=== PATIENT | female | born 1940 ===

== ENCOUNTER 2017-11-30 12:51 | Inpatient (IN) | payer MEDICARE, MEDICAID, OTHER ==
[2017-11-30 18:52] VITALS: BMI 33.9
[2017-11-30] MEDS ORDERED: Albuterol HFA 90 mcg/actuation (8 g) IH PRN ×2 (19:43→22:00)
--- NOTE | 2017-11-30 20:11 | CP.PCM.HP ---
<TrentJohnkiran - Last Filed: 11/30/17 22:22> History of Present Illness - History of Present Illness History of Present Illness: 76 y/o female with PMHx CHF, DM, arthritis, asthma, pacemaker placement (recently replaced in Dec 2014), hx SD s/p 4 stents (most recent placed at [place] in 2010), triple vessel disease, colonic polyps, depression, HTN, HLD, hypothyroidism, and s/p thoracentesis and Cardiac cath 11/2017 admitted to [facility] for rehabilitation. Patient reports double vision which started s/p cardiac cath, patient states she had a fall 2 days ago at [facility] and her lower back is hurting since. Patient currently denies any chest pain, SOB, dizziness, palpitations, abdominal pain, or urinary symptoms. 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 Patient's daughter is at bedside. HOSPITAL COURSE: Patient was admitted to [facility] for 20 days for e valuation and treatment of SOB and chest pain. While admitted to the [facility], patient was found to have a CHF exacerbation. Patient was seen by Cardiology, Pulmonary, IR, and Opthalmology. Patient was diuresed and symptoms improved. Patient was also found to have a a pleural effusion while admitted. Patient subsequently underwent a thoracentesis to remove the fluid. Patient underwent a Cardiac cath by Dr. Petersen. [facility] was deemed medically ray [facility] Cardiac Cath done at [facility] with Dr. Petersen on 11/28, S/p Code Star 11/28 after returning from procedure - Patient had Cardiac cath showed tripple vessel disease and will need CABG. Patient was transferred to [facility] for rehabilitation before CABG arrangement to [place]. PMH: CHF, DM, arthritis, asthma, pacemaker placement (recently replaced in Dec 2014), hx SD s/p 4 stents (most recent placed at [place] in 2010), triple vessel disease, colonic polyps, depression, HTN, HLD, hypothyroidism, and s/p thoracentesis and Cardiac cath 11/2017 PSH: Cardiac stents x4 (most recent in 2010), pacemaker placement (replaced in Dec 2014), cholecystectomy Allergies: NKDA Home meds: Ranexa 500 mg PO bid, Omeprazole 40 mg PO daily, Advair Diskus 250/50 1 puff IH q12h, Ventolin HFA inhaler prn, Lyrica 50 mg PO tid, Lexapro 20 mg PO daily, Lantus 60 U at bedtime FH: denies any stroke, SD or any cancers SH: Denies smoking, EtOH, or illicit drug use EMERGENCY CONTACT # Ms. 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 [facility] - CXR 11/26/17 demonstrated poor inspiration with low lung volumes, crowded bronchovascular markings and b/l atelectasis; additionally, pulmonary vasculature slightly increased, findings could represent mild chronic compensated pulmonary edema/CHF, small b/l effusions R larger than L - Chest CT angio: 11/17/17 limited study demonstrating no definitive central pulmonary emboli however note that the distal subsegmental branches of the lower lobe pulmonary arteries are poorly delineated due to moderate b/l R and slightly smaller L-sided effusions with associated atelectasis; vague ground-glass opacities throughout the upper lobes and lower lobes possible representing mild pulmonary edema, cardiomegaly. - Venous LE dopplers-negative - Echo 11/17/17 demonstrated EF 30-35%, L ventricle systolic function moderately to severely impaired, diastolic dysfunction, mild aortic regurgitation, mild mitral regurgitation, moderate tricuspid regurgitation, mod-severe pulm HTN, mild-mod pulmonic regurgitation, atypical echoes c/w trabeculae, can't r/o assoc. thrombi Present on Admission - Present on Admission Any Indicators Present on Admission: No History of DVT/PE: No Past Patient History - Tetanus Immunizations Tetanus Immunization: Up to Date - Past Medical History & Family History Past Medical History?: Yes - Past Social History Smoking Status: Never Smoked - CARDIAC Hx Hypercholesterolemia: Yes Hx Hypertension: Yes - PULMONARY Hx Asthma: Yes - NEUROLOGICAL Hx Neurological Disorder: No - HEENT Hx HEENT Problems: No - RENAL Hx Chronic Kidney Disease: No - ENDOCRINE/METABOLIC Hx Hypothyroidism: Yes - HEMATOLOGICAL/ONCOLOGICAL Hx Blood Transfusions: No - INTEGUMENTARY Hx Dermatological Problems: No - MUSCULOSKELETAL/RHEUMATOLOGICAL Hx Arthritis: Yes - GASTROINTESTINAL Hx Ulcer: Yes - GENITOURINARY/GYNECOLOGICAL Hx Genitourinary Disorders: No - PSYCHIATRIC Hx Depression: Yes Hx Substance Use: No - SURGICAL HISTORY Hx Coronary Stent: Yes (x4) Hx Tubal Ligation: Yes - ANESTHESIA Hx Anesthesia: Yes Hx Anesthesia Reactions: No Hx Malignant Hyperthermia: No Meds Allergies/Adverse Reactions: Allergies Allergy/AdvReac Type Severity Reaction Status Date / Time No Known Allergies Allergy Verified 11/30/17 18:52 Physical Exam - Constitutional Appears: No Acute Distress - Head Exam Head Exam: NORMAL INSPECTION, NORMOCEPHALIC - Eye Exam Eye Exam: EOMI, Normal appearance, PERRL Pupil Exam: NORMAL ACCOMODATION - ENT Exam ENT Exam: Mucous Membranes Moist - Neck Exam Neck exam: Positive for: Normal Inspection - Respiratory Exam Respiratory Exam: Clear to Auscultation Bilateral, NORMAL BREATHING PATTERN. absent: Accessory Muscle Use, Chest Wall Tenderness, Respiratory Distress - Cardiovascular Exam Cardiovascular Exam: REGULAR RHYTHM, +S1, +S2 - GI/Abdominal Exam GI & Abdominal Exam: Normal Bowel Sounds, Soft. absent: Tenderness - Extremities Exam Extremities exam: Positive for: normal capillary refill, normal inspection, pedal pulses present. Negative for: tenderness - Back Exam Back exam: absent: CVA tenderness (L), CVA tenderness (R) - Neurological Exam Neurological exam: Alert, CN II-XII Intact, Oriented x3 - Psychiatric Exam Psychiatric exam: Normal Affect - Skin Skin Exam: Normal Color Assessment & Plan - Assessment and Plan (Free Text) Assessment: A/P: 76 y/o female with PMHx CHF, DM, arthritis, asthma, pacemaker placement (recently replaced in Dec 2014), hx SD s/p 4 stents (most recent placed at [place] in 2010), triple vessel disease, colonic polyps, depression, HTN, HLD, hypothyroidism, and s/p thoracentesis and Cardiac cath 11/2017 admitted to [facility] for rehabilitation. Patient was d/c from [facility] after 20 days, Patient had Cardiac cath showed tripple vessel disease and will need CABG. Patient was transferred to [facility] for rehabilitation before CABG arrangement to [place]. [id number] CHF exacerbation -Cardiac Cath done at [facility] with Dr. Petersen on 11/28, S/p Code Star 11/28 after returning from procedure -Consult Cardio, Dr. PETERSEN, follow recommendations -C/w ASA 81 mg daily -C/w Lasix 40 mg IVP BID -C/w Ranexa 500 mg PO bid -Strict I/O's, monitor diuresis and clinical status -Possible CABG, will follow Dr. Petersen recommendations S/p fall (11/28) at the [facility] - Head CT: No acute changes, - Lumbar XR: No acute changes - Lidoderm Patch for back pain Swelling to the left eyelid with Double vision - Symptoms started S/p cardiac cath - Consider Optho consult Pleural Effusion - s/p thoracentesis of 400 cc, Pending pleural albumin - CXR s/p thoracentesis showed no interval change in R moderate pleural effusion and cardiomegaly - Consider Pulmonary consult Constipation - Improved - On colace 100 bid - Continue to monitor bowel function Hx HTN - BP stable, c/w metoprolol and lasix Hx DM2 - Insulin sliding scale - medium - Fingersticks achs - Lantus 60 U at bedtime - Lyrica 50 mg PO tid Hx depression - C/w lexapro daily Hx asthma - C/w Advair Diskus 250/50 q12h - Ventolin HFA prn GI ppx: Protonix daily DVT ppx: SCDs, Lovenox 30 daily (renally dosed due to Cr clearance) <Yahir Saab D - Last Filed: 12/01/17 11:18> Results - Vital Signs Recent Vital Signs: Last Vital Signs Temp 98.2 F 12/01/17 08:13 Pulse 70 12/01/17 08:38 Resp 20 12/01/17 08:13 BP 133/72 12/01/17 08:38 Pulse Ox 98 12/01/17 08:13 - Labs Result Diagrams: 12/01/17 07:00 12/01/17 07:00 Labs: Laboratory Results - last 24 hr 11/30/17 12/01/17 12/01/17 21:15 07:00 07:00 WBC 5.9 RBC 3.59 L Hgb 10.6 L Hct 30.7 L MCV 85.4 MCH 29.4 MCHC 34.4 RDW 15.2 H Plt Count 225 D MPV 8.3 Neut % (Auto) 67.2 Lymph % (Auto) 17.1 L [place] % (Auto) 8.4 Eos % (Auto) 6.2 H Baso % (Auto) 1.1 Neut # (Auto) 4.0 Lymph # (Auto) 1.0 [place] # (Auto) 0.5 Eos # (Auto) 0.4 Baso # (Auto) 0.1 Sodium 133 Potassium 4.1 Chloride 95 L Carbon Dioxide 32 H Anion Gap 10 BUN 12 Creatinine 1.1 Est GFR ( Amer) 58 Est GFR (Non-Af Amer) 48 POC Glucose (mg/dL) 284 H Random Glucose 194 H Calcium 9.3 Total Bilirubin 0.4 AST 23 ALT 29 Alkaline Phosphatase 36 L D Total Protein 6.4 Albumin 3.6 Globulin 2.8 Albumin/Globulin Ratio 1.3 12/01/17 10:49 WBC RBC Hgb Hct MCV MCH MCHC RDW Plt Count MPV Neut % (Auto) Lymph % (Auto) [place] % (Auto) Eos % (Auto) Baso % (Auto) Neut # (Auto) Lymph # (Auto) [place] # (Auto) Eos # (Auto) Baso # (Auto) Sodium Potassium Chloride Carbon Dioxide Anion Gap BUN Creatinine Est GFR ( Amer) Est GFR (Non-Af Amer) POC Glucose (mg/dL) 324 H Random Glucose Calcium Total Bilirubin AST ALT Alkaline Phosphatase Total Protein Albumin Globulin Albumin/Globulin Ratio Attending/Attestation - Attestation I have personally seen and examined this patient.: Yes I have fully participated in the care of the patient.: Yes I have reviewed all pertinent clinical information: Yes Notes (Text): 12/01/17 11:18 Patient was seen and examined with resident. Case discussed and agreed with assessment and plan of management.
[2017-11-30] MEDS ORDERED: Dextrose 50% SYRINGE Inj (50 ml) IV PRN (20:15)
[2017-11-30] MEDS ORDERED: Glucagon Recombinant 1 mg Inj IM PRN (20:15)
[2017-11-30] MEDS ORDERED: Insulin Detemir 100 Units/ml Inj SC SCH ×2 (22:00)
[2017-11-30] MEDS: Lidocaine 5% Patch TD SCH (22:38)
[2017-12-01] MEDS: Levothyroxine 125 MCG TAB PO SCH (06:17)
[2017-12-01 08:04] LABS: BASO # 0.1 K/uL (0.0-0.2); BASO % 1.1 % (0.0-2.0); EOS # 0.4 K/uL (0.0-0.7); EOS % 6.2 % (0.0-4.0); HEMOGLOBIN 10.6 g/dL (12.0-16.0); LYMPH % 17.1 % (20.0-40.0); MEAN CELL VOLUME 85.4 fl (81.0-99.0); MEAN CORPUSCULAR HEMOGLOBIN 29.4 pg (27.0-31.0); MEAN CORPUSCULAR HGB CONC 34.4 g/dL (33.0-37.0); MEAN PLATELET VOLUME 8.3 fl (7.2-11.7); MONO # 0.5 K/uL (0.0-0.8); MONO % 8.4 % (0.0-10.0); NEUT % 67.2 % (50.0-75.0); RBC 3.59 Mil/uL (3.80-5.20); RED CELL DISTRIBUTION WIDTH 15.2 % (11.5-14.5); WHITE BLOOD COUNT 5.9 K/uL (4.8-10.8)
[2017-12-01 08:17] LABS: ALB/GLOB RATIO 1.3 (1.0-2.1); ALBUMIN 3.6 g/dL (3.5-5.0); CALCIUM 9.3 mg/dL (8.4-10.2)
[2017-12-01] MEDS: Fluticasone-Salmeterol 100-50mcg Diskus INH SCH ×2 (08:35→21:07)
[2017-12-01] MEDS: Lidocaine 5% Patch TD SCH (08:37)
[2017-12-01] MEDS: Enoxaparin 30 mg Syringe SC SCH (08:37)
[2017-12-01] MEDS: Pantoprazole 40 mg EC Tab PO SCH (08:37)
[2017-12-01] MEDS: Ranolazine 500 mg Extended Release Tablets PO SCH ×2 (08:38→17:38)
[2017-12-01] MEDS: Metoprolol Succinate 25 mg XL Tab PO SCH (08:38)
[2017-12-01] MEDS ORDERED: Dextrose 50% SYRINGE Inj (50 ml) IV PRN (12:18)
[2017-12-01] MEDS ORDERED: Dextrose 50% SYRINGE Inj (50 ml) IVP PRN (12:18)
[2017-12-01] MEDS ORDERED: Glucagon Recombinant 1 mg Inj IM PRN (12:18)
[2017-12-01] MEDS: Insulin Regular 100 units/ml SC SCH ×3 (13:04→21:56)
[2017-12-01] MEDS ORDERED: Lubricant Eye Drops UD OS PRN (17:14)
[2017-12-02] MEDS: Levothyroxine 125 MCG TAB PO SCH (06:12)
[2017-12-02] MEDS: Insulin Regular 100 units/ml SC SCH ×4 (06:53→22:13)
[2017-12-02] MEDS: Fluticasone-Salmeterol 100-50mcg Diskus INH SCH ×2 (07:59→21:30)
[2017-12-02] MEDS: Lidocaine 5% Patch TD SCH (08:01)
[2017-12-02] MEDS: Enoxaparin 30 mg Syringe SC SCH (08:01)
[2017-12-02] MEDS: Metoprolol Succinate 25 mg XL Tab PO SCH (08:02)
[2017-12-02] MEDS: Ranolazine 500 mg Extended Release Tablets PO SCH ×2 (08:02→17:04)
[2017-12-02] MEDS: Pantoprazole 40 mg EC Tab PO SCH (08:02)
[2017-12-02 09:30] LABS: BASO # 0.1 K/uL (0.0-0.2); BASO % 1.4 % (0.0-2.0); EOS # 0.3 K/uL (0.0-0.7); EOS % 4.4 % (0.0-4.0); HEMOGLOBIN 11.4 g/dL (12.0-16.0); LYMPH # 0.9 K/uL (1.0-4.3); LYMPH % 13.8 % (20.0-40.0); MEAN CELL VOLUME 85.7 fl (81.0-99.0); MEAN CORPUSCULAR HEMOGLOBIN 29.9 pg (27.0-31.0); MEAN CORPUSCULAR HGB CONC 34.8 g/dL (33.0-37.0); MEAN PLATELET VOLUME 8.3 fl (7.2-11.7); MONO # 0.5 K/uL (0.0-0.8); MONO % 7.4 % (0.0-10.0); NEUT # 4.5 K/uL (1.8-7.0); NRBC % 0.1 % (0.0-0.0); RBC 3.82 Mil/uL (3.80-5.20); RED CELL DISTRIBUTION WIDTH 15.4 % (11.5-14.5); WHITE BLOOD COUNT 6.2 K/uL (4.8-10.8)
[2017-12-02 09:51] LABS: ALB/GLOB RATIO 1.3 (1.0-2.1); CALCIUM 9.3 mg/dL (8.4-10.2)
--- NOTE | 2017-12-02 09:53 | CP.PCM.PN ---
Addendum entered and electronically signed by Minoo Marley MD 12/02/17 18:07: Patient was seen and examined bedside . Chart reviewed . Case discussed with resident.Agree with assessment and plan 76 y/o female with PMH HTN , DM , Depression was admitted to [facility] with chest nelson and recent fall .She was diagnosed with triple vessel disease and CABG was recommended . As per her bone drier operator Dr. Petersen transfer to [facility] for CABG is being arranged . She is transferred currently to TCU for light physical therapy for ADL-s At present stable, with some reproducible left sided chest pain Complains of double vision bilaterally since after cardiac cath Continue Current management Plan to D/c to [place] for CABG Original Note: Subjective - Date & Time of Evaluation Date of Evaluation: 12/02/17 Time of Evaluation: 09:01 - Subjective Subjective: Interpretation services-[id number] Patient was seen and examined this AM sitting upright in chair. Patient complained of chest pain, and left hip pain, which she stated was unchanged from previous pain experienced while at [facility]. She denied any fever, chills, or difficulty breathing. Objective - Vital Signs/Intake and Output Vital Signs (last 24 hours): Temp Pulse Resp BP Pulse Ox 98.1 F 70 20 121/80 100 12/02/17 07:52 12/02/17 08:02 12/02/17 07:52 12/02/17 08:02 12/02/17 07:52 - Medications Medications: Current Medications Albuterol (Ventolin Hfa 90 Mcg/Actuation (8 G)) 1 puff IH Q6 PRN PRN Reason: Shortness of Breath Artificial Tears (Refresh Opth Soln) 0.3 ml OS PRN PRN PRN Reason: Dry eyes Aspirin (Aspirin Chewable) 81 mg PO DAILY [facility] Last Admin: 12/02/17 08:02 Dose: 81 mg Atorvastatin Calcium (Lipitor) 20 mg PO HS [facility] Last Admin: 12/01/17 21:06 Dose: 20 mg Clopidogrel Bisulfate (Plavix) 75 mg PO DAILY [facility] Dextrose (Dextrose 50% Inj) 0 ml IV STAT PRN; Protocol PRN Reason: Hypoglycemia Protocol Dextrose (Glutose 15) 0 gm PO ONCE PRN; Protocol PRN Reason: Hypoglycemia Protocol Dextrose (Dextrose 50% Inj) 0 ml IV STAT PRN; Protocol PRN Reason: Hypoglycemia Protocol Dextrose (Dextrose 50% Inj) 50 ml IVP ONCE PRN PRN Reason: Hypoglycemia Dextrose (Glutose 15) 0 gm PO ONCE PRN; Protocol PRN Reason: Hypoglycemia Protocol Docusate Sodium (Colace) 100 mg PO TID [facility] Last Admin: 12/02/17 08:01 Dose: 100 mg Enoxaparin Sodium (Lovenox) 30 mg SC DAILY [facility]; Protocol Last Admin: 12/02/17 08:01 Dose: 30 mg Escitalopram Oxalate (Lexapro) 20 mg PO DAILY [facility] Last Admin: 12/02/17 08:03 Dose: 20 mg Furosemide (Lasix) 40 mg IV BID [facility] Last Admin: 12/02/17 08:00 Dose: 40 mg Glucagon (Glucagen Diagnostic Kit) 0 mg IM STAT PRN; Protocol PRN Reason: Hypoglycemia Protocol Glucagon (Glucagen Diagnostic Kit) 0 mg IM STAT PRN; Protocol PRN Reason: Hypoglycemia Protocol Insulin Human Regular (Humulin R) 0 units SC ACHS [facility]; Protocol Last Admin: 12/02/17 06:53 Dose: 3 units Levothyroxine Sodium (Synthroid) 125 mcg PO DAILY@0630 [facility] Last Admin: 12/02/17 06:12 Dose: 125 mcg Lidocaine (Lidoderm) 1 ea TD DAILY [facility] Last Admin: 12/02/17 08:01 Dose: 1 ea Metoprolol Succinate (Toprol Xl) 25 mg PO DAILY [facility] Last Admin: 12/02/17 08:02 Dose: 25 mg Pantoprazole Sodium (Protonix Ec Tab) 40 mg PO DAILY [facility] Last Admin: 12/02/17 08:02 Dose: 40 mg Pregabalin (Lyrica) 50 mg PO TID [facility] Last Admin: 12/02/17 08:06 Dose: 50 mg Ranolazine (Ranexa) 500 mg PO BID [facility] Last Admin: 12/02/17 08:02 Dose: 500 mg Fluticasone/Salmeterol (Advair Diskus 100/50) 1 puff INH Q12 [facility] Last Admin: 12/02/17 07:59 Dose: 1 puff - Labs Labs: 12/02/17 09:00 12/02/17 09:00 - Head Exam Head Exam: ATRAUMATIC - Neck Exam Neck Exam: Full ROM - Respiratory Exam Respiratory Exam: Clear to Ausculation Bilateral - Cardiovascular Exam Cardiovascular Exam: REGULAR RHYTHM, +S1, +S2 - GI/Abdominal Exam GI & Abdominal Exam: Soft, Normal Bowel Sounds. absent: Guarding, Rigid, Tenderness - Extremities Exam Extremities Exam: absent: Calf Tenderness - Neurological Exam Neurological Exam: Alert, Awake, Oriented x3 - Psychiatric Exam Psychiatric exam: Normal Mood - Skin Skin Exam: Dry, Intact Assessment and Plan - Assessment and Plan (Free Text) Assessment: 76 y/o female with PMHx CHF, DM, arthritis, asthma, pacemaker placement (recent ly replaced in Dec 2014), hx NV s/p 4 stents (most recent placed at [place] in 2010), triple vessel disease, colonic polyps, depression, HTN, HLD, hypothyroidism, and s/p thoracentesis and Cardiac cath 11/2017 admitted to [facility]TCU for rehabilitation. Patient was discharged from [facility] & transferred to [facility] TCU after cardiac cath showed triple vessel disease. Patient was transferred to this facility for rehabilitation before CABG, which will be done at [place]. 1. [id number] CHF exacerbation -Dr. Petersen recommendations appreciated. Patient will be transferred to [place] for CABG as soon as bed is available. -Cardiac Cath done at [facility] with Dr. Petersen on 11/28 -Continue ASA 81 mg daily -Continue Lasix 40 mg IVP BID -Continue Ranexa 500 mg PO bid -Continue to monitor I/O's. 2. S/p fall (11/28) at the [facility] (Acute) -In TCU for rehabilitation. Continue functional exercise, which include ADL, transfer & hygiene. -Patient s/p Code Star at [facility] 11/28 after returning from procedure -Head CT: No acute changes -Lumbar XR: No acute changes -Continue Lidoderm Patch for back pain. -Tylenol added PRN for pain. 3. Swelling to the left eyelid with Double vision (Acute) - Symptoms started S/p cardiac cath - Consider Optho consult. 3. Pleural Effusion - s/p thoracentesis of 400 cc, Pending pleural albumin - CXR s/p thoracentesis showed no interval change in R moderate pleural effusion and cardiomegaly - Consider Pulmonary consult. 4. Constipation - Improved - Continue colace 100 bid - Continue to monitor bowel function 5. Hx HTN - BP stable - Continue metoprolol and lasix. 6. Hx DM2 - Insulin sliding scale - medium - Fingersticks achs - Continue Lantus 60 U at bedtime - Continue Lyrica 50 mg PO tid 7. Hx depression - Continue lexapro daily 8. Hx asthma - Continue Advair Diskus 250/50 q12h - Continue Ventolin HFA prn 9. GI ppx: -Continue protonix daily 10. DVT ppx: -Continue SCDs, Lovenox 30 daily (renally dosed due to Cr clearance)
--- NOTE | 2017-12-02 15:16 | CARD ---
APPROVED REPORT Date of service: 12/02/2017 EKG Measurement Heart [id number] <Conclusion> Atrial-sensed ventricular-paced rhythm Abnormal ECG
[2017-12-03] MEDS: Levothyroxine 125 MCG TAB PO SCH (06:08)
[2017-12-03] MEDS: Insulin Regular 100 units/ml SC SCH ×4 (07:02→22:02)
[2017-12-03] MEDS: Fluticasone-Salmeterol 100-50mcg Diskus INH SCH ×2 (08:30→22:00)
[2017-12-03] MEDS: Lidocaine 5% Patch TD SCH (08:32)
[2017-12-03] MEDS: Enoxaparin 30 mg Syringe SC SCH (08:32)
[2017-12-03] MEDS: Ranolazine 500 mg Extended Release Tablets PO SCH ×2 (08:33→16:35)
[2017-12-03] MEDS: Metoprolol Succinate 25 mg XL Tab PO SCH (08:33)
[2017-12-03] MEDS: Pantoprazole 40 mg EC Tab PO SCH (08:37)
--- NOTE | 2017-12-03 10:10 | CP.PCM.PN ---
Addendum entered and electronically signed by Donell Cornejo MD 12/05/17 01:00: Patient seen and examined with residents case discussed awaiting transfer for CABG left eye improving see plan discussed and documented below Original Note: Subjective - Date & Time of Evaluation Date of Evaluation: 12/03/17 Time of Evaluation: 10:10 - Subjective Subjective: Pt is a 76 y/o female with PMHx CHF, DM, arthritis, asthma, pacemaker placement (01/02), hx [place] s/p 4 stents ([place] in 2010), colonic polyps, depression, HTN, HLD, hypothyroidism, and s/p thoracentesis and Cardiac cath showing triple vessel disease on 11/2017 admitted to [facility]/TCU for rehabilitation prior to CABG at [place]. Patient reports B/L double vision and L eye lid ptosis which started s/p cardiac cath, patient states she had a fall 2 days ago at [place] and her lower back is hurting since. Today patient reports mild SOB on 2L O2 NC, currently denies any chest pain, dizziness, nausea, vomiting, diarrhea, palpitations, abdominal pain, swelling, or urinary symptoms. Plan for CABG at [place]. Objective - Vital Signs/Intake and Output Vital Signs (last 24 hours): Temp Pulse Resp BP Pulse Ox 98.8 F 75 20 147/79 96 12/03/17 09:42 12/03/17 09:42 12/03/17 09:42 12/03/17 09:42 12/03/17 09:42 - Medications Medications: Current Medications Acetaminophen (Tylenol 325mg Tab) 650 mg PO Q6 PRN PRN Reason: Pain, Mild (1-3) Last Admin: 12/02/17 21:34 Dose: 650 mg Albuterol (Ventolin Hfa 90 Mcg/Actuation (8 G)) 1 puff IH Q6 PRN PRN Reason: Shortness of Breath Artificial Tears (Refresh Opth Soln) 0.3 ml OS PRN PRN PRN Reason: Dry eyes Aspirin (Aspirin Chewable) 81 mg PO DAILY [facility] Last Admin: 12/03/17 08:31 Dose: 81 mg Atorvastatin Calcium (Lipitor) 20 mg PO HS [facility] Last Admin: 12/02/17 21:30 Dose: 20 mg Clopidogrel Bisulfate (Plavix) 75 mg PO DAILY [facility] Last Admin: 12/03/17 08:33 Dose: 75 mg Dextrose (Dextrose 50% Inj) 0 ml IV STAT PRN; Protocol PRN Reason: Hypoglycemia Protocol Dextrose (Glutose 15) 0 gm PO ONCE PRN; Protocol PRN Reason: Hypoglycemia Protocol Dextrose (Dextrose 50% Inj) 0 ml IV STAT PRN; Protocol PRN Reason: Hypoglycemia Protocol Dextrose (Dextrose 50% Inj) 50 ml IVP ONCE PRN PRN Reason: Hypoglycemia Dextrose (Glutose 15) 0 gm PO ONCE PRN; Protocol PRN Reason: Hypoglycemia Protocol Docusate Sodium (Colace) 100 mg PO TID [facility] Last Admin: 12/03/17 08:31 Dose: 100 mg Enoxaparin Sodium (Lovenox) 30 mg SC DAILY [facility]; Protocol Last Admin: 12/03/17 08:32 Dose: 30 mg Escitalopram Oxalate (Lexapro) 20 mg PO DAILY [facility] Last Admin: 12/03/17 08:32 Dose: 20 mg Furosemide (Lasix) 40 mg IV BID [facility] Last Admin: 12/03/17 08:31 Dose: 40 mg Glucagon (Glucagen Diagnostic Kit) 0 mg IM STAT PRN; Protocol PRN Reason: Hypoglycemia Protocol Glucagon (Glucagen Diagnostic Kit) 0 mg IM STAT PRN; Protocol PRN Reason: Hypoglycemia Protocol Insulin Human Regular (Humulin R) 0 units SC ACHS [facility]; Protocol Last Admin: 12/03/17 07:02 Dose: 4 units Levothyroxine Sodium (Synthroid) 125 mcg PO DAILY@0630 [facility] Last Admin: 12/03/17 06:08 Dose: 125 mcg Lidocaine (Lidoderm) 1 ea TD DAILY [facility] Last Admin: 12/03/17 08:32 Dose: 1 ea Metoprolol Succinate (Toprol Xl) 25 mg PO DAILY [facility] Last Admin: 12/03/17 08:33 Dose: 25 mg Pantoprazole Sodium (Protonix Ec Tab) 40 mg PO DAILY [facility] Last Admin: 12/03/17 08:37 Dose: 40 mg Pregabalin (Lyrica) 50 mg PO TID [facility] Last Admin: 12/03/17 08:37 Dose: 50 mg Ranolazine (Ranexa) 500 mg PO BID [facility] Last Admin: 12/03/17 08:33 Dose: 500 mg Fluticasone/Salmeterol (Advair Diskus 100/50) 1 puff INH Q12 [facility] Last Admin: 12/03/17 08:30 Dose: 1 puff - Labs Labs: 12/02/17 09:00 12/02/17 09:00 - Constitutional Appears: Well, Non-toxic, No Acute Distress - Head Exam Head Exam: ATRAUMATIC, NORMAL INSPECTION, NORMOCEPHALIC - Eye Exam Eye Exam: EOMI, Periorbital swelling Additional comments: Left eyelid ptosis - ENT Exam ENT Exam: Mucous Membranes Moist - Respiratory Exam Respiratory Exam: Clear to Ausculation Bilateral, NORMAL BREATHING PATTERN - Cardiovascular Exam Cardiovascular Exam: RRR, +S1, +S2 - GI/Abdominal Exam GI & Abdominal Exam: Soft, Normal Bowel Sounds - Extremities Exam Extremities Exam: Normal Inspection - Neurological Exam Neurological Exam: Alert, Awake, Oriented x3 Assessment and Plan - Assessment and Plan (Free Text) Plan: Pt is a 76 y/o female with PMHx CHF, DM, arthritis, asthma, pacemaker placement (01/02), hx [place] s/p 4 stents ([facility] in 2010), colonic polyps, depression, HTN, HLD, hypothyroidism, and s/p thoracentesis and patient was transferred to [facility] TCU after cardiac cath showed triple vessel disease here for rehabilitation before CABG at [facility]. 1. Wbdbr-is-Hnujeai CHF exacerbation -Dr Petersen on consult-possible transfer today to [facility] for CABG -Cardiac Cath done at [facility] with Dr. Petersen on 11/28- showed triple vessel dz -Continue ASA 81 mg daily -Continue Lasix 40 mg IVP BID -Continue Ranexa 500 mg PO bid -Continue to monitor I/O's, Wt [id number] 2. S/p fall (11/28) at the [facility] (Acute) -In TCU for rehabilitation. Continue limited rehabilitation due to pt weakness -Head CT: No acute changes -Lumbar XR: No acute changes -Continue Lidoderm Patch for back pain. -Tylenol added PRN for pain. 3. Acute B/L Double Vision, L eye lid ptosis s/p cardiac cath - Symptoms started S/p cardiac cath -Pt reports she saw optho @ [facility], unsure of outcome due to language barrier 3. Pleural Effusion - s/p thoracentesis of 400 cc, Pending pleural albumin - CXR s/p thoracentesis showed no interval change in R moderate pleural effusion and cardiomegaly - Consider Pulmonary consult. 4. Constipation - Improved had a bowel movement overnight - Continue colace 100 bid - Continue to monitor bowel function 5. Hx HTN - BP stable 147/79 - Continue metoprolol and lasix. 6. Hx DM2 - Insulin sliding scale - medium - Fingersticks achs - Continue Lantus 60 U at bedtime - Continue Lyrica 50 mg PO tid 7. Hx depression - Continue lexapro daily 8. Hx asthma - Continue Advair Diskus 250/50 q12h - Continue Ventolin HFA prn 9. GI ppx: -Continue protonix daily 10. DVT ppx: -Continue SCDs, Lovenox 30 daily (renally dosed due to Cr clearance)
[2017-12-04] MEDS: Levothyroxine 125 MCG TAB PO SCH (06:09)
[2017-12-04] MEDS: Insulin Regular 100 units/ml SC SCH ×4 (06:36→22:05)
[2017-12-04] MEDS: Pantoprazole 40 mg EC Tab PO SCH (09:50)
[2017-12-04] MEDS: Fluticasone-Salmeterol 100-50mcg Diskus INH SCH ×2 (09:51→22:04)
[2017-12-04] MEDS: Ranolazine 500 mg Extended Release Tablets PO SCH ×2 (09:53→17:33)
[2017-12-04] MEDS: Lidocaine 5% Patch TD SCH (09:53)
[2017-12-04] MEDS: Enoxaparin 30 mg Syringe SC SCH (09:54)
[2017-12-04] MEDS: Metoprolol Succinate 25 mg XL Tab PO SCH (09:55)
--- NOTE | 2017-12-04 10:16 | CP.PCM.PN ---
Addendum entered and electronically signed by Donell Cornejo MD 12/05/17 01:04: Patient seen and examined with residents case and plan discussed and documented in resident note Original Note: Subjective - Date & Time of Evaluation Date of Evaluation: 12/04/17 Time of Evaluation: 11:16 - Subjective Subjective: Pt is a 76 y/o F with PMHx CHF, DM, arthritis, asthma, pacemaker placement (01/02), hx [place] s/p 4 stents ([facility] in 2010), colonic polyps, depression, HTN, HLD, hypothyroidism, and s/p thoracentesis and Cardiac cath showing triple vessel disease on 11/2017 admitted to [facility]/TCU for rehabilitation prior to CABG at [facility]. Patient reports B/L double vision and L eye lid ptosis which started s/p cardiac cath, patient states she had a fall 2 days ago at [place] and her lower back is hurting since. Today patient denies any chest pain, SOB, dizziness, nausea, vomiting, diarrhea, palpitations, abdominal pain, swelling, or urinary symptoms. Plan for CABG at [facility]. Objective - Vital Signs/Intake and Output Vital Signs (last 24 hours): Temp Pulse Resp BP Pulse Ox 98.2 F 70 20 135/62 97 12/04/17 08:14 12/04/17 09:55 12/04/17 08:14 12/04/17 09:56 12/04/17 08:14 - Medications Medications: Current Medications Acetaminophen (Tylenol 325mg Tab) 650 mg PO Q6 PRN PRN Reason: Pain, Mild (1-3) Last Admin: 12/03/17 22:04 Dose: 650 mg Albuterol (Ventolin Hfa 90 Mcg/Actuation (8 G)) 1 puff IH Q6 PRN PRN Reason: Shortness of Breath Artificial Tears (Refresh Opth Soln) 0.3 ml OS PRN PRN PRN Reason: Dry eyes Aspirin (Aspirin Chewable) 81 mg PO DAILY [facility] Last Admin: 12/04/17 09:56 Dose: 81 mg Atorvastatin Calcium (Lipitor) 20 mg PO HS [facility] Last Admin: 12/03/17 22:01 Dose: 20 mg Clopidogrel Bisulfate (Plavix) 75 mg PO DAILY [facility] Last Admin: 12/04/17 09:51 Dose: 75 mg Dextrose (Dextrose 50% Inj) 0 ml IV STAT PRN; Protocol PRN Reason: Hypoglycemia Protocol Dextrose (Glutose 15) 0 gm PO ONCE PRN; Protocol PRN Reason: Hypoglycemia Protocol Dextrose (Dextrose 50% Inj) 0 ml IV STAT PRN; Protocol PRN Reason: Hypoglycemia Protocol Dextrose (Dextrose 50% Inj) 50 ml IVP ONCE PRN PRN Reason: Hypoglycemia Dextrose (Glutose 15) 0 gm PO ONCE PRN; Protocol PRN Reason: Hypoglycemia Protocol Docusate Sodium (Colace) 100 mg PO TID [facility] Last Admin: 12/04/17 09:51 Dose: 100 mg Enoxaparin Sodium (Lovenox) 30 mg SC DAILY [facility]; Protocol Last Admin: 12/04/17 09:54 Dose: 30 mg Escitalopram Oxalate (Lexapro) 20 mg PO DAILY [facility] Last Admin: 12/04/17 09:56 Dose: 20 mg Furosemide (Lasix) 40 mg IV BID [facility] Last Admin: 12/04/17 09:56 Dose: 40 mg Glucagon (Glucagen Diagnostic Kit) 0 mg IM STAT PRN; Protocol PRN Reason: Hypoglycemia Protocol Glucagon (Glucagen Diagnostic Kit) 0 mg IM STAT PRN; Protocol PRN Reason: Hypoglycemia Protocol Insulin Human Regular (Humulin R) 0 units SC [facility]; Protocol Last Admin: 12/04/17 06:36 Dose: 4 units Levothyroxine Sodium (Synthroid) 125 mcg PO DAILY@0630 [facility] Last Admin: 12/04/17 06:09 Dose: 125 mcg Lidocaine (Lidoderm) 1 ea TD DAILY [facility] Last Admin: 12/04/17 09:53 Dose: 1 ea Metoprolol Succinate (Toprol Xl) 25 mg PO DAILY [facility] Last Admin: 12/04/17 09:55 Dose: 25 mg Pantoprazole Sodium (Protonix Ec Tab) 40 mg PO DAILY [facility] Last Admin: 12/04/17 09:50 Dose: 40 mg Pregabalin (Lyrica) 50 mg PO TID [facility] Last Admin: 12/04/17 09:59 Dose: 50 mg Ranolazine (Ranexa) 500 mg PO BID [facility] Last Admin: 12/04/17 09:53 Dose: 500 mg Fluticasone/Salmeterol (Advair Diskus 100/50) 1 puff INH Q12 [facility] Last Admin: 12/04/17 09:51 Dose: 1 puff - Labs Labs: 12/02/17 09:00 12/02/17 09:00 - Constitutional Appears: Well, Non-toxic, No Acute Distress - Head Exam Head Exam: ATRAUMATIC, NORMAL INSPECTION, NORMOCEPHALIC - Eye Exam Eye Exam: EOMI, PERRL Additional comments: L eyelid ptosis, peripheral vision intact - ENT Exam ENT Exam: Mucous Membranes Moist - Respiratory Exam Respiratory Exam: Clear to Ausculation Bilateral, NORMAL BREATHING PATTERN - Cardiovascular Exam Cardiovascular Exam: RRR, +S1, +S2 - GI/Abdominal Exam GI & Abdominal Exam: Soft, Normal Bowel Sounds - Extremities Exam Extremities Exam: Normal Inspection - Neurological Exam Neurological Exam: Alert, Awake, Oriented x3 Assessment and Plan - Assessment and Plan (Free Text) Assessment: Pt is a 76 y/o female with PMHx CHF, DM, arthritis, asthma, pacemaker placement (01/02), hx [place] s/p 4 stents ([facility] in 2010), colonic polyps, depression, HTN, HLD, hypothyroidism, and s/p thoracentesis and patient was transferred to [facility] TCU after cardiac cath showed triple vessel disease here for rehabilitation before CABG at [facility]. 1. [id number] CHF exacerbation -Dr Petersen on consult-possible transfer today to [facility] for CABG-waiting for bed -Cardiac Cath done at [facility] with Dr. Petersen on 11/28- showed triple vessel dz -Continue ASA 81 mg daily -Continue Lasix 40 mg IVP BID -Continue Ranexa 500 mg PO bid -Continue to monitor I/O's, Wt 196lbs 2. S/p fall (11/28) at the [facility] (Acute) -Ordered L hip Xray 4 view for constant hip pain F/u in AM -Tramadol 25mg PO Q6 PRN and Tylenol for pain -In TCU for rehabilitation. Continue limited rehabilitation due to pt weakness -Head CT: No acute changes -Lumbar XR: No acute changes -Continue Lidoderm Patch for back pain. 3. Acute B/L Double Vision, L eye lid ptosis s/p cardiac cath - Symptoms started S/p cardiac cath -Pt reports she saw [facility]tho @ [email or web address]], unsure of outcome due to language barrier 3. Pleural Effusion - s/p thoracentesis of 400 cc, Pending pleural albumin - CXR s/p thoracentesis showed no interval change in R moderate pleural effusion and cardiomegaly - Consider Pulmonary consult. 4. Constipation - Improved had a bowel movement overnight - Continue colace 100 bid - Continue to monitor bowel function 5. Hx HTN - BP stable 135/62 - Continue metoprolol and lasix. 6. Hx DM2 - Insulin sliding scale - medium - Fingersticks achs - Continue Humulin - Continue Lyrica 50 mg PO tid 7. Hx depression - Continue lexapro daily 8. Hx asthma - Continue Advair Diskus 250/50 q12h - Continue Ventolin HFA prn 9. GI ppx: -Continue protonix daily 10. DVT ppx: -Continue SCDs, Lovenox 30 daily (renally dosed due to Cr clearance)
--- NOTE | 2017-12-04 16:46 | RAD ---
Date of service: 12/04/2017 PROCEDURE: HISTORY: L hip pain s/p fall COMPARISON: 12/31/2014 TECHNIQUE: AP pelvis and frog's leg view. FINDINGS: No fracture dislocation appreciated. Limited evaluation of the sacrum-osteopenia and overlying bowel gas here. Bilateral hip arthrosis-progressive since prior exam. Atherosclerotic vascular calcifications present-each groin. IMPRESSION: No fracture or dislocation is suggested. Bilateral osteoarthrosis each hip. Atherosclerotic vascular disease.
--- NOTE | 2017-12-04 17:05 | CP.PCM.CON ---
History of Present Illness - History of Present Illness History of Present Illness: Consultation for evaluation of CHF / CAD and plan for CABG HPI: Daysi is a pleasant 76-year-old female who has been followed by me over the course of last 7 months with history of hypertension diabetes mellitus dyslipidemia CAD status post stenting done about 5 years ago who was recently admitted to [facility] for complains of acute decompensated heart failure he underwent a cardiac catheterization with FFR evaluation which showed significant left main and LAD disease and severe RCA stenosis. She is being planned for a minimally invasive CHAUDHARY to LAD at [facility] he will be seeing Dr. Carey is in the hospital tomorrow and will be admitted for possible revascularization this week. Clinically she was having intermittent bouts of chest pain is maintained on dual antiplatelet therapy along with beta-blockers. Blood pressure somewhat in the normotensive range. Mild lower extremity edema and mild basal crackles. Review of Systems - Review of Systems Systems not reviewed;Unavailable: Acuity of Condition - Constitutional Constitutional: As Per HPI - EENT Eyes: As Per HPI Ears: As Per HPI Nose/Mouth/Throat: As Per HPI - Breasts Breasts: As Per HPI - Cardiovascular Cardiovascular: As Per HPI - Respiratory Respiratory: As Per HPI - Gastrointestinal Gastrointestinal: As Per HPI - Genitourinary Genitourinary: As Per HPI - Reproductive: Female Reproductive:Female: As Per HPI - Menstruation Menstruation: As Per HPI - Musculoskeletal Musculoskeletal: As Per HPI - Integumentary Integumentary: As Per HPI - Neurological Neurological: As Per HPI - Psychiatric Psychiatric: As Per HPI - Endocrine Endocrine: As Per HPI - Hematologic/Lymphatic Hematologic: As Per HPI Past Patient History - Tetanus Immunizations Tetanus Immunization: Up to Date - Past Medical History & Family History Past Medical History?: Yes - Past Social History Smoking Status: Never Smoked - CARDIAC Hx Cardiac Disorders: Yes (triple vessel dz, cardiomegaly, PPM, PR w/ PTCA (2010),) Hx Hypercholesterolemia: Yes Hx Hypertension: Yes - PULMONARY Hx Asthma: Yes - NEUROLOGICAL Hx Neurological Disorder: No - HEENT Hx HEENT Problems: No - RENAL Hx Chronic Kidney Disease: No - ENDOCRINE/METABOLIC Hx Diabetes Mellitus Type 2: Yes Hx Hypothyroidism: Yes - HEMATOLOGICAL/ONCOLOGICAL Hx Blood Transfusions: No - INTEGUMENTARY Hx Dermatological Problems: No - MUSCULOSKELETAL/RHEUMATOLOGICAL Hx Arthritis: Yes - GASTROINTESTINAL Hx Ulcer: Yes - GENITOURINARY/GYNECOLOGICAL Hx Genitourinary Disorders: No - PSYCHIATRIC Hx Depression: Yes Hx Substance Use: No - SURGICAL HISTORY Hx Coronary Stent: Yes (x4) Hx Tubal Ligation: Yes - ANESTHESIA Hx Anesthesia: Yes Hx Anesthesia Reactions: No Hx Malignant Hyperthermia: No Meds Allergies/Adverse Reactions: Allergies Allergy/AdvReac Type Severity Reaction Status Date / Time No Known Allergies Allergy Verified 11/30/17 18:52 - Medications Medications: Current Medications Acetaminophen (Tylenol 325mg Tab) 650 mg PO Q6 PRN PRN Reason: Pain, Mild (1-3) Last Admin: 12/03/17 22:04 Dose: 650 mg Albuterol (Ventolin Hfa 90 Mcg/Actuation (8 G)) 1 puff IH Q6 PRN PRN Reason: Shortness of Breath Artificial Tears (Refresh Opth Soln) 0.3 ml OS PRN PRN PRN Reason: Dry eyes Aspirin (Aspirin Chewable) 81 mg PO DAILY [facility] Last Admin: 12/04/17 09:56 Dose: 81 mg Atorvastatin Calcium (Lipitor) 20 mg PO HS [facility] Last Admin: 12/03/17 22:01 Dose: 20 mg Clopidogrel Bisulfate (Plavix) 75 mg PO DAILY [facility] Last Admin: 12/04/17 09:51 Dose: 75 mg Dextrose (Dextrose 50% Inj) 0 ml IV STAT PRN; Protocol PRN Reason: Hypoglycemia Protocol Dextrose (Glutose 15) 0 gm PO ONCE PRN; Protocol PRN Reason: Hypoglycemia Protocol Dextrose (Dextrose 50% Inj) 0 ml IV STAT PRN; Protocol PRN Reason: Hypoglycemia Protocol Dextrose (Dextrose 50% Inj) 50 ml IVP ONCE PRN PRN Reason: Hypoglycemia Dextrose (Glutose 15) 0 gm PO ONCE PRN; Protocol PRN Reason: Hypoglycemia Protocol Docusate Sodium (Colace) 100 mg PO TID [facility] Last Admin: 12/04/17 13:15 Dose: 100 mg Enoxaparin Sodium (Lovenox) 30 mg SC DAILY [facility]; Protocol Last Admin: 12/04/17 09:54 Dose: 30 mg Escitalopram Oxalate (Lexapro) 20 mg PO DAILY [facility] Last Admin: 12/04/17 09:56 Dose: 20 mg Furosemide (Lasix) 40 mg IV DAILY [facility] Glucagon (Glucagen Diagnostic Kit) 0 mg IM STAT PRN; Protocol PRN Reason: Hypoglycemia Protocol Glucagon (Glucagen Diagnostic Kit) 0 mg IM STAT PRN; Protocol PRN Reason: Hypoglycemia Protocol Insulin Human Regular (Humulin R) 0 units SC ACHS [facility]; Protocol Last Admin: 12/04/17 16:36 Dose: 10 units Levothyroxine Sodium (Synthroid) 125 mcg PO DAILY@0630 [facility] Last Admin: 12/04/17 06:09 Dose: 125 mcg Lidocaine (Lidoderm) 1 ea TD DAILY [facility] Last Admin: 12/04/17 09:53 Dose: 1 ea Metoprolol Succinate (Toprol Xl) 25 mg PO DAILY [facility] Last Admin: 12/04/17 09:55 Dose: 25 mg Pantoprazole Sodium (Protonix Ec Tab) 40 mg PO DAILY [facility] Last Admin: 12/04/17 09:50 Dose: 40 mg Pregabalin (Lyrica) 50 mg PO TID [facility] Last Admin: 12/04/17 13:15 Dose: 50 mg Ranolazine (Ranexa) 500 mg PO BID [facility] Last Admin: 12/04/17 09:53 Dose: 500 mg Fluticasone/Salmeterol (Advair Diskus 100/50) 1 puff INH Q12 [facility] Last Admin: 12/04/17 09:51 Dose: 1 puff Tramadol HCl (Ultram) 25 mg PO Q6 PRN PRN Reason: Pain, severe (8-10) Physical Exam - Constitutional Appears: Well - Head Exam Head Exam: ATRAUMATIC, NORMAL INSPECTION, NORMOCEPHALIC - Eye Exam Eye Exam: EOMI, Normal appearance, PERRL Pupil Exam: NORMAL ACCOMODATION, PERRL - ENT Exam ENT Exam: Mucous Membranes Moist, Normal Exam - Neck Exam Neck exam: Positive for: Normal Inspection - Respiratory Exam Respiratory Exam: Clear to Auscultation Bilateral, NORMAL BREATHING PATTERN - Cardiovascular Exam Cardiovascular Exam: REGULAR RHYTHM, RRR, +S1, +S2, Systolic Murmur - GI/Abdominal Exam GI & Abdominal Exam: Normal Bowel Sounds, Soft. absent: Tenderness - Extremities Exam Extremities exam: Positive for: normal inspection - Back Exam Back exam: NORMAL INSPECTION - Neurological Exam Neurological exam: Alert, CN II-XII Intact, Oriented x3, Reflexes Normal - Psychiatric Exam Psychiatric exam: Normal Affect, Normal Mood - Skin Skin Exam: Dry, Intact, Normal Color, Warm Results - Vital Signs Recent Vital Signs: Last Vital Signs Temp 97.7 F 12/04/17 17:01 Pulse 78 12/04/17 17:01 Resp 20 12/04/17 17:01 BP 137/71 12/04/17 17:01 Pulse Ox 96 12/04/17 17:01 - Labs Result Diagrams: 12/02/17 09:00 12/02/17 09:00 Labs: Laboratory Results - last 24 hr 12/03/17 12/04/17 12/04/17 21:11 05:35 10:38 POC Glucose (mg/dL) 248 H 297 H 394 H 12/04/17 16:18 POC Glucose (mg/dL) 431 H* Assessment & Plan (1) CAD (coronary artery disease) Assessment and Plan: plan for CABG by ( pt reluctant for sternotomy and prefers MiDCAB ) cont DAPT BB statins Status: Chronic (2) CHF (congestive heart failure) Assessment and Plan: Ischemic CMP GDMT for CHF add acei Status: Acute (3) Pleural effusion Status: Acute (4) Diabetes Status: Chronic (5) Hypertension Status: Chronic
--- NOTE | 2017-12-04 17:14 | CP.PCM.PN ---
Subjective - Date & Time of Evaluation Date of Evaluation: 12/04/17 Time of Evaluation: 17:10 - Subjective Subjective: feeling fine c/o back pain Objective - Vital Signs/Intake and Output Vital Signs (last 24 hours): Temp Pulse Resp BP Pulse Ox 97.7 F 78 20 137/71 96 12/04/17 17:01 12/04/17 17:01 12/04/17 17:01 12/04/17 17:01 12/04/17 17:01 - Medications Medications: Current Medications Acetaminophen (Tylenol 325mg Tab) 650 mg PO Q6 PRN PRN Reason: Pain, Mild (1-3) Last Admin: 12/03/17 22:04 Dose: 650 mg Albuterol (Ventolin Hfa 90 Mcg/Actuation (8 G)) 1 puff IH Q6 PRN PRN Reason: Shortness of Breath Artificial Tears (Refresh Opth Soln) 0.3 ml OS PRN PRN PRN Reason: Dry eyes Aspirin (Aspirin Chewable) 81 mg PO DAILY [facility] Last Admin: 12/04/17 09:56 Dose: 81 mg Atorvastatin Calcium (Lipitor) 20 mg PO HS [facility] Last Admin: 12/03/17 22:01 Dose: 20 mg Clopidogrel Bisulfate (Plavix) 75 mg PO DAILY [facility] Last Admin: 12/04/17 09:51 Dose: 75 mg Dextrose (Dextrose 50% Inj) 0 ml IV STAT PRN; Protocol PRN Reason: Hypoglycemia Protocol Dextrose (Glutose 15) 0 gm PO ONCE PRN; Protocol PRN Reason: Hypoglycemia Protocol Dextrose (Dextrose 50% Inj) 0 ml IV STAT PRN; Protocol PRN Reason: Hypoglycemia Protocol Dextrose (Dextrose 50% Inj) 50 ml IVP ONCE PRN PRN Reason: Hypoglycemia Dextrose (Glutose 15) 0 gm PO ONCE PRN; Protocol PRN Reason: Hypoglycemia Protocol Docusate Sodium (Colace) 100 mg PO TID [facility] Last Admin: 12/04/17 13:15 Dose: 100 mg Enoxaparin Sodium (Lovenox) 30 mg SC DAILY [facility]; Protocol Last Admin: 12/04/17 09:54 Dose: 30 mg Escitalopram Oxalate (Lexapro) 20 mg PO DAILY [facility] Last Admin: 12/04/17 09:56 Dose: 20 mg Furosemide (Lasix) 40 mg IV DAILY [facility] Glucagon (Glucagen Diagnostic Kit) 0 mg IM STAT PRN; Protocol PRN Reason: Hypoglycemia Protocol Glucagon (Glucagen Diagnostic Kit) 0 mg IM STAT PRN; Protocol PRN Reason: Hypoglycemia Protocol Insulin Human Regular (Humulin R) 0 units SC ACHS [facility]; Protocol Last Admin: 12/04/17 16:36 Dose: 10 units Levothyroxine Sodium (Synthroid) 125 mcg PO DAILY@0630 [facility] Last Admin: 12/04/17 06:09 Dose: 125 mcg Lidocaine (Lidoderm) 1 ea TD DAILY [facility] Last Admin: 12/04/17 09:53 Dose: 1 ea Metoprolol Succinate (Toprol Xl) 25 mg PO DAILY [facility] Last Admin: 12/04/17 09:55 Dose: 25 mg Pantoprazole Sodium (Protonix Ec Tab) 40 mg PO DAILY [facility] Last Admin: 12/04/17 09:50 Dose: 40 mg Pregabalin (Lyrica) 50 mg PO TID [facility] Last Admin: 12/04/17 13:15 Dose: 50 mg Ranolazine (Ranexa) 500 mg PO BID [facility] Last Admin: 12/04/17 09:53 Dose: 500 mg Fluticasone/Salmeterol (Advair Diskus 100/50) 1 puff INH Q12 [facility] Last Admin: 12/04/17 09:51 Dose: 1 puff Tramadol HCl (Ultram) 25 mg PO Q6 PRN PRN Reason: Pain, severe (8-10) - Labs Labs: 12/02/17 09:00 12/02/17 09:00 - Constitutional Appears: Well - Head Exam Head Exam: ATRAUMATIC, NORMAL INSPECTION, NORMOCEPHALIC - Eye Exam Eye Exam: EOMI, Normal appearance, PERRL Pupil Exam: NORMAL ACCOMODATION, PERRL - ENT Exam ENT Exam: Mucous Membranes Moist, Normal Exam - Neck Exam Neck Exam: Full ROM, Normal Inspection. absent: Lymphadenopathy - Respiratory Exam Respiratory Exam: Clear to Ausculation Bilateral, NORMAL BREATHING PATTERN - Cardiovascular Exam Cardiovascular Exam: REGULAR RHYTHM, +S1, +S2. absent: Murmur - GI/Abdominal Exam GI & Abdominal Exam: Soft, Normal Bowel Sounds. absent: Tenderness - Extremities Exam Extremities Exam: Full ROM, Normal Capillary Refill, Normal Inspection. absent: Joint Swelling, Pedal Edema - Back Exam Back Exam: NORMAL INSPECTION - Neurological Exam Neurological Exam: Alert, Awake, CN II-XII Intact, Oriented x3 - Psychiatric Exam Psychiatric exam: Normal Affect, Normal Mood - Skin Skin Exam: Dry, Intact, Normal Color, Warm Assessment and Plan (1) CAD (coronary artery disease) Assessment & Plan: plan for CABG evaluation to be seen by arranging for appt tomorrow cont dapt cont bb , statins Status: Chronic (2) CHF (congestive heart failure) Assessment & Plan: add acei Status: Acute (3) Pleural effusion Status: Acute (4) Diabetes Status: Chronic (5) Hypertension Status: Chronic
[2017-12-05] MEDS: Levothyroxine 125 MCG TAB PO SCH (06:38)
[2017-12-05] MEDS: Insulin Regular 100 units/ml SC SCH ×4 (06:56→22:32)
[2017-12-05 07:13] LABS: BASO # 0.1 K/uL (0.0-0.2); BASO % 0.9 % (0.0-2.0); EOS # 0.3 K/uL (0.0-0.7); EOS % 5.9 % (0.0-4.0); HEMOGLOBIN 10.1 g/dL (12.0-16.0); LYMPH % 17.6 % (20.0-40.0); MEAN CELL VOLUME 85.8 fl (81.0-99.0); MEAN CORPUSCULAR HEMOGLOBIN 29.4 pg (27.0-31.0); MEAN CORPUSCULAR HGB CONC 34.2 g/dL (33.0-37.0); MEAN PLATELET VOLUME 8.2 fl (7.2-11.7); MONO # 0.7 K/uL (0.0-0.8); MONO % 12.4 % (0.0-10.0); NEUT # 3.6 K/uL (1.8-7.0); NEUT % 63.2 % (50.0-75.0); RBC 3.43 Mil/uL (3.80-5.20); WHITE BLOOD COUNT 5.7 K/uL (4.8-10.8)
[2017-12-05 07:18] LABS: CALCIUM 9.2 mg/dL (8.4-10.2)
[2017-12-05] MEDS: Lidocaine 5% Patch TD SCH (09:21)
[2017-12-05] MEDS: Fluticasone-Salmeterol 100-50mcg Diskus INH SCH ×2 (09:21→22:31)
[2017-12-05] MEDS: Enoxaparin 30 mg Syringe SC SCH (09:22)
[2017-12-05] MEDS: Ranolazine 500 mg Extended Release Tablets PO SCH ×2 (09:23→17:14)
[2017-12-05] MEDS: Pantoprazole 40 mg EC Tab PO SCH (09:25)
[2017-12-05] MEDS: Metoprolol Succinate 25 mg XL Tab PO SCH (09:31)
--- NOTE | 2017-12-05 09:56 | CP.PCM.PN ---
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 Patient still reports B/L double vision and L eye lid ptosis which started s/p cardiac cath today her vision has improved slightly, patient's left sided LBP has improved as well after the tramadol. Patient feels better than yesterday has some mild constipation, was able to complete PT, denies any chest pain, SOB, dizziness, nausea, vomiting, diarrhea, palpitations, abdominal pain, swelling, or urinary symptoms. Plan for CABG at [place] trying for appt today or tomorrow. Objective - Vital Signs/Intake and Output Vital Signs (last 24 hours): Temp Pulse Resp BP Pulse Ox 98.1 F 69 20 137/64 99 12/05/17 08:06 12/05/17 09:31 12/05/17 08:06 12/05/17 09:31 12/05/17 08:06 - Medications Medications: Current Medications Acetaminophen (Tylenol 325mg Tab) 650 mg PO Q6 PRN PRN Reason: Pain, Mild (1-3) Last Admin: 12/03/17 22:04 Dose: 650 mg Albuterol (Ventolin Hfa 90 Mcg/Actuation (8 G)) 1 puff IH Q6 PRN PRN Reason: Shortness of Breath Artificial Tears (Refresh Opth Soln) 0.3 ml OS PRN PRN PRN Reason: Dry eyes Aspirin (Aspirin Chewable) 81 mg PO DAILY [facility] Last Admin: 12/05/17 09:28 Dose: 81 mg Atorvastatin Calcium (Lipitor) 20 mg PO HS [facility] Last Admin: 12/04/17 21:59 Dose: 20 mg Clopidogrel Bisulfate (Plavix) 75 mg PO DAILY [facility] Last Admin: 12/05/17 09:24 Dose: 75 mg Dextrose (Dextrose 50% Inj) 0 ml IV STAT PRN; Protocol PRN Reason: Hypoglycemia Protocol Dextrose (Glutose 15) 0 gm PO ONCE PRN; Protocol PRN Reason: Hypoglycemia Protocol Dextrose (Dextrose 50% Inj) 0 ml IV STAT PRN; Protocol PRN Reason: Hypoglycemia Protocol Dextrose (Dextrose 50% Inj) 50 ml IVP ONCE PRN PRN Reason: Hypoglycemia Dextrose (Glutose 15) 0 gm PO ONCE PRN; Protocol PRN Reason: Hypoglycemia Protocol Docusate Sodium (Colace) 100 mg PO TID [facility] Last Admin: 12/05/17 09:24 Dose: 100 mg Enoxaparin Sodium (Lovenox) 30 mg SC DAILY [facility]; Protocol Last Admin: 12/05/17 09:22 Dose: 30 mg Escitalopram Oxalate (Lexapro) 20 mg PO DAILY [facility] Last Admin: 12/05/17 09:24 Dose: 20 mg Furosemide (Lasix) 40 mg IV DAILY [facility] Last Admin: 12/05/17 09:25 Dose: 40 mg Glucagon (Glucagen Diagnostic Kit) 0 mg IM STAT PRN; Protocol PRN Reason: Hypoglycemia Protocol Glucagon (Glucagen Diagnostic Kit) 0 mg IM STAT PRN; Protocol PRN Reason: Hypoglycemia Protocol Insulin Human Regular (Humulin R) 0 units SC ACHS [facility]; Protocol Last Admin: 12/05/17 06:56 Dose: 6 units Levothyroxine Sodium (Synthroid) 125 mcg PO DAILY@0630 [facility] Last Admin: 12/05/17 06:38 Dose: 125 mcg Lidocaine (Lidoderm) 1 ea TD DAILY [facility] Last Admin: 12/05/17 09:21 Dose: 1 ea Metoprolol Succinate (Toprol Xl) 25 mg PO DAILY [facility] Last Admin: 12/05/17 09:31 Dose: 25 mg Pantoprazole Sodium (Protonix Ec Tab) 40 mg PO DAILY [facility] Last Admin: 12/05/17 09:25 Dose: 40 mg Pregabalin (Lyrica) 50 mg PO TID [facility] Last Admin: 12/05/17 09:24 Dose: 50 mg Ramipril (Altace) 2.5 mg PO DAILY [facility] Last Admin: 12/05/17 09:23 Dose: 2.5 mg Ranolazine (Ranexa) 500 mg PO BID [facility] Last Admin: 12/05/17 09:23 Dose: 500 mg Fluticasone/Salmeterol (Advair Diskus 100/50) 1 puff INH Q12 [facility] Last Admin: 12/05/17 09:21 Dose: 1 puff Tramadol HCl (Ultram) 25 mg PO Q6 PRN PRN Reason: Pain, severe (8-10) - Labs Labs: 12/05/17 07:01 12/05/17 07:01 - Constitutional Appears: Well, Non-toxic, No Acute Distress - Head Exam Head Exam: ATRAUMATIC, NORMAL INSPECTION, NORMOCEPHALIC - Eye Exam Eye Exam: EOMI, Normal appearance Additional comments: L eyelid ptosis, peripheral vision intact - ENT Exam ENT Exam: Mucous Membranes Moist - Respiratory Exam Respiratory Exam: Rales, NORMAL BREATHING PATTERN Additional comments: B/L rales appreciated in Lower lobe - Cardiovascular Exam Cardiovascular Exam: RRR, +S1, +S2 - GI/Abdominal Exam GI & Abdominal Exam: Soft, Normal Bowel Sounds - Extremities Exam Extremities Exam: Normal Inspection - Neurological Exam Neurological Exam: Alert, Awake, Oriented x3 Assessment and Plan - Assessment and Plan (Free Text) Assessment: Pt is a 76 y/o female with PMHx CHF, DM, arthritis, asthma, pacemaker placement (01/02), hx DC s/p 4 stents ([place] in 2010), colonic polyps, depression, HTN, HLD, hypothyroidism, and s/p thoracentesis and patient was transferred to [facility] TCU after cardiac cath showed triple vessel disease here for rehabilitation before CABG at [place]. 1. [id number] CHF exacerbation -Dr Petersen on consult-possible transfer today or tomorrow to [place] for CABG [place] [facility] [place]- showed triple vessel dz -Started on Ramipril 2.5mg PO daily -Continue ASA 81 mg daily -Lasix discontinued -Continue Ranexa 500 mg PO bid -Continue to monitor I/O's 2. S/p fall (11/28) at the [facility] (Acute) -L hip Xray- no fracture or dislocation, hip pain improved -Tramadol 25mg PO Q6 PRN and Tylenol for pain -In TCU for rehabilitation, completed PT today -Head CT: No acute changes -Lumbar XR: No acute changes -Continue Lidoderm Patch for back pain. 3. Acute B/L Double Vision, L eye lid ptosis s/p cardiac cath - Symptoms started S/p cardiac cath -Pt reports mild improvement in vision today 3. Pleural Effusion - s/p thoracentesis of 400 cc, Pending pleural albumin - CXR s/p thoracentesis showed no interval change in R moderate pleural effusion and cardiomegaly -No SOB 4. Constipation - Improved had a bowel movement overnight - Continue colace 100 bid - Continue to monitor bowel function 5. Hx HTN -BP stable 137/64 -Continue metoprolol -Started Ramipril 2.5mg PO daily -Lasix has been discontinued -Continue to monitor electrolytes (Na 129, CL 88) 6. Hx DM2 -Insulin sliding scale - Fingersticks achs -Last POC 344 -Levemir 30units SC HS, 10units SC QD -Continue Humulin R ACHS -Continue Lyrica 50 mg PO tid 7. Hx depression - Continue lexapro daily 8. Hx asthma - Continue Advair Diskus 250/50 q12h - Continue Ventolin HFA prn 9. GI ppx: -Continue protonix daily 10. DVT ppx: -Continue SCDs, Lovenox 30 daily (renally dosed due to Cr clearance)
[2017-12-05] MEDS ORDERED: Insulin Detemir 100 Units/ml Inj SC SCH ×2 (11:00→22:00)
[2017-12-05] MEDS: Insulin Detemir 100 Units/ml Inj SC SCH (22:35)
[2017-12-06] MEDS: Levothyroxine 125 MCG TAB PO SCH (06:13)
[2017-12-06 06:26] LABS: CALCIUM 9.2 mg/dL (8.4-10.2)
[2017-12-06] MEDS: Insulin Regular 100 units/ml SC SCH ×4 (07:40→22:00)
[2017-12-06] MEDS: Fluticasone-Salmeterol 100-50mcg Diskus INH SCH ×2 (08:35→21:13)
[2017-12-06] MEDS: Lidocaine 5% Patch TD SCH (08:37)
[2017-12-06] MEDS: Ranolazine 500 mg Extended Release Tablets PO SCH ×2 (08:37→17:01)
[2017-12-06] MEDS: Enoxaparin 30 mg Syringe SC SCH (08:37)
[2017-12-06] MEDS: Pantoprazole 40 mg EC Tab PO SCH (08:39)
[2017-12-06] MEDS: Insulin Detemir 100 Units/ml Inj SC SCH ×2 (08:40→22:00)
--- NOTE | 2017-12-06 09:09 | CP.PCM.PN ---
Subjective - Date & Time of Evaluation Date of Evaluation: 12/06/17 Time of Evaluation: 09:00 - Subjective Subjective: Pt is a 76 y/o F with PMHx CHF, DM, arthritis, asthma, pacemaker placement (01/02), hx [place] s/p 4 stents ([place] in 2010), colonic polyps, depression, HTN, HLD, hypothyroidism, and s/p thoracentesis and Cardiac cath showing triple vessel disease on 11/2017 admitted to [facility]/TCU for rehabilitation prior to CABG at [place]. Patient still reports B/L double vision and L eye lid ptosis which started s/p cardiac cath today her vision has improved slightly, patient's still has left sided LBP. Patient feels well still some mild constipation, denies any chest pain, SOB, dizziness, nausea, vomiting, diarrhea, palpitations, abdominal pain, swelling, or urinary symptoms. Plan for CABG at [place]-still pending appt. Objective - Vital Signs/Intake and Output Vital Signs (last 24 hours): Temp Pulse Resp BP Pulse Ox 98.2 F 68 18 126/62 100 12/06/17 08:32 12/06/17 08:32 12/06/17 08:32 12/06/17 08:36 12/06/17 08:32 - Medications Medications: Current Medications Acetaminophen (Tylenol 325mg Tab) 650 mg PO Q6 PRN PRN Reason: Pain, Mild (1-3) Last Admin: 12/03/17 22:04 Dose: 650 mg Albuterol (Ventolin Hfa 90 Mcg/Actuation (8 G)) 1 puff IH Q6 PRN PRN Reason: Shortness of Breath Artificial Tears (Refresh Opth Soln) 0.3 ml OS PRN PRN PRN Reason: Dry eyes Aspirin (Aspirin Chewable) 81 mg PO DAILY [facility] Last Admin: 12/06/17 08:36 Dose: 81 mg Atorvastatin Calcium (Lipitor) 20 mg PO HS [facility] Last Admin: 12/05/17 22:37 Dose: 20 mg Clopidogrel Bisulfate (Plavix) 75 mg PO DAILY [facility] Last Admin: 12/06/17 08:37 Dose: 75 mg Dextrose (Dextrose 50% Inj) 0 ml IV STAT PRN; Protocol PRN Reason: Hypoglycemia Protocol Dextrose (Glutose 15) 0 gm PO ONCE PRN; Protocol PRN Reason: Hypoglycemia Protocol Dextrose (Dextrose 50% Inj) 0 ml IV STAT PRN; Protocol PRN Reason: Hypoglycemia Protocol Dextrose (Dextrose 50% Inj) 50 ml IVP ONCE PRN PRN Reason: Hypoglycemia Dextrose (Glutose 15) 0 gm PO ONCE PRN; Protocol PRN Reason: Hypoglycemia Protocol Docusate Sodium (Colace) 100 mg PO TID [facility] Last Admin: 12/06/17 08:36 Dose: 100 mg Enoxaparin Sodium (Lovenox) 30 mg SC DAILY [facility]; Protocol Last Admin: 12/06/17 08:37 Dose: 30 mg Escitalopram Oxalate (Lexapro) 20 mg PO DAILY [facility] Last Admin: 12/06/17 08:37 Dose: 20 mg Furosemide (Lasix) 40 mg IV DAILY [facility] Last Admin: 12/06/17 08:36 Dose: 40 mg Glucagon (Glucagen Diagnostic Kit) 0 mg IM STAT PRN; Protocol PRN Reason: Hypoglycemia Protocol Glucagon (Glucagen Diagnostic Kit) 0 mg IM STAT PRN; Protocol PRN Reason: Hypoglycemia Protocol Insulin Detemir (Levemir) 30 units SC [facility] Last Admin: 12/05/17 22:35 Dose: 30 units Insulin Detemir (Levemir) 10 units SC DAILY [facility] Last Admin: 12/06/17 08:40 Dose: 10 unit Insulin Human Regular (Humulin R) 0 units SC [facility]; Protocol Last Admin: 12/06/17 07:40 Dose: 3 units Levothyroxine Sodium (Synthroid) 125 mcg PO DAILY@0630 [facility] Last Admin: 12/06/17 06:13 Dose: 125 mcg Lidocaine (Lidoderm) 1 ea TD DAILY [facility] Last Admin: 12/06/17 08:37 Dose: 1 ea Metoprolol Succinate (Toprol Xl) 25 mg PO DAILY [facility] Last Admin: 12/05/17 09:31 Dose: 25 mg Pantoprazole Sodium (Protonix Ec Tab) 40 mg PO DAILY [facility] Last Admin: 12/06/17 08:39 Dose: 40 mg Pregabalin (Lyrica) 50 mg PO TID [facility] Last Admin: 12/06/17 08:39 Dose: 50 mg Ramipril (Altace) 2.5 mg PO DAILY [facility] Last Admin: 12/06/17 08:36 Dose: 2.5 mg Ranolazine (Ranexa) 500 mg PO BID [facility] Last Admin: 12/06/17 08:37 Dose: 500 mg Fluticasone/Salmeterol (Advair Diskus 100/50) 1 puff INH Q12 [facility] Last Admin: 12/06/17 08:35 Dose: 1 puff Tramadol HCl (Ultram) 25 mg PO Q6 PRN PRN Reason: Pain, severe (8-10) Last Admin: 12/05/17 22:50 Dose: 25 mg - Labs Labs: 12/05/17 07:01 12/06/17 05:45 - Constitutional Appears: Non-toxic, No Acute Distress - Head Exam Head Exam: ATRAUMATIC, NORMAL INSPECTION, NORMOCEPHALIC - Eye Exam Eye Exam: EOMI, Normal appearance, PERRL - ENT Exam ENT Exam: Mucous Membranes Moist - Respiratory Exam Respiratory Exam: NORMAL BREATHING PATTERN Additional comments: mild B/L rales, improved since yesterday - Cardiovascular Exam Cardiovascular Exam: RRR, +S1, +S2 - GI/Abdominal Exam GI & Abdominal Exam: Soft, Normal Bowel Sounds - Extremities Exam Extremities Exam: Normal Inspection - Neurological Exam Neurological Exam: Alert, Awake, Oriented x3 Assessment and Plan - Assessment and Plan (Free Text) Assessment: Pt is a 76 y/o female with PMHx CHF, DM, arthritis, asthma, pacemaker placement (01/02), hx [place] s/p 4 stents ([place] in 2010), colonic polyps, depression, HTN, HLD, hypothyroidism, and s/p thoracentesis and patient was transferred to [facility] TCU after cardiac cath showed triple vessel disease here for rehabilitation before CABG at [place]. 1. [id number] CHF exacerbation -Dr Petersen on consult-possible transfer today to [place] for CABG -Cardiac Cath done at [facility] [place] with Dr. Petersen on 11/28- showed triple vessel dz -Started on Ramipril 2.5mg PO daily -Continue ASA 81 mg daily -Lasix 40mg IV QD -Continue Ranexa 500 mg PO bid -Continue to monitor I/O's, Wt 86kg 2. S/p fall (11/28) at the [facility] (Acute) -L hip Xray- no fracture or dislocation, hip pain improved -Tramadol 25mg PO Q6 and Tylenol for pain -In TCU for rehabilitation, PT -Head CT: No acute changes -Lumbar XR: No acute changes -Continue Lidoderm Patch for back pain. 3. Acute B/L Double Vision, L eye lid ptosis s/p cardiac cath -Symptoms started S/p cardiac cath -Pt reports mild improvement in vision 3. Pleural Effusion -s/p thoracentesis of 400 cc, Pending pleural albumin -CXR s/p thoracentesis showed no interval change in R moderate pleural effusion and cardiomegaly 4. Constipation -Continue colace 100mg TID -Continue to monitor bowel function 5. Hx HTN -BP stable 120/60 -Metoprolol 25mg QD -Ramipril 2.5mg PO daily -Lasix 40mg IV QD -Continue to monitor electrolytes (Na 129, CL 90) 6. Hx DM2 -Insulin sliding scale - Fingersticks achs -Last POC 291 -Levemir 30units SC HS, 10units SC QD -Continue Humulin R ACHS -Continue Lyrica 50 mg PO tid 7. Hx depression - Continue lexapro daily 8. Hx asthma - Continue Advair Diskus 250/50 q12h - Continue Ventolin HFA prn 9. GI ppx: -Continue protonix 40mg daily 10. DVT ppx: -Continue SCDs, Lovenox 30 daily (renally dosed due to Cr clearance)
[2017-12-06] MEDS: Metoprolol Succinate 25 mg XL Tab PO SCH (10:03)
[2017-12-06 16:43] VITALS: RESP 20
--- NOTE | 2017-12-06 17:33 | CP.PCM.PN ---
Subjective - Date & Time of Evaluation Date of Evaluation: 12/06/17 Time of Evaluation: 17:32 - Subjective Subjective: awaiting CABG Objective - Vital Signs/Intake and Output Vital Signs (last 24 hours): Temp Pulse Resp BP Pulse Ox 98.1 F 66 20 116/60 97 12/06/17 16:42 12/06/17 17:04 12/06/17 16:42 12/06/17 16:42 12/06/17 17:04 - Medications Medications: Current Medications Acetaminophen (Tylenol 325mg Tab) 650 mg PO Q6 PRN PRN Reason: Pain, Mild (1-3) Last Admin: 12/03/17 22:04 Dose: 650 mg Albuterol (Ventolin Hfa 90 Mcg/Actuation (8 G)) 1 puff IH Q6 PRN PRN Reason: Shortness of Breath Artificial Tears (Refresh Opth Soln) 0.3 ml OS PRN PRN PRN Reason: Dry eyes Aspirin (Aspirin Chewable) 81 mg PO DAILY [facility] Last Admin: 12/06/17 08:36 Dose: 81 mg Atorvastatin Calcium (Lipitor) 20 mg PO HS [facility] Last Admin: 12/05/17 22:37 Dose: 20 mg Clopidogrel Bisulfate (Plavix) 75 mg PO DAILY [facility] Last Admin: 12/06/17 08:37 Dose: 75 mg Dextrose (Dextrose 50% Inj) 0 ml IV STAT PRN; Protocol PRN Reason: Hypoglycemia Protocol Dextrose (Glutose 15) 0 gm PO ONCE PRN; Protocol PRN Reason: Hypoglycemia Protocol Dextrose (Dextrose 50% Inj) 0 ml IV STAT PRN; Protocol PRN Reason: Hypoglycemia Protocol Dextrose (Dextrose 50% Inj) 50 ml IVP ONCE PRN PRN Reason: Hypoglycemia Dextrose (Glutose 15) 0 gm PO ONCE PRN; Protocol PRN Reason: Hypoglycemia Protocol Docusate Sodium (Colace) 100 mg PO TID [facility] Last Admin: 12/06/17 17:01 Dose: 100 mg Enoxaparin Sodium (Lovenox) 30 mg SC DAILY [facility]; Protocol Last Admin: 12/06/17 08:37 Dose: 30 mg Escitalopram Oxalate (Lexapro) 20 mg PO DAILY [facility] Last Admin: 12/06/17 08:37 Dose: 20 mg Furosemide (Lasix) 40 mg IV DAILY [facility] Last Admin: 12/06/17 08:36 Dose: 40 mg Glucagon (Glucagen Diagnostic Kit) 0 mg IM STAT PRN; Protocol PRN Reason: Hypoglycemia Protocol Glucagon (Glucagen Diagnostic Kit) 0 mg IM STAT PRN; Protocol PRN Reason: Hypoglycemia Protocol Insulin Detemir (Levemir) 30 units SC HS [facility] Last Admin: 12/05/17 22:35 Dose: 30 units Insulin Detemir (Levemir) 10 units SC DAILY [facility] Last Admin: 12/06/17 08:40 Dose: 10 unit Insulin Human Regular (Humulin R) 0 units SC ACHS [facility]; Protocol Last Admin: 12/06/17 16:59 Dose: 3 units Levothyroxine Sodium (Synthroid) 125 mcg PO DAILY@0630 [facility] Last Admin: 12/06/17 06:13 Dose: 125 mcg Lidocaine (Lidoderm) 1 ea TD DAILY [facility] Last Admin: 12/06/17 08:37 Dose: 1 ea Metoprolol Succinate (Toprol Xl) 25 mg PO DAILY [facility] Last Admin: 12/06/17 10:03 Dose: 25 mg Pantoprazole Sodium (Protonix Ec Tab) 40 mg PO DAILY [facility] Last Admin: 12/06/17 08:39 Dose: 40 mg Pregabalin (Lyrica) 50 mg PO TID [facility] Last Admin: 12/06/17 17:02 Dose: 50 mg Ramipril (Altace) 2.5 mg PO DAILY [facility] Last Admin: 12/06/17 08:36 Dose: 2.5 mg Ranolazine (Ranexa) 500 mg PO BID [facility] Last Admin: 12/06/17 17:01 Dose: 500 mg Fluticasone/Salmeterol (Advair Diskus 100/50) 1 puff INH Q12 [facility] Last Admin: 12/06/17 08:35 Dose: 1 puff Tramadol HCl (Ultram) 25 mg PO Q6 [facility] Last Admin: 12/06/17 13:50 Dose: Not Given - Labs Labs: 12/05/17 07:01 12/06/17 05:45 - Constitutional Appears: Well - Head Exam Head Exam: ATRAUMATIC, NORMAL INSPECTION, NORMOCEPHALIC - Eye Exam Eye Exam: EOMI, Normal appearance, PERRL Pupil Exam: NORMAL ACCOMODATION, PERRL - ENT Exam ENT Exam: Mucous Membranes Moist, Normal Exam - Neck Exam Neck Exam: Full ROM, Normal Inspection. absent: Lymphadenopathy - Respiratory Exam Respiratory Exam: Clear to Ausculation Bilateral, NORMAL BREATHING PATTERN - Cardiovascular Exam Cardiovascular Exam: REGULAR RHYTHM, +S1, +S2. absent: Murmur - GI/Abdominal Exam GI & Abdominal Exam: Soft, Normal Bowel Sounds. absent: Tenderness - Rectal Exam Rectal Exam: NORMAL INSPECTION - Exam Exam: Circumcision, NORMAL INSPECTION External exam: NORMAL EXTERNAL EXAM Speculum exam: NORMAL SPECULUM EXAM Bimanual exam: NORMAL BIMANUAL EXAM - Extremities Exam Extremities Exam: Full ROM, Normal Capillary Refill, Normal Inspection. absent: Joint Swelling, Pedal Edema - Back Exam Back Exam: NORMAL INSPECTION - Neurological Exam Neurological Exam: Alert, Awake, CN II-XII Intact, Normal Gait, Oriented x3 - Psychiatric Exam Psychiatric exam: Normal Affect, Normal Mood - Skin Skin Exam: Dry, Intact, Normal Color, Warm Assessment and Plan (1) CAD (coronary artery disease) Status: Chronic (2) CHF (congestive heart failure) Status: Acute (3) Pleural effusion Status: Acute (4) Diabetes Status: Chronic (5) Hypertension Status: Chronic
[2017-12-06] MEDS: POLYETHYLENE GLYCOL 3350 17 GM/Dose PACKET PO SCH ×2 (21:14→23:33)
[2017-12-07] MEDS: Levothyroxine 125 MCG TAB PO SCH (06:14)
[2017-12-07] MEDS: Insulin Regular 100 units/ml SC SCH ×4 (06:46→21:41)
[2017-12-07 07:20] LABS: CALCIUM 9.3 mg/dL (8.4-10.2)
[2017-12-07] MEDS: Enoxaparin 30 mg Syringe SC SCH (09:09)
[2017-12-07] MEDS: Fluticasone-Salmeterol 100-50mcg Diskus INH SCH ×2 (09:10→21:34)
[2017-12-07] MEDS: Ranolazine 500 mg Extended Release Tablets PO SCH ×2 (09:10→16:16)
[2017-12-07] MEDS: Metoprolol Succinate 25 mg XL Tab PO SCH (09:11)
[2017-12-07] MEDS: Lidocaine 5% Patch TD SCH (09:11)
[2017-12-07] MEDS: Insulin Detemir 100 Units/ml Inj SC SCH ×2 (09:14→21:40)
[2017-12-07] MEDS: Pantoprazole 40 mg EC Tab PO SCH (09:16)
[2017-12-07] MEDS: POLYETHYLENE GLYCOL 3350 17 GM/Dose PACKET PO SCH (21:34)
[2017-12-08] MEDS: Insulin Regular 100 units/ml SC SCH ×4 (02:20→17:02)
[2017-12-08] MEDS: Levothyroxine 125 MCG TAB PO SCH (05:37)
[2017-12-08 07:46] LABS: CALCIUM 9.2 mg/dL (8.4-10.2)
[2017-12-08 08:02] VITALS: PULSE 69
[2017-12-08] MEDS: Fluticasone-Salmeterol 100-50mcg Diskus INH SCH (08:13)
[2017-12-08] MEDS: Insulin Detemir 100 Units/ml Inj SC SCH (08:14)
[2017-12-08] MEDS: Silver Sulfadiazine 1% Cream (20 gm) TOP SCH ×2 (08:16→17:04)
[2017-12-08] MEDS: Enoxaparin 30 mg Syringe SC SCH (08:16)
[2017-12-08] MEDS: Metoprolol Succinate 25 mg XL Tab PO SCH (08:17)
[2017-12-08] MEDS: Pantoprazole 40 mg EC Tab PO SCH (08:20)
[2017-12-08] MEDS: Ranolazine 500 mg Extended Release Tablets PO SCH ×2 (08:20→17:04)
[2017-12-08] MEDS: Lidocaine 5% Patch TD SCH (08:20)
[2017-12-08 14:12] LABS: OSMOLALITY,URINE 195 mosm/kg (300-1000)
[2017-12-08 15:31] VITALS: BP 119/64; TEMP 97.5; O2SAT 99
--- NOTE | 2017-12-08 16:14 | CP.PCM.DIS ---
Provider - Provider Date of Admission: 11/30/17 19:22 Attending physician: Donell Cornejo MD Time Spent in preparation of Discharge (in minutes): 30 Diagnosis - Discharge Diagnosis (1) CHF (congestive heart failure) Status: Chronic (2) CAD (coronary artery disease) Status: Chronic (3) Diabetes Status: Chronic Comment: uncontrolled (4) Hypertension Status: Chronic (5) Pleural effusion Status: Resolved Hospital Course - Lab Results Lab Results: Most Recent Lab Values WBC 5.7 K/uL (4.8-10.8) 12/05/17 07:01 RBC 3.43 Mil/uL (3.80-5.20) L 12/05/17 07:01 Hgb 10.1 g/dL (12.0-16.0) L 12/05/17 07:01 Hct 29.4 % (34.0-47.0) L 12/05/17 07:01 MCV 85.8 fl (81.0-99.0) 12/05/17 07:01 MCH 29.4 pg (27.0-31.0) 12/05/17 07:01 MCHC 34.2 g/dL (33.0-37.0) 12/05/17 07:01 RDW 15.0 % (11.5-14.5) H 12/05/17 07:01 Plt Count 225 K/uL (130-400) 12/05/17 07:01 MPV 8.2 fl (7.2-11.7) 12/05/17 07:01 Neut % (Auto) 63.2 % (50.0-75.0) 12/05/17 07:01 Lymph % (Auto) 17.6 % (20.0-40.0) L 12/05/17 07:01 [place] % (Auto) 12.4 % (0.0-10.0) H 12/05/17 07:01 Eos % (Auto) 5.9 % (0.0-4.0) H 12/05/17 07:01 Baso % (Auto) 0.9 % (0.0-2.0) 12/05/17 07:01 Neut # (Auto) 3.6 K/uL (1.8-7.0) 12/05/17 07:01 Lymph # (Auto) 1.0 K/uL (1.0-4.3) 12/05/17 07:01 [place] # (Auto) 0.7 K/uL (0.0-0.8) 12/05/17 07:01 Eos # (Auto) 0.3 K/uL (0.0-0.7) 12/05/17 07:01 Baso # (Auto) 0.1 K/uL (0.0-0.2) 12/05/17 07:01 Sodium 126 mmol/l (132-148) L 12/08/17 05:25 Potassium 4.5 MMOL/L (3.6-5.0) 12/08/17 05:25 Chloride 87 mmol/L (98-107) L 12/08/17 05:25 Carbon Dioxide 28 mmol/L (22-30) 12/08/17 05:25 Anion Gap 16 (10-20) 12/08/17 05:25 BUN 27 mg/dl (7-17) H 12/08/17 05:25 Creatinine 1.3 mg/dl (0.7-1.2) H 12/08/17 05:25 Est GFR ( Amer) 48 12/08/17 05:25 Est GFR (Non-Af Amer) 40 12/08/17 05:25 POC Glucose (mg/dL) 299 mg/dL (65-110) H 12/07/17 16:11 Random Glucose 114 mg/dL (65-105) H 12/08/17 05:25 Serum Osmolality 269 mosm/kg (272-300) L 12/08/17 11:00 Calcium 9.2 mg/dL (8.4-10.2) 12/08/17 05:25 Total Bilirubin 0.5 mg/dl (0.2-1.3) 12/02/17 09:00 AST 27 U/L (14-36) 12/02/17 09:00 ALT 21 U/L (9-52) 12/02/17 09:00 Alkaline Phosphatase 41 U/L (38-126) 12/02/17 09:00 Total Protein 6.9 G/DL (6.3-8.2) 12/02/17 09:00 Albumin 4.0 g/dL (3.5-5.0) 12/02/17 09:00 Globulin 3.0 gm/dL (2.2-3.9) 12/02/17 09:00 Albumin/Globulin Ratio 1.3 (1.0-2.1) 12/02/17 09:00 Urine Osmolality 195 mosm/kg (300-1000) L 12/08/17 13:50 Ur Random Sodium < 5 meq/L 12/08/17 13:50 Ur Random Potassium 28.3 mmol/L 12/08/17 13:50 Urine Chloride 15 mmol/L (32-290) L 12/06/17 21:50 - Hospital Course Hospital Course: 76 y/o female with PMHx CHF, DM, arthritis, asthma, pacemaker placement (recently replaced in Dec 2014), hx CO s/p 4 stents (most recent placed at [place] in 2010), triple vessel disease, colonic polyps, depression, HTN, HLD, hypothyroidism, and s/p thoracentesis and Cardiac cath 11/2017 admitted to [facility]/TCU for rehabilitation. Patient reports double vision which started s/p cardiac cath, patient states she had a fall at [facility] and her lower back is hurting since. XR lumbar spine and left hip no fracture. While admitted to the [place], patient was found to have a CHF exacerbation. Patient was seen by Cardiology, Pulmonary, IR, and Opthalmology. Patient was diuresed and symptoms improved. Patient was also found to have a a pleural effusion while admitted. Patient subsequently underwent a thoracentesis to remove the fluid. Patient underwent a Cardiac cath by Dr. Petersen. Patient was deemed medically ray and [facility]. Cardiac Cath done at [facility] [place] with Dr. Petersen on 11/28, S/p [place] 11/28 after returning from procedure - Patient had Cardiac cath showed tripple vessel disease and will need CABG. Patient was transferred to [facility]/TCU for rehabilitation before CABG arrangement to [place]. During TCU in [facility] patient has remained stable, c/o left lower back pain, partially alleviated with Tramadol, DM uncontrolled with Sliding ins scale, and levemir 35 units HS, 13 units morning. HYponatremia noticed for the last 3 days that may be related with SIADH. Fluids restriction and monitoring of BMP daily. Pt reported today a skin burn over lower back pain after applying heating pad. Silvadene used. Patient has had f/u with Dr Petersen and is cleared to be discharge to [facility] for CABG Discharge Exam - Head Exam Head Exam: ATRAUMATIC, NORMAL INSPECTION, NORMOCEPHALIC - Respiratory Exam Respiratory Exam: Rales (scattered rales left lung base) - Cardiovascular Exam Cardiovascular Exam: REGULAR RHYTHM, +S1, +S2 - GI/Abdominal Exam GI & Abdominal Exam: Normal Bowel Sounds, Soft. absent: Guarding, Rebound - Extremities Exam Extremities exam: normal inspection - Back Exam Additional comments: lower back region : over skin there is an area of erythema aprox 5 x 5 cm with intact blister 2/2 burn for heating pad. - Skin Skin Exam: Erythema (over skin there is an area of erythema aprox 5 x 5 cm with intact blister 2/2 burn for heating pad. ) Discharge Plan - Follow Up Plan Condition: GOOD Disposition: Trans to Other Acute Care Hosp Additional Instructions: -Tansferred patient to [place] [facility] for scheduled CABG
[2017-12-08] MEDS ORDERED: Insulin Detemir 100 Units/ml Inj SC SCH (22:00)
[2017-12-09] MEDS ORDERED: Insulin Detemir 100 Units/ml Inj SC SCH (09:00)
== END 2017-12-08 18:15 | disposition short-term general hospital (02) | DRG 949 ==
LOC: H.TCU 19:22
PROVIDERS: ADMIT Family Medicine; ATTEND Family Medicine
PROC: F07M6FZ Therapeutic Exercise Treatment of Musculoskeletal System - Whole Body using Assistive, Adaptive, Supportive or Protective Equipment (ICD-10-PCS; principal; 2017-11-30)
DX: Z48.812 Encounter for surgical aftercare following surgery on the circulatory system (principal); E87.1 Hypo-osmolality and hyponatremia; E22.2 Syndrome of inappropriate secretion of antidiuretic hormone; J91.8 Pleural effusion in other conditions classified elsewhere; I50.9 Heart failure, unspecified; Z95.5 Presence of coronary angioplasty implant and graft; F32.9 Major depressive disorder, single episode, unspecified; M19.90 Unspecified osteoarthritis, unspecified site; H02.846 Edema of left eye, unspecified eyelid; M25.552 Pain in left hip; M54.5 Low back pain; E03.9 Hypothyroidism, unspecified; E11.65 Type 2 diabetes mellitus with hyperglycemia; E78.00 Pure hypercholesterolemia, unspecified; E78.5 Hyperlipidemia, unspecified; G89.29 Other chronic pain; H53.2 Diplopia; I11.0 Hypertensive heart disease with heart failure; I25.10 Atherosclerotic heart disease of native coronary artery without angina pectoris; I25.2 Old myocardial infarction; I25.5 Ischemic cardiomyopathy; J45.909 Unspecified asthma, uncomplicated; K59.00 Constipation, unspecified; T21.04XA Burn of unspecified degree of lower back, initial encounter; W19.XXXD Unspecified fall, subsequent encounter; Z79.4 Long term (current) use of insulin; Z79.51 Long term (current) use of inhaled steroids; Z79.899 Other long term (current) drug therapy; Z79.82 Long term (current) use of aspirin; Z86.010 Personal history of colon polyps; Z95.0 Presence of cardiac pacemaker; Y93.9 Activity, unspecified; Y92.239 Unspecified place in hospital as the place of occurrence of the external cause; X30.XXXA Exposure to excessive natural heat, initial encounter

== ENCOUNTER 2018-01-16 14:26 | Inpatient (IN) | payer MEDICARE, MEDICAID ==
[2018-01-16 14:27] VITALS: BMI 33.9
--- NOTE | 2018-01-16 15:34 | ED PDOC ---
HPI: General Adult Time Seen by Provider: 01/16/18 15:18 Chief Complaint (Nursing): Abdominal Pain Chief Complaint (Provider): diarrhea and abnormal labs History Per: Patient History/Exam Limitations: no limitations Onset/Duration Of Symptoms: Days (x3 weeks) Current Symptoms Are (Timing): Still Present Additional Complaint(s): Daysi Walden is a 77 year old female, with a past medical history of HTN, hypercholesterolemia and CAD, who was referred to the emergency department by Dr. Petersen for abnormal labs. Patient had blood drawn on 01/14/18 and was found to have Creatinine: 2.2, Bicarb: 10 and Anion gap: 28. Patient is s/p CABG on 12/19/17 and daughter reports patient has been having diarrhea for the past x3 weeks after surgery associated with decreased PO intake. She was on antibiotics during the surgery, last dose was x3 weeks ago. Patient denies any fever, chills, nausea, vomit, hematochezia, chest pain or shortness of breath. No further medical complaints. PMD: Donell Cornejo Past Medical History Reviewed: Historical Data, Nursing Documentation, Vital Signs Vital Signs: Last Vital Signs Temp 97.8 F 01/16/18 14:47 Pulse 86 01/16/18 14:47 Resp 16 01/16/18 14:47 BP 146/74 01/16/18 14:47 Pulse Ox 99 01/16/18 14:47 - Medical History PMH: Arthritis, Asthma, CAD, Cardia Arrhythmia, CHF, Colonic Polyps, Depression, HTN, Hypercholesterolemia, Hypothyroidism Denies: Chronic Kidney Disease - Surgical History Surgical History: Coronary Stent (x4), Endoscopy, Pacemaker - Family History Family History: States: Unknown Family Hx - Home Medications Home Medications: Ambulatory Orders Medication Instructions Recorded Albuterol Sulfate [Ventolin Hfa] 2 puff IH Q6 PRN 01/16/18 Aspirin [Ecotrin] 81 mg PO DAILY 01/16/18 Atorvastatin [Lipitor] 40 mg PO HS 01/16/18 Clopidogrel [Plavix] 75 mg PO DAILY 01/16/18 Fluticasone/Salmeterol 250/50 1 puff IH Q12 01/16/18 [Advair Diskus 250/50] Furosemide [Lasix] 40 mg PO DAILY 01/16/18 Insulin Aspart, Recombinant 12 - 15 unit SC ACTID 01/16/18 [Novolog] Insulin Glargine,Hum.rec.anlog 60 unit SC HS 01/16/18 [Basaglar Mathieuikpen U-100] Levothyroxine [Synthroid] 125 mcg PO DAILY 01/16/18 Lidocaine 5% [Lidoderm] 1 patch TD DAILY PRN 01/16/18 Metoprolol Tartrate [Lopressor] 25 mg PO DAILY 01/16/18 Omeprazole 40 mg PO DAILY 01/16/18 Sitagliptin Phos/Metformin HCl 1 tab PO BID 01/16/18 [Janumet 50-1,000 mg Tablet] - Allergies Allergies/Adverse Reactions: Allergies Allergy/AdvReac Type Severity Reaction Status Date / Time No Known Allergies Allergy Verified 11/30/17 18:52 Review of Systems ROS Statement: Except As Marked, All Systems Reviewed And Found Negative Constitutional: Negative for: Fever, Chills Cardiovascular: Negative for: Chest Pain Respiratory: Negative for: Shortness of Breath Gastrointestinal: Positive for: Diarrhea, Other (decreased appetite). Negative for: Nausea, Vomiting, Hematochezia Physical Exam - Reviewed Nursing Documentation Reviewed: Yes Vital Signs Reviewed: Yes - Physical Exam Appears: Positive for: No Acute Distress Head Exam: Positive for: ATRAUMATIC, NORMAL INSPECTION, NORMOCEPHALIC Skin: Positive for: Normal Color, Warm, Dry Eye Exam: Positive for: Normal appearance, EOMI, PERRL ENT: Positive for: Normal ENT Inspection Neck: Positive for: Normal, Painless ROM Cardiovascular/Chest: Positive for: Regular Rate, Rhythm. Negative for: Murmur Respiratory: Positive for: Normal Breath Sounds. Negative for: Respiratory Distress Gastrointestinal/Abdominal: Positive for: Normal Exam, Soft. Negative for: Tenderness, Distended, Guarding, Rebound Back: Positive for: Normal Inspection. Negative for: L CVA Tenderness, R CVA Tenderness, Vertebral Tenderness Extremity: Positive for: Normal ROM (upper and lower extremities). Negative for: Deformity, Swelling Neurologic/Psych: Positive for: Alert, Oriented - Laboratory Results Result Diagrams: 01/16/18 16:45 01/16/18 16:45 - ECG Interpretation Of ECG: Paced @ 85. O2 Sat by Pulse Oximetry: 99 (RA) Pulse Ox Interpretation: Normal Medical Decision Making Medical Decision Making: Time: 15:18 Initial Impression: diarrhea and abnormal labs Initial Plan: --ABG --EKG --CMP --Magnesium --Phosphorus --Urine dipstick --CBC w/ differential --PTT --PT --Blood culture --C Diff Toxin A B --Urinalysis --Reevaluation Accession No. : [id number] Patient Name / ID : ROSCOE DELUCA / [id number] Exam Date : 01/16/2018 18:22:24 ( Approved ) Study Comment : Sex / Age : F / 77Y Creator : Lillian Garza MD Dictator : Lillian Garza MD Asbestos Removal Worker : Financial Compliance Examiner : Lillian Garza MD Approver2 : Report Date : 01/16/2018 18:48:57 My Comment : Date of service: 01/16/2018 PROCEDURE: CT Abdomen and Pelvis without intravenous contrast HISTORY: Diarrhea X 3 weeks COMPARISON: Comparison is made with 07/13/2009 TECHNIQUE: Axial and reformatted coronal and sagittal CT images of the abdomen and pelvis were obtained without IV contrast administration.. Contrast dose: 0 IV contrast Radiation dose: Total exam DLP = 716.67 mGy-cm. This CT exam was performed using one or more of the following dose reduction techniques: Automated exposure control, adjustment of the mA and/or kV according to patient size, and/or use of iterative reconstruction technique. FINDINGS: LOWER THORAX: No evidence of pleural effusion. The heart is enlarged. LIVER: Heterogeneous mildly enlarged liver. GALLBLADDER AND BILE DUCTS: Status post cholecystectomy. PANCREAS: Unremarkable. No gross lesion or ductal dilatation. SPLEEN: Unremarkable. ADRENALS: Unremarkable. No mass. KIDNEYS AND URETERS: Unremarkable. No hydronephrosis. No solid mass. VASCULATURE: Unremarkable. No aortic aneurysm. Mild aortic atherosclerotic calcification present. BOWEL: Gastric wall thickening is noted. There is suspicious for large bowel wall thickening. Colonic diverticulosis are noted without evidence of diverticulitis. APPENDIX: No evidence of acute appendicitis. PERITONEUM: Unremarkable. No free fluid. No free air. LYMPH NODES: Unremarkable. No enlarged lymph nodes. BLADDER: Unremarkable. REPRODUCTIVE: Unremarkable. BONES: No acute fracture. OTHER FINDINGS: None. IMPRESSION: Suspicious for large bowel wall thickening. Please correlate clinically for colitis. Colonic diverticulosis without evidence of diverticulitis. Gastric wall thickening may represent gastritis. No CT evidence of pancreatitis or appendicitis. ----- Scribe Attestation: Documented by Nic Waters, acting as a scribe for Arianna Lindquist MD. Provider Scribe Attestation: All medical record entries made by the Scribe were at my direction and personally dictated by me. I have reviewed the chart and agree that the record accurately reflects my personal performance of the history, physical exam, medical decision making, and the department course for this patient. I have also personally directed, reviewed, and agree with the discharge instructions and disposition. Disposition - Disposition Forms: [employer] (Georgian)
[2018-01-16 16:12] LABS: ABG ALLEN TEST YES; ARTERIAL BLOOD GAS HCO3 22.6 mmol/L (21-28); ARTERIAL BLOOD GAS HEMOGLOBIN 11.5 g/dL (11.7-17.4); ARTERIAL BLOOD GAS O2 CAPACITY 15.7 mL/dL (16-24); ARTERIAL BLOOD GAS O2 CONTENT 15.6 ML/dL (15-23); ARTERIAL BLOOD GAS O2 SAT 99.5 % (95-98); ARTERIAL BLOOD GAS PCO2 32 mm/Hg (35-45); ARTERIAL BLOOD GAS PH 7.42 (7.35-7.45); ARTERIAL BLOOD GAS PO2 87 mm/Hg (80-100); ARTERIAL BLOOD GAS TCO2 21.8 mmol/L (22-28)
[2018-01-16 17:02] LABS: BASO # 0.1 K/uL (0.0-0.2); BASO % 1.5 % (0.0-2.0); EOS # 0.4 K/uL (0.0-0.7); EOS % 6.2 % (0.0-4.0); HEMOGLOBIN 11.5 g/dL (12.0-16.0); LYMPH # 1.4 K/uL (1.0-4.3); LYMPH % 19.6 % (20.0-40.0); MEAN CELL VOLUME 87.3 fl (81.0-99.0); MEAN CORPUSCULAR HEMOGLOBIN 28.7 pg (27.0-31.0); MEAN CORPUSCULAR HGB CONC 32.9 g/dL (33.0-37.0); MEAN PLATELET VOLUME 7.4 fl (7.2-11.7); MONO # 0.6 K/uL (0.0-0.8); MONO % 8.7 % (0.0-10.0); NEUT # 4.6 K/uL (1.8-7.0); NRBC % 0.1 % (0.0-0.0); RBC 4.02 Mil/uL (3.80-5.20); RED CELL DISTRIBUTION WIDTH 15.3 % (11.5-14.5); WHITE BLOOD COUNT 7.3 K/uL (4.8-10.8)
[2018-01-16 17:11] LABS: ALB/GLOB RATIO 1.3 (1.0-2.1); ALBUMIN 4.3 g/dL (3.5-5.0); CALCIUM 9.6 mg/dL (8.4-10.2)
[2018-01-16] MEDS ORDERED: SODIUM POLYSTYRENE SULFONATE 15 GM POWDER PO STA (17:18)
[2018-01-16 17:23] LABS: INR 1.1
[2018-01-16 17:26] LABS: SQUAMOUS EPITHIAL 3 /hpf (0-5); URINE BILIRUBIN NEGATIVE (NEGATIVE); URINE BLOOD NEGATIVE (NEGATIVE); URINE CLARITY SLIGHTY-CLOUDY (Clear); URINE COLOR YELLOW (YELLOW); URINE GLUCOSE (UA) NEG (Normal); URINE HYALINE CAST 0-2 /hpf (0-2); URINE LEUKOCYTE ESTERASE NEG Leu/uL (Negative); URINE PROTEIN 30 mg/dL (NEGATIVE); URINE UROBILINOGEN 0.2-1.0 mg/dL (0.2-1.0)
[2018-01-16 17:26] LABS: PARTIAL THROMBOPLASTIN TIME 25.3 Seconds (25.6-37.1)
[2018-01-16] MEDS ORDERED: SODIUM POLYSTYRENE SULFONATE 15 GM POWDER PO ONE (17:35)
--- NOTE | 2018-01-16 18:52 | CT ---
Date of service: 01/16/2018 PROCEDURE: CT Abdomen and Pelvis without intravenous contrast HISTORY: Diarrhea X 3 weeks COMPARISON: Comparison is made with 07/13/2009 TECHNIQUE: Axial and reformatted coronal and sagittal CT images of the abdomen and pelvis were obtained without IV contrast administration.. Contrast dose: 0 IV contrast Radiation dose: Total exam DLP = 716.67 mGy-cm. This CT exam was performed using one or more of the following dose reduction techniques: Automated exposure control, adjustment of the mA and/or kV according to patient size, and/or use of iterative reconstruction technique. FINDINGS: LOWER THORAX: No evidence of pleural effusion. The heart is enlarged. LIVER: Heterogeneous mildly enlarged liver. GALLBLADDER AND BILE DUCTS: Status post cholecystectomy. PANCREAS: Unremarkable. No gross lesion or ductal dilatation. SPLEEN: Unremarkable. ADRENALS: Unremarkable. No mass. KIDNEYS AND URETERS: Unremarkable. No hydronephrosis. No solid mass. VASCULATURE: Unremarkable. No aortic aneurysm. Mild aortic atherosclerotic calcification present. BOWEL: Gastric wall thickening is noted. There is suspicious for large bowel wall thickening. Colonic diverticulosis are noted without evidence of diverticulitis. APPENDIX: No evidence of acute appendicitis. PERITONEUM: Unremarkable. No free fluid. No free air. LYMPH NODES: Unremarkable. No enlarged lymph nodes. BLADDER: Unremarkable. REPRODUCTIVE: Unremarkable. BONES: No acute fracture. OTHER FINDINGS: None. IMPRESSION: Suspicious for large bowel wall thickening. Please correlate clinically for colitis. Colonic diverticulosis without evidence of diverticulitis. Gastric wall thickening may represent gastritis. No CT evidence of pancreatitis or appendicitis.
[2018-01-16] MEDS ORDERED: metroNIDAZOLE 500mg/100ml NS 100 ML IV STA (19:56)
[2018-01-16] MEDS ORDERED: Ciprofloxacin 400mg/200ml D5W 400 MG/200 ML BAG IV STA (19:56)
--- NOTE | 2018-01-16 20:09 | CP.PCM.HP ---
History of Present Illness - History of Present Illness History of Present Illness: CC: sent by , diarrhea HPI: 77 YO Female with PMHx of HTN, HLD, hypothyroidism, IA, CABG (11/2017), CHF s/p pacemaker presents to [facility] ED for abnormal labs and diarrhea. Pt was called by and told to come in to the ER due to abrnomal labs. Additionally, pt states that she had had diarrhea since she had the CABG for the past 3 weeks. Painless BMs, 3-4 daily, NB, no abdominal pain, or foul smell, gas/n/v. BMs are watery per pt and daughter and at time associated with fecal incontinence. Pt has been in the shelter since her surgery and has had decrease PO intake per daughter and has been confused at times. PMD: Dr. Cornejo PMH: CHF, DM, arthritis, asthma, pacemaker placement (recently replaced in Dec 2014), hx IA s/p 4 stents (most recent placed at [facility] in 2010), triple vessel disease, colonic polyps, depression, HTN, HLD, hypothyroidism, and s/p thoracentesis and Cardiac cath 11/2017, asthma/COPD PSH: Cardiac stents x4 (most recent in 2010), pacemaker placement (replaced in Dec 2014), cholecystectomy, s/p CABG (11/2017) Allergies: NKDA FH: denies any stroke, IA or any cancers SH: Denies smoking, EtOH, or illicit drug use EMERGENCY CONTACT # Ms. Jessica Chen # [phone] Present on Admission - Present on Admission Any Indicators Present on Admission: No Review of Systems - Constitutional Constitutional: absent: Chills, Fever - Cardiovascular Cardiovascular: absent: Chest Pain, Dyspnea, Palpitations - Respiratory Respiratory: absent: Cough, Dyspnea, Chest Congestion - Gastrointestinal Gastrointestinal: Diarrhea. absent: Abdominal Pain, Nausea, Vomiting - Genitourinary Genitourinary: absent: Change in Urinary Stream, Urinary Frequency - Neurological Neurological: absent: Dizziness, Headaches Past Patient History - Tetanus Immunizations Tetanus Immunization: Up to Date - Past Medical History & Family History Past Medical History?: Yes - Past Social History Smoking Status: Never Smoked Alcohol: None Drugs: Denies Home Situation {Lives}: [facility] - CARDIAC Hx Cardia Arrhythmia: Yes Hx Congestive Heart Failure: Yes Hx Hypercholesterolemia: Yes Hx Hypertension: Yes Hx Pacemaker: Yes - PULMONARY Hx Asthma: Yes - NEUROLOGICAL Hx Neurological Disorder: No - HEENT Hx HEENT Problems: No - RENAL Hx Chronic Kidney Disease: No - ENDOCRINE/METABOLIC Hx Hypothyroidism: Yes - HEMATOLOGICAL/ONCOLOGICAL Hx Blood Transfusions: No - INTEGUMENTARY Hx Dermatological Problems: No - MUSCULOSKELETAL/RHEUMATOLOGICAL Hx Arthritis: Yes - GASTROINTESTINAL Hx Ulcer: Yes - GENITOURINARY/GYNECOLOGICAL Hx Genitourinary Disorders: No - PSYCHIATRIC Hx Depression: Yes - SURGICAL HISTORY Hx Coronary Stent: Yes (x4) - ANESTHESIA Hx Anesthesia: Yes Hx Anesthesia Reactions: No Hx Malignant Hyperthermia: No Meds Allergies/Adverse Reactions: Allergies Allergy/AdvReac Type Severity Reaction Status Date / Time No Known Allergies Allergy Verified 11/30/17 18:52 Physical Exam - Constitutional Appears: No Acute Distress - Head Exam Head Exam: ATRAUMATIC, NORMOCEPHALIC - Eye Exam Eye Exam: EOMI, Normal appearance - ENT Exam ENT Exam: Mucous Membranes Moist - Respiratory Exam Respiratory Exam: Clear to Auscultation Bilateral, NORMAL BREATHING PATTERN. absent: Wheezes - Cardiovascular Exam Cardiovascular Exam: REGULAR RHYTHM, +S1, +S2 Additional comments: Pacemaker appreciated - GI/Abdominal Exam GI & Abdominal Exam: Normal Bowel Sounds, Soft. absent: Guarding, Rebound, T enderness - Extremities Exam Extremities exam: Positive for: normal inspection. Negative for: calf tenderness, pedal edema - Back Exam Back exam: NORMAL INSPECTION. absent: CVA tenderness (L), CVA tenderness (R) - Neurological Exam Neurological exam: Alert Additional comments: Oriented to name and location date December 1998 - Psychiatric Exam Psychiatric exam: Normal Mood - Skin Skin Exam: Normal Color Results - Vital Signs Recent Vital Signs: Last Vital Signs Temp 97.5 F L 01/16/18 19:00 Pulse 95 H 01/16/18 19:00 Resp 18 01/16/18 19:00 BP 145/77 01/16/18 19:00 Pulse Ox 99 01/16/18 20:00 - Labs Result Diagrams: 01/16/18 16:45 01/16/18 16:45 Labs: Laboratory Results - last 24 hr 01/16/18 01/16/18 01/16/18 15:55 16:07 16:45 WBC RBC Hgb Hct MCV MCH MCHC RDW Plt Count MPV Neut % (Auto) Lymph % (Auto) [place] % (Auto) Eos % (Auto) Baso % (Auto) Neut # (Auto) Lymph # (Auto) [place] # (Auto) Eos # (Auto) Baso # (Auto) PT INR APTT pCO2 32 L pO2 87 HCO3 22.6 ABG pH 7.42 ABG Total CO2 21.8 L ABG O2 Saturation 99.5 H ABG O2 Content 15.6 ABG Base Excess -3.0 L ABG Hemoglobin 11.5 L ABG Carboxyhemoglobin 1.8 H POC ABG HHb (Measured) 0.5 ABG Methemoglobin 2.1 ABG O2 Capacity 15.7 L Adam Test Yes A-a O2 Difference 23.0 Hgb O2 Saturation 95.6 FiO2 21.0 Sodium Potassium Chloride Carbon Dioxide Anion Gap BUN Creatinine Est GFR ( Amer) Est GFR (Non-Af Amer) POC Glucose (mg/dL) 108 Random Glucose Calcium Phosphorus 3.6 Magnesium 1.3 L Total Bilirubin AST ALT Alkaline Phosphatase Total Protein Albumin Globulin Albumin/Globulin Ratio Urine Color Urine Clarity Urine pH Ur Specific [place] Urine Protein Urine Glucose (UA) Urine Ketones Urine Blood Urine Nitrate Urine Bilirubin Urine Urobilinogen Ur Leukocyte Esterase Urine RBC (Auto) Urine Microscopic WBC Ur Squamous Epith Cells Hyaline Casts 01/16/18 01/16/18 01/16/18 16:45 16:45 16:45 WBC 7.3 RBC 4.02 Hgb 11.5 L Hct 35.1 MCV 87.3 MCH 28.7 MCHC 32.9 L RDW 15.3 H Plt Count 344 D MPV 7.4 Neut % (Auto) 64.0 Lymph % (Auto) 19.6 L [place] % (Auto) 8.7 Eos % (Auto) 6.2 H Baso % (Auto) 1.5 Neut # (Auto) 4.6 Lymph # (Auto) 1.4 [place] # (Auto) 0.6 Eos # (Auto) 0.4 Baso # (Auto) 0.1 PT 13.0 INR 1.1 APTT 25.3 L pCO2 pO2 HCO3 ABG pH ABG Total CO2 ABG O2 Saturation ABG O2 Content ABG Base Excess ABG Hemoglobin ABG Carboxyhemoglobin POC ABG HHb (Measured) ABG Methemoglobin ABG O2 Capacity Adam Test A-a O2 Difference Hgb O2 Saturation FiO2 Sodium 138 Potassium 5.3 H Chloride 105 Carbon Dioxide 20 L Anion Gap 18 BUN 34 H Creatinine 2.7 H Est GFR ( Amer) 21 Est GFR (Non-Af Amer) 17 POC Glucose (mg/dL) Random Glucose 116 H Calcium 9.6 Phosphorus Magnesium Total Bilirubin 0.5 AST 21 ALT 21 Alkaline Phosphatase 72 Total Protein 7.5 Albumin 4.3 Globulin 3.2 Albumin/Globulin Ratio 1.3 Urine Color Urine Clarity Urine pH Ur Specific [place] Urine Protein Urine Glucose (UA) Urine Ketones Urine Blood Urine Nitrate Urine Bilirubin Urine Urobilinogen Ur Leukocyte Esterase Urine RBC (Auto) Urine Microscopic WBC Ur Squamous Epith Cells Hyaline Casts 01/16/18 17:00 WBC RBC Hgb Hct MCV MCH MCHC RDW Plt Count MPV Neut % (Auto) Lymph % (Auto) [place] % (Auto) Eos % (Auto) Baso % (Auto) Neut # (Auto) Lymph # (Auto) [place] # (Auto) Eos # (Auto) Baso # (Auto) PT INR APTT pCO2 pO2 HCO3 ABG pH ABG Total CO2 ABG O2 Saturation ABG O2 Content ABG Base Excess ABG Hemoglobin ABG Carboxyhemoglobin POC ABG HHb (Measured) ABG Methemoglobin ABG O2 Capacity Adam Test A-a O2 Difference Hgb O2 Saturation FiO2 Sodium Potassium Chloride Carbon Dioxide Anion Gap BUN Creatinine Est GFR ( Amer) Est GFR (Non-Af Amer) POC Glucose (mg/dL) Random Glucose Calcium Phosphorus Magnesium Total Bilirubin AST ALT Alkaline Phosphatase Total Protein Albumin Globulin Albumin/Globulin Ratio Urine Color Yellow Urine Clarity Slighty-cloudy Urine pH 6.0 Ur Specific [place] 1.008 Urine Protein 30 Urine Glucose (UA) Neg Urine Ketones Negative Urine Blood Negative Urine Nitrate Negative Urine Bilirubin Negative Urine Urobilinogen 0.2-1.0 Ur Leukocyte Esterase Neg Urine RBC (Auto) 1 Urine Microscopic WBC 2 Ur Squamous Epith Cells 3 Hyaline Casts 0-2 Assessment & Plan - Assessment and Plan (Free Text) Assessment: Assessment/Plan: 77 YO Female with PMHx of HTN, HLD, hypothyroidism, IA, CABG (11/2017), CHF s/p pacemaker is admitted for Colitis and Renal insufficiency. Colitis, Diarrhea -acute -unknown etiology, less likely infectious given blood work and vitals -likely 2/2 to diabetic diarrhea -CT abd and pelvis: Suspicious for large bowel wall thickening. Please correlate clinically for colitis. -S/p cipro and Metro in ED -c/w Cipro PO and Metro (10mg/kg daily) IV -Diabetic control -c/w IVFs -stool culture and c diff pending -follow up AM blood work Renal Insufficiency/POLLY -acute on chronic -likely 2/2 to dehydration and poor PO intake -orthostats pending -crclearance 21 -Start IV fluids -follow up AM labs Mental status changes -acute -age related vs medication induced vs uncontrolled chronic conditions -follow up TSH, folate, B12, HbA1c in AM IDDM -chronic and uncontrolled -HbA1c 9.8 (07/05) -c/w HS insulin, hold TID dose for now given poor PO intake -medium sliding scale -hypoglycemia protocol prn -hold metformin for now given contrast used for CT scan Hypothyrodism -chronic -c/w with home meds -follow up TSH in AM HTN/HLD/CAD -chronic, controlled -c/w home meds -s/p CABG 11/2017 -cardiology consulted -follow up recs CHFrEF -chronic, systolic CHF -Echo 10/2017: systolic dysfunction EF 30-35% -c/w home meds -s/p pacemaker Asthma/COPD -controlled -c/w home meds Dvt prolax -Heparin 5000 SC
[2018-01-16] MEDS ORDERED: Sodium Chloride 0.9% 1,000 ML IV SCH ×2 (20:15)
[2018-01-16] MEDS ORDERED: Albuterol HFA 90 mcg/actuation (8 g) IH PRN (20:37)
[2018-01-16] MEDS ORDERED: Dextrose 50% SYRINGE Inj (50 ml) IV PRN (20:47)
[2018-01-16] MEDS ORDERED: Glucagon Recombinant 1 mg Inj IM PRN (20:47)
[2018-01-16] MEDS ORDERED: Magnesium Sulfate 2 gm/50 ml 2 GM/50 ML BAG IVPB ONE (21:04)
[2018-01-16] MEDS ORDERED: metroNIDAZOLE 500mg/100ml NS 100 ML IVPB ONE (21:36)
[2018-01-16] MEDS ORDERED: Magnesium Sulfate 2 gm/50 ml 2 GM/50 ML BAG ONE (21:36)
[2018-01-16] MEDS ORDERED: Insulin Detemir 100 Units/ml Inj SC SCH (22:00)
[2018-01-16] MEDS: metroNIDAZOLE 500mg/100ml NS 100 ML IVPB SCH (22:08)
[2018-01-16] MEDS ORDERED: Ciprofloxacin 400mg/200ml D5W 400 MG/200 ML BAG IVPB ONE (22:30)
[2018-01-16] MEDS: Insulin Regular 100 units/ml SC SCH (23:20)
[2018-01-17] MEDS: Fluticasone-Salmeterol 250-50mcg Diskus IH SCH ×3 (02:11→22:57)
[2018-01-17 05:31] LABS: BASO # 0.1 K/uL (0.0-0.2); BASO % 1.2 % (0.0-2.0); EOS # 0.4 K/uL (0.0-0.7); HEMOGLOBIN 10.4 g/dL (12.0-16.0); LYMPH # 0.7 K/uL (1.0-4.3); MEAN CELL VOLUME 85.6 fl (81.0-99.0); MEAN CORPUSCULAR HEMOGLOBIN 29.4 pg (27.0-31.0); MEAN CORPUSCULAR HGB CONC 34.4 g/dL (33.0-37.0); MEAN PLATELET VOLUME 7.5 fl (7.2-11.7); MONO # 0.4 K/uL (0.0-0.8); MONO % 8.7 % (0.0-10.0); NEUT # 3.4 K/uL (1.8-7.0); NEUT % 68.1 % (50.0-75.0); RBC 3.53 Mil/uL (3.80-5.20); RED CELL DISTRIBUTION WIDTH 15.6 % (11.5-14.5)
[2018-01-17 05:54] LABS: CALCIUM 8.7 mg/dL (8.4-10.2)
[2018-01-17] MEDS ORDERED: Sodium Chloride 0.9% 1,000 ML IV SCH (06:00)
[2018-01-17] MEDS: Levothyroxine 125 MCG TAB PO SCH (06:40)
[2018-01-17] MEDS ORDERED: Magnesium Sulfate 1 gm in D5W 1 GM/100 ML BAG IVPB ONE (07:30)
[2018-01-17] MEDS: Pantoprazole 40 mg EC Tab PO SCH (09:02)
--- NOTE | 2018-01-17 09:03 | RAD ---
Date of service: 01/16/2018 HISTORY: Renal insufficiency COMPARISON: Portable chest 12/31/2014. FINDINGS: Interval bipolar permanent pacemaker with generator the left pectoralis region and 2 leads identified extending into the left subclavian region and into the right heart. Post CABG changes also evident including median sternotomy. LUNGS: No active pulmonary disease. PLEURA: No significant pleural effusion identified, no pneumothorax apparent. CARDIOVASCULAR: No aortic atherosclerotic calcification present. Prominent cardiac silhouette appreciated. No pulmonary vascular congestion. OSSEOUS STRUCTURES: No significant abnormalities. VISUALIZED UPPER ABDOMEN: Normal. OTHER FINDINGS: None. IMPRESSION: No acute pulmonary disease appreciated bilaterally. No pulmonary vascular congestion. Prominent cardiac silhouette appreciated interval bipolar permanent cardiac pacemaker noted as discussed above as well as post CABG changes.
[2018-01-17] MEDS: Insulin Regular 100 units/ml SC SCH ×4 (09:15→22:57)
--- NOTE | 2018-01-17 09:39 | CP.PCM.PN ---
Subjective - Date & Time of Evaluation Date of Evaluation: 01/17/18 Time of Evaluation: 08:00 - Subjective Subjective: Pt was seen and examined this morning. Denies pain or discomfort. States she has no appetite to eat. Has not had any BM since admission. Reports having loose stools at home. Discussed with family at bedside with Dr. Cornejo. Daughter stat es mother has been more withdrawn, forgetful, and confused since [facility] ([facility]). Also state she has had multiple falls at the [facility] and has been complaining of ankle pain. Objective - Vital Signs/Intake and Output Vital Signs (last 24 hours): Temp Pulse Resp BP Pulse Ox 98.4 F 84 20 137/72 97 01/17/18 07:40 01/17/18 09:01 01/17/18 07:40 01/17/18 09:01 01/17/18 07:40 - Medications Medications: Current Medications Albuterol (Ventolin Hfa 90 Mcg/Actuation (8 G)) 2 puff IH Q6 PRN PRN Reason: Shortness of Breath Aspirin (Ecotrin) 81 mg PO DAILY [facility] Last Admin: 01/17/18 09:10 Dose: 81 mg Atorvastatin Calcium (Lipitor) 40 mg PO HS [facility] Last Admin: 01/17/18 02:08 Dose: 40 mg Ciprofloxacin (Cipro) 500 mg PO Q12 [facility]; Protocol Last Admin: 01/17/18 08:57 Dose: 500 mg Clopidogrel Bisulfate (Plavix) 75 mg PO DAILY [facility] Last Admin: 01/17/18 09:01 Dose: 75 mg Dextrose (Dextrose 50% Inj) 0 ml IV STAT PRN; Protocol PRN Reason: Hypoglycemia Protocol Dextrose (Glutose 15) 0 gm PO ONCE PRN; Protocol PRN Reason: Hypoglycemia Protocol Furosemide (Lasix) 40 mg PO DAILY [facility] Last Admin: 01/17/18 09:00 Dose: 40 mg Glucagon (Glucagen Diagnostic Kit) 0 mg IM STAT PRN; Protocol PRN Reason: Hypoglycemia Protocol Heparin Sodium (Porcine) (Heparin) 5,000 units SC Q8 [facility]; Protocol Last Admin: 01/17/18 09:10 Dose: 5,000 units Metronidazole (Flagyl 500mg/100ml Ns) 100 mls @ 100 mls/hr IVPB Q12 [facility]; Protocol Last Admin: 01/16/18 22:08 Dose: Not Given Sodium Chloride (Sodium Chloride 0.9%) 1,000 mls @ 60 mls/hr IV .[id number] [facility] Stop: 01/17/18 22:39 Insulin Detemir (Levemir) 60 units SC HS [facility] Last Admin: 01/16/18 23:27 Dose: Not Given Insulin Human Regular (Humulin R) 0 units SC ACHS [facility]; Protocol Last Admin: 01/17/18 09:15 Dose: 2 units Levothyroxine Sodium (Synthroid) 125 mcg PO DAILY@0630 [facility] Last Admin: 01/17/18 06:40 Dose: 125 mcg Metoprolol Tartrate (Lopressor) 25 mg PO DAILY [facility] Last Admin: 01/17/18 09:01 Dose: 25 mg Pantoprazole Sodium (Protonix Ec Tab) 40 mg PO DAILY [facility] Last Admin: 01/17/18 09:02 Dose: 40 mg Fluticasone/Salmeterol (Advair Diskus 250/50) 1 puff IH Q12 [facility] Last Admin: 01/17/18 08:56 Dose: 1 puff Sitagliptin Phosphate (Januvia) 50 mg PO Q12 [facility] Last Admin: 01/17/18 09:00 Dose: 50 mg - Labs Labs: 01/17/18 04:30 01/17/18 04:30 PT 13.0 Seconds (9.8-13.1) 01/16/18 16:45 INR 1.1 01/16/18 16:45 APTT 25.3 Seconds (25.6-37.1) L 01/16/18 16:45 - Constitutional Appears: No Acute Distress - Head Exam Head Exam: NORMAL INSPECTION - Eye Exam Eye Exam: Normal appearance - ENT Exam ENT Exam: Mucous Membranes Moist - Respiratory Exam Respiratory Exam: Clear to Ausculation Bilateral. absent: Rales, Wheezes - Cardiovascular Exam Cardiovascular Exam: REGULAR RHYTHM, +S1, +S2. absent: Murmur Additional comments: well healed surgical midline sternotomy scar - GI/Abdominal Exam GI & Abdominal Exam: Soft, Normal Bowel Sounds. absent: Distended, Tenderness, Organomegaly - Extremities Exam Extremities Exam: Normal Capillary Refill, Normal Inspection. absent: Pedal Edema Additional comments: R. Ankle swelling and ecchymosis noted over lateral ankle, tender to palpation, good distal pulse, full ROM - Neurological Exam Neurological Exam: Alert, Oriented x3 - Psychiatric Exam Psychiatric exam: Flat Affect - Skin Skin Exam: Normal Color Assessment and Plan - Assessment and Plan (Free Text) Assessment: 77 YO Female with PMHx of HTN, HLD, hypothyroidism, ME, CABG (11/2017), CHF s/p pacemaker is admitted for Colitis and Renal insufficiency. Additionally noted to have new onset cognitive deficits, memory lapses, confusion, and depressive symptoms. Diarrhea -Subacute x 3 weeks, no new episodes since admission -Etiology unknown, maybe be infectious colitis -Abdomen/Pelvis CT:Large bowel thickening suspicious for colitis -S/p Ciprofloxacin and Metronidazole -Cdiff negative x1 -stool culture pending Acute on Chronic Kidney Injury -Crea 2.7 on admission w/ GFR 17 (prior admission, Crea 1 w/ GFR 40+ -Bicarb 20L, likely metabolic acidosis in setting of POLLY -likely pre-renal 2/2 to dehydration and poor PO intake -C/W IV fluids -follow up AM labs and urine lytes Electrolyte disturbances -Hyperkalemia resolved after repletion, 5.3 to 4.0. -Magnesium 1.3. Repleted, now 1.5. 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 Associated with poor appetite. -Maybe 2/2 to pseudodementia vs age related dementia -TSH normal, B12 normal, Folate normal -Head CT w/o contrast, pt had fall a [facility] weeks ago at [facility], need to rule out subdural hematoma -Psych consulted Poor po intake -May be component of underlying psychiatric d/o (depression/dementia) -Will f/u recommendations from psych (Darshan Hernandez); will consider adding appetite stimulating medication such as Remeron -Vitamin B12 daily -Supplementation with Ensure Ankle Pain -Pt fell last [facility] in [facility], swelling noted -Ankle Xray, f/u report -Wound care nurse for crusted lesion over ankle IDDM -chronic and uncontrolled -HbA1c 9.8 (07/05), HbA1C now 6.3 on 01/17 -Home Insulin regimen held as patient has significantly poor po intake -medium sliding scale -hypoglycemia protocol prn -hold metformin for now given contrast used for CT scan as well GFR <30 Hypothyrodism -chronic -c/w Levothyroxine 125mcg -TSH 0.84 HTN/HLD/CAD -chronic, controlled -c/w home meds -s/p CABG 11/2017 -cardiology consulted -follow up recs CHFrEF -chronic, systolic CHF -Echo 10/2017: systolic dysfunction EF 30-35% -Hold Lasix given POLLY; monitor fluid status strictly -C/w with dual antiplatelet therapy -Cardiology consulted, Dr. Petersen -s/p pacemaker Asthma/COPD -controlled -c/w home meds Mobility, ADL's -PT/OT ordered Dvt ppx -Heparin 5000 SC Diet -Diabetic and Heart Healthy Dispo planning -Daughter states she would like [facility] to come [facility] instead of [facility] -Needs RX for Home services Full Code Discussed Case with Dr. Cornejo
[2018-01-17] MEDS: metroNIDAZOLE 500mg/100ml NS 100 ML IVPB SCH ×2 (12:02→22:57)
[2018-01-17 14:15] LABS: FOLATE 4.8 ng/mL
--- NOTE | 2018-01-17 16:15 | CT ---
Date of service: 01/17/2018 PROCEDURE: CT HEAD WITHOUT CONTRAST. HISTORY: [place], hx of fall 1 week ago. R/o bleed COMPARISON: 12/31/2014. TECHNIQUE: Axial computed tomography images were obtained through the head/brain without intravenous contrast. Supplemental Coronal and Sagittal projections created and reviewed. Radiation dose: Total exam DLP = 829.49 mGy-cm. This CT exam was performed using one or more of the following dose reduction techniques: Automated exposure control, adjustment of the mA and/or kV according to patient size, and/or use of iterative reconstruction technique. FINDINGS: HEMORRHAGE: No intracranial hemorrhage. BRAIN: No mass effect or edema. Cortical atrophy and chronic microvascular ischemic change. VENTRICLES: Unremarkable. No hydrocephalus. CALVARIUM: Unremarkable. 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 No acute findings. MASTOID AIR CELLS: Unremarkable as visualized. No inflammatory changes. OTHER FINDINGS: None. IMPRESSION: No acute intracranial abnormalities. No significant findings to account for the clinical presentation. No significant interval change compared to the prior examination(s).
[2018-01-17] MEDS: Dextrose 5%/0.45% NS 1,000 ML IV SCH (17:22)
--- NOTE | 2018-01-17 20:03 | CARD ---
APPROVED REPORT Date of service: 01/16/2018 EKG Measurement Heart [id number] <Conclusion> Atrial-sensed ventricular-paced rhythm Abnormal ECG
[2018-01-18] MEDS: Levothyroxine 125 MCG TAB PO SCH (07:09)
[2018-01-18] MEDS: Insulin Regular 100 units/ml SC SCH ×4 (07:10→21:43)
[2018-01-18 07:45] LABS: ALB/GLOB RATIO 1.2 (1.0-2.1); ALBUMIN 3.4 g/dL (3.5-5.0); CALCIUM 8.4 mg/dL (8.4-10.2)
[2018-01-18 08:13] LABS: BASO # 0.1 K/uL (0.0-0.2); BASO % 0.9 % (0.0-2.0); EOS # 0.2 K/uL (0.0-0.7); EOS % 4.3 % (0.0-4.0); LYMPH # 0.7 K/uL (1.0-4.3); LYMPH % 12.1 % (20.0-40.0); MEAN CELL VOLUME 85.5 fl (81.0-99.0); MEAN CORPUSCULAR HEMOGLOBIN 29.5 pg (27.0-31.0); MEAN CORPUSCULAR HGB CONC 34.5 g/dL (33.0-37.0); MEAN PLATELET VOLUME 7.7 fl (7.2-11.7); MONO # 0.6 K/uL (0.0-0.8); MONO % 9.7 % (0.0-10.0); NEUT # 4.2 K/uL (1.8-7.0); NRBC % 0.1 % (0.0-0.0); RBC 3.38 Mil/uL (3.80-5.20); RED CELL DISTRIBUTION WIDTH 15.5 % (11.5-14.5); WHITE BLOOD COUNT 5.7 K/uL (4.8-10.8)
--- NOTE | 2018-01-18 08:15 | RAD ---
Date of service: 01/17/2018 PROCEDURE: Right ankle radiographs. HISTORY: s/p fall. Rule out Fracture COMPARISON: None. FINDINGS: BONES: Normal. No fracture. JOINTS: Normal. No dislocation. SOFT TISSUES: Normal. OTHER FINDINGS: Heel spur. Vascular calcification. IMPRESSION: Heel spur. Vascular calcification.
[2018-01-18] MEDS: Fluticasone-Salmeterol 250-50mcg Diskus IH SCH ×2 (09:54→21:42)
[2018-01-18] MEDS: Pantoprazole 40 mg EC Tab PO SCH (09:55)
[2018-01-18] MEDS: metroNIDAZOLE 500mg/100ml NS 100 ML IVPB SCH ×3 (09:57→22:35)
--- NOTE | 2018-01-18 09:58 | CP.PCM.DIS ---
Provider - Provider Date of Admission: 01/16/18 19:59 Attending physician: Donell Cornejo MD Consults: 01/16/18 20:08 Cardiology Consult Stat Comment: Consulting Provider: Leland Petersen Consulting Physician: Leland Petersen Reason for Consult: s/p CABG 01/17/18 12:54 Wound Care [Nursing Referral for Wound Care] Routine Comment: Physician Instructions: Reason For Exam: r. ankle wound, medial thigh wounds 01/17/18 15:42 Psychiatry Consult Routine Comment: Consulting Provider: Darshan Hernandez Consulting Physician: Darshan Hernandez Reason for Consult: pt with new onset dementia/depression Hospital Course - Lab Results Lab Results: Micro Results 01/16/18 17:00 Blood-Venous Blood Culture - Preliminary NO GROWTH AFTER 24 HOURS 01/16/18 16:45 Blood-Venous Blood Culture - Preliminary NO GROWTH AFTER 24 HOURS Most Recent Lab Values WBC 5.7 K/uL (4.8-10.8) 01/18/18 06:00 RBC 3.38 Mil/uL (3.80-5.20) L 01/18/18 06:00 Hgb 10.0 g/dL (12.0-16.0) L 01/18/18 06:00 Hct 28.9 % (34.0-47.0) L 01/18/18 06:00 MCV 85.5 fl (81.0-99.0) 01/18/18 06:00 MCH 29.5 pg (27.0-31.0) 01/18/18 06:00 MCHC 34.5 g/dL (33.0-37.0) 01/18/18 06:00 RDW 15.5 % (11.5-14.5) H 01/18/18 06:00 Plt Count 278 K/uL (130-400) 01/18/18 06:00 MPV 7.7 fl (7.2-11.7) 01/18/18 06:00 Neut % (Auto) 73.0 % (50.0-75.0) 01/18/18 06:00 Lymph % (Auto) 12.1 % (20.0-40.0) L 01/18/18 06:00 [place] % (Auto) 9.7 % (0.0-10.0) 01/18/18 06:00 Eos % (Auto) 4.3 % (0.0-4.0) H 01/18/18 06:00 Baso % (Auto) 0.9 % (0.0-2.0) 01/18/18 06:00 Neut # (Auto) 4.2 K/uL (1.8-7.0) 01/18/18 06:00 Lymph # (Auto) 0.7 K/uL (1.0-4.3) L 01/18/18 06:00 [place] # (Auto) 0.6 K/uL (0.0-0.8) 01/18/18 06:00 Eos # (Auto) 0.2 K/uL (0.0-0.7) 01/18/18 06:00 Baso # (Auto) 0.1 K/uL (0.0-0.2) 01/18/18 06:00 PT 13.0 Seconds (9.8-13.1) 01/16/18 16:45 INR 1.1 01/16/18 16:45 APTT 25.3 Seconds (25.6-37.1) L 01/16/18 16:45 pCO2 32 mm/Hg (35-45) L 01/16/18 16:07 pO2 87 mm/Hg (80-100) 01/16/18 16:07 HCO3 22.6 mmol/L (21-28) 01/16/18 16:07 ABG pH 7.42 (7.35-7.45) 01/16/18 16:07 ABG Total CO2 21.8 mmol/L (22-28) L 01/16/18 16:07 ABG O2 Saturation 99.5 % (95-98) H 01/16/18 16:07 ABG O2 Content 15.6 ML/dL (15-23) 01/16/18 16:07 ABG Base Excess -3.0 mmol/L (-2.0-3.0) L 01/16/18 16:07 ABG Hemoglobin 11.5 g/dL (11.7-17.4) L 01/16/18 16:07 ABG Carboxyhemoglobin 1.8 % (0.5-1.5) H 01/16/18 16:07 POC ABG HHb (Measured) 0.5 % (0.0-5.0) 01/16/18 16:07 ABG Methemoglobin 2.1 % (0.0-3.0) 01/16/18 16:07 ABG O2 Capacity 15.7 mL/dL (16-24) L 01/16/18 16:07 Adam Test Yes 01/16/18 16:07 A-a O2 Difference 23.0 mm/Hg 01/16/18 16:07 Hgb O2 Saturation 95.6 % (95.0-98.0) 01/16/18 16:07 FiO2 21.0 % 01/16/18 16:07 Sodium 138 mmol/l (132-148) 01/18/18 06:00 Potassium 3.5 MMOL/L (3.6-5.0) L 01/18/18 06:00 Chloride 104 mmol/L (98-107) 01/18/18 06:00 Carbon Dioxide 21 mmol/L (22-30) L 01/18/18 06:00 Anion Gap 17 (10-20) 01/18/18 06:00 BUN 17 mg/dl (7-17) 01/18/18 06:00 Creatinine 1.8 mg/dl (0.7-1.2) H 01/18/18 06:00 Est GFR ( Amer) 33 01/18/18 06:00 Est GFR (Non-Af Amer) 27 01/18/18 06:00 POC Glucose (mg/dL) 219 mg/dL (65-110) H 01/18/18 05:37 Random Glucose 247 mg/dL (65-105) H 01/18/18 06:00 Hemoglobin A1c 6.3 % (4.2-6.5) 01/17/18 04:30 Calcium 8.4 mg/dL (8.4-10.2) 01/18/18 06:00 Phosphorus 4.0 mg/dl (2.5-4.5) 01/18/18 06:00 Magnesium 1.2 MG/DL (1.6-2.3) L 01/18/18 06:00 Total Bilirubin 0.4 mg/dl (0.2-1.3) 01/18/18 06:00 AST 15 U/L (14-36) 01/18/18 06:00 ALT 19 U/L (9-52) 01/18/18 06:00 Alkaline Phosphatase 56 U/L (38-126) 01/18/18 06:00 Total Protein 6.2 G/DL (6.3-8.2) L 01/18/18 06:00 Albumin 3.4 g/dL (3.5-5.0) L D 01/18/18 06:00 Globulin 2.8 gm/dL (2.2-3.9) 01/18/18 06:00 Albumin/Globulin Ratio 1.2 (1.0-2.1) 01/18/18 06:00 Vitamin B12 471 pg/mL (239-931) 01/17/18 04:30 Folate 4.8 ng/mL 01/17/18 04:30 TSH 3rd Generation 0.84 mIU/ML (0.46-4.68) 01/17/18 04:30 Urine Color Yellow (YELLOW) 01/16/18 17:00 Urine Clarity Slighty-cloudy (Clear) 01/16/18 17:00 Urine pH 6.0 (5.0-8.0) 01/16/18 17:00 Ur Specific [place] 1.008 (1.003-1.030) 01/16/18 17:00 Urine Protein 30 mg/dL (NEGATIVE) 01/16/18 17:00 Urine Glucose (UA) Neg mg/dL (Normal) 01/16/18 17:00 Urine Ketones Negative mg/dL (NEGATIVE) 01/16/18 17:00 Urine Blood Negative (NEGATIVE) 01/16/18 17:00 Urine Nitrate Negative (NEGATIVE) 01/16/18 17:00 Urine Bilirubin Negative (NEGATIVE) 01/16/18 17:00 Urine Urobilinogen 0.2-1.0 mg/dL (0.2-1.0) 01/16/18 17:00 Ur Leukocyte Esterase Neg Deep/uL (Negative) 01/16/18 17:00 Urine RBC (Auto) 1 /hpf (0-3) 01/16/18 17:00 Urine Microscopic WBC 2 /hpf (0-5) 01/16/18 17:00 Ur Squamous Epith Cells 3 /hpf (0-5) 01/16/18 17:00 Hyaline Casts 0-2 /hpf (0-2) 01/16/18 17:00 Ur Random Sodium 96 meq/L 01/17/18 12:00 Ur Random Potassium 17.1 mmol/L 01/17/18 12:00 C. difficile Ag & Toxin Negative (NEGATIVE) 01/17/18 12:00 Discharge Exam - Head Exam Head Exam: NORMAL INSPECTION Discharge Plan - Discharge Medications Prescriptions: Ciprofloxacin [Cipro] 500 mg PO Q12 9 Days #18 tab Metronidazole [Flagyl] 500 mg PO Q8 #27 tablet - Follow Up Plan Condition: FAIR Disposition: HOME/ ROUTINE Instructions: Acute Abdomen (Belly Pain), Adult (DC) Referrals: Donell Cornejo MD [Family Provider] -
[2018-01-18] MEDS: Dextrose 5%/0.45% NS 1,000 ML IV SCH (09:59)
--- NOTE | 2018-01-18 11:48 | CP.PCM.PN ---
<Terrie Jenkinshortencia Donahue - Last Filed: 01/18/18 11:58> Subjective - Date & Time of Evaluation Date of Evaluation: 01/18/18 Time of Evaluation: 08:00 - Subjective Subjective: Patient was seen and examined at bedside this morning with attending, Dr. Workman. Pt denies abdominal pain, and diarrheas. Still with very poor oral intake. Reports she feels depressed, but denies suicidal/homicidal ideation. No events overnight. Has been afebrile. Denies chest pain, SOB, chills, cough. Objective - Vital Signs/Intake and Output Vital Signs (last 24 hours): Temp Pulse Resp BP Pulse Ox 97.6 F 88 18 124/71 97 01/18/18 08:02 01/18/18 09:56 01/18/18 08:02 01/18/18 09:56 01/18/18 08:02 - Medications Medications: Current Medications Albuterol (Ventolin Hfa 90 Mcg/Actuation (8 G)) 2 puff IH Q6 PRN PRN Reason: Shortness of Breath Aspirin (Ecotrin) 81 mg PO DAILY [facility] Last Admin: 01/18/18 09:55 Dose: 81 mg Atorvastatin Calcium (Lipitor) 40 mg PO HS [facility] Last Admin: 01/17/18 22:57 Dose: 40 mg Ciprofloxacin (Cipro) 500 mg PO Q12 [facility]; Protocol Last Admin: 01/18/18 09:54 Dose: 500 mg Clopidogrel Bisulfate (Plavix) 75 mg PO DAILY [facility] Last Admin: 01/18/18 09:55 Dose: 75 mg Cyanocobalamin (Vitamin B12 1000 Mcg Tab) 1,000 mcg PO DAILY [facility] Last Admin: 01/18/18 09:55 Dose: 1,000 mcg Dextrose (Dextrose 50% Inj) 0 ml IV STAT PRN; Protocol PRN Reason: Hypoglycemia Protocol Dextrose (Glutose 15) 0 gm PO ONCE PRN; Protocol PRN Reason: Hypoglycemia Protocol Furosemide (Lasix) 40 mg PO DAILY [facility] Last Admin: 01/17/18 09:00 Dose: 40 mg Glucagon (Glucagen Diagnostic Kit) 0 mg IM STAT PRN; Protocol PRN Reason: Hypoglycemia Protocol Heparin Sodium (Porcine) (Heparin) 5,000 units SC Q8 [facility]; Protocol Last Admin: 01/18/18 01:59 Dose: Not Given Dextrose/Sodium Chloride (Dextrose 5%/0.45% Ns 1000 Ml) 1,000 mls @ 60 mls/hr IV .[id number] [facility] Stop: 01/18/18 15:03 Last Admin: 01/18/18 09:59 Dose: 60 mls/hr Metronidazole (Flagyl 500mg/100ml Ns) 100 mls @ 100 mls/hr IVPB Q8H [facility]; Protocol Last Admin: 01/18/18 09:57 Dose: 100 mls/hr Insulin Detemir (Levemir) 60 units SC [facility] Last Admin: 01/16/18 23:27 Dose: Not Given Insulin Human Regular (Humulin R) 0 units SC ACHS [facility]; Protocol Last Admin: 01/18/18 07:10 Dose: 3 units Lactic Acid (Lac-Hydrin 12% Lotion (225 G)) 1 applic TOP TID [facility] Last Admin: 01/18/18 09:56 Dose: 1 applic Levothyroxine Sodium (Synthroid) 125 mcg PO DAILY@0630 [facility] Last Admin: 01/18/18 07:09 Dose: 125 mcg Metoprolol Tartrate (Lopressor) 25 mg PO DAILY [facility] Last Admin: 01/18/18 09:56 Dose: 25 mg Pantoprazole Sodium (Protonix Ec Tab) 40 mg PO DAILY [facility] Last Admin: 01/18/18 09:55 Dose: 40 mg Fluticasone/Salmeterol (Advair Diskus 250/50) 1 puff IH Q12 [facility] Last Admin: 01/18/18 09:54 Dose: 1 puff Sitagliptin Phosphate (Januvia) 25 mg PO DAILY [facility] Thiamine HCl (Vitamin B1 Tab) 50 mg PO DAILY [facility] Last Admin: 01/18/18 09:55 Dose: 50 mg - Labs Labs: 01/18/18 06:00 01/18/18 06:00 PT 13.0 Seconds (9.8-13.1) 01/16/18 16:45 INR 1.1 01/16/18 16:45 APTT 25.3 Seconds (25.6-37.1) L 01/16/18 16:45 - Skin Additional comments: Constitutional Appears: No Acute Distress - Head Exam Head Exam: NORMAL INSPECTION - Eye Exam Eye Exam: Normal appearance - ENT Exam ENT Exam: Mucous Membranes Moist - Respiratory Exam Respiratory Exam: Clear to Ausculation Bilateral. absent: Rales, Wheezes - Cardiovascular Exam Cardiovascular Exam: REGULAR RHYTHM, +S1, +S2. absent: Murmur Additional comments: well healed surgical midline sternotomy scar - GI/Abdominal Exam GI & Abdominal Exam: Soft, Normal Bowel Sounds. absent: Distended, Tenderness, Organomegaly - Extremities Exam Extremities Exam: Normal Capillary Refill, Normal Inspection. absent: Pedal Edema Additional comments: R. mild ankle swelling lateral ankle, tender to palpation, good distal pulse, full ROM - Neurological Exam Neurological Exam: Alert, Oriented x3 - Psychiatric Exam Psychiatric exam: Flat Affect - Skin Skin Exam: Normal Color Assessment and Plan - Assessment and Plan (Free Text) Assessment: 77 YO Female with PMHx of HTN, HLD, hypothyroidism, PA, CABG (11/2017), CHF s/p pacemaker is admitted for Colitis and Renal insufficiency. Additionally noted to have new onset cognitive deficits, memory lapses, confusion, and depressive symptoms. Patient is on Cipro, and Flagyl for colitis. Has been afebrile. However has very poor oral intake including fluids, and solids. Renal function slowly improving. Psych was consulted, pending evaluation. Cardiology consulted, Dr. Petersen. Pt stable from Cardiology stand point. Plan: Acute on Chronic Kidney Injury -very poor PO intake -slow improvement -Creat 1.8 (from 2.2), GFR 27 -on admission Crea 2.7 on admission w/ GFR 17 (prior admission, Crea 1 w/ GFR 40+) -C/W gentle IV fluids -follow up AM labs and urine lytes Colitis -improving, likely infectious colitis -diarrheas resolved, afebrile -CBC: no leukocytosis -c/w Ciprofloxacin 500 mg - c/w Metronidazole -Abdomen/Pelvis CT:Large bowel thickening suspicious for colitis. 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 Associated with poor appetite. -TSH normal, B12 normal, Folate normal -Head CT w/o contrast done on admission reported as unremarkable. Pt had fall a few weeks ago at longterm. -Psych consulted for evaluation of depression vs dementia. Pending eval. Recs appreciated Poor po intake -May be component of underlying psychiatric d/o (depression/dementia) -Will f/u recommendations from psych, will consider adding appetite stimulating medication such as Remeron -Vitamin B12 daily -Supplementation with Ensure Ankle Pain -Pt fell last week in longterm, swelling noted -Ankle Xray reported as no evidence of Fracture, heel spur, vascular calcification -Wound care nurse for crusted lesion over ankle IDDM -chronic and uncontrolled -HbA1c 9.8 (07/05), HbA1C now 6.3 on 01/17 -Home Insulin regimen held as patient has significantly poor po intake -medium sliding scale -hypoglycemia protocol prn -Was in home januvia 50 mg BID. Pharmacy was called, and Januvia was adjusted based in current renal function to 25 mg PO daily. -hold metformin GFR <30, will consider DC if not improvement in renal function Hypothyrodism -chronic -c/w Levothyroxine 125mcg -TSH 0.84 HTN/HLD/CAD -chronic, controlled -c/w home meds -s/p CABG 11/2017 -cardiology consulted -follow up recs CHFrEF -chronic, systolic CHF -Echo 10/2017: systolic dysfunction EF 30-35% -Hold Lasix given POLLY; monitor fluid status strictly -C/w with dual antiplatelet therapy -Cardiology consulted, Dr. Petersen -s/p pacemaker Asthma/COPD -controlled -c/w home meds Mobility, ADL's -PT/OT ordered Dvt ppx -Heparin 5000 SC Diet -Diabetic and Heart Healthy Dispo planning -Daughter states she would like mother to come home instead of longterm -Needs RX for Home services Full Code <Daina Workman - Last Filed: 01/19/18 09:29> Objective - Vital Signs/Intake and Output Vital Signs (last 24 hours): Temp Pulse Resp BP Pulse Ox 99 F 85 18 108/64 98 01/19/18 08:14 01/19/18 09:09 01/19/18 08:14 01/19/18 09:09 01/19/18 08:14 - Medications Medications: Current Medications Albuterol (Ventolin Hfa 90 Mcg/Actuation (8 G)) 2 puff IH Q6 PRN PRN Reason: Shortness of Breath Aspirin (Ecotrin) 81 mg PO DAILY [facility] Last Admin: 01/19/18 09:08 Dose: 81 mg Atorvastatin Calcium (Lipitor) 40 mg PO HS [facility] Last Admin: 01/18/18 21:44 Dose: 40 mg Ciprofloxacin (Cipro) 500 mg PO Q12 [facility]; Protocol Last Admin: 01/19/18 09:08 Dose: 500 mg Clopidogrel Bisulfate (Plavix) 75 mg PO DAILY [facility] Last Admin: 01/19/18 09:08 Dose: 75 mg Cyanocobalamin (Vitamin B12 1000 Mcg Tab) 1,000 mcg PO DAILY [facility] Last Admin: 01/19/18 09:08 Dose: 1,000 mcg Dextrose (Dextrose 50% Inj) 0 ml IV STAT PRN; Protocol PRN Reason: Hypoglycemia Protocol Dextrose (Glutose 15) 0 gm PO ONCE PRN; Protocol PRN Reason: Hypoglycemia Protocol Furosemide (Lasix) 40 mg PO DAILY [facility] Last Admin: 01/17/18 09:00 Dose: 40 mg Glucagon (Glucagen Diagnostic Kit) 0 mg IM STAT PRN; Protocol PRN Reason: Hypoglycemia Protocol Heparin Sodium (Porcine) (Heparin) 5,000 units SC Q8 [facility]; Protocol Last Admin: 01/19/18 09:09 Dose: 5,000 units Metronidazole (Flagyl 500mg/100ml Ns) 100 mls @ 100 mls/hr IVPB Q8H [facility]; Protocol Last Admin: 01/19/18 09:09 Dose: 100 mls/hr Insulin Detemir (Levemir) 20 units SC HS [facility] Last Admin: 01/18/18 21:43 Dose: 20 units Insulin Human Regular (Humulin R) 0 units SC ACHS [facility]; Protocol Last Admin: 01/19/18 06:37 Dose: 1 u Lactic Acid (Lac-Hydrin 12% Lotion (225 G)) 1 applic TOP TID [facility] Last Admin: 01/19/18 09:12 Dose: 1 applic Levothyroxine Sodium (Synthroid) 125 mcg PO DAILY@0630 [facility] Last Admin: 01/19/18 06:32 Dose: 125 mcg Metoprolol Tartrate (Lopressor) 25 mg PO DAILY [facility] Last Admin: 01/19/18 09:09 Dose: 25 mg Pantoprazole Sodium (Protonix Ec Tab) 40 mg PO DAILY [facility] Last Admin: 01/19/18 09:08 Dose: 40 mg Potassium Chloride (K-Dur 20 Meq Er Tab) 40 meq PO ONCE ONE Stop: 01/19/18 09:27 Fluticasone/Salmeterol (Advair Diskus 250/50) 1 puff IH Q12 [facility] Last Admin: 01/19/18 09:07 Dose: 1 puff Sitagliptin Phosphate (Januvia) 25 mg PO DAILY [facility] Last Admin: 01/19/18 09:08 Dose: 25 mg Thiamine HCl (Vitamin B1 Tab) 50 mg PO DAILY [facility] Last Admin: 01/19/18 09:08 Dose: 50 mg - Labs Labs: 01/19/18 06:00 01/19/18 06:00 PT 13.0 Seconds (9.8-13.1) 01/16/18 16:45 INR 1.1 01/16/18 16:45 APTT 25.3 Seconds (25.6-37.1) L 01/16/18 16:45 Attending/Attestation - Attestation I have personally seen and examined this patient.: Yes I have fully participated in the care of the patient.: Yes I have reviewed all pertinent clinical information, including history, physical exam and plan: Yes Notes (Text): 01/19/18 09:29 Seen examined and discussed with resident. Agree with findings and plan as above.
[2018-01-18] MEDS: Insulin Detemir 100 Units/ml Inj SC SCH (21:43)
[2018-01-18] MEDS ORDERED: Insulin Detemir 100 Units/ml Inj SC SCH (22:00)
--- NOTE | 2018-01-19 02:40 | PCM.RRT ---
I.Reason for BIOSOLIDS MANAGEMENT TECHNICIAN - A) Acute Change in Patient: Subjective: BIOSOLIDS MANAGEMENT TECHNICIAN Call Time: 01:51 BIOSOLIDS MANAGEMENT TECHNICIAN Arrival Time: 01:51 BIOSOLIDS MANAGEMENT TECHNICIAN Location: Telemetry 413-1 >S: BIOSOLIDS MANAGEMENT TECHNICIAN was called by RN on a 77 y/o F due to chest pain and diaphoresis. Pt reports she had an episode of chest pain a few minutes ago that already resolved. Pt described pain as pressure-like, moderate in intensity, associated with SOB and lasted for 10-20 minutes. Pt denies fever, dizziness, abdominal pain, recent diarrhea or rash. Upon reviewing chart, pt had a CABG 1 month ago. >O: VITAL SIGNS: BP 111/49, HR 92, RR 20, Temp 98.9F, Sat 98% with oxygen by NC at 2L/min PHYSICAL EXAM: --GEN: Pt awake and alert, NAD, resting on bed. --HEENT: Normocephalic, attraumtic, EOMI, PERRL. --NECK: normal ROM. --CV: Regular rate and rhythm, S1 and S2 present, no murmur appreciated. --LUNGS: Clear to auscultation. --ABdomen: Soft, non-tender, non-distended, BS present and normoactive. No guarding or rebound tenderness. >BIOSOLIDS MANAGEMENT TECHNICIAN Interventions: --Pt was examined by bedside. --EKG was ordered. --school bus monitor reviewed, NO remarkable changes. --EKG was reviewed and compared to a previous EKG on 01/16. NO acute changes noticed. --Pt re-evaluated and examined, no complaints at this moment. REPEATED VITAL SIGNS: BP 106/48, HR 94, RR 18, Sat O2 99% on NC. >A/P: 77 y/o F with a PMHx of HTN, HLD, hypothyroidism, [place], S/P CABG 1 month ago admitted for renal insufficiency and colitis, developed a transient episode chest pain which resolved spontaneously. --Afebrile, hemodynamically stable. No EKG changes. --Transient episode, acute KS unlikely; however, will f/u symptoms. --No further testing as suspicion for critical pathology is low. BIOSOLIDS MANAGEMENT TECHNICIAN End Time: 01:57 BIOSOLIDS MANAGEMENT TECHNICIAN Leader: Dr Onofre Bales BIOSOLIDS MANAGEMENT TECHNICIAN Residents: Dr Madison PGY-2, Dr Huitron PGY-2
[2018-01-19] MEDS: Levothyroxine 125 MCG TAB PO SCH (06:32)
[2018-01-19] MEDS: Insulin Regular 100 units/ml SC SCH ×4 (06:37→21:53)
[2018-01-19 06:43] LABS: BASO # 0.1 K/uL (0.0-0.2); BASO % 1.1 % (0.0-2.0); EOS # 0.2 K/uL (0.0-0.7); EOS % 4.2 % (0.0-4.0); HEMOGLOBIN 9.3 g/dL (12.0-16.0); LYMPH # 0.7 K/uL (1.0-4.3); LYMPH % 13.2 % (20.0-40.0); MEAN CELL VOLUME 84.7 fl (81.0-99.0); MEAN CORPUSCULAR HEMOGLOBIN 28.7 pg (27.0-31.0); MEAN CORPUSCULAR HGB CONC 33.8 g/dL (33.0-37.0); MEAN PLATELET VOLUME 7.3 fl (7.2-11.7); MONO # 0.7 K/uL (0.0-0.8); MONO % 12.2 % (0.0-10.0); NEUT # 3.7 K/uL (1.8-7.0); NEUT % 69.3 % (50.0-75.0); RBC 3.23 Mil/uL (3.80-5.20); RED CELL DISTRIBUTION WIDTH 15.6 % (11.5-14.5); WHITE BLOOD COUNT 5.4 K/uL (4.8-10.8)
[2018-01-19 07:14] LABS: CALCIUM 8.4 mg/dL (8.4-10.2)
[2018-01-19] MEDS: Fluticasone-Salmeterol 250-50mcg Diskus IH SCH ×2 (09:07→21:44)
[2018-01-19] MEDS: Pantoprazole 40 mg EC Tab PO SCH (09:08)
[2018-01-19] MEDS: metroNIDAZOLE 500mg/100ml NS 100 ML IVPB SCH ×3 (09:09→23:59)
[2018-01-19] MEDS ORDERED: Potassium Chloride 20 mEq ER Tab PO ONE (09:26)
--- NOTE | 2018-01-19 09:27 | CP.PCM.PN ---
<Sowmya Jenkins Rowan - Last Filed: 01/19/18 13:28> Subjective - Date & Time of Evaluation Date of Evaluation: 01/19/18 Time of Evaluation: 08:45 - Subjective Subjective: Patient seen and examined at bedside this morning. Today early in the morning DESTINATION COORDINATOR was called due to chest pain, middle chest, pressure-like, which resolved prior to DESTINATION COORDINATOR responder arrival. As per reimbursement liaison provider, EKG done at bedside was unchanged from prior test. Pt denies chest pain at this time. Still with poor appetite. Reporting mild transient difficulty breathing this morning. Objective - Vital Signs/Intake and Output Vital Signs (last 24 hours): Temp Pulse Resp BP Pulse Ox 99 F 85 18 108/64 98 01/19/18 08:14 01/19/18 09:09 01/19/18 08:14 01/19/18 09:09 01/19/18 08:14 - Medications Medications: Current Medications Albuterol (Ventolin Hfa 90 Mcg/Actuation (8 G)) 2 puff IH Q6 PRN PRN Reason: Shortness of Breath Aspirin (Ecotrin) 81 mg PO DAILY [facility] Last Admin: 01/19/18 09:08 Dose: 81 mg Atorvastatin Calcium (Lipitor) 40 mg PO HS [facility] Last Admin: 01/18/18 21:44 Dose: 40 mg Ciprofloxacin (Cipro) 500 mg PO Q12 [facility]; Protocol Last Admin: 01/19/18 09:08 Dose: 500 mg Clopidogrel Bisulfate (Plavix) 75 mg PO DAILY [facility] Last Admin: 01/19/18 09:08 Dose: 75 mg Cyanocobalamin (Vitamin B12 1000 Mcg Tab) 1,000 mcg PO DAILY [facility] Last Admin: 01/19/18 09:08 Dose: 1,000 mcg Dextrose (Dextrose 50% Inj) 0 ml IV STAT PRN; Protocol PRN Reason: Hypoglycemia Protocol Dextrose (Glutose 15) 0 gm PO ONCE PRN; Protocol PRN Reason: Hypoglycemia Protocol Furosemide (Lasix) 40 mg PO DAILY [facility] Last Admin: 01/17/18 09:00 Dose: 40 mg Glucagon (Glucagen Diagnostic Kit) 0 mg IM STAT PRN; Protocol PRN Reason: Hypoglycemia Protocol Heparin Sodium (Porcine) (Heparin) 5,000 units SC Q8 [facility]; Protocol Last Admin: 01/19/18 09:09 Dose: 5,000 units Metronidazole (Flagyl 500mg/100ml Ns) 100 mls @ 100 mls/hr IVPB Q8H [facility]; Protocol Last Admin: 01/19/18 09:09 Dose: 100 mls/hr Insulin Detemir (Levemir) 20 units SC HS [facility] Last Admin: 01/18/18 21:43 Dose: 20 units Insulin Human Regular (Humulin R) 0 units SC ACHS [facility]; Protocol Last Admin: 01/19/18 06:37 Dose: 1 u Lactic Acid (Lac-Hydrin 12% Lotion (225 G)) 1 applic TOP TID [facility] Last Admin: 01/19/18 09:12 Dose: 1 applic Levothyroxine Sodium (Synthroid) 125 mcg PO DAILY@0630 [facility] Last Admin: 01/19/18 06:32 Dose: 125 mcg Metoprolol Tartrate (Lopressor) 25 mg PO DAILY [facility] Last Admin: 01/19/18 09:09 Dose: 25 mg Pantoprazole Sodium (Protonix Ec Tab) 40 mg PO DAILY [facility] Last Admin: 01/19/18 09:08 Dose: 40 mg Potassium Chloride (K-Dur 20 Meq Er Tab) 40 meq PO ONCE ONE Stop: 01/19/18 09:27 Fluticasone/Salmeterol (Advair Diskus 250/50) 1 puff IH Q12 [facility] Last Admin: 01/19/18 09:07 Dose: 1 puff Sitagliptin Phosphate (Januvia) 25 mg PO DAILY [facility] Last Admin: 01/19/18 09:08 Dose: 25 mg Thiamine HCl (Vitamin B1 Tab) 50 mg PO DAILY [facility] Last Admin: 01/19/18 09:08 Dose: 50 mg - Labs Labs: 01/19/18 06:00 01/19/18 06:00 PT 13.0 Seconds (9.8-13.1) 01/16/18 16:45 INR 1.1 01/16/18 16:45 APTT 25.3 Seconds (25.6-37.1) L 01/16/18 16:45 - Neurological Exam Neurological Exam: Alert, Awake Additional comments: Oriented in person and place - Skin Additional comments: Skin Additional comments: Constitutional Appears: No Acute Distress - Head Exam Head Exam: NORMAL INSPECTION - Eye Exam Eye Exam: Normal appearance - ENT Exam ENT Exam: Mucous Membranes Moist - Respiratory Exam Respiratory Exam: Clear to Ausculation Bilateral. absent: Rales, Wheezes - Cardiovascular Exam Cardiovascular Exam: REGULAR RHYTHM, +S1, +S2. absent: Murmur Additional comments: well healed surgical midline sternotomy scar - GI/Abdominal Exam GI & Abdominal Exam: Soft, Normal Bowel Sounds. absent: Distended, Tenderness, Organomegaly - Extremities Exam Extremities Exam: Normal Capillary Refill, Normal Inspection. pitting 1+ edema in [place], R>L Additional comments: R. mild ankle swelling lateral ankle, good distal pulse, full ROM - Neurological Exam Neurological Exam: Alert, Oriented x3 - Psychiatric Exam Psychiatric exam: Flat Affect - Skin Skin Exam: Normal Color Assessment and Plan - Assessment and Plan (Free Text) Assessment: 77 YO Female with PMHx of HTN, HLD, hypothyroidism, [place], CABG (11/2017), CHF s/p pacemaker is admitted for Colitis and Renal insufficiency. Additionally noted to have new onset cognitive deficits, memory lapses, confusion, and depressive symptoms. Patient is on Cipro, and Flagyl for colitis. Has been afebrile. However has very poor oral intake including fluids, and solids. Renal function slowly improving. Psych was consulted, pending evaluation. Cardiology consulted, Dr. Petersen. Pt stable from Cardiology stand point. DESTINATION COORDINATOR was called due to chest pain, middle chest, pressure-like, which resolved prior to DESTINATION COORDINATOR responder arrival. As per reimbursement liaison provider, EKG done at bedside was unchanged from prior test. DESTINATION COORDINATOR was called on 01/19/18 AM due to chest pain, middle chest, pressure- like, which resolved prior to DESTINATION COORDINATOR responder arrival. As per reimbursement liaison provider, EKG done at bedside was unchanged from prior test. Renal function slowly improving. Plan: Acute on Chronic Kidney Injury -very poor PO intake -slow improvement -Creat 1.5 (from 1.8 on 01/18/18), GFR 33 -on admission Crea 2.7 on admission w/ GFR 17 (prior admission, Crea 1 w/ GFR 40+) -C/W gentle IV fluids -follow up AM labs and urine lytes Colitis -improving, likely infectious colitis -diarrheas resolved, afebrile -CBC: no leukocytosis -c/w Ciprofloxacin 500 mg - c/w Metronidazole -Abdomen/Pelvis CT:Large bowel thickening suspicious for colitis. Diverticulosis w/o diverticulitis -Cdiff negative x 1 -stool culture pending Mood disorder associated with progressive decline in cognitive function -New onset 3 weeks ago since moving to [facility]. Associated with poor appetite. -TSH normal, B12 normal, Folate normal -Head CT w/o contrast done on admission reported as unremarkable. Pt had fall a few weeks ago at [facility]. -Psych consulted for evaluation of depression vs dementia. Pending eval. Recs appreciated Poor po intake -May be component of underlying psychiatric d/o (depression/dementia) -Will f/u recommendations from psych, will consider adding appetite stimulating medication such as Remeron -Vitamin B12 daily -Supplementation with Ensure Ankle Pain -Pt fell last week in [facility], swelling noted -Ankle Xray reported as no evidence of Fracture, heel spur, vascular calcification -Wound care nurse for crusted lesion over ankle IDDM -chronic and uncontrolled -HbA1c 9.8 (07/05), HbA1C now 6.3 on 01/17 -start Home basal Insulin at a lower dose -low sliding scale -hypoglycemia protocol prn -Was in home januvia 50 mg BID. Pharmacy was called, and Januvia was adjusted based in current renal function to 25 mg PO daily. -hold metformin GFR <30, will consider DC if not improvement in renal function Hypothyrodism -chronic -c/w Levothyroxine 125mcg -TSH 0.84 HTN/HLD/CAD -chronic, controlled -c/w home meds -s/p CABG 11/2017 -cardiology consulted -follow up recs CHFrEF -chronic, systolic CHF -Echo 10/2017: systolic dysfunction EF 30-35% -resume Lasix -monitor fluid status strictly -C/w with dual antiplatelet therapy -Cardiology consulted, Dr. Petersen -s/p pacemaker Asthma/COPD -controlled -c/w home meds Mobility, ADL's -PT/OT ordered Dvt ppx -Heparin 5000 SC Diet -Diabetic and Heart Healthy Dispo planning -Daughter states she would like mother to come home instead of [facility] -Needs RX for Home services <Daina Workman - Last Filed: 01/19/18 15:27> Objective - Vital Signs/Intake and Output Vital Signs (last 24 hours): Temp Pulse Resp BP Pulse Ox 97.6 F 80 20 135/79 98 01/19/18 12:25 01/19/18 12:25 01/19/18 12:25 01/19/18 13:08 12/02/18 12:25 - Medications Medications: Current Medications Albuterol (Ventolin Hfa 90 Mcg/Actuation (8 G)) 2 puff IH Q6 PRN PRN Reason: Shortness of Breath Aspirin (Ecotrin) 81 mg PO DAILY [facility] Last Admin: 01/19/18 09:08 Dose: 81 mg Atorvastatin Calcium (Lipitor) 40 mg PO HS [facility] Last Admin: 01/18/18 21:44 Dose: 40 mg Ciprofloxacin (Cipro) 500 mg PO Q12 [facility]; Protocol Last Admin: 01/19/18 09:08 Dose: 500 mg Clopidogrel Bisulfate (Plavix) 75 mg PO DAILY [facility] Last Admin: 01/19/18 09:08 Dose: 75 mg Cyanocobalamin (Vitamin B12 1000 Mcg Tab) 1,000 mcg PO DAILY [facility] Last Admin: 01/19/18 09:08 Dose: 1,000 mcg Dextrose (Dextrose 50% Inj) 0 ml IV STAT PRN; Protocol PRN Reason: Hypoglycemia Protocol Dextrose (Glutose 15) 0 gm PO ONCE PRN; Protocol PRN Reason: Hypoglycemia Protocol Furosemide (Lasix) 40 mg PO DAILY [facility] Last Admin: 01/19/18 13:08 Dose: 40 mg Glucagon (Glucagen Diagnostic Kit) 0 mg IM STAT PRN; Protocol PRN Reason: Hypoglycemia Protocol Heparin Sodium (Porcine) (Heparin) 5,000 units SC Q8 [facility]; Protocol Last Admin: 01/19/18 09:09 Dose: 5,000 units Metronidazole (Flagyl 500mg/100ml Ns) 100 mls @ 100 mls/hr IVPB Q8H [facility]; Protocol Last Admin: 01/19/18 09:09 Dose: 100 mls/hr Insulin Detemir (Levemir) 20 units SC [facility] Last Admin: 01/18/18 21:43 Dose: 20 units Insulin Human Regular (Humulin R) 0 units SC ACHS [facility]; Protocol Last Admin: 01/19/18 13:06 Dose: 4 u Lactic Acid (Lac-Hydrin 12% Lotion (225 G)) 1 applic TOP TID [facility] Last Admin: 01/19/18 13:06 Dose: 1 applic Levothyroxine Sodium (Synthroid) 125 mcg PO DAILY@0630 [facility] Last Admin: 01/19/18 06:32 Dose: 125 mcg Metoprolol Tartrate (Lopressor) 25 mg PO DAILY [facility] Last Admin: 01/19/18 09:09 Dose: 25 mg Pantoprazole Sodium (Protonix Ec Tab) 40 mg PO DAILY [facility] Last Admin: 01/19/18 09:08 Dose: 40 mg Fluticasone/Salmeterol (Advair Diskus 250/50) 1 puff IH Q12 [facility] Last Admin: 01/19/18 09:07 Dose: 1 puff Sitagliptin Phosphate (Januvia) 25 mg PO DAILY [facility] Last Admin: 01/19/18 09:08 Dose: 25 mg Thiamine HCl (Vitamin B1 Tab) 50 mg PO DAILY [facility] Last Admin: 01/19/18 09:08 Dose: 50 mg - Labs Labs: 01/19/18 06:00 01/19/18 06:00 PT 13.0 Seconds (9.8-13.1) 01/16/18 16:45 INR 1.1 01/16/18 16:45 APTT 25.3 Seconds (25.6-37.1) L 01/16/18 16:45 Attending/Attestation - Attestation I have personally seen and examined this patient.: Yes I have fully participated in the care of the patient.: Yes I have reviewed all pertinent clinical information, including history, physical exam and plan: Yes Notes (Text): 01/19/18 15:27 Seen examined and discussed with resident. Agree with findings and plan as above.
[2018-01-19] MEDS: Insulin Detemir 100 Units/ml Inj SC SCH (21:53)
[2018-01-20 05:41] LABS: BASO % 0.9 % (0.0-2.0); EOS # 0.4 K/uL (0.0-0.7); EOS % 6.3 % (0.0-4.0); HEMOGLOBIN 9.8 g/dL (12.0-16.0); LYMPH # 0.9 K/uL (1.0-4.3); LYMPH % 15.4 % (20.0-40.0); MEAN CELL VOLUME 84.4 fl (81.0-99.0); MEAN CORPUSCULAR HEMOGLOBIN 29.4 pg (27.0-31.0); MEAN CORPUSCULAR HGB CONC 34.9 g/dL (33.0-37.0); MEAN PLATELET VOLUME 7.7 fl (7.2-11.7); MONO # 0.6 K/uL (0.0-0.8); NEUT # 3.8 K/uL (1.8-7.0); NEUT % 66.4 % (50.0-75.0); RBC 3.35 Mil/uL (3.80-5.20); RED CELL DISTRIBUTION WIDTH 15.4 % (11.5-14.5); WHITE BLOOD COUNT 5.7 K/uL (4.8-10.8)
[2018-01-20 06:03] LABS: CALCIUM 8.5 mg/dL (8.4-10.2)
[2018-01-20] MEDS: Levothyroxine 125 MCG TAB PO SCH (06:32)
[2018-01-20] MEDS: Insulin Regular 100 units/ml SC SCH ×2 (06:47→13:15)
[2018-01-20 08:33] VITALS: RESP 20
[2018-01-20] MEDS ORDERED: Magnesium Sulfate 1 gm in D5W 1 GM/100 ML BAG IVPB ONE (09:03)
[2018-01-20] MEDS: Fluticasone-Salmeterol 250-50mcg Diskus IH SCH (09:13)
[2018-01-20] MEDS: Pantoprazole 40 mg EC Tab PO SCH (09:14)
[2018-01-20] MEDS: metroNIDAZOLE 500mg/100ml NS 100 ML IVPB SCH (09:15)
--- NOTE | 2018-01-20 10:38 | CP.PCM.CON ---
History of Present Illness - History of Present Illness History of Present Illness: Consultation for hx of CAD s/p recent CABG at [facility] HPI: Daysi is a pleasant 77 year old female with PMH of AR, CAD (s/p stents x 4 and CABG Nov 2017), CHF (s/p pacemaker) HTN, HLD, and hypothyroidism sent to ED from my office for Cr of 2.2, Bicarb of 10, and Anion gap of 28. She also admitted to worsening loose stools since her surgery 3 weeks ago with associated fecal incontinence. She is currently admitted for evaluation and treatment of colitis, POLLY per primary team. EKG on admission c/w paced rhythm and without concerning changes. CTAP on admission showed changes c/w colitis. Currently Daysi reports she is feeling fine and denies fever/chills, CP, SOB, cough, dyspnea on exertion, nausea/vomiting, RO, blurred vision, or peripheral numbness/tingling. Review of Systems - Review of Systems Systems not reviewed;Unavailable: Acuity of Condition - Constitutional Constitutional: As Per HPI - EENT Eyes: As Per HPI Ears: As Per HPI Nose/Mouth/Throat: As Per HPI - Breasts Breasts: As Per HPI - Cardiovascular Cardiovascular: As Per HPI - Respiratory Respiratory: As Per HPI - Gastrointestinal Gastrointestinal: As Per HPI - Genitourinary Genitourinary: As Per HPI - Reproductive: Female Reproductive:Female: As Per HPI - Menstruation Menstruation: As Per HPI - Musculoskeletal Musculoskeletal: As Per HPI - Integumentary Integumentary: As Per HPI - Neurological Neurological: As Per HPI - Psychiatric Psychiatric: As Per HPI - Endocrine Endocrine: As Per HPI - Hematologic/Lymphatic Hematologic: As Per HPI Past Patient History - Tetanus Immunizations Tetanus Immunization: Up to Date - Past Medical History & Family History Past Medical History?: Yes - Past Social History Smoking Status: Never Smoked - CARDIAC Hx Cardia Arrhythmia: Yes Hx Congestive Heart Failure: Yes Hx Hypercholesterolemia: Yes Hx Hypertension: Yes Hx Pacemaker: Yes - PULMONARY Hx Asthma: Yes - NEUROLOGICAL Hx Neurological Disorder: No - HEENT Hx HEENT Problems: No - RENAL Hx Chronic Kidney Disease: No - ENDOCRINE/METABOLIC Hx Hypothyroidism: Yes - HEMATOLOGICAL/ONCOLOGICAL Hx Blood Transfusions: No - INTEGUMENTARY Hx Dermatological Problems: No - MUSCULOSKELETAL/RHEUMATOLOGICAL Hx Arthritis: Yes Hx Falls: No - GASTROINTESTINAL Hx Ulcer: Yes - GENITOURINARY/GYNECOLOGICAL Hx Genitourinary Disorders: No - PSYCHIATRIC Hx Depression: Yes Hx Substance Use: No - SURGICAL HISTORY Hx Coronary Artery Bypass Graft: Yes (11/2017) Hx Coronary Stent: Yes (x4) Other/Comment: pace maker 12/2014 - ANESTHESIA Hx Anesthesia: Yes Hx Anesthesia Reactions: No Hx Malignant Hyperthermia: No Meds Home Medications: Home Medication List Medication Instructions Recorded Confirmed Type Ciprofloxacin [Cipro] 500 mg PO Q12 9 Days #18 tab 01/18/18 Rx Metronidazole [Flagyl] 500 mg PO Q8 #27 tablet 01/18/18 Rx Allergies/Adverse Reactions: Allergies Allergy/AdvReac Type Severity Reaction Status Date / Time No Known Allergies Allergy Verified 11/30/17 18:52 - Medications Medications: Current Medications Albuterol (Ventolin Hfa 90 Mcg/Actuation (8 G)) 2 puff IH Q6 PRN PRN Reason: Shortness of Breath Aspirin (Ecotrin) 81 mg PO DAILY [facility] Last Admin: 01/20/18 09:14 Dose: 81 mg Atorvastatin Calcium (Lipitor) 40 mg PO HS [facility] Last Admin: 01/19/18 21:44 Dose: 40 mg Ciprofloxacin (Cipro) 500 mg PO Q12 [facility]; Protocol Last Admin: 01/20/18 09:14 Dose: 500 mg Clopidogrel Bisulfate (Plavix) 75 mg PO DAILY [facility] Last Admin: 01/20/18 09:14 Dose: 75 mg Cyanocobalamin (Vitamin B12 1000 Mcg Tab) 1,000 mcg PO DAILY [facility] Last Admin: 01/20/18 09:14 Dose: 1,000 mcg Dextrose (Dextrose 50% Inj) 0 ml IV STAT PRN; Protocol PRN Reason: Hypoglycemia Protocol Dextrose (Glutose 15) 0 gm PO ONCE PRN; Protocol PRN Reason: Hypoglycemia Protocol Furosemide (Lasix) 40 mg PO DAILY [facility] Last Admin: 01/20/18 09:15 Dose: 40 mg Glucagon (Glucagen Diagnostic Kit) 0 mg IM STAT PRN; Protocol PRN Reason: Hypoglycemia Protocol Heparin Sodium (Porcine) (Heparin) 5,000 units SC Q8 [facility]; Protocol Last Admin: 01/20/18 09:15 Dose: 5,000 units Metronidazole (Flagyl 500mg/100ml Ns) 100 mls @ 100 mls/hr IVPB Q8H [facility]; Protocol Last Admin: 01/20/18 09:15 Dose: 100 mls/hr Insulin Detemir (Levemir) 20 units SC [facility] Last Admin: 01/19/18 21:53 Dose: 20 units Insulin Human Regular (Humulin R) 0 units SC [facility]; Protocol Last Admin: 01/20/18 06:47 Dose: 1 u Lactic Acid (Lac-Hydrin 12% Lotion (225 G)) 1 applic TOP TID [facility] Last Admin: 01/20/18 09:16 Dose: 1 applic Levothyroxine Sodium (Synthroid) 125 mcg PO DAILY@0630 [facility] Last Admin: 01/20/18 06:32 Dose: 125 mcg Metoprolol Tartrate (Lopressor) 25 mg PO DAILY [facility] Last Admin: 01/20/18 09:16 Dose: 25 mg Pantoprazole Sodium (Protonix Ec Tab) 40 mg PO DAILY [facility] Last Admin: 01/20/18 09:14 Dose: 40 mg Fluticasone/Salmeterol (Advair Diskus 250/50) 1 puff IH Q12 [facility] Last Admin: 01/20/18 09:13 Dose: 1 puff Sitagliptin Phosphate (Januvia) 25 mg PO DAILY [facility] Last Admin: 01/20/18 09:14 Dose: 25 mg Thiamine HCl (Vitamin B1 Tab) 50 mg PO DAILY [facility] Last Admin: 01/20/18 09:13 Dose: 50 mg Physical Exam - Constitutional Appears: Well - Head Exam Head Exam: ATRAUMATIC, NORMAL INSPECTION, NORMOCEPHALIC - Eye Exam Eye Exam: EOMI, Normal appearance, PERRL Pupil Exam: NORMAL ACCOMODATION, PERRL - ENT Exam ENT Exam: Mucous Membranes Moist, Normal Exam - Neck Exam Neck exam: Positive for: Normal Inspection - Respiratory Exam Respiratory Exam: Clear to Auscultation Bilateral, NORMAL BREATHING PATTERN - Cardiovascular Exam Cardiovascular Exam: REGULAR RHYTHM, Systolic Murmur - GI/Abdominal Exam GI & Abdominal Exam: Normal Bowel Sounds, Soft. absent: Tenderness - Extremities Exam Extremities exam: Positive for: normal inspection - Back Exam Back exam: NORMAL INSPECTION - Neurological Exam Neurological exam: Alert, CN II-XII Intact, Normal Gait, Oriented x3, Reflexes Normal - Psychiatric Exam Psychiatric exam: Normal Affect, Normal Mood - Skin Skin Exam: Dry, Intact, Normal Color, Warm Results - Vital Signs Recent Vital Signs: Last Vital Signs Temp 98.4 F 01/20/18 08:32 Pulse 96 H 01/20/18 09:16 Resp 20 01/20/18 08:32 BP 126/78 01/20/18 09:16 Pulse Ox 96 01/20/18 08:32 - Labs Result Diagrams: 01/20/18 05:05 01/20/18 05:05 Labs: Laboratory Results - last 24 hr 01/19/18 01/19/18 01/19/18 11:37 16:02 21:52 WBC RBC Hgb Hct MCV MCH MCHC RDW Plt Count MPV Neut % (Auto) Lymph % (Auto) [place] % (Auto) Eos % (Auto) Baso % (Auto) Neut # (Auto) Lymph # (Auto) [place] # (Auto) Eos # (Auto) Baso # (Auto) Sodium Potassium Chloride Carbon Dioxide Anion Gap BUN Creatinine Est GFR ( Amer) Est GFR (Non-Af Amer) POC Glucose (mg/dL) 315 H 250 H 202 H Random Glucose Calcium Magnesium 01/20/18 01/20/18 01/20/18 05:05 05:05 06:06 WBC 5.7 RBC 3.35 L Hgb 9.8 L Hct 28.2 L MCV 84.4 MCH 29.4 MCHC 34.9 RDW 15.4 H Plt Count 267 MPV 7.7 Neut % (Auto) 66.4 Lymph % (Auto) 15.4 L Mellette % (Auto) 11.0 H Eos % (Auto) 6.3 H Baso % (Auto) 0.9 Neut # (Auto) 3.8 Lymph # (Auto) 0.9 L [place] # (Auto) 0.6 Eos # (Auto) 0.4 Baso # (Auto) 0.0 Sodium 137 Potassium 3.7 Chloride 104 Carbon Dioxide 22 Anion Gap 15 BUN 9 Creatinine 1.4 H Est GFR ( Amer) 44 Est GFR (Non-Af Amer) 36 POC Glucose (mg/dL) 186 H Random Glucose 209 H Calcium 8.5 Magnesium 1.1 L Assessment & Plan (1) CHF (congestive heart failure) Assessment and Plan: cont bb arb on hold 2' to polly bnp Status: Chronic (2) CAD (coronary artery disease) Assessment and Plan: cont asa, plavix cont statins cont bb Status: Chronic (3) Acute kidney failure Assessment and Plan: Cr 2.2 IVF hydration Status: Acute (4) Metabolic acidosis Assessment and Plan: 2' to POLLY Status: Acute (5) Asthma Status: Chronic (6) Diabetes Status: Chronic (7) Hypertension Status: Chronic (8) Pleural effusion Status: Resolved
--- NOTE | 2018-01-20 10:46 | CP.PCM.PN ---
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 for episode of chest pain cr improving Objective - Vital Signs/Intake and Output Vital Signs (last 24 hours): Temp Pulse Resp BP Pulse Ox 98.4 F 96 H 20 126/78 96 01/20/18 08:32 01/20/18 09:16 01/20/18 08:32 01/20/18 09:16 01/20/18 08:32 - Medications Medications: Current Medications Albuterol (Ventolin Hfa 90 Mcg/Actuation (8 G)) 2 puff IH Q6 PRN PRN Reason: Shortness of Breath Aspirin (Ecotrin) 81 mg PO DAILY [facility] Last Admin: 01/20/18 09:14 Dose: 81 mg Atorvastatin Calcium (Lipitor) 40 mg PO HS [facility] Last Admin: 01/19/18 21:44 Dose: 40 mg Ciprofloxacin (Cipro) 500 mg PO Q12 [facility]; Protocol Last Admin: 01/20/18 09:14 Dose: 500 mg Clopidogrel Bisulfate (Plavix) 75 mg PO DAILY [facility] Last Admin: 01/20/18 09:14 Dose: 75 mg Cyanocobalamin (Vitamin B12 1000 Mcg Tab) 1,000 mcg PO DAILY [facility] Last Admin: 01/20/18 09:14 Dose: 1,000 mcg Dextrose (Dextrose 50% Inj) 0 ml IV STAT PRN; Protocol PRN Reason: Hypoglycemia Protocol Dextrose (Glutose 15) 0 gm PO ONCE PRN; Protocol PRN Reason: Hypoglycemia Protocol Furosemide (Lasix) 40 mg PO DAILY [facility] Last Admin: 01/20/18 09:15 Dose: 40 mg Glucagon (Glucagen Diagnostic Kit) 0 mg IM STAT PRN; Protocol PRN Reason: Hypoglycemia Protocol Heparin Sodium (Porcine) (Heparin) 5,000 units SC Q8 [facility]; Protocol Last Admin: 01/20/18 09:15 Dose: 5,000 units Metronidazole (Flagyl 500mg/100ml Ns) 100 mls @ 100 mls/hr IVPB Q8H [facility]; Protocol Last Admin: 01/20/18 09:15 Dose: 100 mls/hr Insulin Detemir (Levemir) 20 units SC HS [facility] Last Admin: 01/19/18 21:53 Dose: 20 units Insulin Human Regular (Humulin R) 0 units SC ACHS [facility]; Protocol Last Admin: 01/20/18 06:47 Dose: 1 u Lactic Acid (Lac-Hydrin 12% Lotion (225 G)) 1 applic TOP TID [facility] Last Admin: 01/20/18 09:16 Dose: 1 applic Levothyroxine Sodium (Synthroid) 125 mcg PO DAILY@0630 [facility] Last Admin: 01/20/18 06:32 Dose: 125 mcg Metoprolol Tartrate (Lopressor) 25 mg PO DAILY [facility] Last Admin: 01/20/18 09:16 Dose: 25 mg Pantoprazole Sodium (Protonix Ec Tab) 40 mg PO DAILY [facility] Last Admin: 01/20/18 09:14 Dose: 40 mg Fluticasone/Salmeterol (Advair Diskus 250/50) 1 puff IH Q12 [facility] Last Admin: 01/20/18 09:13 Dose: 1 puff Sitagliptin Phosphate (Januvia) 25 mg PO DAILY [facility] Last Admin: 01/20/18 09:14 Dose: 25 mg Thiamine HCl (Vitamin B1 Tab) 50 mg PO DAILY [facility] Last Admin: 01/20/18 09:13 Dose: 50 mg - Labs Labs: 01/20/18 05:05 01/20/18 05:05 PT 13.0 Seconds (9.8-13.1) 01/16/18 16:45 INR 1.1 01/16/18 16:45 APTT 25.3 Seconds (25.6-37.1) L 01/16/18 16:45 - Constitutional Appears: Well - Head Exam Head Exam: ATRAUMATIC, NORMAL INSPECTION, NORMOCEPHALIC - Eye Exam Eye Exam: EOMI, Normal appearance, PERRL Pupil Exam: NORMAL ACCOMODATION, PERRL - ENT Exam ENT Exam: Mucous Membranes Moist, Normal Exam - Neck Exam Neck Exam: Full ROM, Normal Inspection. absent: Lymphadenopathy - Respiratory Exam Respiratory Exam: Clear to Ausculation Bilateral, NORMAL BREATHING PATTERN - Cardiovascular Exam Cardiovascular Exam: REGULAR RHYTHM, +S1, +S2. absent: Murmur - GI/Abdominal Exam GI & Abdominal Exam: Soft, Normal Bowel Sounds. absent: Tenderness - Extremities Exam Extremities Exam: Full ROM, Normal Capillary Refill, Normal Inspection. 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
--- NOTE | 2018-01-20 11:51 | CP.PCM.CON ---
History of Present Illness - History of Present Illness History of Present Illness: consult requested for evaluation for depression and dementia pt is a 77 ys old female, no current formal psychiatric treatment , with PMHx of HTN, HLD, hypothyroidism, SC, CABG (11/2017), CHF s/p pacemaker presents to [facility] for abnormal labs and diarrhea. pt has been noted by staff and family to be depressed and forgetful, on eval uation pt is calm cooperative smiling good eye contact, reported mood fine, appropriate affect, just tired of being in hospital, spends her time at home taking care of her grandchildren, lives with the daughter, thought form coherent ,speech soft, no reported changes in sleep or appetite denied perceptual disturbances, alert awake , oriented to person, partially to place stated she is in the hospital, not oriented to time , reported some episodes of forgetfullness but able to attend to her ADL'S by self Past Patient History - Tetanus Immunizations Tetanus Immunization: Up to Date - Past Medical History & Family History Past Medical History?: Yes - Past Social History Smoking Status: Never Smoked - CARDIAC Hx Cardia Arrhythmia: Yes Hx Congestive Heart Failure: Yes Hx Hypercholesterolemia: Yes Hx Hypertension: Yes Hx Pacemaker: Yes - PULMONARY Hx Asthma: Yes - NEUROLOGICAL Hx Neurological Disorder: No - HEENT Hx HEENT Problems: No - RENAL Hx Chronic Kidney Disease: No - ENDOCRINE/METABOLIC Hx Hypothyroidism: Yes - HEMATOLOGICAL/ONCOLOGICAL Hx Blood Transfusions: No - INTEGUMENTARY Hx Dermatological Problems: No - MUSCULOSKELETAL/RHEUMATOLOGICAL Hx Arthritis: Yes Hx Falls: No - GASTROINTESTINAL Hx Ulcer: Yes - GENITOURINARY/GYNECOLOGICAL Hx Genitourinary Disorders: No - PSYCHIATRIC Hx Depression: Yes Hx Substance Use: No - SURGICAL HISTORY Hx Coronary Artery Bypass Graft: Yes (11/2017) Hx Coronary Stent: Yes (x4) Other/Comment: pace maker 12/2014 - ANESTHESIA Hx Anesthesia: Yes Hx Anesthesia Reactions: No Hx Malignant Hyperthermia: No Meds Home Medications: Home Medication List Medication Instructions Recorded Confirmed Type Ciprofloxacin [Cipro] 500 mg PO Q12 9 Days #18 tab 01/18/18 Rx Metronidazole [Flagyl] 500 mg PO Q8 #27 tablet 01/18/18 Rx Allergies/Adverse Reactions: Allergies Allergy/AdvReac Type Severity Reaction Status Date / Time No Known Allergies Allergy Verified 11/30/17 18:52 - Medications Medications: Current Medications Albuterol (Ventolin Hfa 90 Mcg/Actuation (8 G)) 2 puff IH Q6 PRN PRN Reason: Shortness of Breath Aspirin (Ecotrin) 81 mg PO DAILY [facility] Last Admin: 01/20/18 09:14 Dose: 81 mg Atorvastatin Calcium (Lipitor) 40 mg PO HS [facility] Last Admin: 01/19/18 21:44 Dose: 40 mg Ciprofloxacin (Cipro) 500 mg PO Q12 [facility]; Protocol Last Admin: 01/20/18 09:14 Dose: 500 mg Clopidogrel Bisulfate (Plavix) 75 mg PO DAILY [facility] Last Admin: 01/20/18 09:14 Dose: 75 mg Cyanocobalamin (Vitamin B12 1000 Mcg Tab) 1,000 mcg PO DAILY [facility] Last Admin: 01/20/18 09:14 Dose: 1,000 mcg Dextrose (Dextrose 50% Inj) 0 ml IV STAT PRN; Protocol PRN Reason: Hypoglycemia Protocol Dextrose (Glutose 15) 0 gm PO ONCE PRN; Protocol PRN Reason: Hypoglycemia Protocol Furosemide (Lasix) 40 mg PO DAILY [facility] Last Admin: 01/20/18 09:15 Dose: 40 mg Glucagon (Glucagen Diagnostic Kit) 0 mg IM STAT PRN; Protocol PRN Reason: Hypoglycemia Protocol Heparin Sodium (Porcine) (Heparin) 5,000 units SC Q8 [facility]; Protocol Last Admin: 01/20/18 09:15 Dose: 5,000 units Metronidazole (Flagyl 500mg/100ml Ns) 100 mls @ 100 mls/hr IVPB Q8H [facility]; Protocol Last Admin: 01/20/18 09:15 Dose: 100 mls/hr Insulin Detemir (Levemir) 20 units SC [facility] Last Admin: 01/19/18 21:53 Dose: 20 units Insulin Human Regular (Humulin R) 0 units SC ACHS [facility]; Protocol Last Admin: 01/20/18 06:47 Dose: 1 u Lactic Acid (Lac-Hydrin 12% Lotion (225 G)) 1 applic TOP TID [facility] Last Admin: 01/20/18 09:16 Dose: 1 applic Levothyroxine Sodium (Synthroid) 125 mcg PO DAILY@0630 [facility] Last Admin: 01/20/18 06:32 Dose: 125 mcg Metoprolol Tartrate (Lopressor) 25 mg PO DAILY [facility] Last Admin: 01/20/18 09:16 Dose: 25 mg Pantoprazole Sodium (Protonix Ec Tab) 40 mg PO DAILY [facility] Last Admin: 01/20/18 09:14 Dose: 40 mg Fluticasone/Salmeterol (Advair Diskus 250/50) 1 puff IH Q12 [facility] Last Admin: 01/20/18 09:13 Dose: 1 puff Sitagliptin Phosphate (Januvia) 25 mg PO DAILY [facility] Last Admin: 01/20/18 09:14 Dose: 25 mg Thiamine HCl (Vitamin B1 Tab) 50 mg PO DAILY [facility] Last Admin: 01/20/18 09:13 Dose: 50 mg Results - Vital Signs Recent Vital Signs: Last Vital Signs Temp 98.4 F 01/20/18 08:32 Pulse 96 H 01/20/18 09:16 Resp 20 01/20/18 08:32 BP 126/78 01/20/18 09:16 Pulse Ox 96 01/20/18 08:32 - Labs Result Diagrams: 01/20/18 05:05 01/20/18 05:05 Labs: Laboratory Results - last 24 hr 01/19/18 01/19/18 01/19/18 11:37 16:02 21:52 WBC RBC Hgb Hct MCV MCH MCHC RDW Plt Count MPV Neut % (Auto) Lymph % (Auto) [place] % (Auto) Eos % (Auto) Baso % (Auto) Neut # (Auto) Lymph # (Auto) [place] # (Auto) Eos # (Auto) Baso # (Auto) Sodium Potassium Chloride Carbon Dioxide Anion Gap BUN Creatinine Est GFR ( Amer) Est GFR (Non-Af Amer) POC Glucose (mg/dL) 315 H 250 H 202 H Random Glucose Calcium Magnesium 01/20/18 01/20/18 01/20/18 05:05 05:05 06:06 WBC 5.7 RBC 3.35 L Hgb 9.8 L Hct 28.2 L MCV 84.4 MCH 29.4 MCHC 34.9 RDW 15.4 H Plt Count 267 MPV 7.7 Neut % (Auto) 66.4 Lymph % (Auto) 15.4 L [place] % (Auto) 11.0 H Eos % (Auto) 6.3 H Baso % (Auto) 0.9 Neut # (Auto) 3.8 Lymph # (Auto) 0.9 L [place] # (Auto) 0.6 Eos # (Auto) 0.4 Baso # (Auto) 0.0 Sodium 137 Potassium 3.7 Chloride 104 Carbon Dioxide 22 Anion Gap 15 BUN 9 Creatinine 1.4 H Est GFR ( Amer) 44 Est GFR (Non-Af Amer) 36 POC Glucose (mg/dL) 186 H Random Glucose 209 H Calcium 8.5 Magnesium 1.1 L 01/20/18 11:10 WBC RBC Hgb Hct MCV MCH MCHC RDW Plt Count MPV Neut % (Auto) Lymph % (Auto) [place] % (Auto) Eos % (Auto) Baso % (Auto) Neut # (Auto) Lymph # (Auto) [place] # (Auto) Eos # (Auto) Baso # (Auto) Sodium Potassium Chloride Carbon Dioxide Anion Gap BUN Creatinine Est GFR ( Amer) Est GFR (Non-Af Amer) POC Glucose (mg/dL) 220 H Random Glucose Calcium Magnesium Assessment & Plan - Assessment and Plan (Free Text) Assessment: mild neurocognitive disorder Plan: pt would benefit from starting namenda 5mg qhs , to be increased to 10mg qhs in a week no current symptoms of depression, pt psychiatrically cleared for discharge upon medical clearance
--- NOTE | 2018-01-20 12:48 | CP.PCM.DIS ---
Provider - Provider Date of Admission: 01/16/18 19:59 Attending physician: Donell Cornejo MD Consults: 01/16/18 20:08 Cardiology Consult Stat Comment: Consulting Provider: Leland Petersen Consulting Physician: Leland Petersen Reason for Consult: s/p CABG 01/17/18 12:54 Wound Care [Nursing Referral for Wound Care] Routine Comment: Physician Instructions: Reason For Exam: r. ankle wound, medial thigh wounds 01/17/18 15:42 Psychiatry Consult Routine Comment: Consulting Provider: Dwayne Sheets Consulting Physician: Dwayne Sheets Reason for Consult: pt with new onset dementia/depression 01/20/18 10:53 Case Management Referral Routine Comment: Physician Instructions: Reason For Exam: Home services Reason for Referral: [employer] [facility] Course - Lab Results Lab Results: Micro Results 01/16/18 17:00 Blood-Venous Blood Culture - Preliminary NO GROWTH AFTER 3 DAYS 01/16/18 16:45 Blood-Venous Blood Culture - Preliminary NO GROWTH AFTER 3 DAYS 01/17/18 12:00 Stool Stool Culture - Final NO SALMONELLA, SHIGELLA OR CAMPYLOBACTER ISOLATED. Most Recent Lab Values WBC 5.7 K/uL (4.8-10.8) 01/20/18 05:05 RBC 3.35 Mil/uL (3.80-5.20) L 01/20/18 05:05 Hgb 9.8 g/dL (12.0-16.0) L 01/20/18 05:05 Hct 28.2 % (34.0-47.0) L 01/20/18 05:05 MCV 84.4 fl (81.0-99.0) 01/20/18 05:05 MCH 29.4 pg (27.0-31.0) 01/20/18 05:05 MCHC 34.9 g/dL (33.0-37.0) 01/20/18 05:05 RDW 15.4 % (11.5-14.5) H 01/20/18 05:05 Plt Count 267 K/uL (130-400) 01/20/18 05:05 MPV 7.7 fl (7.2-11.7) 01/20/18 05:05 Neut % (Auto) 66.4 % (50.0-75.0) 01/20/18 05:05 Lymph % (Auto) 15.4 % (20.0-40.0) L 01/20/18 05:05 [place] % (Auto) 11.0 % (0.0-10.0) H 01/20/18 05:05 Eos % (Auto) 6.3 % (0.0-4.0) H 01/20/18 05:05 Baso % (Auto) 0.9 % (0.0-2.0) 01/20/18 05:05 Neut # (Auto) 3.8 K/uL (1.8-7.0) 01/20/18 05:05 Lymph # (Auto) 0.9 K/uL (1.0-4.3) L 01/20/18 05:05 [place] # (Auto) 0.6 K/uL (0.0-0.8) 01/20/18 05:05 Eos # (Auto) 0.4 K/uL (0.0-0.7) 01/20/18 05:05 Baso # (Auto) 0.0 K/uL (0.0-0.2) 01/20/18 05:05 PT 13.0 Seconds (9.8-13.1) 01/16/18 16:45 INR 1.1 01/16/18 16:45 APTT 25.3 Seconds (25.6-37.1) L 01/16/18 16:45 pCO2 32 mm/Hg (35-45) L 01/16/18 16:07 pO2 87 mm/Hg (80-100) 01/16/18 16:07 HCO3 22.6 mmol/L (21-28) 01/16/18 16:07 ABG pH 7.42 (7.35-7.45) 01/16/18 16:07 ABG Total CO2 21.8 mmol/L (22-28) L 01/16/18 16:07 ABG O2 Saturation 99.5 % (95-98) H 01/16/18 16:07 ABG O2 Content 15.6 ML/dL (15-23) 01/16/18 16:07 ABG Base Excess -3.0 mmol/L (-2.0-3.0) L 01/16/18 16:07 ABG Hemoglobin 11.5 g/dL (11.7-17.4) L 01/16/18 16:07 ABG Carboxyhemoglobin 1.8 % (0.5-1.5) H 01/16/18 16:07 POC ABG HHb (Measured) 0.5 % (0.0-5.0) 01/16/18 16:07 ABG Methemoglobin 2.1 % (0.0-3.0) 01/16/18 16:07 ABG O2 Capacity 15.7 mL/dL (16-24) L 01/16/18 16:07 Adam Test Yes 01/16/18 16:07 A-a O2 Difference 23.0 mm/Hg 01/16/18 16:07 Hgb O2 Saturation 95.6 % (95.0-98.0) 01/16/18 16:07 FiO2 21.0 % 01/16/18 16:07 Sodium 137 mmol/l (132-148) 01/20/18 05:05 Potassium 3.7 MMOL/L (3.6-5.0) 01/20/18 05:05 Chloride 104 mmol/L (98-107) 01/20/18 05:05 Carbon Dioxide 22 mmol/L (22-30) 01/20/18 05:05 Anion Gap 15 (10-20) 01/20/18 05:05 BUN 9 mg/dl (7-17) 01/20/18 05:05 Creatinine 1.4 mg/dl (0.7-1.2) H 01/20/18 05:05 Est GFR ( Amer) 44 01/20/18 05:05 Est GFR (Non-Af Amer) 36 01/20/18 05:05 POC Glucose (mg/dL) 220 mg/dL (65-110) H 01/20/18 11:10 Random Glucose 209 mg/dL (65-105) H 01/20/18 05:05 Hemoglobin A1c 6.3 % (4.2-6.5) 01/17/18 04:30 Calcium 8.5 mg/dL (8.4-10.2) 01/20/18 05:05 Phosphorus 4.0 mg/dl (2.5-4.5) 01/18/18 06:00 Magnesium 1.1 MG/DL (1.6-2.3) L 01/20/18 05:05 Total Bilirubin 0.4 mg/dl (0.2-1.3) 01/18/18 06:00 AST 15 U/L (14-36) 01/18/18 06:00 ALT 19 U/L (9-52) 01/18/18 06:00 Alkaline Phosphatase 56 U/L (38-126) 01/18/18 06:00 Total Protein 6.2 G/DL (6.3-8.2) L 01/18/18 06:00 Albumin 3.4 g/dL (3.5-5.0) L D 01/18/18 06:00 Globulin 2.8 gm/dL (2.2-3.9) 01/18/18 06:00 Albumin/Globulin Ratio 1.2 (1.0-2.1) 01/18/18 06:00 Vitamin B12 471 pg/mL (239-931) 01/17/18 04:30 Folate 4.8 ng/mL 01/17/18 04:30 TSH 3rd Generation 0.84 mIU/ML (0.46-4.68) 01/17/18 04:30 Urine Color Yellow (YELLOW) 01/16/18 17:00 Urine Clarity Slighty-cloudy (Clear) 01/16/18 17:00 Urine pH 6.0 (5.0-8.0) 01/16/18 17:00 Ur Specific [place] 1.008 (1.003-1.030) 01/16/18 17:00 Urine Protein 30 mg/dL (NEGATIVE) 01/16/18 17:00 Urine Glucose (UA) Neg mg/dL (Normal) 01/16/18 17:00 Urine Ketones Negative mg/dL (NEGATIVE) 01/16/18 17:00 Urine Blood Negative (NEGATIVE) 01/16/18 17:00 Urine Nitrate Negative (NEGATIVE) 01/16/18 17:00 Urine Bilirubin Negative (NEGATIVE) 01/16/18 17:00 Urine Urobilinogen 0.2-1.0 mg/dL (0.2-1.0) 01/16/18 17:00 Ur Leukocyte Esterase Neg Deep/uL (Negative) 01/16/18 17:00 Urine RBC (Auto) 1 /hpf (0-3) 01/16/18 17:00 Urine Microscopic WBC 2 /hpf (0-5) 01/16/18 17:00 Ur Squamous Epith Cells 3 /hpf (0-5) 01/16/18 17:00 Hyaline Casts 0-2 /hpf (0-2) 01/16/18 17:00 Ur Random Sodium 96 meq/L 01/17/18 12:00 Ur Random Potassium 17.1 mmol/L 01/17/18 12:00 C. difficile Ag & Toxin Negative (NEGATIVE) 01/17/18 12:00 Discharge Exam - Head Exam Head Exam: ATRAUMATIC, NORMAL INSPECTION, NORMOCEPHALIC Discharge Plan - Discharge Medications Prescriptions: Ciprofloxacin [Cipro] 500 mg PO DAILY #6 tab Memantine [Namenda] 5 mg PO HS #30 tab metroNIDAZOLE [Flagyl] 500 mg PO Q8 #21 tab Mirtazapine [Remeron] 15 mg PO HS #30 tab SITagliptin [Januvia] 25 mg PO DAILY #30 tab - Follow Up Plan Condition: FAIR Disposition: HOME/ ROUTINE Instructions: Acute Abdomen (Belly Pain), Adult (DC) Referrals: Donell Cornejo MD [Family Provider] -
[2018-01-20 13:01] VITALS: BP 118/54; PULSE 62; TEMP 97.6; O2SAT 98
== END 2018-01-20 16:05 | disposition home or self-care (01) | DRG 683 ==
LOC: H.ER 14:26 → H.ERHOLD 19:59 → H.TEL 23:17
PROVIDERS: ADMIT Family Medicine; ATTEND Family Medicine
DX: N17.9 Acute kidney failure, unspecified (principal); I13.0 Hypertensive heart and chronic kidney disease with heart failure and stage 1 through stage 4 chronic kidney disease, or unspecified chronic kidney disease; I50.22 Chronic systolic (congestive) heart failure; E87.2 Acidosis; A09 Infectious gastroenteritis and colitis, unspecified; E03.9 Hypothyroidism, unspecified; E78.5 Hyperlipidemia, unspecified; Z79.02 Long term (current) use of antithrombotics/antiplatelets; Z79.82 Long term (current) use of aspirin; Z79.4 Long term (current) use of insulin; Z95.1 Presence of aortocoronary bypass graft; Z95.0 Presence of cardiac pacemaker; Z95.5 Presence of coronary angioplasty implant and graft; R15.9 Full incontinence of feces; I25.10 Atherosclerotic heart disease of native coronary artery without angina pectoris; E11.22 Type 2 diabetes mellitus with diabetic chronic kidney disease; F32.9 Major depressive disorder, single episode, unspecified; E78.00 Pure hypercholesterolemia, unspecified; E87.5 Hyperkalemia; E83.42 Hypomagnesemia; E11.65 Type 2 diabetes mellitus with hyperglycemia; J44.9 Chronic obstructive pulmonary disease, unspecified; N18.9 Chronic kidney disease, unspecified; E86.0 Dehydration; G31.84 Mild cognitive impairment of uncertain or unknown etiology; F39 Unspecified mood [affective] disorder; E87.6 Hypokalemia; M25.571 Pain in right ankle and joints of right foot; R29.6 Repeated falls; I25.2 Old myocardial infarction

== ENCOUNTER 2018-02-20 16:33 | Emergency (ER) | payer MEDICARE, MEDICAID ==
[2018-02-20 16:34] VITALS: BMI 33.9
[2018-02-20] MEDS ORDERED: Sodium Chloride 0.9% 1,000 ML IV STA ×2 (17:07)
[2018-02-20 18:03] LABS: BASO # 0.1 K/uL (0.0-0.2); BASO % 1.2 % (0.0-2.0); EOS # 0.1 K/uL (0.0-0.7); EOS % 1.8 % (0.0-4.0); LYMPH # 0.9 K/uL (1.0-4.3); MEAN CORPUSCULAR HEMOGLOBIN 29.4 pg (27.0-31.0); MEAN CORPUSCULAR HGB CONC 34.2 g/dL (33.0-37.0); MEAN PLATELET VOLUME 8.5 fl (7.2-11.7); MONO # 0.4 K/uL (0.0-0.8); MONO % 6.6 % (0.0-10.0); NEUT # 4.1 K/uL (1.8-7.0); NEUT % 74.4 % (50.0-75.0); RBC 4.08 Mil/uL (3.80-5.20); RED CELL DISTRIBUTION WIDTH 16.9 % (11.5-14.5); WHITE BLOOD COUNT 5.5 K/uL (4.8-10.8)
[2018-02-20 18:08] LABS: BLOOD UREA NITROGEN 17 mg/dl (7-17); CALCIUM 9.5 mg/dL (8.4-10.2); GFR NON-AFRICAN AMERICAN 53
--- NOTE | 2018-02-20 18:10 | RAD ---
Date of service: 02/20/2018 HISTORY: possible admission COMPARISON: 01/16/2018 FINDINGS: LUNGS: No active pulmonary disease. PLEURA: No significant pleural effusion identified, no pneumothorax apparent. CARDIOVASCULAR: No atherosclerotic calcification present No radiographic findings to suggest acute or significant cardiovascular disease. Incidental Finding(s): Postoperative changes related to sternotomy. Position/ configuration of pacemaker device: Satisfactory. OSSEOUS STRUCTURES: No significant abnormalities. VISUALIZED UPPER ABDOMEN: Normal. OTHER FINDINGS: None. IMPRESSION: No active disease. No significant interval change compared to the prior examination(s).
[2018-02-20 18:43] LABS: SQUAMOUS EPITHIAL < 1 /hpf (0-5); URINE BILIRUBIN NEGATIVE (NEGATIVE); URINE BLOOD NEGATIVE (NEGATIVE); URINE CLARITY CLEAR (Clear); URINE COLOR YELLOW (YELLOW); URINE GLUCOSE (UA) >=500 mg/dL (NEGATIVE); URINE LEUKOCYTE ESTERASE NEG Leu/uL (Negative); URINE PROTEIN 30 mg/dL (NEGATIVE); URINE UROBILINOGEN 0.2-1.0 mg/dL (0.2-1.0)
[2018-02-20] MEDS ORDERED: Insulin Regular 100 units/ml SC STA ×2 (19:28→21:05)
[2018-02-20] MEDS ORDERED: Insulin Regular 100 units/ml ONE ×2 (19:39→21:28)
--- NOTE | 2018-02-20 19:53 | ED PDOC ---
Hyperglycemia/Hypoglycemia Time Seen by Provider: 02/20/18 16:57 Chief Complaint (Nursing): High Blood Sugar Chief Complaint (Provider): Psychiatric Evaluation History Per: Patient History/Exam Limitations: no limitations Current Symptoms Are (Timing): Still Present Severity: Moderate : The patient does not have any of the infectious symptoms listed except for those marked. Additional Complaint(s): 77 year old female with a past medical history of diabetes presents to the ED for a psychiatric evaluation. Patient reports that she was seen earlier today at the clinic by and was sent here for a crisis evaluation. Patient also reports that she ran out of her medications and had recently switched to injections from pills (to insulin from metformin). Patient also states that due to feeling chronically tired, isolated from her community, and lack of family and friends she no longer wants to live. Patient denies having a cough, attempting suicide, having previous attempts of suicide, and a history of psychiatric problems. PMD: Donell Cornejo MD. Past Medical History Reviewed: Historical Data, Nursing Documentation, Vital Signs Vital Signs: Last Vital Signs Temp 97.7 F 02/20/18 19:17 Pulse 98 H 02/20/18 19:17 Resp 16 02/20/18 16:39 BP 131/66 02/20/18 19:17 Pulse Ox 2 L 02/20/18 19:17 SHE Report Viewed: Yes - Medical History PMH: Arthritis, Asthma, CAD, Cardia Arrhythmia, CHF, Colonic Polyps, Depression, HTN, Hypercholesterolemia, Hypothyroidism Denies: Chronic Kidney Disease - Surgical History Surgical History: CABG (11/2017), Coronary Stent (x4), Endoscopy, Pacemaker - Family History Family History: States: No Known Family Hx - Social History Current smoker - smoking cessation education provided: No Alcohol: None Drugs: Denies - Home Medications Home Medications: Ambulatory Orders Medication Instructions Recorded RX: Albuterol Sulfate [Ventolin 2 puff IH Q6 PRN 01/16/18 Hfa] RX: Aspirin [Ecotrin] 81 mg PO DAILY 01/16/18 RX: Atorvastatin [Lipitor] 40 mg PO HS 01/16/18 RX: Clopidogrel [Plavix] 75 mg PO DAILY 01/16/18 RX: Fluticasone/Salmeterol 250/50 1 puff IH Q12 01/16/18 [Advair Diskus 250/50] RX: Furosemide [Lasix] 40 mg PO DAILY 01/16/18 RX: Insulin Aspart, Recombinant 5 unit SC ACTID 01/16/18 [Novolog] RX: Insulin Glargine,Hum.rec.anlog 40 unit SC HS 01/16/18 [Basaglar Kwikpen U-100] RX: Levothyroxine [Synthroid] 125 mcg PO DAILY 01/16/18 RX: Lidocaine 5% [Lidoderm] 1 patch TD DAILY PRN 01/16/18 RX: Metoprolol Tartrate [Lopressor] 25 mg PO DAILY 01/16/18 RX: Omeprazole 40 mg PO DAILY 01/16/18 Memantine [Namenda] 5 mg PO HS #30 tab 01/20/18 RX: SITagliptin [Januvia] 25 mg PO DAILY #30 tab 01/20/18 Multivitamin [Multi-Vitamin Daily] 1 tab PO DAILY 02/20/18 RX: Ciprofloxacin [Cipro] 500 mg PO DAILY 02/20/18 Ranolazine [Ranexa] 500 mg PO Q12 02/20/18 metroNIDAZOLE [Flagyl] 500 mg PO Q8 02/20/18 - Allergies Allergies/Adverse Reactions: Allergies Allergy/AdvReac Type Severity Reaction Status Date / Time No Known Allergies Allergy Verified 02/20/18 16:39 Review of Systems ROS Statement: Except As Marked, All Systems Reviewed And Found Negative Respiratory: Negative for: Cough Psych: Positive for: Suicidal ideation Physical Exam - Reviewed Nursing Documentation Reviewed: Yes Vital Signs Reviewed: Yes - Physical Exam Appears: Positive for: Non-toxic, No Acute Distress. Negative for: Well (patient is tearful during exam. otherwise calm and cooperative. ) Head Exam: Positive for: ATRAUMATIC, NORMOCEPHALIC Skin: Positive for: Normal Color, Warm, Dry Cardiovascular/Chest: Positive for: Regular Rate, Rhythm Respiratory: Positive for: Normal Breath Sounds Gastrointestinal/Abdominal: Positive for: Normal Exam, Soft. Negative for: Tenderness Extremity: Positive for: Normal ROM. Negative for: Tenderness, Swelling Neurologic/Psych: Positive for: Alert, Oriented (3x) - Laboratory Results Result Diagrams: 02/20/18 17:50 02/20/18 17:50 - ECG O2 Sat by Pulse Oximetry: 2 - Radiology X-Ray: Viewed By Me, Read By Radiologist (see MDM note) Medical Decision Making Medical Decision Makin:57 Initial impression: 77 year old female presents to the ED for a psychiatric evaluation due to depression and lack of will to live maybe contributing to med ication non-compliance. Patient has hyperglycemia: glucose >500. Workup for hyperglycemia. * Initial IV fluids * labs * crisis evaluation * reevaluation 18:06 XRay chest read and reviewed by radiologist FINDINGS: LUNGS: No active pulmonary disease. PLEURA: No significant pleural effusion identified, no pneumothorax apparent. CARDIOVASCULAR: No atherosclerotic calcification present No radiographic findings to suggest acute or significant cardiovascular disease. Incidental Finding(s): Postoperative changes related to sternotomy. Position/ configuration of pacemaker\AICD device: Satisfactory. OSSEOUS STRUCTURES: No significant abnormalities. VISUALIZED UPPER ABDOMEN: Normal. OTHER FINDINGS: None. IMPRESSION: No active disease. No significant interval change compared to the prior examina tion(s). 2300 Pt with improved blood sugar after IV fluids and Inslulin. Pt pending crisis evaluation. Pt remains comfortable and stable. 00:00 --Labs reviewed: improvement in glucose. Upon re-evaluation, patient reports improvement in symptoms of feeling tired and weak. Patient to be endorsed to Dr. Marquez, pending crisis evaluation. Confirmed that nutrition worker has visited patient. Awaiting decision from psychiatrist. Scribe Attestation: Documented bySowmya Lucas and Alysa Hopson, acting as scribes for Sowmya Costa MD. Provider Scribe Attestation: All medical record entries made by the Scribe were at my direction and personally dictated by me. I have reviewed the chart and agree that the record accurately reflects my personal performance of the history, physical exam, medical decision making, and the department course for this patient. I have also personally directed, reviewed, and agree with the discharge instructions and disposition. Disposition - Clinical Impression Clinical Impression: Hyperglycemia, Adjustment disorder with depressed mood - Disposition Disposition: Transfer of Care Disposition Time: 19:00 Condition: IMPROVED Additional Instructions: Take home medications as prescribed by primary medical doctor. Check blood sugar at home and follow up with primary doctor if blood sugar is elevated. Seek help through a psychiatrics for feelings of depression. Return to the emergency department if you are feeling sick, weak, chest pain, thoughts of harming yourself, or other symptoms. Instructions: Hyperglycemia, Adult (DC), Tips for How to Help Your Mood Forms: [facility] (Mauritian) Print Language: LITHUANIAN
--- NOTE | 2018-02-20 22:10 | CARD ---
APPROVED REPORT Date of service: 02/20/2018 EKG Measurement Heart [id number] <Conclusion> Atrial-sensed ventricular-paced rhythm Abnormal ECG
--- NOTE | 2018-02-21 00:24 | ED PDOC ---
- Laboratory Results Result Diagrams: 02/20/18 17:50 02/20/18 17:50 - ECG O2 Sat by Pulse Oximetry: 2 Medical Decision Making Medical Decision Making: Time: 00:00 --Patient endorsed to provider by Dr. Costa, pending final disposition from crisis evaluation. Time: 00:56 --Upon crisis evaluation, patient is medically stable to be discharged home, as per Dr. Islas. Counseling was provided and all questions were answered regarding diagnosis. There is agreement to discharge plan. Return if symptoms persist or worsen. Clinical Impression: Adjustment disorder with depressed mood; Hyperglycemia ---- Scribe Attestation: Documented by Alysa Hopson, acting as a scribe for Radhames Marquez MD. Provider Scribe Attestation: All medical record entries made by the Scribe were at my direction and personally dictated by me. I have reviewed the chart and agree that the record accurately reflects my personal performance of the history, physical exam, medical decision making, and the department course for this patient. I have also personally directed, reviewed, and agree with the discharge instructions and dis position. Disposition - Clinical Impression Clinical Impression: Hyperglycemia, Adjustment disorder with depressed mood - POA Present On Arrival: None - Disposition Disposition: Routine/Home Disposition Time: 00:56 Condition: IMPROVED Additional Instructions: Take home medications as prescribed by primary medical doctor. Check blood sugar at home and follow up with primary doctor if blood sugar is elevated. Seek help through a psychiatrics for feelings of depression. Return to the emergency department if you are feeling sick, weak, chest pain, thoughts of harming yourself, or other symptoms. Instructions: Hyperglycemia, Adult (DC), Tips for How to Help Your Mood Forms: [employer] [facility] (Palestinian) Print Language: SAMI
[2018-02-21 01:29] VITALS: BP 133/69; PULSE 78; RESP 20; TEMP 97.5
[2018-02-23 16:53] VITALS: O2SAT 2
== END 2018-02-21 02:20 | disposition home or self-care (01) ==
LOC: H.ER 16:33
DX: E11.65 Type 2 diabetes mellitus with hyperglycemia (principal); F43.21 Adjustment disorder with depressed mood; E03.9 Hypothyroidism, unspecified; E78.00 Pure hypercholesterolemia, unspecified; I11.0 Hypertensive heart disease with heart failure; I25.10 Atherosclerotic heart disease of native coronary artery without angina pectoris; Z79.4 Long term (current) use of insulin; Z95.0 Presence of cardiac pacemaker; Z95.1 Presence of aortocoronary bypass graft; Z95.5 Presence of coronary angioplasty implant and graft
CPT/HCPCS: 71045; 80048; 81003; 82948; 85025; 93005; 96372; 99283; J7030

== ENCOUNTER 2018-02-25 10:11 | Inpatient (IN) | payer MEDICARE, MEDICAID ==
[2018-02-25 10:11] VITALS: BMI 33.9
[2018-02-25] MEDS ORDERED: Sodium Chloride 0.9% 1,000 ML IV STA (10:35)
--- NOTE | 2018-02-25 10:39 | ED PDOC ---
HPI: General Adult Time Seen by Provider: 02/25/18 10:16 Chief Complaint (Nursing): Trauma Chief Complaint (Provider): head injury History Per: Patient, Family History/Exam Limitations: no limitations Onset/Duration Of Symptoms: Days (today) Additional Complaint(s): Pt. was dizzy, like light-headed and fell in the bathroom. Hit the back of her head. Also with pain to the R shoulder. No numbness, tingles. Has weakness all over. No chest pain, dyspnea. Has sugar at home of 600. No vision changes. No leg pain. No dysuria. No abd pain, back pain. Seen recently for high blood sugar and dc from the ER. Past Medical History Reviewed: Nursing Documentation, Vital Signs Vital Signs: Last Vital Signs Temp 97.4 F L 02/25/18 10:13 Pulse 93 H 02/25/18 10:13 Resp 18 02/25/18 10:13 BP 158/80 H 02/25/18 10:13 Pulse Ox 100 02/25/18 10:13 - Medical History PMH: Arthritis, Asthma, CAD, Cardia Arrhythmia, CHF, Colonic Polyps, Depression, Diabetes, HTN, Hypercholesterolemia, Hypothyroidism Denies: Hepatitis, HIV, Chronic Kidney Disease, Seizures, Sexually Transmitted Disease - Surgical History Surgical History: CABG (11/2017), Coronary Stent (x4), Endoscopy, Pacemaker - Family History Family History: States: Unknown Family Hx - Living Arrangements Living Arrangements: With Family - Home Medications Home Medications: Ambulatory Orders Medication Instructions Recorded Albuterol Sulfate [Ventolin Hfa] 2 puff IH Q6 PRN 01/16/18 Aspirin [Ecotrin] 81 mg PO DAILY 01/16/18 Atorvastatin [Lipitor] 40 mg PO HS 01/16/18 Clopidogrel [Plavix] 75 mg PO DAILY 01/16/18 Fluticasone/Salmeterol 250/50 1 puff IH Q12 01/16/18 [Advair Diskus 250/50] Furosemide [Lasix] 40 mg PO DAILY 01/16/18 Insulin Aspart, Recombinant 5 unit SC ACTID 01/16/18 [Novolog] Insulin Glargine,Hum.rec.anlog 40 unit SC HS 01/16/18 [Basaglar Kwikpen U-100] Levothyroxine [Synthroid] 125 mcg PO DAILY 01/16/18 Lidocaine 5% [Lidoderm] 1 patch TD DAILY PRN 01/16/18 Metoprolol Tartrate [Lopressor] 25 mg PO DAILY 01/16/18 Omeprazole 40 mg PO DAILY 01/16/18 Memantine [Namenda] 5 mg PO HS #30 tab 01/20/18 SITagliptin [Januvia] 25 mg PO DAILY #30 tab 01/20/18 Multivitamin [Multi-Vitamin Daily] 1 tab PO DAILY 02/20/18 Ranolazine [Ranexa] 500 mg PO Q12 02/20/18 - Allergies Allergies/Adverse Reactions: Allergies Allergy/AdvReac Type Severity Reaction Status Date / Time No Known Allergies Allergy Verified 02/20/18 16:39 Review of Systems ROS Statement: Except As Marked, All Systems Reviewed And Found Negative Constitutional: Positive for: Weakness Cardiovascular: Positive for: Light Headedness Musculoskeletal: Positive for: Shoulder Pain Neurological: Positive for: Weakness, Headache, Dizziness Physical Exam - Reviewed Nursing Documentation Reviewed: Yes Vital Signs Reviewed: Yes - Physical Exam Appears: Positive for: Uncomfortable Head Exam: Negative for: ATRAUMATIC (R posterior head with hematoma small and tender) Skin: Positive for: Normal Color, Warm, DRY Eye Exam: Positive for: EOMI, Normal appearance, PERRL ENT: Positive for: Normal ENT Inspection Neck: Positive for: Normal, Painless ROM, Supple Cardiovascular/Chest: Positive for: Regular Rate, Rhythm Respiratory: Positive for: CNT, Normal Breath Sounds Gastrointestinal/Abdominal: Positive for: Normal Exam, Soft. Negative for: Tenderness Back: Positive for: Normal Inspection. Negative for: L CVA Tenderness, R CVA Tenderness Extremity: Positive for: Normal ROM, Tenderness (R shoulder mild; R forearm with echymosis, likely from previous IV (nontender area). ). Negative for: Calf Tenderness Neurologic/Psych: Positive for: Alert, it project manager II-XII, Oriented. Negative for: Motor/Sensory Deficits (4/5 STRENGTH B/L ALL EXTREMITIES), Aphasia, Facial Droop - Laboratory Results Result Diagrams: 02/25/18 11:10 02/25/18 11:10 Lab Results: 743 sugar; 27/1.3 - ECG ECG: Positive for: Interpreted By Me, Viewed By Me Interpretation Of Abn EKG: paced O2 Sat by Pulse Oximetry: 100 Pulse Ox Interpretation: Normal - Progress ED Course And Treament: 1044: Pt. on ASA and plavix. Will continue obs and eval. IMPRESSION: There is a relatively large right-sided acute subdural hematoma located within the interhemispheric fissure, the bulk of which is located along the anterior 1/2 of the interhemispheric fissure. This large collection is associated with mass-effect results in compression of the medial aspect of the frontal lobe as well as inferior compression/displacement of the frontal horns right greater than left. There is also small amount of subdural hemorrhage seen layering along the roof of the left and possibly to a lesser degree roof of the right tentorial leaves. Small right frontal subdural hematoma. Small elliptical shaped clot also noted within the left lateral fissure. Small mid and bilateral occipito parietal scalp contusion. Mild chronic white matter ischemic changes. Moderate volume loss. These findings discussed with Dr. Vizcaino at 12:08 p.m. with written down and read back verification. 1213: Stable. AAOx3. Moving all extremities and communicating with no issues. Follows commands. Spoke with Dr. Marrero. Will take to ICU. Pending call back from and neurosurgery. 1220: Spoke with Dr. Monet. He reviewed images and made aware of presentation and findings. States no intervention at this time. Repeat CT in the morning. 1225: Spoke with Dr. Brand. Will admit ICU. Pt. is private of Dr. Cornejo. - Critical Care Total Time (In Min): 30 Documented Critical Care: Time excludes all time spent performint seperately mitra lable procedures Disposition - Clinical Impression Clinical Impression: Subdural hematoma, Hyperglycemia - Patient ED Disposition Is Patient to be Admitted: Yes Counseled Patient/Family Regarding: Studies Performed, Diagnosis - Disposition Disposition Time: 12:31 Condition: FAIR - Pt Status Changed To: Hospital Disposition Of: Inpatient - Admit Certification Admit to Inpatient:: After my assessment, the patient will require hospitalization for at least two midnights. This is because of the severity of symptoms shown, intensity of services needed, and/or the medical risk in this patient being treated as an outpatient. - POA Present On Arrival: Falls Or Trauma, Poor Glycemic Control
[2018-02-25 11:16] LABS: BASO # 0.1 K/uL (0.0-0.2); BASO % 0.6 % (0.0-2.0); EOS % 0.2 % (0.0-4.0); HEMOGLOBIN 12.7 g/dL (12.0-16.0); LYMPH # 0.5 K/uL (1.0-4.3); LYMPH % 3.8 % (20.0-40.0); MEAN CELL VOLUME 88.4 fl (81.0-99.0); MEAN CORPUSCULAR HEMOGLOBIN 28.9 pg (27.0-31.0); MEAN CORPUSCULAR HGB CONC 32.7 g/dL (33.0-37.0); MEAN PLATELET VOLUME 8.8 fl (7.2-11.7); MONO # 0.4 K/uL (0.0-0.8); MONO % 3.2 % (0.0-10.0); NEUT # 11.8 K/uL (1.8-7.0); NEUT % 92.2 % (50.0-75.0); PLATELET COUNT 275 K/uL (130-400); RED CELL DISTRIBUTION WIDTH 16.9 % (11.5-14.5); WHITE BLOOD COUNT 12.8 K/uL (4.8-10.8)
[2018-02-25 11:25] LABS: ALB/GLOB RATIO 1.6 (1.0-2.1); CALCIUM 10.3 mg/dL (8.4-10.2)
[2018-02-25 11:34] LABS: TROPONIN I 0.034 ng/mL (0.00-0.120)
[2018-02-25 11:43] LABS: INR 1.1; PROTHROMBIN TIME 12.1 Seconds (9.8-13.1)
[2018-02-25 11:46] LABS: PARTIAL THROMBOPLASTIN TIME 21.6 Seconds (25.6-37.1)
--- NOTE | 2018-02-25 12:14 | CT ---
Date of service: 02/25/2018 PROCEDURE: CT HEAD WITHOUT CONTRAST. HISTORY: headache COMPARISON: Comparison made with prior CT scan 01/17/2018 TECHNIQUE: Axial computed tomography images were obtained through the head/brain without intravenous contrast. Radiation dose: Total exam DLP = 1379.91 mGy-cm. This CT exam was performed using one or more of the following dose reduction techniques: Automated exposure control, adjustment of the mA and/or kV according to patient size, and/or use of iterative reconstruction technique. FINDINGS: HEMORRHAGE: There is a moderate-sized right-sided acute interhemispheric fissure subdural hematoma, the bulk of which is located along the anterior 1/2 of the interhemispheric fissure.. There is also hemorrhage seen layering along the roof of the left tentorial leaf with questionable small amount of subdural hemorrhage along the roof right tentorial leaf. Small amount of subdural hemorrhage seen along the right inferior frontal lobe. The small amount of hemorrhage is also present within the left lateral fissure.. The hematoma exerts mild mild bladder it mass effect on the medial aspect of the frontal lobe associated with inferior compression of the frontal horns right greater than left. BRAIN: Mild chronic periventricular white matter ischemic changes. Moderate generalized volume loss. VENTRICLES: No obstructive hydrocephalus. CALVARIUM: There are no acute calvarial fractures. Mild mid and bilateral occipito parietal scalp contusional changes extending to the vertex. PARANASAL SINUSES: Redemonstrated is mild mucosal thickening right maxillary antrum. MASTOID AIR CELLS: Unremarkable as visualized. No inflammatory changes. OTHER FINDINGS: Changes of bilateral cataract surgery again seen. IMPRESSION: There is a relatively large right-sided acute subdural hematoma located within the interhemispheric fissure, the bulk of which is located along the anterior 1/2 of the interhemispheric fissure. This large collection is associated with mass-effect results in compression of the medial aspect of the frontal lobe as well as inferior compression/displacement of the frontal horns right greater than left. There is also small amount of subdural hemorrhage seen layering along the roof of the left and possibly to a lesser degree roof of the right tentorial leaves. Small right frontal subdural hematoma. Small elliptical shaped clot also noted within the left lateral fissure. Small mid and bilateral occipito parietal scalp contusion. Mild chronic white matter ischemic changes. Moderate volume loss. These findings discussed with Dr. Vizcaino at 12:08 p.m. with written down and read back verification
[2018-02-25] MEDS ORDERED: Insulin Regular 100 units/ml IV STA (12:19)
--- NOTE | 2018-02-25 12:31 | CT ---
Date of service: 02/25/2018 PROCEDURE: CT Cervical Spine without contrast HISTORY: Neck pain COMPARISON: No prior. TECHNIQUE: Axial computed tomography images were obtained of the cervical spine without the use of intravenous contrast. Coronal and sagittal reformatted images were created and reviewed. Radiation dose: Total exam DLP = 382.22 mGy-cm. This CT exam was performed using one or more of the following dose reduction techniques: Automated exposure control, adjustment of the mA and/or kV according to patient size, and/or use of iterative reconstruction technique. FINDINGS: Note that the study is slightly limited due to crossing streak and beam hardening artifact arising from dense clavicles and shoulder girdles resulting in diminution of fine detail in the mid to lower cervical and upper thoracic region. VERTEBRAE: No acute compression fractures no retropulsed fragments. Vertebral bodies exhibit normal stature. There is mild reversal of the normal cervical lordosis possibly due to patient positioning gantry however muscle spasm may contribute.. There also very slight posterior subluxation C4 over C5 exacerbated in appearance by an small osteophyte arising from the posterior inferior corner of the C4 segment. DISCS/SPINAL CANAL/NEURAL FORAMINA: Multilevel degenerative spondylosis. C2-C3 level: Minor anterior disc space narrowing. Small broad-based disc ridge complex contiguous with slightly overgrown uncovertebral joints. Facets are hypertrophic left greater than right. Exit foramina adequate. C3-C4 level: Anterior disc space narrowing with endplate eburnation. Small central and bilateral disc bulge asymmetrically larger on the left than right contiguous with hypertrophic uncovertebral joints. Facets also mildly hypertrophic right greater than left. Disc results in mild compressive effects on the ventral surface of the thecal sac and with suspected minor compression of the spinal cord. The right exit foramen is marginal to mildly narrowed. Left exit foramen adequate. C4-C5: Marked disc space narrowing. Small osteophytic ridge disc complex contiguous with [id number] hypertrophic uncovertebral joints. Facets are hypertrophic left greater than right. Changes result in mild canal narrowing. Exit foramina are marginal to slightly narrowed right greater than left. C5-C6: There is disc space narrowing with small asymmetric disc herniation ridge complex larger on the left than right. The uncovertebral and facets are hypertrophic. Changes result in moderate canal narrowing and cord compression. Exit foramina stenotic bilaterally C6-C7: Disc space narrowing with small to medium-sized central and bilateral disc ridge complex which results in mild compression of the ventral surface of the thecal sac and presumed mild cord compression. Central canal appears narrowed with presumed mild compression of the ventral surface of the spinal cord. Exit foramina are also narrowed bilaterally.. PARASPINAL SOFT TISSUES: Unremarkable. OTHER FINDINGS: Note made of calcification within the left lobe thyroid gland for which follow-up thyroid ultrasound recommended IMPRESSION: Slightly limited study as described. No acute fractures. There is mild reversal of the normal cervical lordosis. Multilevel degenerative spondylosis with varying degrees of the mild canal narrowing and cord compression. Variable bilateral foraminal stenotic changes Calcification left lobe thyroid gland for which thyroid ultrasound follow-up recommended
[2018-02-25 12:35] LABS: ANISOCYTOSIS SLIGHT; BANDS 4 % (0-2); LYMPHOCYTE 5 % (20-50); MONOCYTE 3 % (0-10); NEUTROPHIL 88 % (42-75); PLATELET CLUMPS PRESENT; PLATELET ESTIMATE NORMAL (NORMAL); TOTAL CELLS COUNTED 100
--- NOTE | 2018-02-25 13:23 | CP.PCM.HP ---
History of Present Illness - History of Present Illness History of Present Illness: CC: "fell in the bathroom" HPI: 77 y/o female patient with PMHx of HTN, HLD, hypothyroidism, [place], CABG (11/2017), systolic CHF s/p pacemaker was seen and evaluated in the ED due to a fall at home this morning. Patient reported dizziness at time of fall to the ED physician, however, denies any symptoms of dizziness to me at this time Patient states she fell, hit the back of her head and was found on the floor by her daughter Patient's daughter and son-in-law brought the patient to the ED. Patient also reports right shoulder pain. Patient denies any complaints of fever, nausea, vomiting, shortness of breath, abdominal pain, vision changes, dyruria, or back pain. Patient states she has been compliant with her night time insulin. Patient was last seen in the ED on 02/20/18 ago for elevated blood sugar levels and crisis eval, and was discharged home. Vitals: Temp 97.4 F, P 93, BP 158/80, RR 18, O2 100% PMD: Dr. Cornejo, last [facility] visit on 02/20/18 PMH: CHF, DM, arthritis, asthma, pacemaker placement (recently replaced in Dec 2014), hx [place] s/p 4 stents (most recent placed at [facility] in 2010), triple vessel disease, colonic polyps, depression, HTN, HLD, hypothyroidism, and s/p thoracentesis and Cardiac cath 11/2017, asthma/COPD PSH: Cardiac stents x4 (most recent in 2010), pacemaker placement (replaced in Dec 2014), cholecystectomy, s/p CABG (11/2017) Allergies: NKDA FH: denies any stroke, UT or any cancers SH: Denies smoking, EtOH, or illicit drug use EMERGENCY CONTACT # April, Ms. Lopez # [phone] ED Course: CBC/BMP CXR/EKG Head CT Troponins Urinalysis Cerivcal Spine CT R Shoulder X-ray Tylenol 650 mg shoulder pain NSS Insulin 10 units Present on Admission - Present on Admission Any Indicators Present on Admission: Yes History of DVT/PE: No History of Uncontrolled Diabetes: Yes Decubitus Ulcer Present: No History Surgical Site Infection Following: None Review of Systems - Constitutional Constitutional: absent: Chills, Fever - EENT Eyes: absent: Blurred Vision, Change in Vision Nose/Mouth/Throat: absent: Nasal Discharge - Cardiovascular Cardiovascular: absent: Chest Pain with Activity, Dyspnea on Exertion, Palpitations - Respiratory Respiratory: absent: Dyspnea on Exertion - Gastrointestinal Gastrointestinal: absent: Diarrhea, Nausea, Vomiting - Neurological Neurological: absent: Numbness, Tingling Past Patient History - Tetanus Immunizations Tetanus Immunization: Up to Date - Past Medical History & Family History Past Medical History?: Yes - Past Social History Smoking Status: Never Smoked - CARDIAC Hx Cardia Arrhythmia: Yes Hx Congestive Heart Failure: Yes Hx Hypercholesterolemia: Yes Hx Hypertension: Yes Hx Pacemaker: Yes - PULMONARY Hx Asthma: Yes - NEUROLOGICAL Hx Seizures: No - HEENT Hx HEENT Problems: No - RENAL Hx Chronic Kidney Disease: No - ENDOCRINE/METABOLIC Hx Hypothyroidism: Yes - HEMATOLOGICAL/ONCOLOGICAL Hx Human Immunodeficiency Virus (HIV): No - INTEGUMENTARY Hx Dermatological Problems: No - MUSCULOSKELETAL/RHEUMATOLOGICAL Hx Arthritis: Yes - GASTROINTESTINAL Hx Ulcer: Yes - GENITOURINARY/GYNECOLOGICAL Hx Sexually Transmitted Disorders: No - PSYCHIATRIC Hx Depression: Yes - SURGICAL HISTORY Hx Coronary Artery Bypass Graft: Yes (11/2017) Hx Coronary Stent: Yes (x4) - ANESTHESIA Hx Anesthesia: Yes Hx Anesthesia Reactions: No Hx Malignant Hyperthermia: No Meds Allergies/Adverse Reactions: Allergies Allergy/AdvReac Type Severity Reaction Status Date / Time No Known Allergies Allergy Verified 02/20/18 16:39 Physical Exam - Constitutional Appears: Well, Non-toxic, No Acute Distress - Head Exam Head Exam: NORMAL INSPECTION - Eye Exam Eye Exam: Normal appearance, PERRL - ENT Exam ENT Exam: Mucous Membranes Moist, Normal Exam - Neck Exam Neck exam: Positive for: Full Rom - Respiratory Exam Respiratory Exam: Clear to Auscultation Bilateral, NORMAL BREATHING PATTERN. absent: Rales, Rhonchi, Wheezes - Cardiovascular Exam Cardiovascular Exam: REGULAR RHYTHM, +S1, +S2 - GI/Abdominal Exam GI & Abdominal Exam: Normal Bowel Sounds, Soft. absent: Distended, Guarding - Rectal Exam Rectal Exam: Deferred - Extremities Exam Extremities exam: Positive for: full ROM Additional comments: pain to the right shoulder, MSK 5/5 - Neurological Exam Neurological exam: Alert, Oriented x3 - Psychiatric Exam Psychiatric exam: Normal Mood - Skin Skin Exam: Normal Color Results - Vital Signs Recent Vital Signs: Last Vital Signs Temp 97.4 F L 02/25/18 10:13 Pulse 93 H 02/25/18 10:13 Resp 18 02/25/18 10:13 BP 158/80 H 02/25/18 10:13 Pulse Ox 100 02/25/18 12:32 - Labs Result Diagrams: 02/25/18 11:10 02/25/18 11:10 Labs: Laboratory Results - last 24 hr 02/25/18 02/25/18 02/25/18 10:19 11:10 11:10 WBC 12.8 H D RBC 4.40 Hgb 12.7 Hct 38.9 MCV 88.4 D MCH 28.9 MCHC 32.7 L RDW 16.9 H Plt Count 275 MPV 8.8 Neut % (Auto) 92.2 H Lymph % (Auto) 3.8 L [place] % (Auto) 3.2 Eos % (Auto) 0.2 Baso % (Auto) 0.6 Neut # (Auto) 11.8 H Lymph # (Auto) 0.5 L [place] # (Auto) 0.4 Eos # (Auto) 0.0 Baso # (Auto) 0.1 Neutrophils % (Manual) 88 H Band Neutrophils % 4 H Lymphocytes % (Manual) 5 L Monocytes % (Manual) 3 Platelet Estimate Normal Plt Clumps, EDTA Present Anisocytosis (manual) Slight PT INR APTT Sodium 130 L Potassium 5.2 H Chloride 87 L Carbon Dioxide 15 L Anion Gap 33 H BUN 27 H Creatinine 1.3 H Est GFR ( Amer) 48 Est GFR (Non-Af Amer) 40 POC Glucose (mg/dL) > 500 H* Random Glucose 743 H* D Calcium 10.3 H Total Bilirubin 1.1 AST 22 ALT 22 Alkaline Phosphatase 99 Troponin I 0.0340 Total Protein 8.1 Albumin 5.0 D Globulin 3.1 Albumin/Globulin Ratio 1.6 02/25/18 11:10 WBC RBC Hgb Hct MCV MCH MCHC RDW Plt Count MPV Neut % (Auto) Lymph % (Auto) [place] % (Auto) Eos % (Auto) Baso % (Auto) Neut # (Auto) Lymph # (Auto) [place] # (Auto) Eos # (Auto) Baso # (Auto) Neutrophils % (Manual) Band Neutrophils % Lymphocytes % (Manual) Monocytes % (Manual) Platelet Estimate Plt Clumps, EDTA Anisocytosis (manual) PT 12.1 INR 1.1 APTT 21.6 L Sodium Potassium Chloride Carbon Dioxide Anion Gap BUN Creatinine Est GFR ( Amer) Est GFR (Non-Af Amer) POC Glucose (mg/dL) Random Glucose Calcium Total Bilirubin AST ALT Alkaline Phosphatase Troponin I Total Protein Albumin Globulin Albumin/Globulin Ratio Assessment & Plan - Assessment and Plan (Free Text) Assessment: 77 y/o female patient with PMHx of CAD (with pacemaker), Hypertension, Type II DM, Hyperlipidemia, and Asthma was seen and evaluated in the ED due to a fall at home this morning. Patient head CT showed large right-sided acute subdural hematoma, and patient also presenting with elevated blood sugar levels Plan: Subdural Hematoma -acute, symptomatic -Head CT: large right-sided acute subdural hematoma located within the interhemispherix fissure, the bulk of which is located along the anterior 1/2 of the fissure, inferior compression/displacement of the frontal horns right greater than left, small mid and bilateral occipito parietal scalp contusion -Cervical CT: no acute fractures -Right Shoulder X-ray: Pending -F/U CXR/EKG -CBC: WBC 12. 6 -Troponins negative -UA negative -NSS -Pain management -hold ASA and plavix at this pending repeat Head CT and neuro evaluation -Neurology Surgery Consult- Dr. Monet- recommendations appreciated- follow up repeat Head CT without contrast in the AM -Neuro Checks Q2 IDDM -chronic and uncontrolled -HbA1c 6.3 (01/17/18) -Insulin Regular- medium coverage scale SC ACHS -Hypoglycemia protocol in place -POC glucose ACHS -moderate cardohydrate diet/heart healthy diet Depression -chronic, controlled -Remeron 15 mg and Lexapro 10 mg HS-restarted on 02/20/17 after ED visit, cleared by Zane Hypothyrodism -chronic, controlled -TSH 0.84 on 01/17/18 -c/w with home meds HTN/HLD/CAD -chronic, controlled -c/w home meds -s/p CABG 11/2017 -troponin negative x 1 -no change in EKG from previous Systolic CHF -chronic, controlled -Echo 10/2017: systolic dysfunction EF 30-35% -c/w home meds -s/p pacemaker Asthma/COPD -controlled -c/w home meds DVTprolax - SCDs for now - hold ASA and plavix at this pending repeat Head CT and neuro evaluation - Date & Time Date: 02/25/18 Time: 14:29
[2018-02-25] MEDS ORDERED: Albuterol HFA 90 mcg/actuation (8 g) IH PRN (14:09)
[2018-02-25] MEDS ORDERED: Glucagon Recombinant 1 mg Inj IM PRN (14:24)
[2018-02-25] MEDS ORDERED: Dextrose 50% SYRINGE Inj (50 ml) IV PRN (14:24)
--- NOTE | 2018-02-25 15:06 | RAD ---
Date of service: 02/25/2018 PROCEDURE: Radiographs of the Right Shoulder HISTORY: shoulder pain COMPARISON: No prior. FINDINGS: BONES: Norm no evidence of acute displaced fracture nor dislocation. The osseous structures appear intact.. JOINTS: Degenerative osteoarthritis right acromioclavicular and glenohumeral joints. SOFT TISSUES: Small calcifications seen in the soft tissues adjacent to the greater tuberosity consistent with calcified tendinitis. OTHER FINDINGS: None. IMPRESSION: No evidence of acute displaced fracture nor dislocation. Degenerative osteoarthritis as described. Findings also consistent with calcified tendinitis
--- NOTE | 2018-02-25 15:08 | RAD ---
Date of service: 02/25/2018 HISTORY: dyspnea COMPARISON: Comparison chest dated 02/20/2018 FINDINGS: LUNGS: Central pulmonary vasculature is slightly increased when compared with the prior study likely representing underlying mild chronic compensated pulmonary edema/CHF.. PLEURA: No significant pleural effusion identified, no pneumothorax apparent. CARDIOVASCULAR: No discernible aortic atherosclerotic calcification present. Sternotomy wires and CABG clips again noted. No change bipolar pacemaker/defibrillator heart appears enlarged.. No pulmonary vascular congestion. OSSEOUS STRUCTURES: No significant abnormalities. VISUALIZED UPPER ABDOMEN: Normal. OTHER FINDINGS: None. IMPRESSION: Findings suggest underlying mild chronic compensated pulmonary edema/CHF..
[2018-02-25] MEDS: Sodium Chloride 0.9% 1,000 ML IV SCH (15:30)
--- NOTE | 2018-02-25 15:33 | CP.PCM.CON ---
History of Present Illness - History of Present Illness History of Present Illness: 77 y/o female patient with PMHx of HTN, HLD, hypothyroidism, [place], CABG (11/2017), systolic CHF s/p pacemaker was seen and evaluated in the ED due to a fall at home this morning. Patient reported dizziness at time of fall to the ED physi prakash, however, denies any symptoms of dizziness to me at this time Patient states she fell, hit the back of her head and was found on the floor by her daughter Patient's daughter and son-in-law brought the patient to the ED. Patient also reports right shoulder pain. Patient denies any complaints of fever, nausea, vomiting, shortness of breath, abdominal pain, vision changes, dyruria, or back pain. Patient states she has been compliant with her night time insulin. Patient was last seen in the ED on 02/20/18 ago for elevated blood sugar levels and crisis eval, and was discharged home. Vitals: Temp 97.4 F, P 93, BP 158/80, RR 18, O2 100% PMD: Dr. Cornejo, last [facility] visit on 02/20/18 PMH: CHF, DM, arthritis, asthma, pacemaker placement (recently replaced in Dec 2014), hx [place] s/p 4 stents (most recent placed at [facility] in 2010), triple vessel disease, colonic polyps, depression, HTN, HLD, hypothyroidism, and s/p thoracentesis and Cardiac cath 11/2017, asthma/COPD PSH: Cardiac stents x4 (most recent in 2010), pacemaker placement (replaced in Dec 2014), cholecystectomy, s/p CABG (11/2017) Allergies: NKDA FH: denies any stroke, [place] or any cancers SH: Denies smoking, EtOH, or illicit drug use [place]: fully awake alert conversant in bel[place] follows commands redily no drift st 5/ dtr 1/ no sensory deficit CT R interhespheric SDH with local mass effect This is a relatively benign place for SDH, it is margianl whetherit needs to be evacuated, but pt is on plavix and has significant medical history would like to try to avoid surgery if possible Unless there is a change in neuro status or significant increase in SDH size would treat conservatively Past Patient History - Tetanus Immunizations Tetanus Immunization: Up to Date - Past Medical History & Family History Past Medical History?: Yes - Past Social History Smoking Status: Never Smoked - CARDIAC Hx Cardia Arrhythmia: Yes Hx Congestive Heart Failure: Yes Hx Hypercholesterolemia: Yes Hx Hypertension: Yes Hx Pacemaker: Yes - PULMONARY Hx Asthma: Yes - NEUROLOGICAL Hx Seizures: No - HEENT Hx HEENT Problems: No - RENAL Hx Chronic Kidney Disease: No - ENDOCRINE/METABOLIC Hx Hypothyroidism: Yes - HEMATOLOGICAL/ONCOLOGICAL Hx Human Immunodeficiency Virus (HIV): No - INTEGUMENTARY Hx Dermatological Problems: No - MUSCULOSKELETAL/RHEUMATOLOGICAL Hx Arthritis: Yes - GASTROINTESTINAL Hx Ulcer: Yes - GENITOURINARY/GYNECOLOGICAL Hx Sexually Transmitted Disorders: No - PSYCHIATRIC Hx Depression: Yes - SURGICAL HISTORY Hx Coronary Artery Bypass Graft: Yes (11/2017) Hx Coronary Stent: Yes (x4) - ANESTHESIA Hx Anesthesia: Yes Hx Anesthesia Reactions: No Hx Malignant Hyperthermia: No Meds Allergies/Adverse Reactions: Allergies Allergy/AdvReac Type Severity Reaction Status Date / Time No Known Allergies Allergy Verified 02/20/18 16:39 - Medications Medications: Current Medications Acetaminophen (Tylenol 325mg Tab) 650 mg PO Q6H PRN PRN Reason: Pain, moderate (4-7) Albuterol (Ventolin Hfa 90 Mcg/Actuation (8 G)) 2 puff IH Q6 PRN PRN Reason: Shortness of Breath Atorvastatin Calcium (Lipitor) 40 mg PO HS JEFFERSON Dextrose (Dextrose 50% Inj) 0 ml IV STAT PRN; Protocol PRN Reason: Hypoglycemia Protocol Dextrose (Glutose 15) 0 gm PO ONCE PRN; Protocol PRN Reason: Hypoglycemia Protocol Famotidine (Pepcid) 20 mg PO DAILY JEFFERSON Furosemide (Lasix) 40 mg PO DAILY [facility]FFERSON Glucagon (Glucagen Diagnostic Kit) 0 mg IM STAT PRN; Protocol PRN Reason: Hypoglycemia Protocol Sodium Chloride (Sodium Chloride 0.9%) 1,000 mls @ 100 mls/hr IV .Q10H [facility]FFERSON Stop: 02/26/18 09:59 Insulin Human Regular (Humulin R) 0 units SC ACHS JEFFERSON; Protocol Levothyroxine Sodium (Synthroid) 125 mcg PO DAILY@0630 [facility]FFERSON Lidocaine (Lidoderm) 1 ea TD DAILY PRN PRN Reason: Pain, moderate (4-7) Memantine (Namenda) 5 mg PO HS JEFFERSON Metoprolol Tartrate (Lopressor) 25 mg PO DAILY JEFFERSON Ranolazine (Ranexa) 500 mg PO Q12 JEFFERSON Fluticasone/Salmeterol (Advair Diskus 250/50) 1 puff IH Q12 JEFFERSON Sitagliptin Phosphate (Januvia) 25 mg PO DAILY JEFFERSON Results - Vital Signs Recent Vital Signs: Last Vital Signs Temp 97.5 F L 02/25/18 15:07 Pulse 99 H 02/25/18 15:07 Resp 18 02/25/18 15:07 BP 133/70 02/25/18 15:07 Pulse Ox 100 02/25/18 15:07 - Labs Result Diagrams: 02/25/18 11:10 02/25/18 11:10 Labs: Laboratory Results - last 24 hr 02/25/18 02/25/18 02/25/18 10:19 11:10 11:10 WBC 12.8 H D RBC 4.40 Hgb 12.7 Hct 38.9 MCV 88.4 D MCH 28.9 MCHC 32.7 L RDW 16.9 H Plt Count 275 MPV 8.8 Neut % (Auto) 92.2 H Lymph % (Auto) 3.8 L [place] % (Auto) 3.2 Eos % (Auto) 0.2 Baso % (Auto) 0.6 Neut # (Auto) 11.8 H Lymph # (Auto) 0.5 L [place] # (Auto) 0.4 Eos # (Auto) 0.0 Baso # (Auto) 0.1 Neutrophils % (Manual) 88 H Band Neutrophils % 4 H Lymphocytes % (Manual) 5 L Monocytes % (Manual) 3 Platelet Estimate Normal Plt Clumps, EDTA Present Anisocytosis (manual) Slight PT INR APTT Sodium 130 L Potassium 5.2 H Chloride 87 L Carbon Dioxide 15 L Anion Gap 33 H BUN 27 H Creatinine 1.3 H Est GFR ( Amer) 48 Est GFR (Non-Af Amer) 40 POC Glucose (mg/dL) > 500 H* Random Glucose 743 H* D Calcium 10.3 H Total Bilirubin 1.1 AST 22 ALT 22 Alkaline Phosphatase 99 Troponin I 0.0340 Total Protein 8.1 Albumin 5.0 D Globulin 3.1 Albumin/Globulin Ratio 1.6 02/25/18 02/25/18 11:10 13:01 WBC RBC Hgb Hct MCV MCH MCHC RDW Plt Count MPV Neut % (Auto) Lymph % (Auto) [place] % (Auto) Eos % (Auto) Baso % (Auto) Neut # (Auto) Lymph # (Auto) [place] # (Auto) Eos # (Auto) Baso # (Auto) Neutrophils % (Manual) Band Neutrophils % Lymphocytes % (Manual) Monocytes % (Manual) Platelet Estimate Plt Clumps, EDTA Anisocytosis (manual) PT 12.1 INR 1.1 APTT 21.6 L Sodium Potassium Chloride Carbon Dioxide Anion Gap BUN Creatinine Est GFR ( Amer) Est GFR (Non-Af Amer) POC Glucose (mg/dL) > 500 H* Random Glucose Calcium Total Bilirubin AST ALT Alkaline Phosphatase Troponin I Total Protein Albumin Globulin Albumin/Globulin Ratio
[2018-02-25] MEDS ORDERED: Insulin Regular 100 units/ml SC SCH (16:30)
[2018-02-25] MEDS: Lidocaine 5% Patch TD PRN (17:29)
--- NOTE | 2018-02-25 18:20 | CP.CCUPN ---
CCU Subjective - Physician Review Subjective (Free Text): 02/25/18 18:41 The patient was Seen/interviewed and examined by me at the bedside during ICU round, Medical records reviewed and Management issues were discussed and formulated with the house staff. Events reviewed Mrs Walden is a 77 Years old Female with PMHx of HTN, HLD, hypothyroidism, CAD S/P [place], CABG x4 in 11/2017, systolic CHF, colonic polyps, depression and Cardia Arrhythmia S/P pacemaker Who was brought to the Emergency department by Patient's daughter and son-in-law for evaluation of feeling dizzy and light-headed Pt also states she fell in the bathroom and hit the back of her head at home this morning. Patient also reports right shoulder pain, XR showed no fractures Head CT scan revealed R interhespheric SDH with local mass effect. Evaluated by neurosurgery She was also found to hyperglycemia, received Insulin 10 units and IV fluids No headaches, vision changes, vertigo, double vision, dysphagia or trouble with word finding. Critical Care Time Spent (in minutes): 45 CCU Objective - Vital Signs / Intake & Output Vital Signs (Last 4 hours): Vital Signs Temp Pulse Resp BP Pulse Ox 02/25/18 17:56 104 H 26 H 151/81 H 100 02/25/18 17:00 97.3 F L 100 H 24 148/56 L 100 02/25/18 16:25 99 H 18 143/77 02/25/18 16:20 99 H 18 143/77 99 02/25/18 15:07 97.5 F L 99 H 18 133/70 100 Intake and Output (Last 8hrs): Intake & Output 02/25/18 02/25/18 02/25/18 06:59 14:59 22:59 Weight 170 lb - Physical Exam Head: Positive for: Atraumatic, Normocephalic. Negative for: Tenderness Pupils: Positive for: PERRL Extroacular Muscles: Positive for: EOMI Conjunctiva: Positive for: Normal. Negative for: Injected, Icteric Ears: Positive for: Normal Mouth: Positive for: Moist Mucous Membranes Pharnyx: Positive for: Normal. Negative for: ERYTHEMA Nose (Internal): Positive for: Normal Inspection Neck: Positive for: Normal Range of Motion, Trachea Midline. Negative for: Meningeal Signs, MIDLINE TENDERNESS, Paraspinal Tenderness, JVD, Lymphadenopathy, Bruit, Other Respiratory/Chest: Positive for: Clear to Auscultation, Good Air Exchange. Negative for: Respiratory Distress, Accessory Muscle Use Cardiovascular: Positive for: Regular Rate and Rhythm, Normal S1, S2, Peripheal Pulses Present. Negative for: Murmurs, Tachycardic, Bradycardic Abdomen: Positive for: Normal Bowel Sounds. Negative for: Tenderness, Distentio n Back: Positive for: Normal Inspection. Negative for: CVA Tenderness Upper Extremity: Positive for: Normal Inspection. Negative for: Cyanosis, Edema Lower Extremity: Positive for: Normal Inspection. Negative for: Edema, CALF TENDERNESS Neurological: Positive for: GCS=15, CN II-XII Intact, Speech Normal, Motor Func Grossly Intact, Normal Sensory Function Psychiatric: Positive for: Alert, Oriented x 3 - Medications Active Medications: Active Medications Generic Name Dose Route Start Last Admin Trade Name Freq PRN Reason Stop Dose Admin Acetaminophen 650 mg 02/25/18 13:54 02/25/18 17:25 Tylenol 325mg Tab PO 650 mg Q6H PRN Administration Pain, moderate (4-7) Albuterol 2 puff 02/25/18 14:09 Ventolin Hfa 90 Mcg/Actuation (8 G) IH Q6 PRN Shortness of Breath Atorvastatin Calcium 40 mg 02/25/18 22:00 Lipitor PO HS [facility] Dextrose 0 ml 02/25/18 14:24 Dextrose 50% Inj IV STAT PRN Hypoglycemia Protocol Protocol Dextrose 0 gm 02/25/18 14:24 Glutose 15 PO ONCE PRN Hypoglycemia Protocol Protocol Famotidine 20 mg 02/26/18 09:00 Pepcid PO DAILY [facility] Furosemide 40 mg 02/26/18 09:00 Lasix PO DAILY [facility] Glucagon 0 mg 02/25/18 14:24 Glucagen Diagnostic Kit IM STAT PRN Hypoglycemia Protocol Protocol Sodium Chloride 1,000 mls @ 100 mls/hr 02/25/18 14:00 02/25/18 15:30 Sodium Chloride 0.9% IV 02/26/18 09:59 100 mls/hr .Q10H [facility] Administration Insulin Human Regular 0 units 02/25/18 16:30 02/25/18 17:28 Humulin R SC 10 units ACHS [facility] Administration Protocol Levothyroxine Sodium 125 mcg 02/26/18 06:30 Synthroid PO DAILY@0630 [facility] Lidocaine 1 ea 02/25/18 14:09 02/25/18 17:29 Lidoderm TD 1 ea DAILY PRN Administration Pain, moderate (4-7) Memantine 5 mg 02/25/18 22:00 Namenda PO HS [facility] Metoprolol Tartrate 25 mg 02/26/18 09:00 Lopressor PO DAILY [facility] Ranolazine 500 mg 02/25/18 21:00 Ranexa PO Q12 [facility] Fluticasone/Salmeterol 1 puff 02/25/18 21:00 Advair Diskus 250/50 IH Q12 [facility] Sitagliptin Phosphate 25 mg 02/26/18 09:00 Januvia PO DAILY [facility] - Patient Studies Lab Studies: Lab Studies 02/25/18 02/25/18 02/25/18 Range/Units 17:00 13:01 11:10 WBC (4.8-10.8) K/uL RBC (3.80-5.20) Mil/uL Hgb (12.0-16.0) g/dL Hct (34.0-47.0) % MCV (81.0-99.0) fl MCH (27.0-31.0) pg MCHC (33.0-37.0) g/dL RDW (11.5-14.5) % Plt Count (130-400) K/uL MPV (7.2-11.7) fl Neut % (Auto) (50.0-75.0) % Lymph % (Auto) (20.0-40.0) % [place] % (Auto) (0.0-10.0) % Eos % (Auto) (0.0-4.0) % Baso % (Auto) (0.0-2.0) % Neut # (Auto) (1.8-7.0) K/uL Lymph # (Auto) (1.0-4.3) K/uL [place] # (Auto) (0.0-0.8) K/uL Eos # (Auto) (0.0-0.7) K/uL Baso # (Auto) (0.0-0.2) K/uL Neutrophils % (Manual) (42-75) % Band Neutrophils % (0-2) % Lymphocytes % (Manual) (20-50) % Monocytes % (Manual) (0-10) % Platelet Estimate (NORMAL) Plt Clumps, EDTA Anisocytosis (manual) PT 12.1 (9.8-13.1) Seconds INR 1.1 APTT 21.6 L (25.6-37.1) Seconds Sodium (132-148) mmol/l Potassium (3.6-5.0) MMOL/L Chloride (98-107) mmol/L Carbon Dioxide (22-30) mmol/L Anion Gap (10-20) BUN (7-17) mg/dl Creatinine (0.7-1.2) mg/dl Est GFR ( Amer) Est GFR (Non-Af Amer) POC Glucose (mg/dL) > 500 H* > 500 H* (65-110) mg/dL Random Glucose (65-105) mg/dL Calcium (8.4-10.2) mg/dL Total Bilirubin (0.2-1.3) mg/dl AST (14-36) U/L ALT (9-52) U/L Alkaline Phosphatase (38-126) U/L Troponin I (0.00-0.120) ng/mL Total Protein (6.3-8.2) G/DL Albumin (3.5-5.0) g/dL Globulin (2.2-3.9) gm/dL Albumin/Globulin Ratio (1.0-2.1) 02/25/18 02/25/18 02/25/18 Range/Units 11:10 11:10 10:19 WBC 12.8 H D (4.8-10.8) K/uL RBC 4.40 (3.80-5.20) Mil/uL Hgb 12.7 (12.0-16.0) g/dL Hct 38.9 (34.0-47.0) % MCV 88.4 D (81.0-99.0) fl MCH 28.9 (27.0-31.0) pg MCHC 32.7 L (33.0-37.0) g/dL RDW 16.9 H (11.5-14.5) % Plt Count 275 (130-400) K/uL MPV 8.8 (7.2-11.7) fl Neut % (Auto) 92.2 H (50.0-75.0) % Lymph % (Auto) 3.8 L (20.0-40.0) % [place] % (Auto) 3.2 (0.0-10.0) % Eos % (Auto) 0.2 (0.0-4.0) % Baso % (Auto) 0.6 (0.0-2.0) % Neut # (Auto) 11.8 H (1.8-7.0) K/uL Lymph # (Auto) 0.5 L (1.0-4.3) K/uL [place] # (Auto) 0.4 (0.0-0.8) K/uL Eos # (Auto) 0.0 (0.0-0.7) K/uL Baso # (Auto) 0.1 (0.0-0.2) K/uL Neutrophils % (Manual) 88 H (42-75) % Band Neutrophils % 4 H (0-2) % Lymphocytes % (Manual) 5 L (20-50) % Monocytes % (Manual) 3 (0-10) % Platelet Estimate Normal (NORMAL) Plt Clumps, EDTA Present Anisocytosis (manual) Slight PT (9.8-13.1) Seconds INR APTT (25.6-37.1) Seconds Sodium 130 L (132-148) mmol/l Potassium 5.2 H (3.6-5.0) MMOL/L Chloride 87 L (98-107) mmol/L Carbon Dioxide 15 L (22-30) mmol/L Anion Gap 33 H (10-20) BUN 27 H (7-17) mg/dl Creatinine 1.3 H (0.7-1.2) mg/dl Est GFR ( Amer) 48 Est GFR (Non-Af Amer) 40 POC Glucose (mg/dL) > 500 H* (65-110) mg/dL Random Glucose 743 H* D (65-105) mg/dL Calcium 10.3 H (8.4-10.2) mg/dL Total Bilirubin 1.1 (0.2-1.3) mg/dl AST 22 (14-36) U/L ALT 22 (9-52) U/L Alkaline Phosphatase 99 (38-126) U/L Troponin I 0.0340 (0.00-0.120) ng/mL Total Protein 8.1 (6.3-8.2) G/DL Albumin 5.0 D (3.5-5.0) g/dL Globulin 3.1 (2.2-3.9) gm/dL Albumin/Globulin Ratio 1.6 (1.0-2.1) Laboratory Results - last 24 hr 02/25/18 02/25/18 02/25/18 10:19 11:10 11:10 WBC 12.8 H D RBC 4.40 Hgb 12.7 Hct 38.9 MCV 88.4 D MCH 28.9 MCHC 32.7 L RDW 16.9 H Plt Count 275 MPV 8.8 Neut % (Auto) 92.2 H Lymph % (Auto) 3.[address] % (Auto) 3.2 Eos % (Auto) 0.2 Baso % (Auto) 0.6 Neut # (Auto) 11.8 H Lymph # (Auto) 0.[address] # (Auto) 0.4 Eos # (Auto) 0.0 Baso # (Auto) 0.1 Neutrophils % (Manual) 88 H Band Neutrophils % 4 H Lymphocytes % (Manual) 5 L Monocytes % (Manual) 3 Platelet Estimate Normal Plt Clumps, EDTA Present Anisocytosis (manual) Slight PT INR APTT Sodium 130 L Potassium 5.2 H Chloride 87 L Carbon Dioxide 15 L Anion Gap 33 H BUN 27 H Creatinine 1.3 H Est GFR ( Amer) 48 Est GFR (Non-Af Amer) 40 POC Glucose (mg/dL) > 500 H* Random Glucose 743 H* D Calcium 10.3 H Total Bilirubin 1.1 AST 22 ALT 22 Alkaline Phosphatase 99 Troponin I 0.0340 Total Protein 8.1 Albumin 5.0 D Globulin 3.1 Albumin/Globulin Ratio 1.6 02/25/18 02/25/18 02/25/18 11:10 13:01 17:00 WBC RBC Hgb Hct MCV MCH MCHC RDW Plt Count MPV Neut % (Auto) Lymph % (Auto) [place] % (Auto) Eos % (Auto) Baso % (Auto) Neut # (Auto) Lymph # (Auto) [place] # (Auto) Eos # (Auto) Baso # (Auto) Neutrophils % (Manual) Band Neutrophils % Lymphocytes % (Manual) Monocytes % (Manual) Platelet Estimate Plt Clumps, EDTA Anisocytosis (manual) PT 12.1 INR 1.1 APTT 21.6 L Sodium Potassium Chloride Carbon Dioxide Anion Gap BUN Creatinine Est GFR ( Amer) Est GFR (Non-Af Amer) POC Glucose (mg/dL) > 500 H* > 500 H* Random Glucose Calcium Total Bilirubin AST ALT Alkaline Phosphatase Troponin I Total Protein Albumin Globulin Albumin/Globulin Ratio Radiology Impressions: Radiology Impressions Cervical Spine CT 02/25/18 10:33 IMPRESSION: Slightly limited study as described. No acute fractures. There is mild reversal of the normal cervical lordosis. Multilevel degenerative spondylosis with varying degrees of the mild canal narrowing and cord compression. Variable bilateral foraminal stenotic changes Calcification left lobe thyroid gland for which thyroid ultrasound follow-up recommended Head CT 02/25/18 10:33 IMPRESSION: There is a relatively large right-sided acute subdural hematoma located within the interhemispheric fissure, the bulk of which is located along the anterior 1/2 of the interhemispheric fissure. This large collection is associated with mass-effect results in compression of the medial aspect of the frontal lobe as well as inferior compression/displacement of the frontal horns right greater than left. There is also small amount of subdural hemorrhage seen layering along the roof of the left and possibly to a lesser degree roof of the right tentorial leaves. Small right frontal subdural hematoma. Small elliptical shaped clot also noted within the left lateral fissure. Small mid and bilateral occipito parietal scalp contusion. Mild chronic white matter ischemic changes. Moderate volume loss. These findings discussed with Dr. Vizcaino at 12:08 p.m. with written down and read back verification Chest X-Ray 02/25/18 10:35 IMPRESSION: Findings suggest underlying mild chronic compensated pulmonary edema/CHF.. Shoulder X-Ray 02/25/18 10:35 IMPRESSION: No evidence of acute displaced fracture nor dislocation. Degenerative osteoarthritis as described. Findings also consistent with calcified tendinitis EKG/Cardiology Studies: Cardiology / EKG Studies 02/25/18 10:33 ELECTROCARDIOGRAM Stat Comment: Mode Of Transportation: Reason For Exam: needed Fingerstick Blood Sugar Results: 500 Review of Systems - Constitutional Constitutional: absent: Fever, Chills, Sweats, Weakness, Malaise - Cardiovascular Cardiovascular: absent: Chest Pain, Chest Pain at Rest, Chest Pain with Activity, Claudication, Diaphoresis - Respiratory Respiratory: absent: Cough, Dyspnea, Hemoptysis, Dyspnea on Exertion, Wheezing, Snoring, Stridor - Musculoskeletal Musculoskeletal: Arthralgias, Back Pain Critical Care Progress Note - Extremities/Vascular Does the Patient have a Central Venous Catheter?: No Does the Patient need a Central Venous Catheter?: No Does the Patient have a Antunez Catheter?: No Does the Patient need a Antunez Catheter?: No - Nutrition Nutrition: Nutrition Category Date Time Status Heart Healthy Diet [DIET] Diets 02/25/18 Dinner Active Assessment/Plan (1) Subdural hematoma Current Visit: Yes Status: Acute Priority: High (2) Diabetes mellitus, insulin dependent (IDDM), uncontrolled Current Visit: Yes Status: Acute Priority: High (3) Metabolic acidosis Current Visit: Yes Status: Acute Priority: High (4) Renal insufficiency Current Visit: Yes Status: Acute Priority: High (5) CAD (coronary artery disease) Current Visit: No Status: Chronic Priority: Medium (6) CHF (congestive heart failure) Current Visit: No Status: Chronic Priority: Medium - Assessment and Plan (Free Text) Assessment: Admit to ICU, Frequent Neuro check Repeat Head CT scan at 10PM NPO Speech and swallow evaluation All anticoagulation and antiplatelets on hold Neurology and neurosurgery evaluation Aspiraion and Seizure precautions HOB elevation 30 degrees Restart outpatient meds, BD nebs q 6h prn Tight glycemic control, RISS with Coverage
[2018-02-25] MEDS ORDERED: Albumin Human 25% (12.5 gm/50 ml) IV SCH (19:00)
--- NOTE | 2018-02-25 20:39 | CARD ---
APPROVED REPORT Date of service: 02/25/2018 EKG Measurement Heart [id number] <Conclusion> Atrial-sensed ventricular-paced rhythm Abnormal ECG
[2018-02-25] MEDS: Fluticasone-Salmeterol 250-50mcg Diskus IH SCH (21:07)
[2018-02-25] MEDS: Ranolazine 500 mg Extended Release Tablets PO SCH (21:07)
[2018-02-25] MEDS: Insulin Regular 100 units/ml SC SCH (22:10)
[2018-02-26] MEDS: Sodium Chloride 0.9% 1,000 ML IV SCH
--- NOTE | 2018-02-26 01:24 | CT ---
Date of service: 02/25/2018 PROCEDURE: CT HEAD WITHOUT CONTRAST. HISTORY: R interhemispheric SDH COMPARISON: 02/25/2018 at 11:37 a.m. TECHNIQUE: Axial computed tomography images were obtained through the head/brain without intravenous contrast. Radiation dose: Total exam DLP = 827.34 mGy-cm. This CT exam was performed using one or more of the following dose reduction techniques: Automated exposure control, adjustment of the mA and/or kV according to patient size, and/or use of iterative reconstruction technique. FINDINGS: HEMORRHAGE: There is redemonstration of an acute subdural hematoma along the interhemispheric fissure on the right, measuring 1.7 cm in maximum width. There is mild mass effect on the right paramedian frontal lobe without vasogenic edema. There is also subdural hemorrhage along the left tentorial leaf and in the left sylvian fissure without significant interval change. There is redemonstration of small amount of left paramedian frontal subdural hemorrhage and right anterior frontal subdural hemorrhage. BRAIN: There are mild chronic microangiopathic changes. There is no midline shift or herniation. There are coarse atherosclerotic calcifications in the cavernous carotid arteries. VENTRICLES: There is mild age-related global parenchymal volume loss and proportionate enlargement of the ventricles and cortical sulci. CALVARIUM: There is no calvarial fracture. There is moderate posterior parietal scalp hematoma. PARANASAL SINUSES: There is severe polypoid mucosal thickening in the right frontal sinus. The remaining included paranasal sinuses are clear.. MASTOID AIR CELLS: Predominantly clear. OTHER FINDINGS: None. IMPRESSION: 1. Little interval change in large acute subdural hematoma along the interhemispheric fissure on the right measuring 1.7 cm in maximum width with mild mass effect on the right paramedian frontal lobe. 2. Redemonstration of acute subdural hemorrhage along the left tentorial leaf and left sylvian fissure. 3. Redemonstration of small right anterior subdural hemorrhage and small left paramedian subdural hemorrhage.
[2018-02-26 05:18] LABS: BASO % 0.5 % (0.0-2.0); EOS # 0.2 K/uL (0.0-0.7); EOS % 2.5 % (0.0-4.0); HEMOGLOBIN 10.9 g/dL (12.0-16.0); LYMPH # 0.9 K/uL (1.0-4.3); LYMPH % 11.7 % (20.0-40.0); MEAN CELL VOLUME 84.7 fl (81.0-99.0); MEAN CORPUSCULAR HEMOGLOBIN 29.7 pg (27.0-31.0); MEAN CORPUSCULAR HGB CONC 35.1 g/dL (33.0-37.0); MEAN PLATELET VOLUME 8.2 fl (7.2-11.7); MONO # 0.7 K/uL (0.0-0.8); MONO % 9.1 % (0.0-10.0); NEUT # 5.6 K/uL (1.8-7.0); NEUT % 76.2 % (50.0-75.0); NRBC % 0.1 % (0.0-0.0); RBC 3.68 Mil/uL (3.80-5.20); RED CELL DISTRIBUTION WIDTH 17.4 % (11.5-14.5); WHITE BLOOD COUNT 7.4 K/uL (4.8-10.8)
[2018-02-26 05:46] LABS: ALB/GLOB RATIO 1.4 (1.0-2.1); ALBUMIN 3.7 g/dL (3.5-5.0); ALT/SGPT 23 U/L (9-52); AST/SGOT 140 U/L (14-36); BLOOD UREA NITROGEN 23 mg/dl (7-17); CALCIUM 9.2 mg/dL (8.4-10.2); GFR NON-AFRICAN AMERICAN 53
[2018-02-26] MEDS: Fluticasone-Salmeterol 250-50mcg Diskus IH SCH ×2 (08:25→20:26)
[2018-02-26] MEDS: Insulin Regular 100 units/ml SC SCH ×3 (08:26→16:44)
[2018-02-26] MEDS: Levothyroxine 125 MCG TAB PO SCH (08:28)
[2018-02-26] MEDS: Ranolazine 500 mg Extended Release Tablets PO SCH ×2 (08:28→21:32)
[2018-02-26] MEDS: Dextrose 5%/0.9% NS 1,000 ML IV SCH ×3 (08:49→23:59)
--- NOTE | 2018-02-26 09:22 | CP.PCM.PN ---
Subjective - Date & Time of Evaluation Date of Evaluation: 02/26/18 Time of Evaluation: 09:18 - Subjective Subjective: 77 y/o female patient with PMHx of HTN, HLD, hypothyroidism, [place], CABG (11/2017), systolic CHF s/p pacemaker was seen and evaluated at bedside in ICU due to a fall, head CT showing subdural hematoma and hyperglycemia. Right Shoulder X-rays was negative for fracture Objective - Vital Signs/Intake and Output Vital Signs (last 24 hours): Temp Pulse Resp BP Pulse Ox 98.0 F 82 18 118/64 97 02/26/18 08:00 02/26/18 08:27 02/26/18 08:00 02/26/18 08:30 02/26/18 08:00 - Medications Medications: Current Medications Acetaminophen (Tylenol 325mg Tab) 650 mg PO Q4H PRN PRN Reason: Pain, moderate (4-7) Albuterol (Ventolin Hfa 90 Mcg/Actuation (8 G)) 2 puff IH Q6 PRN PRN Reason: Shortness of Breath Atorvastatin Calcium (Lipitor) 40 mg PO HS [facility] Last Admin: 02/25/18 21:06 Dose: 40 mg Dextrose (Dextrose 50% Inj) 0 ml IV STAT PRN; Protocol PRN Reason: Hypoglycemia Protocol Dextrose (Glutose 15) 0 gm PO ONCE PRN; Protocol PRN Reason: Hypoglycemia Protocol Famotidine (Pepcid) 20 mg PO DAILY [facility] Last Admin: 02/26/18 08:30 Dose: 20 mg Furosemide (Lasix) 40 mg PO DAILY [facility] Last Admin: 02/26/18 08:30 Dose: 40 mg Glucagon (Glucagen Diagnostic Kit) 0 mg IM STAT PRN; Protocol PRN Reason: Hypoglycemia Protocol Dextrose/Sodium Chloride (Dextrose 5%/0.9% Ns 1000 Ml) 1,000 mls @ 125 mls/hr I V .Q8H [facility] Stop: 02/27/18 08:38 Last Admin: 02/26/18 08:49 Dose: 125 mls/hr Insulin Human Regular (Humulin R) 0 units SC ACCU-CHECK [facility]; Protocol Levothyroxine Sodium (Synthroid) 125 mcg PO DAILY@0630 [facility] Last Admin: 02/26/18 08:28 Dose: 125 mcg Lidocaine (Lidoderm) 1 ea TD DAILY PRN PRN Reason: Pain, moderate (4-7) Last Admin: 02/25/18 17:29 Dose: 1 ea Memantine (Namenda) 5 mg PO HS [facility] Last Admin: 02/25/18 21:06 Dose: 5 mg Metoprolol Tartrate (Lopressor) 12.5 mg PO Q12 [facility] Last Admin: 02/26/18 08:27 Dose: 12.5 mg Ranolazine (Ranexa) 500 mg PO Q12 [facility] Last Admin: 02/26/18 08:28 Dose: 500 mg Fluticasone/Salmeterol (Advair Diskus 250/50) 1 puff IH Q12 [facility] Last Admin: 02/26/18 08:25 Dose: 1 puff Sitagliptin Phosphate (Januvia) 25 mg PO DAILY [facility] Last Admin: 02/26/18 08:26 Dose: 25 mg Tramadol HCl (Ultram) 50 mg PO Q4 PRN PRN Reason: Pain, severe (8-10) Last Admin: 02/26/18 08:30 Dose: 50 mg - Labs Labs: 02/26/18 05:05 02/26/18 05:05 PT 12.1 Seconds (9.8-13.1) 02/25/18 11:10 INR 1.1 02/25/18 11:10 APTT 21.6 Seconds (25.6-37.1) L 02/25/18 11:10 - Constitutional Appears: Well, Non-toxic, No Acute Distress - Head Exam Head Exam: ATRAUMATIC, NORMOCEPHALIC - Eye Exam Eye Exam: Normal appearance, PERRL - ENT Exam ENT Exam: Mucous Membranes Moist, Normal Exam - Neck Exam Neck Exam: Full ROM. absent: Lymphadenopathy - Respiratory Exam Respiratory Exam: Clear to Ausculation Bilateral, NORMAL BREATHING PATTERN. absent: Rales, Rhonchi, Wheezes - Cardiovascular Exam Cardiovascular Exam: REGULAR RHYTHM, +S1, +S2 - GI/Abdominal Exam GI & Abdominal Exam: Soft, Normal Bowel Sounds. absent: Firm, Guarding, Rigid - Extremities Exam Extremities Exam: Full ROM, Normal Inspection, Tenderness. absent: Pedal Edema Additional comments: tenderness to RUE, worsened with range of motion - Neurological Exam Neurological Exam: Alert, Awake, Oriented x3 - Psychiatric Exam Psychiatric exam: Normal Affect, Normal Mood - Skin Skin Exam: Normal Color Assessment and Plan - Assessment and Plan (Free Text) Assessment: 77 y/o female patient with PMHx of CAD (with pacemaker), Hypertension, Type II DM, Hyperlipidemia, and Asthma was seen and evaluated this morning. Patient head CT showed large right-sided acute subdural hematoma, and patient also presenting with elevated blood sugar levels Plan: Subdural Hematoma -acute, symptomatic -Head CT #1: large right-sided acute subdural hematoma located within the interhemispherix fissure, the bulk of which is located along the anterior 1/2 of the fissure, inferior compression/displacement of the frontal horns right greater than left, small mid and bilateral occipito parietal scalp contusion - Repeat Head CT #2: literal interval change in large acute subdural hematoma along the interhemispheric fissure on the right measuring 1.7 cm in maximum width - Repeat Head CT #3: Pending -Cervical CT: no acute fractures -Right Shoulder X-ray: no acute fractures -CXR/EKG: mild chronic compensated pulmonary edema/CHF; pacemaker noted -CBC: WBC 7.4 (trending down from 12.8) -Troponins negative -NSS -Pain management -hold ASA and plavix at this pending repeat Head CT and neuro evaluation -Neurology Surgery Consult- Dr. Monet/Dr. Maldonado- recommendations apprec iated- follow up repeat Head CT without contrast in the AM, Unless there is a change in neuro status or significant increase in SDH size would treat conservatively -Neuro Checks Q2 IDDM -chronic and uncontrolled -HbA1c 6.3 (01/17/18) -Insulin Regular- medium coverage scale SC ACHS -Hypoglycemia protocol in place -POC glucose ACHS -moderate cardohydrate diet/heart healthy diet Depression -chronic, controlled -Remeron 15 mg and Lexapro 10 mg HS-restarted on 02/20/17 after ED visit, cleared by GerLeonid Hypothyrodism -chronic, controlled -TSH 0.84 on 01/17/18 -c/w with home meds HTN/HLD/CAD -chronic, controlled -c/w home meds -s/p CABG 11/2017 -troponin negative x 1 -no change in EKG from previous Systolic CHF -chronic, controlled -ECHO 10/2017: systolic dysfunction EF 30-35% -c/w home meds -s/p pacemaker Asthma/COPD -controlled -c/w home meds DVT prophylaxis - SCDs for now - hold ASA and plavix at this pending repeat Head CT and neuro evaluation
[2018-02-26 10:46] LABS: BLOOD UREA NITROGEN 23 mg/dl (7-17); CALCIUM 8.5 mg/dL (8.4-10.2); GFR NON-AFRICAN AMERICAN 53
[2018-02-26] MEDS ORDERED: Insulin Detemir 100 Units/ml Inj SC ONE (11:35)
--- NOTE | 2018-02-26 12:18 | CP.PCM.PN ---
Subjective - Date & Time of Evaluation Date of Evaluation: 02/26/18 Time of Evaluation: 12:15 - Subjective Subjective: CT unchanged Pt unchanged cont medical mgmt Objective - Vital Signs/Intake and Output Vital Signs (last 24 hours): Temp Pulse Resp BP Pulse Ox 98.0 F 75 19 120/59 L 99 02/26/18 08:00 02/26/18 10:00 02/26/18 10:00 02/26/18 10:00 02/26/18 10:00 - Medications Medications: Current Medications Acetaminophen (Tylenol 325mg Tab) 650 mg PO Q4H PRN PRN Reason: Pain, moderate (4-7) Albuterol (Ventolin Hfa 90 Mcg/Actuation (8 G)) 2 puff IH Q6 PRN PRN Reason: Shortness of Breath Atorvastatin Calcium (Lipitor) 40 mg PO HS [facility] Last Admin: 02/25/18 21:06 Dose: 40 mg Dextrose (Dextrose 50% Inj) 0 ml IV STAT PRN; Protocol PRN Reason: Hypoglycemia Protocol Dextrose (Glutose 15) 0 gm PO ONCE PRN; Protocol PRN Reason: Hypoglycemia Protocol Famotidine (Pepcid) 20 mg PO DAILY [facility] Last Admin: 02/26/18 08:30 Dose: 20 mg Furosemide (Lasix) 40 mg PO DAILY [facility] Last Admin: 02/26/18 08:30 Dose: 40 mg Glucagon (Glucagen Diagnostic Kit) 0 mg IM STAT PRN; Protocol PRN Reason: Hypoglycemia Protocol Dextrose/Sodium Chloride (Dextrose 5%/0.9% Ns 1000 Ml) 1,000 mls @ 125 mls/hr IV .Q8H [facility] Stop: 02/27/18 08:38 Last Admin: 02/26/18 08:49 Dose: 125 mls/hr Insulin Human Regular (Humulin R) 0 units SC ACCU-CHECK [facility]; Protocol Last Admin: 02/26/18 11:43 Dose: 10 units Levothyroxine Sodium (Synthroid) 125 mcg PO DAILY@0630 [facility] Last Admin: 02/26/18 08:28 Dose: 125 mcg Lidocaine (Lidoderm) 1 ea TD DAILY PRN PRN Reason: Pain, moderate (4-7) Last Admin: 02/25/18 17:29 Dose: 1 ea Memantine (Namenda) 5 mg PO [facility] Last Admin: 02/25/18 21:06 Dose: 5 mg Metoprolol Tartrate (Lopressor) 12.5 mg PO Q12 [facility] Last Admin: 02/26/18 08:27 Dose: 12.5 mg Ranolazine (Ranexa) 500 mg PO Q12 [facility] Last Admin: 02/26/18 08:28 Dose: 500 mg Fluticasone/Salmeterol (Advair Diskus 250/50) 1 puff IH Q12 [facility] Last Admin: 02/26/18 08:25 Dose: 1 puff Sitagliptin Phosphate (Januvia) 25 mg PO DAILY [facility] Last Admin: 02/26/18 08:26 Dose: 25 mg Tramadol HCl (Ultram) 50 mg PO Q4 PRN PRN Reason: Pain, severe (8-10) Last Admin: 02/26/18 08:30 Dose: 50 mg - Labs Labs: 02/26/18 05:05 02/26/18 10:07 PT 12.1 Seconds (9.8-13.1) 02/25/18 11:10 INR 1.1 02/25/18 11:10 APTT 21.6 Seconds (25.6-37.1) L 02/25/18 11:10
--- NOTE | 2018-02-26 12:21 | CP.CCUPN ---
CCU Subjective - Physician Review Subjective (Free Text): Awake and alert, tolerated physical therapy today AM, denies any nausea, dizziness, visual changes nor any new focal weakness. + intermittent headache and R shoulder pain. Denies any CP or SOB at bed rest. Other vitals and I/O's reviewed. No fever spikes, SBP 110- 120s, HR 70s, RR 14, 98% SPO2 on RA ROS: No other pertinent negs or positives on 10+ system review, PMSFH: All other Nursing and physician documentation reviewed to date; no new pertinent info noted relevant to current medical problems. EXAM- HEENT: no icterus, no gaze preference NECK: No JVD visible, supple, carotids equal upstroke bilat/no bruit CHEST: decreased BS at the bases, no wheezes audible bilaterally HEART: regular, distant, S1S2, no rubs or murmurs noted ABD: softly and nontender, no guarding, no organomegaly, BS hypoactive. EXT: no LE edema, no calf tenderness or palpable cords, distal pulses intact and symmetrical. NEURO: no gross focal deficits. SKIN: no rashes, warm and dry LABS: WBC= 7.4 HGB= 10.9 PLTs= 243K Na= 128 K= 3.8 CL=95 HCO3= 21 BUN/Cr= 23/1.0 BS= 280 IMPRESSION / MAJOR PROBLEMS NOW: 1. Acute SDH 2. Recent CABG 4 months ago, on ASA, Plavix. 3. DKA 4. Hyponatremia 5. h/o reactive Airways Disease PLAN: 1. DKA apparent on admission, switch accuchecks to Q4H at the least for now, start Levemir, stop Januvia, get endocrine eval. Increase IVFs with supplemental dextrose and repeat all serial bloodwork, including Mg, Phos, HGBa1c, TSH , free T4, serum osmo. Stop Lasix ( aware of ECHO results from Oct 2017). Hold all WIRE BOUND BOX MACHINE HELPER active (Lexapro, Remeron, Namenda) meds during this Neuro-observation period and as DKA is being treated. 2. Repeat brain imaging as per Neurosurg / Neurology. Last night's CT brain done within 12h of initial study with no deterioration in radiologic findings and no worsening of, nor new neurological findings this AM. 3. Duonebs prn. 4. ASA, and Plavix remain on hold, expected to be on hold for at least the next 4 weeks or as directed by material combiner. 5. Control SBPs, no higher than 130-140s. 6. Check Lipids, r/o other pseudo effect on Na levels, corrected Na only approx. 130). 7. See orders. Critical Care Progress Note - Nutrition Nutrition: Nutrition Category Date Time Status Heart Healthy Diet [DIET] Diets 02/25/18 Dinner Active
[2018-02-26] MEDS ORDERED: Oxycodone/Acetaminophen 5/325 mg Tab PO ONE (20:18)
[2018-02-26] MEDS: Insulin Regular 100 units/ml SUBCUT SCH (21:57)
[2018-02-27] MEDS: Insulin Regular 100 units/ml SUBCUT SCH ×6 (01:01→22:13)
[2018-02-27] MEDS: Levothyroxine 125 MCG TAB PO SCH (05:35)
[2018-02-27] MEDS: Lidocaine 5% Patch TD PRN (05:42)
[2018-02-27 05:47] LABS: HEMOGLOBIN 10.4 g/dL (12.0-16.0); MEAN CELL VOLUME 85.7 fl (81.0-99.0); MEAN CORPUSCULAR HEMOGLOBIN 29.7 pg (27.0-31.0); MEAN CORPUSCULAR HGB CONC 34.6 g/dL (33.0-37.0); RBC 3.51 Mil/uL (3.80-5.20); RED CELL DISTRIBUTION WIDTH 17.4 % (11.5-14.5); WHITE BLOOD COUNT 4.5 K/uL (4.8-10.8)
[2018-02-27 06:14] LABS: BLOOD UREA NITROGEN 13 mg/dl (7-17); CALCIUM 8.6 mg/dL (8.4-10.2); GFR NON-AFRICAN AMERICAN > 60; HDL CHOLESTEROL 30 MG/DL (30-70); LDL CHOLESTEROL 70 mg/dL (0-129)
[2018-02-27] MEDS ORDERED: Potassium Chloride 20 mEq ER Tab PO ONE (09:32)
[2018-02-27] MEDS: Ranolazine 500 mg Extended Release Tablets PO SCH ×2 (09:47→20:39)
[2018-02-27] MEDS: Fluticasone-Salmeterol 250-50mcg Diskus IH SCH ×2 (09:48→20:38)
--- NOTE | 2018-02-27 10:04 | CP.PCM.PN ---
Subjective - Date & Time of Evaluation Date of Evaluation: 02/27/18 Time of Evaluation: 10:02 - Subjective Subjective: 77 y/o female patient with PMHx of HTN, HLD, hypothyroidism, [place], CABG (11/2017), systolic CHF s/p pacemaker was seen and evaluated at bedside in ICU due to a fall, head CT showing subdural hematoma and hyperglycemia. Patient still compla ining of Right Shoulder pain, however X-rays negative for fracture. Patient denies any other complaints of fever, nausea, vomiting, shortness of breath, chest pain, abdominal pain, or urinary symptoms. Objective - Vital Signs/Intake and Output Vital Signs (last 24 hours): Temp Pulse Resp BP Pulse Ox 97.7 F 84 14 119/60 98 02/27/18 08:00 02/27/18 09:48 02/27/18 08:00 02/27/18 09:48 02/27/18 08:00 Intake and Output: 02/27/18 02/27/18 06:59 18:59 Intake Total 1740 Balance 1740 - Medications Medications: Current Medications Acetaminophen (Tylenol 325mg Tab) 650 mg PO Q4H PRN PRN Reason: Pain, moderate (4-7) Albuterol (Ventolin Hfa 90 Mcg/Actuation (8 G)) 2 puff IH Q6 PRN PRN Reason: Shortness of Breath Atorvastatin Calcium (Lipitor) 40 mg PO HS [facility] Last Admin: 02/26/18 21:32 Dose: 40 mg Dextrose (Dextrose 50% Inj) 0 ml IV STAT PRN; Protocol PRN Reason: Hypoglycemia Protocol Dextrose (Glutose 15) 0 gm PO ONCE PRN; Protocol PRN Reason: Hypoglycemia Protocol Famotidine (Pepcid) 20 mg PO DAILY [facility] Last Admin: 02/27/18 09:52 Dose: 20 mg Furosemide (Lasix) 40 mg PO DAILY [facility] Last Admin: 02/27/18 09:47 Dose: 40 mg Glucagon (Glucagen Diagnostic Kit) 0 mg IM STAT PRN; Protocol PRN Reason: Hypoglycemia Protocol Insulin Human Regular (Humulin R) 0 units SUBCUT Q4H [facility]; Protocol Last Admin: 02/27/18 05:35 Dose: 3 units Levothyroxine Sodium (Synthroid) 125 mcg PO DAILY@0630 [facility] Last Admin: 02/27/18 05:35 Dose: 125 mcg Lidocaine (Lidoderm) 1 ea TD DAILY PRN PRN Reason: Pain, moderate (4-7) Last Admin: 02/27/18 05:42 Dose: 1 ea Memantine (Namenda) 5 mg PO HS [facility] Last Admin: 02/25/18 21:06 Dose: 5 mg Metoprolol Tartrate (Lopressor) 12.5 mg PO Q12 [facility] Last Admin: 02/27/18 09:48 Dose: 12.5 mg Ranolazine (Ranexa) 500 mg PO Q12 [facility] Last Admin: 02/27/18 09:47 Dose: 500 mg Fluticasone/Salmeterol (Advair Diskus 250/50) 1 puff IH Q12 [facility] Last Admin: 02/27/18 09:48 Dose: 1 puff Sitagliptin Phosphate (Januvia) 25 mg PO DAILY [facility] Last Admin: 02/26/18 08:26 Dose: 25 mg Tramadol HCl (Ultram) 50 mg PO Q4 PRN PRN Reason: Pain, severe (8-10) Last Admin: 02/27/18 09:46 Dose: 50 mg - Labs Labs: 02/27/18 04:40 02/27/18 04:40 PT 12.1 Seconds (9.8-13.1) 02/25/18 11:10 INR 1.1 02/25/18 11:10 APTT 21.6 Seconds (25.6-37.1) L 02/25/18 11:10 - Constitutional Appears: Well, Non-toxic, No Acute Distress - Head Exam Head Exam: ATRAUMATIC, NORMOCEPHALIC - Eye Exam Eye Exam: Normal appearance, PERRL - ENT Exam ENT Exam: Mucous Membranes Moist, Normal Exam - Neck Exam Neck Exam: Full ROM. absent: Lymphadenopathy - Respiratory Exam Respiratory Exam: Clear to Ausculation Bilateral, NORMAL BREATHING PATTERN. absent: Rales, Rhonchi, Wheezes - Cardiovascular Exam Cardiovascular Exam: REGULAR RHYTHM, +S1, +S2 - GI/Abdominal Exam GI & Abdominal Exam: Soft, Normal Bowel Sounds. absent: Firm, Guarding, Rigid - Extremities Exam Extremities Exam: Tenderness Additional comments: Pain with right shoulder range of motion - Neurological Exam Neurological Exam: Alert, Awake, Oriented x3 - Psychiatric Exam Psychiatric exam: Normal Affect, Normal Mood - Skin Skin Exam: Normal Color Assessment and Plan - Assessment and Plan (Free Text) Assessment: 77 y/o female patient with PMHx of CAD (with pacemaker), Hypertension, Type II DM, Hyperlipidemia, and Asthma was seen and evaluated this morning. Patient head CT showed large right-sided acute subdural hematoma, and patient also presenting with elevated blood sugar levels Plan: Subdural Hematoma -acute, symptomatic -Head CT #1: large right-sided acute subdural hematoma located within the interhemispherix fissure, the bulk of which is located along the anterior 1/2 of the fissure, inferior compression/displacement of the frontal horns right greater than left, small mid and bilateral occipito parietal scalp contusion - Repeat Head CT #2: literal interval change in large acute subdural hematoma along the interhemispheric fissure on the right measuring 1.7 cm in maximum width -CXR/EKG: mild chronic compensated pulmonary edema/CHF; pacemaker noted -CBC: WBC 4.5 -Troponins negative -NSS -Pain management -hold ASA and plavix at this pending repeat Head CT and neuro evaluation -Neurology Surgery Consult- Dr. Monet/Dr. Maldonado- recommendations appreciated- follow up repeat Head CT without contrast in the AM, Unless there is a change in neuro status or significant increase in SDH size would treat conservatively -Neuro Checks Q2 -As per PT, patient stable for discharge to acute Rehab -Cardio consult for discharge to Rehab- Dr. Petersen, recommendations appreciated Right Shoulder pain -acute, symptomatic -Cervical CT: no acute fractures -Right Shoulder X-ray: no acute fractures -Lidoderm patch ordered for patient IDDM -chronic and uncontrolled -HbA1c 6.3 (01/17/18) -Insulin Regular- medium coverage scale SC ACHS -Hypoglycemia protocol in place -POC glucose ACHS -Accuchecks Q4, start Levemir, stop Januvia -moderate carbohydrate diet/heart healthy diet Depression -chronic, controlled -Remeron 15 mg and Lexapro 10 mg HS-restarted on 02/20/17 after ED visit, cleared by Zane Hypothyrodism -chronic, controlled -TSH 0.84 on 01/17/18 -c/w with home meds HTN/HLD/CAD -chronic, controlled -c/w home meds -s/p CABG 11/2017 -troponin negative x 1 -no change in EKG from previous Systolic CHF -chronic, controlled -ECHO 10/2017: systolic dysfunction EF 30-35% -c/w home meds -s/p pacemaker Asthma/COPD -controlled -c/w home meds DVT prophylaxis - SCDs for now - hold ASA and plavix at this pending repeat Head CT and neuro evaluation
[2018-02-27] MEDS ORDERED: Insulin Regular 100 units/ml SC ONE ×2 (10:26→14:25)
[2018-02-27] MEDS ORDERED: Insulin Regular 100 units/ml IV ONE ×2 (10:28→14:25)
[2018-02-27] MEDS ORDERED: Dextrose 5%/0.9% NS 1,000 ML IV SCH (10:45)
[2018-02-27] MEDS: Oxycodone/Acetaminophen 5/325 mg Tab PO PRN (14:47)
--- NOTE | 2018-02-27 15:23 | CP.CCUPN ---
CCU Subjective - Physician Review Subjective (Free Text): c/o R shoulder pain, reluctant to move otherwise, no new focal deficits related to SDH. Afebrile, no fever spikes overnight, SBP 110-120s HR 70-80s SPO2 99% on NC ROS: No other pertinent negs or positives on 10+ system review. PMSFH: All other Nursing and physician documentation reviewed to date; no new pertinent info noted relevant to current medical problems. EXAM- HEENT: no icterus, no gaze preference NECK: No JVD visible given short neck and overall obesity, supple, carotids equal upstroke bilat/no bruit CHEST: decreased BS at the bases, no wheezes audible bilaterally. HEART: regular, distant, S1S2, no rubs or murmurs noted ABD: soft, nontender, no guarding, no organomegaly, BS hypoactive. EXT: no leg edema, no calf tenderness or palpable cords, distal pulses intact and symmetrical. NEURO: no gross focal motor deficits. SKIN: no rashes, warm and dry LABS: WBC= 4.5 HGB= 10.4 PLTs= 212K Na= 126 K= 3.2 CL= 95 HCO3= 24 BUN/Cr= 13/0.9 BS= 350 IMPRESSION / MAJOR PROBLEMS NOW: 1. Acute SDH 2. Recent CABG 4 months ago, on ASA, Plavix at home. 3. DKA 4. Hyponatremia 5. h/o reactive Airways Disease PLAN: 1. Accuchecks still in 400 mg/dl range, acidosis resolved, Levemir increased. 2. IVFs reduced given h/o low EF. Fluids changed today to NSS. 3. Duonebs prn. 4. ASA, and Plavix remain on hold, expected to be on hold for at least the next 4 weeks or as directed by Outboard System Operator / NeuroSurg. NeuroSurg has cleared patient for Acute rehab. 5. Keep SBPs, no higher than 130-140s.
[2018-02-27] MEDS: Sodium Chloride 0.9% 1,000 ML IV SCH (15:30)
[2018-02-27 15:44] LABS: SQUAMOUS EPITHIAL 1 /hpf (0-5); URINE BACTERIA RARE (<OCC); URINE BILIRUBIN NEGATIVE (NEGATIVE); URINE BLOOD NEGATIVE (NEGATIVE); URINE CLARITY CLEAR (Clear); URINE COLOR YELLOW (YELLOW); URINE GLUCOSE (UA) >=500 mg/dL (NEGATIVE); URINE LEUKOCYTE ESTERASE SMALL Leu/uL (Negative); URINE PROTEIN NEGATIVE (NEGATIVE); URINE UROBILINOGEN 0.2-1.0 mg/dL (0.2-1.0)
[2018-02-27] MEDS ORDERED: Insulin Detemir 100 Units/ml Inj SC SCH (22:00)
[2018-02-28] MEDS: Insulin Regular 100 units/ml SUBCUT SCH ×5 (01:55→16:55)
[2018-02-28] MEDS: Oxycodone/Acetaminophen 5/325 mg Tab PO PRN (04:31)
[2018-02-28] MEDS: Sodium Chloride 0.9% 1,000 ML IV SCH (04:34)
[2018-02-28 05:40] LABS: HEMOGLOBIN 10.9 g/dL (12.0-16.0); MEAN CELL VOLUME 85.6 fl (81.0-99.0); MEAN CORPUSCULAR HEMOGLOBIN 29.7 pg (27.0-31.0); MEAN CORPUSCULAR HGB CONC 34.8 g/dL (33.0-37.0); RBC 3.65 Mil/uL (3.80-5.20); RED CELL DISTRIBUTION WIDTH 17.7 % (11.5-14.5); WHITE BLOOD COUNT 4.2 K/uL (4.8-10.8)
[2018-02-28] MEDS: Levothyroxine 125 MCG TAB PO SCH (05:44)
[2018-02-28 05:54] LABS: BLOOD UREA NITROGEN 9 mg/dl (7-17); CALCIUM 8.8 mg/dL (8.4-10.2); GFR NON-AFRICAN AMERICAN > 60
--- NOTE | 2018-02-28 08:22 | CP.CCUPN ---
CCU Subjective - Physician Review Subjective (Free Text): No new events overnight nor complaints. Afebrile, no fever spikes overnight, SBP 120s HR 80s SPO2 99% on NC ROS: No other pertinent negs or positives on 10+ system review. PMSFH: All other Nursing and physician documentation reviewed to date; no new pertinent info noted relevant to current medical problems. EXAM- HEENT: no icterus, no gaze preference NECK: No JVD visible given short neck and overall obesity, supple, carotids equal upstroke bilat/no bruit CHEST: decreased BS at the bases, no wheezes audible bilaterally. HEART: regular, distant, S1S2, no rubs or murmurs noted ABD: soft, nontender, no guarding, no organomegaly, BS hypoactive. EXT: no leg edema, no calf tenderness or palpable cords, distal pulses intact and symmetrical. NEURO: no gross focal motor deficits. SKIN: no rashes, warm and dry LABS: WBC= 4.2 HGB= 10.9 PLTs= 220K Na= 127 K= 3.6 CL= 97 HCO3= 23 BUN/Cr= 9/0.8 BS= 257 IMPRESSION / MAJOR PROBLEMS NOW: 1. Acute SDH 2. DKA 3. Hyponatremia 4. h/o reactive Airways Disease 5. Recent CABG 4 months ago, on ASA, Plavix at home. PLAN: 1. Levemir increased; BS control improved, DKA resolved, accuchecks decreased to Q6H, IVFs minimized or could be stopped. Encourage PO intake. 2. Keep SBPs no higher than 130-140s. 3. Cleared by NeuroSurg for acute rehab therapy. Medical team requesting Cardiology clearance. Cleared by ICU for transfer to regular bed. 4. Duonebs prn. 5. ASA, and Plavix remain on hold, expected to be on hold for at least the next 4 weeks or as directed by Site Reliability Engineer / NeuroSurg.
[2018-02-28] MEDS: Fluticasone-Salmeterol 250-50mcg Diskus IH SCH (08:41)
[2018-02-28] MEDS: Ranolazine 500 mg Extended Release Tablets PO SCH (08:44)
--- NOTE | 2018-02-28 10:21 | CP.PCM.PN ---
Subjective - Date & Time of Evaluation Date of Evaluation: 02/28/18 Time of Evaluation: 09:00 - Subjective Subjective: Patient seen and examined at bedside, daughter present, Dr. Cornejo and Dr. Petersen also present. Patient in no acute distress. Sitting up. Awake and alert. Afebrile and vital signs within normal limits. Discussed with patient and daughter will hold aspirin and plavix for 4 weeks due subdural hematoma. Patient was referred to acute rehab. Per discussion with Dr. Cornejo, Dr. Petersen and neurosurgery, patient is medically stable for discharge to acute rehab. Objective - Vital Signs/Intake and Output Vital Signs (last 24 hours): Temp Pulse Resp BP Pulse Ox 97.9 F 85 16 144/77 99 02/28/18 08:00 02/28/18 08:43 02/28/18 08:00 02/28/18 08:43 02/28/18 08:00 Intake and Output: 02/28/18 02/28/18 06:59 18:59 Intake Total 1248 Balance 1248 - Medications Medications: Current Medications Acetaminophen (Tylenol 325mg Tab) 650 mg PO Q4H PRN PRN Reason: Pain, moderate (4-7) Albuterol (Ventolin Hfa 90 Mcg/Actuation (8 G)) 2 puff IH Q6 PRN PRN Reason: Shortness of Breath Atorvastatin Calcium (Lipitor) 40 mg PO HS [facility] Last Admin: 02/27/18 22:12 Dose: 40 mg Dextrose (Dextrose 50% Inj) 0 ml IV STAT PRN; Protocol PRN Reason: Hypoglycemia Protocol Dextrose (Glutose 15) 0 gm PO ONCE PRN; Protocol PRN Reason: Hypoglycemia Protocol Famotidine (Pepcid) 20 mg PO DAILY [facility] Last Admin: 02/28/18 08:48 Dose: 20 mg Furosemide (Lasix) 40 mg PO DAILY [facility] Last Admin: 02/28/18 08:42 Dose: 40 mg Glucagon (Glucagen Diagnostic Kit) 0 mg IM STAT PRN; Protocol PRN Reason: Hypoglycemia Protocol Insulin Detemir (Levemir) 28 units SC [facility] Insulin Human Regular (Humulin R) 0 units SUBCUT Q4H [facility]; Protocol Last Admin: 02/28/18 08:50 Dose: 4 units Levothyroxine Sodium (Synthroid) 125 mcg PO DAILY@0630 [facility] Last Admin: 02/28/18 05:44 Dose: 125 mcg Lidocaine (Lidoderm) 1 ea TD DAILY PRN PRN Reason: Pain, moderate (4-7) Last Admin: 02/27/18 05:42 Dose: 1 ea Memantine (Namenda) 5 mg PO HS [facility] Last Admin: 02/25/18 21:06 Dose: 5 mg Metoprolol Tartrate (Lopressor) 12.5 mg PO Q12 [facility] Last Admin: 02/28/18 08:43 Dose: 12.5 mg Oxycodone/Acetaminophen (Percocet 5/325 Mg Tab) 1 tab PO Q6 PRN PRN Reason: Pain, severe (8-10) Stop: 03/02/18 13:13 Last Admin: 02/28/18 04:31 Dose: 1 tab Ranolazine (Ranexa) 500 mg PO Q12 [facility] Last Admin: 02/28/18 08:44 Dose: 500 mg Fluticasone/Salmeterol (Advair Diskus 250/50) 1 puff IH Q12 [facility] Last Admin: 02/28/18 08:41 Dose: 1 puff Sitagliptin Phosphate (Januvia) 25 mg PO DAILY [facility] Last Admin: 02/26/18 08:26 Dose: 25 mg Tramadol HCl (Ultram) 50 mg PO Q4 PRN PRN Reason: Pain, severe (8-10) Last Admin: 02/27/18 09:46 Dose: 50 mg - Labs Labs: 02/28/18 04:40 02/28/18 04:40 PT 12.1 Seconds (9.8-13.1) 02/25/18 11:10 INR 1.1 02/25/18 11:10 APTT 21.6 Seconds (25.6-37.1) L 02/25/18 11:10 - Constitutional Appears: No Acute Distress - Head Exam Head Exam: ATRAUMATIC, NORMOCEPHALIC - Eye Exam Eye Exam: EOMI - ENT Exam ENT Exam: Mucous Membranes Moist - Respiratory Exam Respiratory Exam: NORMAL BREATHING PATTERN - Cardiovascular Exam Cardiovascular Exam: +S1, +S2. absent: Gallop - GI/Abdominal Exam GI & Abdominal Exam: Soft, Normal Bowel Sounds - Extremities Exam Extremities Exam: absent: Calf Tenderness, Pedal Edema Additional comments: right arm tenderness to palpation persists - Neurological Exam Neurological Exam: Alert, Awake - Psychiatric Exam Psychiatric exam: Flat Affect, Normal Mood - Skin Skin Exam: Dry, Warm Assessment and Plan - Assessment and Plan (Free Text) Assessment: 77 yr old F admitted for subdural hematoma s/p mechanical fall with PMHx including CAD (with pacemaker), Hypertension, Type II DM, Hyperlipidemia, and Asthma. Patient head CT showed large right-sided acute subdural hematoma, repeat head CT stable. Patient has no neurological deficits. Patient is medically stable for discharge to acute rehab. Plan: 1. Subdural Hematoma -acute, stable -Head CT #1: large right-sided acute subdural hematoma located within the interhemispherix fissure, the bulk of which is located along the anterior 1/2 of the fissure, inferior compression/displacement of the frontal horns right greater than left, small mid and bilateral occipito parietal scalp contusion - Repeat Head CT #2: literal interval change in large acute subdural hematoma along the interhemispheric fissure on the right measuring 1.7 cm in maximum width -CXR/EKG: mild chronic compensated pulmonary edema/CHF; pacemaker noted -CBC: WBC 4.5 -Troponins negative -NSS -Pain management -hold ASA and plavix at this pending repeat Head CT and neuro evaluation -Neurology Surgery Consult- Dr. Monet/Dr. Maldonado- recommendations appreciated- follow up repeat Head CT without contrast in the AM, Unless there is a change in neuro status or significant increase in SDH size would treat conservatively -Neuro Checks Q2 -As per PT, patient stable for discharge to acute Rehab -Cardio consult for discharge to Rehab- Dr. Petersen, recommendations appreciated 2. Right Shoulder pain -acute, symptomatic -Cervical CT: no acute fractures -Right Shoulder X-ray: no acute fractures -Lidoderm patch ordered for patient 3. IDDM Type 2 -chronic and uncontrolled -HbA1c 9.4 on 02/26/18 -Insulin Regular- medium coverage scale SC ACHS -Hypoglycemia protocol in place -POC glucose ACHS -Accuchecks ACHS, Levemir 28 units SCHS, Januvia 25mg PO QD, -moderate carbohydrate diet/heart healthy diet 4. Depression -chronic, controlled -Remeron 15 mg PO QHS and Lexapro 10 mg PO QD- cleared by Zane on 02/20/18 5. Hypothyrodism -chronic, controlled -TSH 2.65 on 02/26/18 -continue Levothyroxine 125 mcg PO QD 6. HTN/HLD/CAD -chronic, controlled -Metoprolol 12.5mg PO Q12 -s/p CABG 11/2017 -troponin negative x 1 -no change in EKG from previous 7. Systolic CHF -chronic, controlled -ECHO 10/2017: systolic dysfunction EF 30-35% -continue lasix 40mg PO QD -s/p pacemaker 8. Asthma/COPD -controlled -continue Ventolin HFA PRN 9. DVT prophylaxis - SCDs for now, pt with subdural hematoma - hold ASA and plavix for 4 weeks
[2018-02-28 12:37] VITALS: BP 108/60; RESP 13; TEMP 97.8
[2018-02-28] MEDS: Lidocaine 5% Patch TD PRN (13:26)
--- NOTE | 2018-02-28 14:27 | CP.PCM.CON ---
History of Present Illness - History of Present Illness History of Present Illness: Consultation for evaluation of CAD s/p CABG HPI: Daysi is a pleasant 77-year-old female with history of hypertension hyperlipidemia hypothyroidism severe multivessel CAD status post coronary artery bypass grafting that was done back in November at [facility] systolic CHF status post pacemaker who presented on February 25 after sustaining a fall at home. According to the patient's daughter she had a mechanical fall in the b athroom where she was bending lost balance fell and hit her shoulder and head sustaining a subdural bleed CT of the head showed 17.5 mm bleed for which aspirin and Plavix were held he was monitored in the ICU setting and is being evaluated for clearance from cardiovascular standpoint prior to her being transferred over to the subacute rehab therapy. She has been followed by Dr. Cornejo who I started her on Remeron SSRI. Post CABG he has been noted to have change in her mood status and has been acting somewhat depressed along with bouts of severe depression. According to the patient's daughter she at times is not willing to participate in any social activities of late. 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 Past surgical history significant for coronary artery bypass grafting done back in [place] [address] Darshan Li allergies no known drug allergies family history no history of smoking alcohol or illicit drug use social history denies use of alcohol or illicit drug use. CT of the head shows right into spheric subdural hemorrhage which was a local mass-effect. Patient's dual antiplatelet therapy was held during the hospitalization and the concern was if he could start her medications prior to be sending her to the rehab therapy. She remained stable over the course of last 3 days and is being planned for possible transfer to the rehab she has been maintained on her home dose of Lipitor Lasix metoprolol she was also initiated on Remeron and Namenda along with SSRI. Review of Systems - Review of Systems Systems not reviewed;Unavailable: Acuity of Condition - Constitutional Constitutional: As Per HPI - EENT Eyes: As Per HPI Ears: As Per HPI Nose/Mouth/Throat: As Per HPI - Breasts Breasts: As Per HPI - Cardiovascular Cardiovascular: As Per HPI - Respiratory Respiratory: As Per HPI - Gastrointestinal Gastrointestinal: As Per HPI - Genitourinary Genitourinary: As Per HPI - Reproductive: Female Reproductive:Female: As Per HPI - Menstruation Menstruation: As Per HPI - Musculoskeletal Musculoskeletal: As Per HPI - Integumentary Integumentary: As Per HPI - Neurological Neurological: As Per HPI - Psychiatric Psychiatric: As Per HPI - Endocrine Endocrine: As Per HPI - Hematologic/Lymphatic Hematologic: As Per HPI Past Patient History - Tetanus Immunizations Tetanus Immunization: Up to Date - Past Medical History & Family History Past Medical History?: Yes - Past Social History Smoking Status: Never Smoked - CARDIAC Hx Cardiac Disorders: Yes - PULMONARY Hx Respiratory Disorders: Yes - NEUROLOGICAL Hx Neurological Disorder: No - HEENT Hx HEENT Problems: No - RENAL Hx Chronic Kidney Disease: No - ENDOCRINE/METABOLIC Hx Endocrine Disorders: Yes - HEMATOLOGICAL/ONCOLOGICAL Hx AIDS: No Hx Human Immunodeficiency Virus (HIV): No - INTEGUMENTARY Hx Dermatological Problems: No - MUSCULOSKELETAL/RHEUMATOLOGICAL Hx Falls: Yes - GASTROINTESTINAL Hx Ulcer: Yes - GENITOURINARY/GYNECOLOGICAL Hx Genitourinary Disorders: No - PSYCHIATRIC Hx Substance Use: No - SURGICAL HISTORY Hx Coronary Artery Bypass Graft: Yes (11/2017) Hx Coronary Stent: Yes (x4) - ANESTHESIA Hx Anesthesia: Yes Hx Anesthesia Reactions: No Hx Malignant Hyperthermia: No Meds Allergies/Adverse Reactions: Allergies Allergy/AdvReac Type Severity Reaction Status Date / Time No Known Allergies Allergy Verified 02/20/18 16:39 - Medications Medications: Current Medications Acetaminophen (Tylenol 325mg Tab) 650 mg PO Q4H PRN PRN Reason: Pain, moderate (4-7) Albuterol (Ventolin Hfa 90 Mcg/Actuation (8 G)) 2 puff IH Q6 PRN PRN Reason: Shortness of Breath Atorvastatin Calcium (Lipitor) 40 mg PO HS [facility] Last Admin: 02/27/18 22:12 Dose: 40 mg Dextrose (Dextrose 50% Inj) 0 ml IV STAT PRN; Protocol PRN Reason: Hypoglycemia Protocol Dextrose (Glutose 15) 0 gm PO ONCE PRN; Protocol PRN Reason: Hypoglycemia Protocol Escitalopram Oxalate (Lexapro) 10 mg PO DAILY [facility] Famotidine (Pepcid) 20 mg PO DAILY [facility] Last Admin: 02/28/18 08:48 Dose: 20 mg Furosemide (Lasix) 40 mg PO DAILY [facility] Last Admin: 02/28/18 08:42 Dose: 40 mg Glucagon (Glucagen Diagnostic Kit) 0 mg IM STAT PRN; Protocol PRN Reason: Hypoglycemia Protocol Insulin Detemir (Levemir) 28 units SC HS [facility] Insulin Human Regular (Humulin R) 0 units SUBCUT Q4H [facility]; Protocol Last Admin: 02/28/18 12:48 Dose: 8 units Levothyroxine Sodium (Synthroid) 125 mcg PO DAILY@0630 [facility] Last Admin: 02/28/18 05:44 Dose: 125 mcg Lidocaine (Lidoderm) 1 ea TD DAILY PRN PRN Reason: Pain, moderate (4-7) Last Admin: 02/28/18 13:26 Dose: 1 ea Memantine (Namenda) 5 mg PO [facility] Last Admin: 02/25/18 21:06 Dose: 5 mg Metoprolol Tartrate (Lopressor) 12.5 mg PO Q12 [facility] Last Admin: 02/28/18 08:43 Dose: 12.5 mg Mirtazapine (Remeron) 15 mg PO [facility] Oxycodone/Acetaminophen (Percocet 5/325 Mg Tab) 1 tab PO Q6 PRN PRN Reason: Pain, severe (8-10) Stop: 03/02/18 13:13 Last Admin: 02/28/18 04:31 Dose: 1 tab Fluticasone/Salmeterol (Advair Diskus 250/50) 1 puff IH Q12 [facility] Last Admin: 02/28/18 08:41 Dose: 1 puff Sitagliptin Phosphate (Januvia) 25 mg PO DAILY [facility] Last Admin: 02/26/18 08:26 Dose: 25 mg Tramadol HCl (Ultram) 50 mg PO Q4 PRN PRN Reason: Pain, severe (8-10) Last Admin: 02/28/18 11:22 Dose: 50 mg Physical Exam - Constitutional Appears: Well - Head Exam Head Exam: ATRAUMATIC, NORMAL INSPECTION, NORMOCEPHALIC - Eye Exam Eye Exam: EOMI, Normal appearance, PERRL Pupil Exam: NORMAL ACCOMODATION, PERRL - ENT Exam ENT Exam: Mucous Membranes Moist, Normal Exam - Neck Exam Neck exam: Positive for: Normal Inspection - Respiratory Exam Respiratory Exam: Clear to Auscultation Bilateral, NORMAL BREATHING PATTERN - Cardiovascular Exam Cardiovascular Exam: REGULAR RHYTHM, +S1, +S2, Systolic Murmur - GI/Abdominal Exam GI & Abdominal Exam: Normal Bowel Sounds, Soft. absent: Tenderness - Extremities Exam Extremities exam: Positive for: normal inspection - Back Exam Back exam: NORMAL INSPECTION - Neurological Exam Neurological exam: Alert, CN II-XII Intact, Normal Gait, Oriented x3, Reflexes Normal - Psychiatric Exam Psychiatric exam: Normal Affect, Normal Mood - Skin Skin Exam: Dry, Intact, Normal Color, Warm Results - Vital Signs Recent Vital Signs: Last Vital Signs Temp 97.8 F 02/28/18 12:00 Pulse 84 02/28/18 12:00 Resp 13 02/28/18 12:00 BP 108/60 02/28/18 12:00 Pulse Ox 100 02/28/18 12:00 - Labs Result Diagrams: 02/28/18 04:40 02/28/18 04:40 Labs: Laboratory Results - last 24 hr 02/27/18 02/27/18 02/27/18 14:47 16:35 18:17 WBC RBC Hgb Hct MCV MCH MCHC RDW Plt Count Sodium Potassium Chloride Carbon Dioxide Anion Gap BUN Creatinine Est GFR ( Amer) Est GFR (Non-Af Amer) POC Glucose (mg/dL) 302 H 295 H Random Glucose Calcium Urine Color Yellow Urine Clarity Clear Urine pH 6.0 Ur Specific [place] 1.012 Urine Protein Negative Urine Glucose (UA) >=500 Urine Ketones Negative Urine Blood Negative Urine Nitrate Negative Urine Bilirubin Negative Urine Urobilinogen 0.2-1.0 Ur Leukocyte Esterase Small Urine RBC (Auto) 2 Urine Microscopic WBC 16 H Ur Squamous Epith Cells 1 Urine Bacteria Rare 02/27/18 02/28/18 02/28/18 22:07 01:54 04:40 WBC 4.2 L RBC 3.65 L Hgb 10.9 L Hct 31.3 L MCV 85.6 MCH 29.7 MCHC 34.8 RDW 17.7 H Plt Count 220 Sodium Potassium Chloride Carbon Dioxide Anion Gap BUN Creatinine Est GFR ( Amer) Est GFR (Non-Af Amer) POC Glucose (mg/dL) 291 H 281 H Random Glucose Calcium Urine Color Urine Clarity Urine pH Ur Specific [place] Urine Protein Urine Glucose (UA) Urine Ketones Urine Blood Urine Nitrate Urine Bilirubin Urine Urobilinogen Ur Leukocyte Esterase Urine RBC (Auto) Urine Microscopic WBC Ur Squamous Epith Cells Urine Bacteria 02/28/18 02/28/18 02/28/18 04:40 05:22 07:53 WBC RBC Hgb Hct MCV MCH MCHC RDW Plt Count Sodium 127 L Potassium 3.6 Chloride 97 L Carbon Dioxide 23 Anion Gap 11 BUN 9 Creatinine 0.8 Est GFR ( Amer) > 60 Est GFR (Non-Af Amer) > 60 POC Glucose (mg/dL) 288 H 265 H Random Glucose 257 H Calcium 8.8 Urine Color Urine Clarity Urine pH Ur Specific [place] Urine Protein Urine Glucose (UA) Urine Ketones Urine Blood Urine Nitrate Urine Bilirubin Urine Urobilinogen Ur Leukocyte Esterase Urine RBC (Auto) Urine Microscopic WBC Ur Squamous Epith Cells Urine Bacteria 02/28/18 12:04 WBC RBC Hgb Hct MCV MCH MCHC RDW Plt Count Sodium Potassium Chloride Carbon Dioxide Anion Gap BUN Creatinine Est GFR ( Amer) Est GFR (Non-Af Amer) POC Glucose (mg/dL) 373 H Random Glucose Calcium Urine Color Urine Clarity Urine pH Ur Specific [place] Urine Protein Urine Glucose (UA) Urine Ketones Urine Blood Urine Nitrate Urine Bilirubin Urine Urobilinogen Ur Leukocyte Esterase Urine RBC (Auto) Urine Microscopic WBC Ur Squamous Epith Cells Urine Bacteria Assessment & Plan (1) CAD (coronary artery disease) Assessment and Plan: stable cont bb hold asa , plavix 2' to large ICH Status: Chronic Priority: Medium (2) CHF (congestive heart failure) Assessment and Plan: EF 30-35% repeat Echo post fall and revascularization add ARBs , aldactone cont bb cont lasix check BNP Status: Chronic Priority: Medium (3) Subdural hematoma Assessment and Plan: hold asa, plavix x [address] head in 4 weeks Status: Acute Priority: High (4) Diabetes Status: Chronic (5) Hypertension Status: Chronic (6) Pleural effusion Status: Resolved
[2018-02-28 14:53] VITALS: PULSE 78; O2SAT 98
[2018-02-28] MEDS ORDERED: Insulin Detemir 100 Units/ml Inj SC SCH (22:00)
== END 2018-02-28 18:23 | DRG 85 ==
LOC: H.ER 10:11 → H.ERHOLD 12:28 → H.ICU/CCU 16:48
PROVIDERS: ADMIT Family Medicine; ATTEND Family Medicine
DX: S06.5X0A Traumatic subdural hemorrhage without loss of consciousness, initial encounter (principal); E11.10 Type 2 diabetes mellitus with ketoacidosis without coma; I50.22 Chronic systolic (congestive) heart failure; E87.2 Acidosis; E87.1 Hypo-osmolality and hyponatremia; I11.0 Hypertensive heart disease with heart failure; I25.10 Atherosclerotic heart disease of native coronary artery without angina pectoris; M25.511 Pain in right shoulder; W18.30XA Fall on same level, unspecified, initial encounter; E11.65 Type 2 diabetes mellitus with hyperglycemia; E03.9 Hypothyroidism, unspecified; F32.9 Major depressive disorder, single episode, unspecified; E78.5 Hyperlipidemia, unspecified; E78.00 Pure hypercholesterolemia, unspecified; J44.9 Chronic obstructive pulmonary disease, unspecified; I25.2 Old myocardial infarction; Z95.0 Presence of cardiac pacemaker; Z95.1 Presence of aortocoronary bypass graft; Z95.5 Presence of coronary angioplasty implant and graft; Z79.4 Long term (current) use of insulin; Z79.02 Long term (current) use of antithrombotics/antiplatelets; Z79.82 Long term (current) use of aspirin; Z79.84 Long term (current) use of oral hypoglycemic drugs; Z86.010 Personal history of colon polyps; Y92.002 Bathroom of unspecified non-institutional (private) residence as the place of occurrence of the external cause

== ENCOUNTER 2018-02-28 18:33 | Inpatient (IN) | payer MEDICARE, MEDICAID ==
[2018-02-28] MEDS ORDERED: Dextrose 50% SYRINGE Inj (50 ml) IV PRN (20:12)
[2018-02-28] MEDS ORDERED: Glucagon Recombinant 1 mg Inj IM PRN (20:12)
[2018-02-28] MEDS ORDERED: Lidocaine 5% Patch TD PRN (20:14)
[2018-02-28] MEDS ORDERED: Albuterol HFA 90 mcg/actuation (8 g) IH PRN (20:14)
[2018-02-28] MEDS: Fluticasone-Salmeterol 250-50mcg Diskus IH SCH (22:04)
[2018-02-28] MEDS: Oxycodone/Acetaminophen 5/325 mg Tab PO PRN (22:07)
[2018-02-28] MEDS: Insulin Regular 100 units/ml SC SCH (22:15)
[2018-03-01] MEDS: Levothyroxine 125 MCG TAB PO SCH (06:01)
[2018-03-01] MEDS: Oxycodone/Acetaminophen 5/325 mg Tab PO PRN ×2 (06:11→20:25)
[2018-03-01] MEDS: Insulin Regular 100 units/ml SC SCH ×3 (07:14→16:25)
[2018-03-01] MEDS: Multivitamin With Minerals Tab PO SCH (08:50)
[2018-03-01] MEDS: Fluticasone-Salmeterol 250-50mcg Diskus IH SCH ×2 (08:51→20:39)
[2018-03-01] MEDS ORDERED: Levothyroxine 125 MCG TAB PO SCH (09:00)
--- NOTE | 2018-03-01 09:29 | CP.PCM.HP ---
<Katharina Brand - Last Filed: 03/01/18 09:17> History of Present Illness - History of Present Illness History of Present Illness: 77 yr old F admitted to acute rehab for PT/OT s/p large subdural hematoma due to mechanical fall. PMHx includes CAD s/p CABG (Nov 2017), pacemaker, HTN, HLD, IDD M type 2, hypothyroidism, Systolic CHF, asthma, depression and anxiety. Prior to admission to acute rehab, patient was in ICU for 4 days where she remained with no neurological deficits and repeat CT head showed stable subdural hematoma. Per discussion with Dr. Petersen, aspirin and plavix will be held for 4 weeks [address] a repeat CT head will be done in 4 weeks. Patient denies chest pain, SOB, headaches or dizziness. Patient has complaint of right arm pain since mechanical fall, RUE xray negative, pain managed with medication. Present on Admission - Present on Admission Any Indicators Present on Admission: Yes History of DVT/PE: No History of Uncontrolled Diabetes: Yes Urinary Catheter: No Decubitus Ulcer Present: No History Surgical Site Infection Following: None Review of Systems - Constitutional Constitutional: absent: Anorexia, Weight Loss - EENT Eyes: absent: Change in Vision Ears: absent: Dizziness Nose/Mouth/Throat: absent: Sore Throat - Cardiovascular Cardiovascular: absent: Chest Pain, Dyspnea, Palpitations - Respiratory Respiratory: absent: Cough - Gastrointestinal Gastrointestinal: absent: Nausea, Vomiting - Genitourinary Genitourinary: absent: Difficulty Urinating, Dysuria - Musculoskeletal Musculoskeletal: Other (right upper arm/shoulder pain s/p mechanical fall) - Neurological Neurological: absent: Dizziness, Headaches - Psychiatric Psychiatric: Anxiety, Depression - Endocrine Endocrine: absent: Polydipsia, Polyphagia, Polyuria - Hematologic/Lymphatic Hematologic: absent: Easy Bleeding, Easy Bruising Past Patient History - Tetanus Immunizations Tetanus Immunization: Up to Date - Past Medical History & Family History Past Medical History?: Yes - Past Social History Smoking Status: Never Smoked - CARDIAC Hx Cardiac Disorders: Yes Hx Congestive Heart Failure: Yes Hx Hypertension: Yes Hx Pacemaker: Yes - PULMONARY Hx Respiratory Disorders: Yes Hx Asthma: Yes Hx Chronic Obstructive Pulmonary Disease (COPD): Yes - NEUROLOGICAL Hx Neurological Disorder: No - HEENT Hx HEENT Problems: No - RENAL Hx Chronic Kidney Disease: No - ENDOCRINE/METABOLIC Hx Endocrine Disorders: Yes Other/Comment: DM - HEMATOLOGICAL/ONCOLOGICAL Hx AIDS: No Hx Blood Transfusions: Yes Hx Human Immunodeficiency Virus (HIV): No - INTEGUMENTARY Hx Dermatological Problems: No - MUSCULOSKELETAL/RHEUMATOLOGICAL Hx Arthritis: Yes Hx Falls: Yes - GASTROINTESTINAL Hx Ulcer: Yes - GENITOURINARY/GYNECOLOGICAL Hx Genitourinary Disorders: No - PSYCHIATRIC Hx Depression: Yes Hx Substance Use: No - SURGICAL HISTORY Hx Coronary Artery Bypass Graft: Yes (11/2017) Hx Coronary Stent: Yes (x4) - ANESTHESIA Hx Anesthesia: Yes Hx Anesthesia Reactions: No Hx Malignant Hyperthermia: No Has any member of the family had a problem w/ anesthesia?: No Meds Allergies/Adverse Reactions: Allergies Allergy/AdvReac Type Severity Reaction Status Date / Time No Known Allergies Allergy Verified 02/28/18 19:18 Physical Exam - Constitutional Appears: No Acute Distress - Head Exam Head Exam: ATRAUMATIC, NORMOCEPHALIC - Eye Exam Eye Exam: EOMI - ENT Exam ENT Exam: Mucous Membranes Moist - Respiratory Exam Respiratory Exam: NORMAL BREATHING PATTERN. absent: Rhonchi, Wheezes - Cardiovascular Exam Cardiovascular Exam: REGULAR RHYTHM, +S1, +S2, Systolic Murmur - GI/Abdominal Exam GI & Abdominal Exam: Normal Bowel Sounds, Soft - Extremities Exam Extremities exam: Negative for: calf tenderness, pedal edema - Neurological Exam Neurological exam: Alert, CN II-XII Intact - Psychiatric Exam Psychiatric exam: Flat Affect, Normal Mood - Skin Skin Exam: Dry, Normal Color, Warm Results - Vital Signs Recent Vital Signs: Last Vital Signs Temp 97.8 F 03/01/18 08:35 Pulse 87 03/01/18 08:49 Resp 21 03/01/18 08:35 BP 120/74 03/01/18 08:49 Pulse Ox 97 03/01/18 08:35 - Labs Labs: Laboratory Results - last 24 hr 02/28/18 03/01/18 20:53 05:59 POC Glucose (mg/dL) 252 H 330 H Assessment & Plan - Assessment and Plan (Free Text) Assessment: 77 yr old F admitted to acute rehab for PT/OT s/p large subdural hematoma due to mechanical fall. PMHx includes CAD s/p CABG (Nov 2017), pacemaker, HTN, HLD, IDDM type 2, hypothyroidism, Systolic CHF, asthma, depression and anxiety. Patient has no neurological deficits. Plan: 1. Subdural Hematoma -acute, stable -no neurological deficits -neuro checks Qshift -repeat CT head w/o contrast (on approx 2018) -hold ASA and plavix for [address] head -stable from Neurosurgery standpoint (Dr. Monet) 2. Right Shoulder pain -acute, symptomatic -Cervical CT: no acute fractures -Right Shoulder X-ray: no acute fractures -Lidoderm patch ordered for patient, Tylenol PRN mild , Tramadol PRN moderate, Percocet PRN severe, 3. IDDM Type 2 -chronic and uncontrolled -HbA1c 9.4 on 02/26/18 -Hypoglycemia protocol in place -Accuchecks ACHS, Insulin Regular coverage scale ACHS medium dose protocol, Levemir 28 units SCHS, Januvia 25mg PO QD, -moderate carbohydrate diet/heart healthy diet 4. Depression -chronic, controlled -Remeron 15 mg PO QHS and Lexapro 10 mg PO QD- cleared by Zane on 02/20/18 -will titrate Lexapro up to 20mg PO QD tomorrow (was patients home dose) 5. Hypothyrodism -chronic, controlled -TSH 2.65 on 02/26/18 -continue Levothyroxine 125 mcg PO QD 6. HTN/HLD/CAD -chronic, controlled -Metoprolol 12.5mg PO Q12 -s/p CABG 11/2017 -troponin negative x 1 -no change in EKG from previous 7. Systolic CHF -chronic, controlled, s/p pacemaker -ECHO 10/2017: systolic dysfunction EF 30-35% -continue lasix 40mg PO QD, per Dr. Petersen, started Losartan 25mg PO QD, Spironolactone 12.5mg PO QD -f/u BMP 8. Asthma/COPD -controlled -continue Ventolin HFA PRN, Advair 250/50 1puff Q12 9. DVT prophylaxis - SCDs for now, recent subdural hematoma - hold ASA and plavix, or any anticoagulant for 4 weeks (Mar 28, 2018 - Date & Time Date: 03/01/18 Time: 09:00 <Yahir Saab - Last Filed: 03/01/18 10:40> Results - Vital Signs Recent Vital Signs: Last Vital Signs Temp 97.8 F 03/01/18 08:35 Pulse 87 01/12/19 08:49 Resp 21 03/01/18 08:35 BP 120/74 03/01/18 08:49 Pulse Ox 97 03/01/18 08:35 - Labs Labs: Laboratory Results - last 24 hr 02/28/18 03/01/18 20:53 05:59 POC Glucose (mg/dL) 252 H 330 H Attending/Attestation - Attestation I have personally seen and examined this patient.: Yes I have fully participated in the care of the patient.: Yes I have reviewed all pertinent clinical information: Yes Notes (Text): 03/01/18 10:40 Patient seen and examined with resident. Case discussed and agreed with assessment and plan of management.
--- NOTE | 2018-03-01 16:42 | RAD ---
Date of service: 03/01/2018 PROCEDURE: Radiographs of the Left Forearm HISTORY: left arm pain, recent mechanical fall COMPARISON: None available. TECHNIQUE: Frontal and lateral views obtained. FINDINGS: BONES: No fracture or destructive lesion. JOINT SPACES: Unremarkable. OTHER FINDINGS: None. IMPRESSION: Unremarkable radiographs of the left forearm.
--- NOTE | 2018-03-01 16:43 | RAD ---
PROCEDURE: Radiographs of the left humerus. HISTORY: persistent pain s/p recent mechanical fall COMPARISON: None. FINDINGS: BONES: Normal. No fracture or focal lesion. SOFT TISSUES: Normal. OTHER FINDINGS: None. IMPRESSION: Normal radiographs of left humerus.
--- NOTE | 2018-03-01 16:43 | RAD ---
Date of service: 03/01/2018 PROCEDURE: Radiographs of the left clavicle. HISTORY: persistent pain s/p recent mechanical fall COMPARISON: None. FINDINGS: LEFT CLAVICLE: No fracture or focal lesion. JOINTS: Left acromioclavicular and glenohumeral joints are grossly unremarkable. SOFT TISSUES: Grossly unremarkable. OTHER FINDINGS: Acromioclavicular degenerative change, mild. IMPRESSION: No acute findings related to/ accounting for the clinical presentation.
--- NOTE | 2018-03-01 19:11 | CP.PCM.CON ---
History of Present Illness - History of Present Illness History of Present Illness: 77 year old female admitted to acute rehab with diagnosis of subdural heamatoma with history of CAD, CBG, pacemaker and IDDM Review of Systems - Musculoskeletal Musculoskeletal: Muscle Weakness Past Patient History - Tetanus Immunizations Tetanus Immunization: Up to Date - Past Medical History & Family History Past Medical History?: Yes - Past Social History Smoking Status: Never Smoked - CARDIAC Hx Cardiac Disorders: Yes (PPM (replaced 12/2014), [place], triple vessel dz, CABG (11/2017)) Hx Congestive Heart Failure: Yes (systolic) Hx Hypercholesterolemia: Yes Hx Hypertension: Yes - PULMONARY Hx Chronic Obstructive Pulmonary Disease (COPD): Yes - NEUROLOGICAL Hx Neurological Disorder: No - HEENT Hx HEENT Problems: No - RENAL Hx Chronic Kidney Disease: No - ENDOCRINE/METABOLIC Hx Diabetes Mellitus Type 2: Yes Hx Hypothyroidism: Yes - HEMATOLOGICAL/ONCOLOGICAL Hx AIDS: No Hx Blood Transfusions: Yes Hx Human Immunodeficiency Virus (HIV): No - INTEGUMENTARY Hx Dermatological Problems: No - MUSCULOSKELETAL/RHEUMATOLOGICAL Hx Arthritis: Yes (R shldr, C-spine) - GASTROINTESTINAL Hx Ulcer: Yes - GENITOURINARY/GYNECOLOGICAL Hx Genitourinary Disorders: No - PSYCHIATRIC Hx Depression: Yes Hx Substance Use: No - SURGICAL HISTORY Hx Coronary Artery Bypass Graft: Yes (11/2017) Hx Coronary Stent: Yes (x4) - ANESTHESIA Hx Anesthesia: Yes Hx Anesthesia Reactions: No Hx Malignant Hyperthermia: No Has any member of the family had a problem w/ anesthesia?: No Meds Allergies/Adverse Reactions: Allergies Allergy/AdvReac Type Severity Reaction Status Date / Time No Known Allergies Allergy Verified 02/28/18 19:18 - Medications Medications: Current Medications Acetaminophen (Tylenol 325mg Tab) 650 mg PO Q4 PRN PRN Reason: Pain, Mild (1-3) Albuterol (Ventolin Hfa 90 Mcg/Actuation (8 G)) 2 puff IH Q6 PRN PRN Reason: Shortness of Breath Atorvastatin Calcium (Lipitor) 40 mg PO HS [facility] Last Admin: 02/28/18 22:11 Dose: 40 mg Dextrose (Dextrose 50% Inj) 0 ml IV STAT PRN; Protocol PRN Reason: Hypoglycemia Protocol Dextrose (Glutose 15) 0 gm PO ONCE PRN; Protocol PRN Reason: Hypoglycemia Protocol Escitalopram Oxalate (Lexapro) 10 mg PO DAILY [facility] Last Admin: 03/01/18 08:49 Dose: 10 mg Famotidine (Pepcid) 20 mg PO DAILY [facility] Last Admin: 03/01/18 08:50 Dose: 20 mg Furosemide (Lasix) 40 mg PO DAILY [facility] Last Admin: 03/01/18 08:48 Dose: 40 mg Glucagon (Glucagen Diagnostic Kit) 0 mg IM STAT PRN; Protocol PRN Reason: Hypoglycemia Protocol Insulin Detemir (Levemir) 28 units SC [facility] Insulin Human Lispro (Humalog) 0 units SC [facility]; Protocol Levothyroxine Sodium (Synthroid) 125 mcg PO DAILY@0630 [facility] Last Admin: 03/01/18 06:01 Dose: 125 mcg Lidocaine (Lidoderm) 1 ea TD DAILY [facility] Stop: 03/07/18 09:01 Losartan Potassium (Cozaar) 25 mg PO DAILY [facility] Last Admin: 03/01/18 10:00 Dose: 25 mg Memantine (Namenda) 5 mg PO HS [facility] Last Admin: 02/28/18 22:19 Dose: 5 mg Metoprolol Tartrate (Lopressor) 12.5 mg PO Q12 [facility] Last Admin: 03/01/18 08:49 Dose: 12.5 mg Mirtazapine (Remeron) 15 mg PO HS [facility] Last Admin: 02/28/18 22:12 Dose: 15 mg Multivitamins/Minerals (Therapeutic-M Tab) 1 tab PO DAILY [facility] Last Admin: 03/01/18 08:50 Dose: 1 tab Oxycodone/Acetaminophen (Percocet 5/325 Mg Tab) 1 tab PO Q6 PRN PRN Reason: Pain, severe (8-10) Stop: 03/03/18 20:29 Last Admin: 03/01/18 06:11 Dose: 1 tab Fluticasone/Salmeterol (Advair Diskus 250/50) 1 puff IH Q12 [facility] Last Admin: 03/01/18 08:51 Dose: 1 puff Sitagliptin Phosphate (Januvia) 25 mg PO DAILY [facility] Last Admin: 03/01/18 10:00 Dose: 25 mg Spironolactone (Aldactone) 12.5 mg PO DAILY [facility] Last Admin: 03/01/18 08:48 Dose: 12.5 mg Tramadol HCl (Ultram) 50 mg PO Q4 PRN PRN Reason: Pain, moderate (4-7) Last Admin: 03/01/18 16:21 Dose: 50 mg Physical Exam - Constitutional Appears: Well - Eye Exam Eye Exam: EOMI Pupil Exam: NORMAL ACCOMODATION - ENT Exam ENT Exam: Mucous Membranes Moist - Neck Exam Neck exam: Positive for: Normal Inspection - Respiratory Exam Respiratory Exam: Clear to Auscultation Bilateral, NORMAL BREATHING PATTERN - Cardiovascular Exam Cardiovascular Exam: REGULAR RHYTHM - GI/Abdominal Exam GI & Abdominal Exam: Normal Bowel Sounds - Rectal Exam Rectal Exam: NORMAL INSPECTION - Exam External exam: NORMAL EXTERNAL EXAM - Extremities Exam Extremities exam: Positive for: normal inspection Additional comments: patient with weakness of the extremity - Back Exam Back exam: NORMAL INSPECTION - Neurological Exam Neurological exam: Alert - Psychiatric Exam Psychiatric exam: Normal Mood - Skin Skin Exam: Normal Color Results - Vital Signs Recent Vital Signs: Last Vital Signs Temp 97.8 F 03/01/18 08:35 Pulse 87 03/01/18 12:57 Resp 21 03/01/18 08:35 BP 138/81 03/01/18 12:57 Pulse Ox 97 03/01/18 12:57 - Labs Labs: Laboratory Results - last 24 hr 02/28/18 03/01/18 03/01/18 20:53 05:59 11:53 POC Glucose (mg/dL) 252 H 330 H 445 H* Assessment & Plan (1) Acute kidney failure Status: Acute (2) Adjustment disorder with depressed mood Status: Acute (3) Colitis Status: Acute (4) Diabetes mellitus, insulin dependent (IDDM), uncontrolled Status: Acute Priority: High (5) Hyperglycemia Status: Acute (6) Metabolic acidosis Status: Acute Priority: High (7) Renal insufficiency Status: Acute Priority: High (8) Subdural hematoma Assessment and Plan: plan for physical, occupational, rec therapy for range of motion, strengthening, transfers and gait training. covering for Dr Gastelum. Status: Acute Priority: High
--- NOTE | 2018-03-01 19:15 | PCM.OPOC ---
Physiatry Overall Plan of Care - Overall Plan of Care Estimated Length of Stay in Weeks: 3 Rehab Impairment: Mobility, Gait, Balance, Coordination Etiologic Diagnosis: Traumatic Brain Injury Rehab/Medical Prognosis: Fair - Anticipated Interventions Physical Therapy:: Yes Occupational Therapy:: Yes Speech Therapy:: Yes Recreational Therapy:: Yes - Therapy Goals Bed Mobility: Independent Ambulation: Supervision Functional Positional Changes:: Independent - Functional Outcomes Functional Outcomes: fair - Discharge Plan Identification of Barriers to Discharge: Cognition Discharge Destination: Home
[2018-03-01] MEDS: Insulin Lispro (humaLOG) 100 Units/ml Inj SC SCH (21:29)
[2018-03-01] MEDS ORDERED: Insulin Detemir 100 Units/ml Inj SC SCH (22:00)
[2018-03-02] MEDS: Levothyroxine 125 MCG TAB PO SCH (06:57)
[2018-03-02] MEDS: Insulin Lispro (humaLOG) 100 Units/ml Inj SC SCH ×4 (07:18→22:08)
[2018-03-02 08:15] LABS: ALB/GLOB RATIO 1.2 (1.0-2.1); ALBUMIN 3.5 g/dL (3.5-5.0); ALT/SGPT 20 U/L (9-52); AST/SGOT 20 U/L (14-36); BLOOD UREA NITROGEN 9 mg/dl (7-17); CALCIUM 9.4 mg/dL (8.4-10.2); GFR NON-AFRICAN AMERICAN > 60
[2018-03-02 08:23] LABS: BASO % 1.1 % (0.0-2.0); EOS # 0.3 K/uL (0.0-0.7); EOS % 6.3 % (0.0-4.0); HEMOGLOBIN 10.7 g/dL (12.0-16.0); LYMPH # 0.8 K/uL (1.0-4.3); LYMPH % 17.3 % (20.0-40.0); MEAN CELL VOLUME 85.1 fl (81.0-99.0); MEAN CORPUSCULAR HEMOGLOBIN 30.2 pg (27.0-31.0); MEAN CORPUSCULAR HGB CONC 35.4 g/dL (33.0-37.0); MEAN PLATELET VOLUME 8.2 fl (7.2-11.7); MONO # 0.7 K/uL (0.0-0.8); MONO % 14.8 % (0.0-10.0); NEUT # 2.7 K/uL (1.8-7.0); NEUT % 60.5 % (50.0-75.0); RBC 3.54 Mil/uL (3.80-5.20); RED CELL DISTRIBUTION WIDTH 17.8 % (11.5-14.5); WHITE BLOOD COUNT 4.5 K/uL (4.8-10.8)
[2018-03-02 08:34] LABS: INR 1.1; PROTHROMBIN TIME 12.4 Seconds (9.8-13.1)
[2018-03-02 08:36] LABS: PARTIAL THROMBOPLASTIN TIME 27.8 Seconds (25.6-37.1)
[2018-03-02] MEDS: Lidocaine 5% Patch TD SCH (09:04)
[2018-03-02] MEDS: Fluticasone-Salmeterol 250-50mcg Diskus IH SCH ×2 (09:06→21:13)
[2018-03-02] MEDS: Multivitamin With Minerals Tab PO SCH (09:10)
[2018-03-02] MEDS: Oxycodone/Acetaminophen 5/325 mg Tab PO PRN ×3 (11:11→23:28)
[2018-03-02] MEDS ORDERED: Insulin Detemir 100 Units/ml Inj SC SCH (22:00)
[2018-03-03] MEDS ORDERED: Insulin Lispro (humaLOG) 100 Units/ml Inj SC ONE (00:15)
[2018-03-03] MEDS: Levothyroxine 125 MCG TAB PO SCH (06:41)
[2018-03-03] MEDS: Insulin Lispro (humaLOG) 100 Units/ml Inj SC SCH ×4 (07:26→22:47)
[2018-03-03] MEDS: Oxycodone/Acetaminophen 5/325 mg Tab PO PRN ×2 (08:17→17:25)
[2018-03-03] MEDS: Multivitamin With Minerals Tab PO SCH (08:22)
[2018-03-03] MEDS: Lidocaine 5% Patch TD SCH (08:25)
[2018-03-03] MEDS: Fluticasone-Salmeterol 250-50mcg Diskus IH SCH ×2 (08:25→21:54)
--- NOTE | 2018-03-03 08:51 | CP.PCM.PN ---
Subjective - Date & Time of Evaluation Date of Evaluation: 03/03/18 Time of Evaluation: 10:49 - Subjective Subjective: 77 yr old female with past medical history of PMHx includes CAD s/p CABG (Nov 2017), pacemaker, HTN, HLD, IDDM type 2, hypothyroidism, Systolic CHF, asthma, depression and anxiety was admitted to acute rehab for PT/OT s/p large subdural hematoma due to mechanical fall. Patient was in ICU for 4 days where she remained with no neurological deficits and repeat CT head showed stable subdural hematoma. Per discussion with Dr. Petersen, aspirin and plavix will be held for 4 weeks [address] a repeat CT head will be done in 4 weeks. Patient denies chest pain, SOB, headaches or dizziness. Patient has complaint of right arm pain since mechanical fall, RUE xray negative, pain managed with medication. Patient seen working with PT and states she feeling better. Objective - Vital Signs/Intake and Output Vital Signs (last 24 hours): Temp Pulse Resp BP Pulse Ox 97.3 F L 85 20 140/77 99 03/03/18 07:37 03/03/18 08:23 03/03/18 07:37 03/03/18 08:24 03/03/18 07:37 - Medications Medications: Current Medications Acetaminophen (Tylenol 325mg Tab) 650 mg PO Q4 PRN PRN Reason: Pain, Mild (1-3) Albuterol (Ventolin Hfa 90 Mcg/Actuation (8 G)) 2 puff IH Q6 PRN PRN Reason: Shortness of Breath Atorvastatin Calcium (Lipitor) 40 mg PO HS [facility] Last Admin: 03/02/18 21:14 Dose: 40 mg Dextrose (Dextrose 50% Inj) 0 ml IV STAT PRN; Protocol PRN Reason: Hypoglycemia Protocol Dextrose (Glutose 15) 0 gm PO ONCE PRN; Protocol PRN Reason: Hypoglycemia Protocol Escitalopram Oxalate (Lexapro) 10 mg PO DAILY [facility] Last Admin: 03/03/18 08:24 Dose: 10 mg Famotidine (Pepcid) 20 mg PO DAILY [facility] Last Admin: 03/03/18 08:27 Dose: 20 mg Furosemide (Lasix) 40 mg PO DAILY [facility] Last Admin: 03/03/18 08:24 Dose: 40 mg Glucagon (Glucagen Diagnostic Kit) 0 mg IM STAT PRN; Protocol PRN Reason: Hypoglycemia Protocol Insulin Detemir (Levemir) 48 units SC HS [facility] Insulin Human Lispro (Humalog) 0 units SC AC [facility]; Protocol Levothyroxine Sodium (Synthroid) 125 mcg PO DAILY@0630 [facility] Last Admin: 03/03/18 06:41 Dose: 125 mcg Lidocaine (Lidoderm) 1 ea TD DAILY [facility] Stop: 03/07/18 09:01 Last Admin: 03/03/18 08:25 Dose: 1 ea Losartan Potassium (Cozaar) 25 mg PO DAILY [facility] Last Admin: 03/03/18 08:23 Dose: 25 mg Memantine (Namenda) 5 mg PO HS [facility] Last Admin: 03/02/18 21:14 Dose: 5 mg Metoprolol Tartrate (Lopressor) 12.5 mg PO Q12 [facility] Last Admin: 03/03/18 08:23 Dose: 12.5 mg Mirtazapine (Remeron) 15 mg PO HS [facility] Last Admin: 03/02/18 21:14 Dose: 15 mg Multivitamins/Minerals (Therapeutic-M Tab) 1 tab PO DAILY [facility] Last Admin: 03/03/18 08:22 Dose: 1 tab Oxycodone/Acetaminophen (Percocet 5/325 Mg Tab) 1 tab PO Q6 PRN PRN Reason: Pain, severe (8-10) Stop: 03/03/18 20:29 Last Admin: 03/03/18 08:17 Dose: 1 tab Fluticasone/Salmeterol (Advair Diskus 250/50) 1 puff IH Q12 [facility] Last Admin: 03/03/18 08:25 Dose: 1 puff Sitagliptin Phosphate (Januvia) 25 mg PO DAILY [facility] Last Admin: 03/03/18 08:23 Dose: 25 mg Spironolactone (Aldactone) 12.5 mg PO DAILY [facility] Last Admin: 03/03/18 08:22 Dose: 12.5 mg Tramadol HCl (Ultram) 50 mg PO Q4 PRN PRN Reason: Pain, moderate (4-7) Last Admin: 03/01/18 16:21 Dose: 50 mg - Labs Labs: 03/02/18 05:30 03/02/18 05:30 PT 12.4 Seconds (9.8-13.1) 03/02/18 05:30 INR 1.1 03/02/18 05:30 APTT 27.8 Seconds (25.6-37.1) 03/02/18 05:30 - Constitutional Appears: Well, Non-toxic, No Acute Distress - Head Exam Head Exam: ATRAUMATIC, NORMOCEPHALIC - Eye Exam Eye Exam: Normal appearance, PERRL - ENT Exam ENT Exam: Mucous Membranes Moist, Normal Exam - Neck Exam Neck Exam: Full ROM. absent: Lymphadenopathy - Respiratory Exam Respiratory Exam: Clear to Ausculation Bilateral, NORMAL BREATHING PATTERN. absent: Rales, Rhonchi, Wheezes - Cardiovascular Exam Cardiovascular Exam: REGULAR RHYTHM, +S1, +S2 - GI/Abdominal Exam GI & Abdominal Exam: Soft, Normal Bowel Sounds. absent: Firm, Guarding, Rigid - Extremities Exam Extremities Exam: Full ROM, Normal Capillary Refill - Neurological Exam Neurological Exam: Alert, Awake, Oriented x3 - Psychiatric Exam Psychiatric exam: Normal Affect, Normal Mood - Skin Skin Exam: Normal Color Assessment and Plan - Assessment and Plan (Free Text) Assessment: 77 yr old female with past medical history of PMHx includes CAD s/p CABG (Nov 2017), pacemaker, HTN, HLD, IDDM type 2, hypothyroidism, Systolic CHF, asthma, depression and anxiety was admitted to acute rehab for PT/OT s/p large subdural hematoma due to mechanical fall. Patient was in ICU for 4 days where she remained with no neurological deficits and repeat CT head showed stable subdural hematoma. Per discussion with Dr. Petersen, aspirin and plavix will be held for 4 weeks and a repeat CT head will be done in 4 weeks. Patient denies chest pain, SOB, headaches or dizziness. Patient has complaint of right arm pain since mechanical fall, RUE xray negative, pain managed with medication. Patient seen working with PT and states she feeling better. Plan: 1. Subdural Hematoma -acute, stable -no neurological deficits -neuro checks Qshift -repeat CT head w/o contrast (on approx 2018) -hold ASA and plavix for [address] head -stable from Neurosurgery standpoint (Dr. Monet) 2. Persistent Right Shoulder pain -acute, symptomatic -Cervical CT: no acute fractures -Clavicle X-ray: no fractures, degenerative changes noted -Forearm X-ray: no fractures or dislocations -Humerus X-ray: no fractures or dislocations -Right Shoulder X-ray: no acute fractures -Lidoderm patch ordered for patient, Tylenol PRN mild, Tramadol PRN moderate, Percocet PRN severe 3. IDDM Type 2 -chronic and uncontrolled -HbA1c 9.4 on 02/26/18 -Hypoglycemia protocol in place -Accuchecks ACHS, Insulin Regular coverage scale ACHS medium dose protocol, Levemir 48 units SCHS, Januvia 25mg PO QD, -moderate carbohydrate diet/heart healthy diet 4. Depression -chronic, controlled -Remeron 15 mg PO QHS and Lexapro 10 mg PO QD- cleared by Zane on 02/20/18 -will titrate Lexapro up to 20mg PO QD tomorrow (was patients home dose) 5. Hypothyrodism -chronic, controlled -TSH 2.65 on 02/26/18 -continue Levothyroxine 125 mcg PO QD 6. HTN/HLD/CAD -chronic, controlled -Metoprolol 12.5mg PO Q12 -s/p CABG 11/2017 -troponin negative x 1 -no change in EKG from previous 7. Systolic CHF -chronic, controlled, s/p pacemaker -ECHO 10/2017: systolic dysfunction EF 30-35% -continue lasix 40mg PO QD, per Dr. Petersen, started Losartan 25mg PO QD, Spironolactone 12.5mg PO QD 8. Asthma/COPD -controlled -continue Ventolin HFA PRN, Advair 250/50 1puff Q12 10. DVT prophylaxis - SCDs for now, recent subdural hematoma - hold ASA and plavix, or any anticoagulant for 4 weeks (Mar 28, 2018
--- NOTE | 2018-03-03 19:58 | CARD ---
APPROVED REPORT Date of service: 03/03/2018 EXAM: Two-dimensional and M-mode echocardiogram with Doppler and color Doppler. Other Information Quality : GoodRhythm : Pacemaker INDICATION Hypertension/HCVD Cardiac Disease: CAD Surgery/Intervention Pacemaker: CABG: Date: 2017 2D DIMENSIONS IVSd1.48 (0.7-1.1cm)LVDd4.86 (3.9-5.9cm) LVOT Diameter2.07 (1.8-2.4cm)PWd1.28 (0.7-1.1cm) IVSs1.59 (0.8-1.2cm)LVDs4.13 (2.5-4.0cm) FS (%) 15.1 %PWs1.29 (0.8-1.2cm) M-Mode DIMENSIONS Left Atrium (MM)4.18 (2.5-4.0cm)IVSd1.12 (0.7-1.1cm) Aortic Root3.12 (2.2-3.7cm)LVDd5.76 (4.0-5.6cm) Aortic Cusp Exc.1.97 (1.5-2.0cm)PWd0.94 (0.7-1.1cm) IVSs1.50 cmFS (%) 18 % LVDs4.74 (2.0-3.8cm)PWs1.26 cm Aortic Valve AoV Peak Azhlsbfl225.6cm/sAoV VTI22.8cmAO Peak GR.6mmHg LVOT Peak Tktzucja93.5cm/sLVOT VTI11.14cmAO Mean GR.3mmHg ASHLI (VMAX)0.35rx7QCI (VTI)0.92cm2 Mitral Valve E/A ratio0.0 TDI E/Lateral E'0.0E/Medial E'0.0 LEFT VENTRICLE The Left Ventricle is borderline dilated. There is normal left ventricular wall thickness. The systolic function is severely impaired. The estimated ejection fraction is 25-30% Septal motion consistent with post-operative state.Hypokinesis of septum and apical barron. The left ventricular diastolic function is normal. No left ventricle thrombus noted on this study. There is no ventricular septal defect visualized. There is no left ventricular aneurysm. There is no mass noted in the left ventricle. RIGHT VENTRICLE The right ventricle is normal size. There is normal right ventricular wall thickness. The right ventricular systolic function is normal. Questionanble pacer wire traversing RV ATRIA The left atrium is mildly dilated. The right atrium size is normal.Calcified lesion noted- questionable pacer lead The interatrial septum is intact with no evidence for an atrial septal defect. AORTIC VALVE The aortic valve is normal in structure. No aortic regurgitation is present. There is no aortic valvular stenosis. There is no aortic valvular vegetation. MITRAL VALVE Mitral annular calcification is mild. There is no evidence of mitral valve prolapse. There is no mitral valve stenosis. Mitral regurgitation is mild to moderate. TRICUSPID VALVE The tricuspid valve is normal in structure. There is trace tricuspid regurgitation.Estimated peak RVSP= 30mm Hg There is no tricuspid valve prolapse or vegetation. There is no tricuspid valve stenosis. PULMONIC VALVE The pulmonary valve is normal in structure. There is no pulmonic valvular regurgitation. There is no pulmonic valvular stenosis. GREAT VESSELS The aortic root is normal in size. The ascending aorta is normal in size. The pulmonary artery is normal. The IVC is normal in size and collapses >50% with inspiration. PERICARDIAL EFFUSION There is no pericardial effusion. There is no pleural effusion. <Conclusion> Borderline LVE. The estimated ejection fraction is 25-30% Paradoxical septal wall motion with hypokinesis of the septal and apical barron Mild LAE Mildly calcified MVA with mild to moderate mr Trace TR with normal estimated peak RVSP Questionable pacer leads traversing RA and RV- CCR
[2018-03-03] MEDS: Docusate-Senna 50 mg-8.6 mg Tab PO SCH (21:19)
[2018-03-03] MEDS ORDERED: Insulin Detemir 100 Units/ml Inj SC SCH (22:00)
[2018-03-03] MEDS ORDERED: Oxycodone/Acetaminophen 5/325 mg Tab PO PRN (22:47)
[2018-03-04] MEDS: Levothyroxine 125 MCG TAB PO SCH (05:34)
[2018-03-04] MEDS: Insulin Lispro (humaLOG) 100 Units/ml Inj SC SCH ×3 (07:00→17:00)
[2018-03-04] MEDS: Fluticasone-Salmeterol 250-50mcg Diskus IH SCH ×2 (08:23→21:11)
[2018-03-04] MEDS: Lidocaine 5% Patch TD SCH (08:26)
[2018-03-04] MEDS: Multivitamin With Minerals Tab PO SCH (08:27)
--- NOTE | 2018-03-04 12:35 | CP.PCM.PN ---
Subjective - Date & Time of Evaluation Date of Evaluation: 03/04/18 Time of Evaluation: 12:33 - Subjective Subjective: 77 yr old female with past medical history of PMHx includes CAD s/p CABG (Nov 2017), pacemaker, HTN, HLD, IDDM type 2, hypothyroidism, Systolic CHF, asthma, depression and anxiety was admitted to acute rehab for PT/OT s/p large subdural hematoma due to mechanical fall. Patient was in ICU for 4 days where she remained with no neurological deficits and repeat CT head showed stable subdural hematoma. Per discussion with Dr. Petersen, aspirin and plavix will be held for 4 weeks and a repeat CT head will be done in 4 weeks. Patient denies chest pain, SOB, headaches or dizziness. Patient has complaint of right arm pain since mechanical fall, RUE xray negative, pain managed with medication. Patient seen working with PT and states she feeling better. Objective - Vital Signs/Intake and Output Vital Signs (last 24 hours): Temp Pulse Resp BP Pulse Ox 97.9 F 90 20 122/66 99 03/04/18 09:14 03/04/18 09:14 03/04/18 09:14 03/04/18 09:14 03/04/18 09:14 - Medications Medications: Current Medications Acetaminophen (Tylenol 325mg Tab) 650 mg PO Q4 PRN PRN Reason: Pain, Mild (1-3) Albuterol (Ventolin Hfa 90 Mcg/Actuation (8 G)) 2 puff IH Q6 PRN PRN Reason: Shortness of Breath Atorvastatin Calcium (Lipitor) 40 mg PO HS [facility] Last Admin: 03/03/18 21:19 Dose: 40 mg Dextrose (Dextrose 50% Inj) 0 ml IV STAT PRN; Protocol PRN Reason: Hypoglycemia Protocol Dextrose (Glutose 15) 0 gm PO ONCE PRN; Protocol PRN Reason: Hypoglycemia Protocol Docusate Sodium (Colace) 100 mg PO DAILY [facility] Last Admin: 03/04/18 08:25 Dose: 100 mg Escitalopram Oxalate (Lexapro) 10 mg PO DAILY [facility] Last Admin: 03/04/18 08:27 Dose: 10 mg Famotidine (Pepcid) 20 mg PO DAILY [facility] Last Admin: 03/04/18 08:27 Dose: 20 mg Furosemide (Lasix) 40 mg PO DAILY [facility] Last Admin: 03/04/18 08:57 Dose: 40 mg Glucagon (Glucagen Diagnostic Kit) 0 mg IM STAT PRN; Protocol PRN Reason: Hypoglycemia Protocol Insulin Detemir (Levemir) 48 units SC HS [facility] Last Admin: 03/03/18 21:20 Dose: 48 units Insulin Human Lispro (Humalog) 0 units SC [facility]; Protocol Last Admin: 03/04/18 12:15 Dose: 6 units Levothyroxine Sodium (Synthroid) 125 mcg PO DAILY@0630 [facility] Last Admin: 03/04/18 05:34 Dose: 125 mcg Lidocaine (Lidoderm) 1 ea TD DAILY [facility] Stop: 03/07/18 09:01 Last Admin: 03/04/18 08:26 Dose: 1 ea Losartan Potassium (Cozaar) 25 mg PO DAILY [facility] Last Admin: 03/04/18 08:26 Dose: 25 mg Memantine (Namenda) 5 mg PO HS [facility] Last Admin: 03/03/18 21:19 Dose: 5 mg Metoprolol Tartrate (Lopressor) 12.5 mg PO Q12 [facility] Last Admin: 03/04/18 08:23 Dose: 12.5 mg Mirtazapine (Remeron) 15 mg PO HS [facility] Last Admin: 03/03/18 21:19 Dose: 15 mg Multivitamins/Minerals (Therapeutic-M Tab) 1 tab PO DAILY [facility] Last Admin: 03/04/18 08:27 Dose: 1 tab Oxycodone/Acetaminophen (Percocet 5/325 Mg Tab) 1 tab PO Q6 PRN PRN Reason: Pain, severe (8-10) Stop: 03/06/18 22:48 Fluticasone/Salmeterol (Advair Diskus 250/50) 1 puff IH Q12 [facility] Last Admin: 03/04/18 08:23 Dose: 1 puff Senna/Docusate Sodium (Senokot S 50 Mg-8.6 Mg) 1 tab PO HS [facility] Last Admin: 03/03/18 21:19 Dose: 1 tab Sitagliptin Phosphate (Januvia) 25 mg PO DAILY [facility] Last Admin: 03/04/18 08:25 Dose: 25 mg Spironolactone (Aldactone) 12.5 mg PO DAILY [facility] Last Admin: 03/04/18 08:27 Dose: 12.5 mg Tramadol HCl (Ultram) 50 mg PO Q4 PRN PRN Reason: Pain, moderate (4-7) Last Admin: 03/04/18 10:27 Dose: 50 mg - Labs Labs: 03/02/18 05:30 03/02/18 05:30 PT 12.4 Seconds (9.8-13.1) 03/02/18 05:30 INR 1.1 03/02/18 05:30 APTT 27.8 Seconds (25.6-37.1) 03/02/18 05:30 - Constitutional Appears: Well, Non-toxic, No Acute Distress - Head Exam Head Exam: ATRAUMATIC, NORMOCEPHALIC - Eye Exam Eye Exam: Normal appearance, PERRL - ENT Exam ENT Exam: Mucous Membranes Moist - Neck Exam Neck Exam: Full ROM. absent: Lymphadenopathy - Respiratory Exam Respiratory Exam: Clear to Ausculation Bilateral, NORMAL BREATHING PATTERN. absent: Rales, Rhonchi, Wheezes - Cardiovascular Exam Cardiovascular Exam: REGULAR RHYTHM, +S1, +S2 - GI/Abdominal Exam GI & Abdominal Exam: Soft, Normal Bowel Sounds. absent: Firm, Guarding, Rigid - Neurological Exam Neurological Exam: Alert, Awake, Oriented x3 - Psychiatric Exam Psychiatric exam: Normal Affect, Normal Mood - Skin Skin Exam: Normal Color Assessment and Plan - Assessment and Plan (Free Text) Assessment: 77 yr old female with past medical history of PMHx includes CAD s/p CABG (Nov 2017), pacemaker, HTN, HLD, IDDM type 2, hypothyroidism, Systolic CHF, asthma, depression and anxiety was admitted to acute rehab for PT/OT s/p large subdural hematoma due to mechanical fall. Patient was in ICU for 4 days where she remained with no neurological deficits and repeat CT head showed stable subdural hematoma. Per discussion with Dr. Petersen, aspirin and plavix will be held for 4 weeks and a repeat CT head will be done in 4 weeks. Patient denies chest pain, SOB, headaches or dizziness. Patient has complaint of right arm pain since mechanical fall, RUE xray negative, pain managed with medication. Patient seen working with PT and states she feeling better. Plan: 1. Subdural Hematoma -acute, stable -no neurological deficits -neuro checks Qshift -repeat CT head w/o contrast (on approx 2018) -hold ASA and plavix for [address] head -stable from Neurosurgery standpoint (Dr. Monet) 2. Persistent Right Shoulder pain -acute, symptomatic -Cervical CT: no acute fractures -Clavicle X-ray: no fractures, degenerative changes noted -Forearm X-ray: no fractures or dislocations -Humerus X-ray: no fractures or dislocations -Right Shoulder X-ray: no acute fractures -Lidoderm patch ordered for patient, Tylenol PRN mild, Tramadol PRN moderate, Percocet PRN severe 3. IDDM Type 2 -chronic and uncontrolled -HbA1c 9.4 on 02/26/18 -Hypoglycemia protocol in place -Accuchecks ACHS, Insulin Regular coverage scale ACHS medium dose protocol, Levemir 48 units SCHS, Januvia 25mg PO QD, -moderate carbohydrate diet/heart healthy diet 4. Depression -chronic, controlled -Remeron 15 mg PO QHS and Lexapro 10 mg PO QD- cleared by Zane on 02/20/18 -will titrate Lexapro up to 20mg PO QD tomorrow (was patients home dose) 5. Hypothyrodism -chronic, controlled -TSH 2.65 on 02/26/18 -continue Levothyroxine 125 mcg PO QD 6. HTN/HLD/CAD -chronic, controlled -Metoprolol 12.5mg PO Q12 -s/p CABG 11/2017 -troponin negative x 1 -no change in EKG from previous 7. Systolic CHF -chronic, controlled, s/p pacemaker -ECHO 10/2017: systolic dysfunction EF 30-35% -continue lasix 40mg PO QD, per Dr. Petersen, started Losartan 25mg PO QD, Spironolactone 12.5mg PO QD 8. Asthma/COPD -controlled -continue Ventolin HFA PRN, Advair 250/50 1puff Q12 10. DVT prophylaxis - SCDs for now, recent subdural hematoma - hold ASA and plavix, or any anticoagulant for 4 weeks (Mar 28, 2018)
--- NOTE | 2018-03-04 13:28 | PCM.PSYTMC ---
Acute Rehab Team Conference - - Vital Signs: Vital Signs (Last 8 Hours): Vital Signs 03/04/18 03/04/18 03/04/18 07:42 08:23 08:26 Temperature 97.6 F Pulse Rate 78 72 78 Respiratory 20 Rate Blood Pressure 129/80 139/88 144/89 O2 Sat by Pulse Oximetry 03/04/18 03/04/18 03/04/18 08:57 09:00 09:14 Temperature 97.2 F L 97.9 F Pulse Rate 78 90 Respiratory 20 20 Rate Blood Pressure 144/69 133/78 122/66 O2 Sat by Pulse 99 Oximetry Pain: 0 - Precautions: Precautions: Fall Prevention - Toileting: Toileting: Contact Guard - Bladder Management: Bladder Pattern: Normal Voiding Method: Toilet Bladder Management: Independent - Transfers: Transfers: Contact Guard - ADL's: ADL's: Contact Guard - Pain Management: Other Intervention:: on pain medication. managed by glass loading equipment tender - Patient/Family Teaching: Other Intervention:: re: fall precaution. - Goals/Time Frame: Comment: patient free from pain. 0/10. noted. - Provider: Registered Nurse:: Bruce Rivera Physical Therapy - Bed Mobility Bed Mobility: Verbal Cues, Minimal Assistance - Transfers Wheelchair to Mat: Verbal Cues, Minimal Assistance Sit to Stand: Verbal Cues, Minimal Assistance - Ambulation Level of Assistance: Verbal Cues, Minimal Assistance Distance (ft.): 45 Assistive Devices: Rolling Walker Comment: -45 feet x 4 trials with rolling walker. -min A for safety with WC follow. -impaired reciprocal pattern utilized. -patient with decreased B step length, decreased step height, narrow base of support, forward flexion, increased dependence with BUE support on walker. -hands on assistance for walker negotiation, weight shifting and stability. -seated rest breaks between trials - Stair Negotiation Stairs: Level of Assistance: Not Tested Comment: to be assessed - Standing Balance Static Stand: Minimal Assistance Comment: RW - Pain Pain (assessed during therapy session): 8 Alleviating Techniques: Medication, Heat, Distraction, Exercise, Inactivity Comment: R shoulder, L shoulder, R upper trapezius area. -improved with heat application - Insight/Carryover Insight/Carryover: Fair - Patient/Family Education Comment: -patient educated on technique to remove and replace self removable seatbelt which was applied as per MD order to WC along with alarm for patient's safety. -therapy schedule, therapy goals, safety techniques, mobility, recovery process, use of call chowdhury, participation in therapy, benefits of OOB, DME - Assessment/Plan Assessment: Ms. Walden appears to have performed better with physical therapy today compared to evaluation. Pt was able to ambulate with assistance with use of a walker. Pt benefits from distraction techniques from her pain which she reports is long standing and not new. Pt tolerated moist heat well and had limited complaints of pain with this movie writer for remainder of session. Patient has impaired motor control as well as functional weakness which impact her ability to safely perform mobility without assistance. Pt will greatly benefit from continued skilled PT to maximize safety and independence with all mobility with emphasis on reduction of burden of care. PT recommends home discharge with 24 hour supervision pending progress with DME as needed and home PT services. - Goals Timeframe: 7 days Goals: -CG with bed/mat mobility. -CG with transfers with RW. -CG with gait x 100 feet with RW. -1 flight of steps with B rails with min A - Provider Physical Therapist:: Yesenia Saini License Number:: [id number] Occupational Therapy - Arousal/Attention/Orientation Level of Consciousness: Awake, Alert, Forgetful Patient Orientation: Person, Place - ADL/IADL Self Feeding: Supervision, Verbal Cues, Set-up Help Grooming: Supervision, Verbal Cues, Set-up Help Dressing-Upper Ext: Moderate Assistance Dressing-Lower Ext: Moderate Assistance - Sitting Balance Static Sitting: Independent with upper extremity support Dynamic Sitting: Requires supervision - Transfers Wheelchair to Bed Transfers: Minimal Assistance Toilet Transfers: Minimal Assistance - Wheelchair Management Level of Assistance: Minimal Assistance Distance (ft.): 25 - Upper Extremity Status Right Upper Extremity Comment: AROM 90 degrees, unable to attain full forward flexion 2' pain. patient able to attain shoulder external/internal rotation Left Upper Extremity Comment: AROM WFLs. pain in L wrist - Pain Pain (assessed during therapy session): 8 Alleviating Techniques: Medication, Massage, Position Change, Distraction Comment: R shoulder 8/10. L wrist 4/10. back of neck /10 - Insight/Carryover Insight/Carryover: Fair - Patient/Family Education Comment: role of OT, goals of therapy, dme/ae education - Assessment/Plan Assessment: patient is 77 yo female presenting to [facility] rehab s/p mechancial fall resulting in subdural hematoma. PRECAUTIONS: SAFETY, CARDIAC, PACEMAKER PLACEMENT. patient currently presents with pain in her Left wrist, R shoulder, LUE/LE weakness, reports of double vision , impaired dynamic stianding balance , impaired activity tolerance, impaired congition/impaired safety awarenes and impaired knowlegde of adaptive and compensatory techs. These aforementioned defecits impact pt's ability to complete adls, transfers and mobility safely and effectively. communication with md regarding pain and double vision . recommend vision screen. patient is able to complete ub adls with min-mod A, toileting with mod A and lb adls with mod A and transfers with mod A. recommend skilled IP OT services 5-6x/week to maximize pt's functional I - Provider Occupational Therapist:: Gilda Jiang License Number: [id number] Speech Therapy - Consult Information Patient on Program: Yes Medical Diagnosis: subdural hematoma Treatment Diagnosis: mild cognitive-linguistic deficits - Assessment Memory Impairment: Mild - Plan Assessment: Daysi Walden presents with mild cognitive-linguistic deficits characterized by impaired short-term recall and thought organization. 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 Pt would benefit from skilled speech tx for improved cognition and functional independence. Plan: Continue Speech/Language Therapy Frequency: 3-5 times per week Duration: 1 week Goals/Timeframe: Please see IE completed 03/03/18 for complete goals/POC Recommendations: Speech tx 3-5x/week for improved cognition - Provider Therapist: Evi Phelan License Number: [id number] Recreational Therapy - Participation Participation: Monitors His/Her Own Leisure Time - Attendance Attendance: Daily - Activities Leisure Activities: Television - Socialization Level of Socialization: Initiates/interacts freely with care givers and peer - Diversional Time Diversional Time: television - Assessment Assessment/Plan: Pt was oriented to and educated about the benefits of participating in recreation therapy sessions throughout stay on unit. Pt presented with increase level of pain and required re-education about the purpose of recreation therapy. Pt would benefit from recreation therapy to improve leisure awareness level and diversion from pain and anxiety. Will encourage pt to participate in recreation therapy sessions throughout stay on unit. Problems Currently Limiting Participation: pain, decrease leisure awareness level, decrease activity tolerance level, anxiety Goals and Time Frame: Pt will be encouraged to participate in 1:1 and group recreation therapy sessions 3-5x week to improve activity tolerance level, leisure awareness level, diversion from pain, decrease anxiety level, and improve overall mood state by date of discharge. - Provider Therapist: Pamela Dumont Nutrition - Current Diet Current Diet/Supplement/Feedings: Moderate consistent CHO heart healthy diet glucerna shake 8 ounces 2 per day(440 kcal and 20 grams of protein) - Appetite Percent Meal Consumed: 50-74% - Assessment/Goals/Time Frame Assessments/Goals/Time Frame: Pt at high nutritional risk. goals: 1: Consume >75% of meals. 2: Deter further wt loss. 3: Improve BG closer to 70-180 mL/dL range. Follow-up due on 03/06/2018 - Provider Provider: Anuja Gastelum Case Management - Psychosocial Assessment Support Systems: Amrita Espinoza (daughter) - [phone] Psychological Interventions/Needs: Patient is awake and alert with some forgetfulness. Discharge Concerns: Patient lives alone in a second floor apartment with no elevator access. Hx of falls. Patient/Family Meeting: CM met with patient and rehab team. Intervention/Goal/Outcome: 1. Goal: 24hr supervision 2. Plan: home with VNS 3. DME needs 4. schedule follow up appointments 5. continued emotional support - Discharge Plan Discharge Plan: Home with services Home Services: [facility] - Provider Provider: Elvira Saha License Number: [id number] Rehabilitation Plan - Treatment Plan Treatment Plan: Physical Therapy, Occupational Therapy, Speech, Dietary, Patient/Family Education - Discharge Plan Estimated Date of Discharge: 03/15/18 Discharge to: Home
[2018-03-04] MEDS ORDERED: Dexamethasone 4 mg/1 ml IAA ONE (14:22)
[2018-03-04] MEDS ORDERED: Triamcinolone Acetonide 40 mg/mL Inj IAA ONE (14:22)
[2018-03-04] MEDS ORDERED: Lidocaine 1% (10 ml) Inj IAA ONE (14:22)
[2018-03-04] MEDS ORDERED: Lidocaine 1% PF (5ml) Amp INJ ONE (15:00)
--- NOTE | 2018-03-04 18:22 | PCM.PROC ---
Procedures Attestation:: I certify that I have explained the specified Operation(s) or Procedure(s), risks, benefits and reasonable alternatives to the Patient and/or other person responsible. The opportunity was given to ask questions and all questions answered - Joint Aspiration/Injection Joint #1 Consent Obtained: Verbal Consent Time Out Performed: Yes Side of Body: Right Joint Aspirated: Shoulder Ultrasound Guidance Used: No Skin Prep: Povidone-Iodine Needle Size Used: 22 G Medication Injected: Triamcinolone Acetate, Methylprednisolone, Lidocaine Patient Tolorated Procedure: Well Complications: None
--- NOTE | 2018-03-04 18:23 | CP.PCM.PN ---
Subjective - Date & Time of Evaluation Date of Evaluation: 03/04/18 Time of Evaluation: 18:22 - Subjective Subjective: Patient seen in the room c/o right shoulder pain + constipation ordered supp. and I have performed a right intra-articular injection. Objective - Vital Signs/Intake and Output Vital Signs (last 24 hours): Temp Pulse Resp BP Pulse Ox 97.9 F 93 H 20 122/66 100 03/04/18 09:14 03/04/18 13:28 03/04/18 09:14 03/04/18 09:14 03/04/18 13:28 - Medications Medications: Current Medications Acetaminophen (Tylenol 325mg Tab) 650 mg PO Q4 PRN PRN Reason: Pain, Mild (1-3) Albuterol (Ventolin Hfa 90 Mcg/Actuation (8 G)) 2 puff IH Q6 PRN PRN Reason: Shortness of Breath Atorvastatin Calcium (Lipitor) 40 mg PO HS [facility] Last Admin: 03/03/18 21:19 Dose: 40 mg Dextrose (Dextrose 50% Inj) 0 ml IV STAT PRN; Protocol PRN Reason: Hypoglycemia Protocol Dextrose (Glutose 15) 0 gm PO ONCE PRN; Protocol PRN Reason: Hypoglycemia Protocol Docusate Sodium (Colace) 100 mg PO DAILY [facility] Last Admin: 03/04/18 08:25 Dose: 100 mg Escitalopram Oxalate (Lexapro) 10 mg PO DAILY [facility] Last Admin: 03/04/18 08:27 Dose: 10 mg Famotidine (Pepcid) 20 mg PO DAILY [facility] Last Admin: 03/04/18 08:27 Dose: 20 mg Furosemide (Lasix) 40 mg PO DAILY [facility] Last Admin: 03/04/18 08:57 Dose: 40 mg Glucagon (Glucagen Diagnostic Kit) 0 mg IM STAT PRN; Protocol PRN Reason: Hypoglycemia Protocol Insulin Detemir (Levemir) 48 units SC [facility] Last Admin: 03/03/18 21:20 Dose: 48 units Insulin Human Lispro (Humalog) 0 units SC [facility]; Protocol Last Admin: 03/04/18 17:00 Dose: 8 units Levothyroxine Sodium (Synthroid) 125 mcg PO DAILY@0630 [facility] Last Admin: 03/04/18 05:34 Dose: 125 mcg Lidocaine (Lidoderm) 1 ea TD DAILY [facility] Stop: 01/18/19 09:01 Last Admin: 03/04/18 08:26 Dose: 1 ea Losartan Potassium (Cozaar) 25 mg PO DAILY [facility] Last Admin: 03/04/18 08:26 Dose: 25 mg Memantine (Namenda) 5 mg PO HS [facility] Last Admin: 03/03/18 21:19 Dose: 5 mg Metoprolol Tartrate (Lopressor) 12.5 mg PO Q12 [facility] Last Admin: 03/04/18 08:23 Dose: 12.5 mg Mirtazapine (Remeron) 15 mg PO HS [facility] Last Admin: 03/03/18 21:19 Dose: 15 mg Multivitamins/Minerals (Therapeutic-M Tab) 1 tab PO DAILY [facility] Last Admin: 03/04/18 08:27 Dose: 1 tab Oxycodone/Acetaminophen (Percocet 5/325 Mg Tab) 1 tab PO Q6 PRN PRN Reason: Pain, severe (8-10) Stop: 03/06/18 22:48 Fluticasone/Salmeterol (Advair Diskus 250/50) 1 puff IH Q12 [facility] Last Admin: 03/04/18 08:23 Dose: 1 puff Senna/Docusate Sodium (Senokot S 50 Mg-8.6 Mg) 1 tab PO HS [facility] Last Admin: 03/03/18 21:19 Dose: 1 tab Sitagliptin Phosphate (Januvia) 25 mg PO DAILY [facility] Last Admin: 03/04/18 08:25 Dose: 25 mg Spironolactone (Aldactone) 12.5 mg PO DAILY [facility] Last Admin: 03/04/18 08:27 Dose: 12.5 mg Tramadol HCl (Ultram) 50 mg PO Q4 PRN PRN Reason: Pain, moderate (4-7) Last Admin: 03/04/18 10:27 Dose: 50 mg - Labs Labs: 03/02/18 05:30 03/02/18 05:30 PT 12.4 Seconds (9.8-13.1) 03/02/18 05:30 INR 1.1 03/02/18 05:30 APTT 27.8 Seconds (25.6-37.1) 03/02/18 05:30
[2018-03-04] MEDS: Docusate-Senna 50 mg-8.6 mg Tab PO SCH (21:11)
[2018-03-04] MEDS: Insulin Detemir 100 Units/ml Inj SC SCH (21:11)
[2018-03-04] MEDS ORDERED: Insulin Regular 100 units/ml SC SCH (22:00)
[2018-03-05] MEDS: Levothyroxine 125 MCG TAB PO SCH (05:56)
[2018-03-05 07:10] LABS: BLOOD UREA NITROGEN 21 mg/dl (7-17); CALCIUM 9.3 mg/dL (8.4-10.2); GFR NON-AFRICAN AMERICAN 53
[2018-03-05] MEDS: Insulin Regular 100 units/ml SC SCH ×4 (07:20→21:33)
--- NOTE | 2018-03-05 08:17 | CP.PCM.PN ---
Subjective - Date & Time of Evaluation Date of Evaluation: 03/05/18 Time of Evaluation: 10:19 - Subjective Subjective: 77 yr old female with past medical history of PMHx includes CAD s/p CABG (Nov 2017), pacemaker, HTN, HLD, IDDM type 2, hypothyroidism, Systolic CHF, asthma, depression and anxiety was admitted to acute rehab for PT/OT s/p large subdural hematoma due to mechanical fall. Patient was in ICU for 4 days where she remained with no neurological deficits and repeat CT head showed stable subdural hematoma. Per discussion with Dr. Petersen, aspirin and plavix will be held for 4 weeks and a repeat CT head will be done in 4 weeks. Patient denies chest pain, SOB, headaches or dizziness. Patient has complaint of right arm pain since mechanical fall, RUE xray negative, pain managed with medication. Patient seen working with PT and states she feeling better. Objective - Vital Signs/Intake and Output Vital Signs (last 24 hours): Temp Pulse Resp BP Pulse Ox 97.9 F 77 22 111/59 L 96 03/05/18 08:11 03/05/18 08:11 03/05/18 08:11 03/05/18 08:11 03/05/18 08:11 - Medications Medications: Current Medications Acetaminophen (Tylenol 325mg Tab) 650 mg PO Q4 PRN PRN Reason: Pain, Mild (1-3) Albuterol (Ventolin Hfa 90 Mcg/Actuation (8 G)) 2 puff IH Q6 PRN PRN Reason: Shortness of Breath Atorvastatin Calcium (Lipitor) 40 mg PO HS [facility] Last Admin: 03/04/18 21:11 Dose: 40 mg Dextrose (Dextrose 50% Inj) 0 ml IV STAT PRN; Protocol PRN Reason: Hypoglycemia Protocol Dextrose (Glutose 15) 0 gm PO ONCE PRN; Protocol PRN Reason: Hypoglycemia Protocol Docusate Sodium (Colace) 100 mg PO DAILY [facility] Last Admin: 03/04/18 08:25 Dose: 100 mg Escitalopram Oxalate (Lexapro) 10 mg PO DAILY [facility] Last Admin: 03/04/18 08:27 Dose: 10 mg Famotidine (Pepcid) 20 mg PO DAILY [facility] Last Admin: 03/04/18 08:27 Dose: 20 mg Furosemide (Lasix) 40 mg PO DAILY [facility] Last Admin: 03/04/18 08:57 Dose: 40 mg Glucagon (Glucagen Diagnostic Kit) 0 mg IM STAT PRN; Protocol PRN Reason: Hypoglycemia Protocol Insulin Detemir (Levemir) 58 units SC HS [facility] Last Admin: 03/04/18 21:11 Dose: 58 units Insulin Human Lispro (Humalog) 8 units SC [facility] Insulin Human Regular (Humulin R) 0 units SC [facility]; Protocol Last Admin: 03/05/18 07:20 Dose: 3 units Levothyroxine Sodium (Synthroid) 125 mcg PO DAILY@0630 [facility] Last Admin: 03/05/18 05:56 Dose: 125 mcg Lidocaine (Lidoderm) 1 ea TD DAILY [facility] Stop: 03/07/18 09:01 Last Admin: 03/04/18 08:26 Dose: 1 ea Losartan Potassium (Cozaar) 25 mg PO DAILY [facility] Last Admin: 03/04/18 08:26 Dose: 25 mg Memantine (Namenda) 5 mg PO [facility] Last Admin: 03/04/18 21:11 Dose: 5 mg Metoprolol Tartrate (Lopressor) 12.5 mg PO Q12 [facility] Last Admin: 03/04/18 21:10 Dose: 12.5 mg Mirtazapine (Remeron) 15 mg PO [facility] Last Admin: 03/04/18 21:11 Dose: 15 mg Multivitamins/Minerals (Therapeutic-M Tab) 1 tab PO DAILY [facility] Last Admin: 03/04/18 08:27 Dose: 1 tab Oxycodone/Acetaminophen (Percocet 5/325 Mg Tab) 1 tab PO Q6 PRN PRN Reason: Pain, severe (8-10) Stop: 03/06/18 22:48 Fluticasone/Salmeterol (Advair Diskus 250/50) 1 puff IH Q12 [facility] Last Admin: 03/04/18 21:11 Dose: 1 puff Senna/Docusate Sodium (Senokot S 50 Mg-8.6 Mg) 1 tab PO HS [facility] Last Admin: 03/04/18 21:11 Dose: 1 tab Sitagliptin Phosphate (Januvia) 25 mg PO DAILY [facility] Last Admin: 03/04/18 08:25 Dose: 25 mg Spironolactone (Aldactone) 12.5 mg PO DAILY [facility] Last Admin: 03/04/18 08:27 Dose: 12.5 mg Tramadol HCl (Ultram) 50 mg PO Q4 PRN PRN Reason: Pain, moderate (4-7) Last Admin: 03/04/18 10:27 Dose: 50 mg - Labs Labs: 03/02/18 05:30 03/05/18 05:40 PT 12.4 Seconds (9.8-13.1) 03/02/18 05:30 INR 1.1 03/02/18 05:30 APTT 27.8 Seconds (25.6-37.1) 03/02/18 05:30 - Constitutional Appears: Well, Non-toxic, No Acute Distress - Head Exam Head Exam: ATRAUMATIC, NORMOCEPHALIC - Eye Exam Eye Exam: Normal appearance, PERRL - ENT Exam ENT Exam: Mucous Membranes Moist - Neck Exam Neck Exam: Full ROM. absent: Lymphadenopathy - Respiratory Exam Respiratory Exam: Clear to Ausculation Bilateral, NORMAL BREATHING PATTERN. absent: Rales, Rhonchi, Wheezes - Cardiovascular Exam Cardiovascular Exam: REGULAR RHYTHM, +S1, +S2 - GI/Abdominal Exam GI & Abdominal Exam: Soft, Normal Bowel Sounds. absent: Firm, Guarding, Rigid - Extremities Exam Additional comments: right shoulder pain, worse with ambulation - Neurological Exam Neurological Exam: Alert, Awake, Oriented x3 Assessment and Plan - Assessment and Plan (Free Text) Assessment: 77 yr old female with past medical history of PMHx includes CAD s/p CABG (Nov 2017), pacemaker, HTN, HLD, IDDM type 2, hypothyroidism, Systolic CHF, asthma, depression and anxiety was admitted to acute rehab for PT/OT s/p large subdural hematoma due to mechanical fall. Patient was in ICU for 4 days where she remained with no neurological deficits and repeat CT head showed stable subdural hematoma. Per discussion with Dr. Petersen, aspirin and plavix will be held for 4 weeks and a repeat CT head will be done in 4 weeks. Patient denies chest pain, SOB, headaches or dizziness. Patient has complaint of right arm pain since mechanical fall, RUE xray negative, pain managed with medication. Patient seen working with PT and states she feeling better. Plan: 1. Subdural Hematoma -acute, stable -no neurological deficits -neuro checks Qshift -repeat CT head w/o contrast (on approx 2018) -hold ASA and plavix for [address] head -stable from Neurosurgery standpoint (Dr. Monet) 2. Persistent Right Shoulder pain -acute, symptomatic -Cervical CT: no acute fractures -Clavicle X-ray: no fractures, degenerative changes noted -Forearm X-ray: no fractures or dislocations -Humerus X-ray: no fractures or dislocations -Right Shoulder X-ray: no acute fractures -Lidoderm patch ordered for patient, Tylenol PRN mild, Tramadol PRN moderate, Percocet PRN severe -Injection (03/04/18)- Triamcinolone Acetate, Methylprednisolone, Lidocaine --> patient reports improved pain 3. IDDM Type 2 -chronic and uncontrolled -HbA1c 9.4 on 02/26/18 -Hypoglycemia protocol in place -Accuchecks ACHS, Insulin Regular coverage scale ACHS medium dose protocol, Levemir 58 units [facility], Januvia 25mg PO QD, -moderate carbohydrate diet/heart healthy diet 4. Depression -chronic, controlled -Remeron 15 mg PO QHS and Lexapro 10 mg PO QD- cleared by Zane on 02/20/18 -will titrate Lexapro up to 20mg PO QD tomorrow (was patients home dose) 5. Hypothyrodism -chronic, controlled -TSH 2.65 on 02/26/18 -continue Levothyroxine 125 mcg PO QD 6. HTN/HLD/CAD -chronic, controlled -Metoprolol 12.5mg PO Q12 -s/p CABG 11/2017 -troponin negative x 1 -no change in EKG from previous 7. Systolic CHF -chronic, controlled, s/p pacemaker -ECHO 10/2017: systolic dysfunction EF 30-35% -continue lasix 40mg PO QD, per Dr. Petersen, started Losartan 25mg PO QD, Spironolactone 12.5mg PO QD 8. Hyponatremia -asymptomatic -Na at 130L today -continue to monitor 8. Asthma/COPD -controlled -continue Ventolin HFA PRN, Advair 250/50 1puff Q12 10. DVT prophylaxis - SCDs for now, recent subdural hematoma - hold ASA and plavix, or any anticoagulant for 4 weeks (Mar 28, 2018)
[2018-03-05] MEDS: Fluticasone-Salmeterol 250-50mcg Diskus IH SCH ×2 (08:26→21:18)
[2018-03-05] MEDS: Insulin Lispro (humaLOG) 100 Units/ml Inj SC SCH ×3 (08:28→16:59)
[2018-03-05] MEDS: Lidocaine 5% Patch TD SCH (08:30)
[2018-03-05] MEDS: Multivitamin With Minerals Tab PO SCH (08:31)
[2018-03-05] MEDS: Benzocaine/Menthol (Cepacol) Lozenge PO PRN ×2 (13:02→22:33)
--- NOTE | 2018-03-05 19:19 | CP.PCM.PN ---
Subjective - Date & Time of Evaluation Date of Evaluation: 03/05/18 Time of Evaluation: 19:18 - Subjective Subjective: Patient seen in the room not sure if has significant relief yet from the injection but she does seem much more comfortable denies sob/cp or fever continue current care Objective - Vital Signs/Intake and Output Vital Signs (last 24 hours): Temp Pulse Resp BP Pulse Ox 97.9 F 77 22 111/59 L 96 03/05/18 08:11 03/05/18 08:31 03/05/18 08:11 03/05/18 08:31 03/05/18 08:11 - Medications Medications: Current Medications Acetaminophen (Tylenol 325mg Tab) 650 mg PO Q4 PRN PRN Reason: Pain, Mild (1-3) Albuterol (Ventolin Hfa 90 Mcg/Actuation (8 G)) 2 puff IH Q6 PRN PRN Reason: Shortness of Breath Atorvastatin Calcium (Lipitor) 40 mg PO HS [facility] Last Admin: 03/04/18 21:11 Dose: 40 mg Benzocaine/Menthol (Cepacol Sore Throat) 1 rosario PO Q3 PRN PRN Reason: Sore Throat Last Admin: 03/05/18 13:02 Dose: 1 rosario Dextrose (Dextrose 50% Inj) 0 ml IV STAT PRN; Protocol PRN Reason: Hypoglycemia Protocol Dextrose (Glutose 15) 0 gm PO ONCE PRN; Protocol PRN Reason: Hypoglycemia Protocol Docusate Sodium (Colace) 100 mg PO DAILY [facility] Last Admin: 03/05/18 08:27 Dose: 100 mg Escitalopram Oxalate (Lexapro) 10 mg PO DAILY [facility] Last Admin: 03/05/18 08:31 Dose: 10 mg Famotidine (Pepcid) 20 mg PO DAILY [facility] Last Admin: 03/05/18 08:31 Dose: 20 mg Furosemide (Lasix) 40 mg PO DAILY [facility] Last Admin: 03/05/18 08:30 Dose: 40 mg Glucagon (Glucagen Diagnostic Kit) 0 mg IM STAT PRN; Protocol PRN Reason: Hypoglycemia Protocol Insulin Detemir (Levemir) 58 units SC HS [facility] Last Admin: 03/04/18 21:11 Dose: 58 units Insulin Human Lispro (Humalog) 8 units SC ACTID [facility] Last Admin: 03/05/18 16:59 Dose: 8 unit Insulin Human Regular (Humulin R) 0 units SC ACHS [facility]; Protocol Last Admin: 03/05/18 17:00 Dose: 1 units Levothyroxine Sodium (Synthroid) 125 mcg PO DAILY@0630 [facility] Last Admin: 03/05/18 05:56 Dose: 125 mcg Lidocaine (Lidoderm) 1 ea TD DAILY [facility] Stop: 03/07/18 09:01 Last Admin: 03/05/18 08:30 Dose: 1 ea Losartan Potassium (Cozaar) 25 mg PO DAILY [facility] Last Admin: 03/05/18 08:27 Dose: 25 mg Memantine (Namenda) 5 mg PO HS [facility] Last Admin: 03/04/18 21:11 Dose: 5 mg Metoprolol Tartrate (Lopressor) 12.5 mg PO Q12 [facility] Last Admin: 03/05/18 08:31 Dose: 12.5 mg Mirtazapine (Remeron) 15 mg PO HS [facility] Last Admin: 03/04/18 21:11 Dose: 15 mg Multivitamins/Minerals (Therapeutic-M Tab) 1 tab PO DAILY [facility] Last Admin: 03/05/18 08:31 Dose: 1 tab Oxycodone/Acetaminophen (Percocet 5/325 Mg Tab) 1 tab PO Q6 PRN PRN Reason: Pain, severe (8-10) Stop: 03/06/18 22:48 Fluticasone/Salmeterol (Advair Diskus 250/50) 1 puff IH Q12 [facility] Last Admin: 03/05/18 08:26 Dose: 1 puff Senna/Docusate Sodium (Senokot S 50 Mg-8.6 Mg) 1 tab PO HS [facility] Last Admin: 03/04/18 21:11 Dose: 1 tab Sitagliptin Phosphate (Januvia) 25 mg PO DAILY [facility] Last Admin: 03/05/18 08:30 Dose: 25 mg Spironolactone (Aldactone) 12.5 mg PO DAILY [facility] Last Admin: 03/05/18 08:26 Dose: 12.5 mg Tramadol HCl (Ultram) 50 mg PO Q4 PRN PRN Reason: Pain, moderate (4-7) Last Admin: 03/05/18 13:02 Dose: 50 mg - Labs Labs: 03/02/18 05:30 03/05/18 05:40 PT 12.4 Seconds (9.8-13.1) 03/02/18 05:30 INR 1.1 03/02/18 05:30 APTT 27.8 Seconds (25.6-37.1) 03/02/18 05:30
[2018-03-05] MEDS: Insulin Detemir 100 Units/ml Inj SC SCH (21:35)
[2018-03-05] MEDS: Docusate-Senna 50 mg-8.6 mg Tab PO SCH (22:11)
[2018-03-06] MEDS: Levothyroxine 125 MCG TAB PO SCH (06:10)
[2018-03-06] MEDS: Benzocaine/Menthol (Cepacol) Lozenge PO PRN (06:28)
[2018-03-06] MEDS: Fluticasone-Salmeterol 250-50mcg Diskus IH SCH ×2 (08:12→21:37)
[2018-03-06] MEDS: Insulin Lispro (humaLOG) 100 Units/ml Inj SC SCH ×3 (08:16→16:42)
[2018-03-06] MEDS: Insulin Regular 100 units/ml SC SCH ×2 (08:18→11:47)
[2018-03-06] MEDS: Lidocaine 5% Patch TD SCH (08:20)
[2018-03-06] MEDS: Multivitamin With Minerals Tab PO SCH (08:22)
--- NOTE | 2018-03-06 14:24 | CP.PCM.PN ---
Subjective - Date & Time of Evaluation Date of Evaluation: 03/06/18 Time of Evaluation: 14:21 - Subjective Subjective: 77 yr old female with past medical history of PMHx includes CAD s/p CABG (Nov 2017), pacemaker, HTN, HLD, IDDM type 2, hypothyroidism, Systolic CHF, asthma, depression and anxiety was admitted to acute rehab for PT/OT s/p large subdural hematoma due to mechanical fall. Patient was in ICU for 4 days where she remained with no neurological deficits and repeat CT head showed stable subdural hematoma. Per discussion with Dr. Petersen, aspirin and plavix will be held for 4 weeks and a repeat CT head will be done in 4 weeks. As per nursing, patient slipped off the toilet as she did not want to wait for nursing to help us return to bed. Patient denies chest pain, SOB, headaches or dizziness. Patient denies any acute pain or symptoms due to fall. Patient seen working with PT and states she feeling better. Objective - Vital Signs/Intake and Output Vital Signs (last 24 hours): Temp Pulse Resp BP Pulse Ox 97.6 F 72 19 118/64 99 03/06/18 08:31 03/06/18 08:31 03/06/18 08:31 03/06/18 08:31 03/06/18 08:31 - Medications Medications: Current Medications Acetaminophen (Tylenol 325mg Tab) 650 mg PO Q4 PRN PRN Reason: Pain, Mild (1-3) Albuterol (Ventolin Hfa 90 Mcg/Actuation (8 G)) 2 puff IH Q6 PRN PRN Reason: Shortness of Breath Atorvastatin Calcium (Lipitor) 40 mg PO HS [facility] Last Admin: 03/05/18 22:11 Dose: 40 mg Benzocaine/Menthol (Cepacol Sore Throat) 1 rosario PO Q3 PRN PRN Reason: Sore Throat Last Admin: 03/06/18 06:28 Dose: 1 rosario Dextrose (Dextrose 50% Inj) 0 ml IV STAT PRN; Protocol PRN Reason: Hypoglycemia Protocol Dextrose (Glutose 15) 0 gm PO ONCE PRN; Protocol PRN Reason: Hypoglycemia Protocol Docusate Sodium (Colace) 100 mg PO DAILY [facility] Last Admin: 03/06/18 08:14 Dose: 100 mg Escitalopram Oxalate (Lexapro) 10 mg PO DAILY [facility] Last Admin: 03/06/18 08:20 Dose: 10 mg Famotidine (Pepcid) 20 mg PO DAILY [facility] Last Admin: 03/06/18 08:22 Dose: 20 mg Furosemide (Lasix) 40 mg PO DAILY [facility] Last Admin: 03/06/18 08:19 Dose: 40 mg Glucagon (Glucagen Diagnostic Kit) 0 mg IM STAT PRN; Protocol PRN Reason: Hypoglycemia Protocol Insulin Detemir (Levemir) 58 units SC HS [facility] Last Admin: 03/05/18 21:35 Dose: 58 units Insulin Human Lispro (Humalog) 8 units SC ACTID [facility] Last Admin: 03/06/18 12:23 Dose: 8 unit Levothyroxine Sodium (Synthroid) 125 mcg PO DAILY@0630 [facility] Last Admin: 03/06/18 06:10 Dose: 125 mcg Lidocaine (Lidoderm) 1 ea TD DAILY [facility] Stop: 03/07/18 09:01 Last Admin: 03/06/18 08:20 Dose: 1 ea Losartan Potassium (Cozaar) 25 mg PO DAILY [facility] Last Admin: 03/06/18 08:14 Dose: 25 mg Memantine (Namenda) 5 mg PO HS [facility] Last Admin: 03/05/18 21:19 Dose: 5 mg Metoprolol Tartrate (Lopressor) 12.5 mg PO Q12 [facility] Last Admin: 03/06/18 08:21 Dose: 12.5 mg Mirtazapine (Remeron) 15 mg PO HS [facility] Last Admin: 03/05/18 21:18 Dose: 15 mg Multivitamins/Minerals (Therapeutic-M Tab) 1 tab PO DAILY [facility] Last Admin: 03/06/18 08:22 Dose: 1 tab Oxycodone/Acetaminophen (Percocet 5/325 Mg Tab) 1 tab PO Q6 PRN PRN Reason: Pain, severe (8-10) Stop: 03/06/18 22:48 Last Admin: 03/06/18 13:20 Dose: 1 tab Fluticasone/Salmeterol (Advair Diskus 250/50) 1 puff IH Q12 [facility] Last Admin: 03/06/18 08:12 Dose: 1 puff Senna/Docusate Sodium (Senokot S 50 Mg-8.6 Mg) 1 tab PO HS [facility] Last Admin: 03/05/18 22:11 Dose: 1 tab Sitagliptin Phosphate (Januvia) 25 mg PO DAILY [facility] Last Admin: 03/06/18 08:19 Dose: 25 mg Spironolactone (Aldactone) 12.5 mg PO DAILY [facility] Last Admin: 03/06/18 08:13 Dose: 12.5 mg Tramadol HCl (Ultram) 50 mg PO Q4 PRN PRN Reason: Pain, moderate (4-7) Last Admin: 03/06/18 06:24 Dose: 50 mg - Labs Labs: 03/02/18 05:30 03/05/18 05:40 PT 12.4 Seconds (9.8-13.1) 03/02/18 05:30 INR 1.1 03/02/18 05:30 APTT 27.8 Seconds (25.6-37.1) 03/02/18 05:30 - Constitutional Appears: Well, Non-toxic, No Acute Distress - Head Exam Head Exam: ATRAUMATIC, NORMOCEPHALIC - Eye Exam Eye Exam: Normal appearance, PERRL - ENT Exam ENT Exam: Mucous Membranes Moist, Normal Exam - Neck Exam Neck Exam: Full ROM. absent: Lymphadenopathy - Respiratory Exam Respiratory Exam: Clear to Ausculation Bilateral, NORMAL BREATHING PATTERN. absent: Rales, Rhonchi, Wheezes - Cardiovascular Exam Cardiovascular Exam: REGULAR RHYTHM, +S1, +S2 - GI/Abdominal Exam GI & Abdominal Exam: Soft, Normal Bowel Sounds. absent: Firm, Guarding, Rigid - Neurological Exam Neurological Exam: Alert, Awake, Oriented x3 - Psychiatric Exam Psychiatric exam: Normal Affect, Normal Mood - Skin Skin Exam: Normal Color Assessment and Plan - Assessment and Plan (Free Text) Assessment: 77 yr old female with past medical history of PMHx includes CAD s/p CABG (Nov 2017), pacemaker, HTN, HLD, IDDM type 2, hypothyroidism, Systolic CHF, asthma, depression and anxiety was admitted to acute rehab for PT/OT s/p large subdural hematoma due to mechanical fall. Patient was in ICU for 4 days where she remained with no neurological deficits and repeat CT head showed stable subdural hematoma. Per discussion with Dr. Petersen, aspirin and plavix will be held for 4 weeks and a repeat [address] head will be done in 4 weeks. Patient denies chest pain, SOB, headaches or dizziness. Patient has complaint of right arm pain since mechanical fall, RUE xray negative, pain managed with medication. Patient seen working with PT and states she feeling better. Plan: 1. Subdural Hematoma -acute, stable -no neurological deficits -neuro checks Qshift -repeat CT head w/o contrast (on approx 2018) -hold ASA and plavix for [address] head -stable from Neurosurgery standpoint (Dr. Monet) 2. Persistent Right Shoulder pain -acute, symptomatic -Cervical CT: no acute fractures -Clavicle X-ray: no fractures, degenerative changes noted -Forearm X-ray: no fractures or dislocations -Humerus X-ray: no fractures or dislocations -Right Shoulder X-ray: no acute fractures -Lidoderm patch ordered for patient, Tylenol PRN mild, Tramadol PRN moderate, Percocet PRN severe -Injection (03/04/18)- Triamcinolone Acetate, Methylprednisolone, Lidocaine --> patient reports improved pain 3. IDDM Type 2 -chronic and uncontrolled -HbA1c 9.4 on 02/26/18 -Hypoglycemia protocol in place -Discontinue sliding scale at this time -Accuchecks ACHS, Levemir 58 units SCHS, Humolog 8 units prior to meals -moderate carbohydrate diet/heart healthy diet 4. Depression -chronic, controlled -Remeron 15 mg PO QHS and Lexapro 10 mg PO QD- cleared by Zane on 02/20/18 -will titrate Lexapro up to 20mg PO QD tomorrow (was patients home dose) 5. Hypothyrodism -chronic, controlled -TSH 2.65 on 02/26/18 -continue Levothyroxine 125 mcg PO QD 6. HTN/HLD/CAD -chronic, controlled -Metoprolol 12.5mg PO Q12 -s/p CABG 11/2017 -troponin negative x 1 -no change in EKG from previous 7. Systolic CHF -chronic, controlled, s/p pacemaker -ECHO 10/2017: systolic dysfunction EF 30-35% -continue lasix 40mg PO QD, per Dr. Petersen, started Losartan 25mg PO QD, Spironolactone 12.5mg PO QD 8. Hyponatremia -asymptomatic -Na at 130L today -continue to monitor 8. Asthma/COPD -controlled -continue Ventolin HFA PRN, Advair 250/50 1puff Q12 10. DVT prophylaxis - SCDs for now, recent subdural hematoma - hold ASA and plavix, or any anticoagulant for 4 weeks (Mar 28, 2018)
[2018-03-06] MEDS: Docusate-Senna 50 mg-8.6 mg Tab PO SCH (21:36)
[2018-03-06] MEDS: Insulin Detemir 100 Units/ml Inj SC SCH (22:38)
[2018-03-07] MEDS: Levothyroxine 125 MCG TAB PO SCH (06:47)
[2018-03-07 06:55] LABS: MEAN CELL VOLUME 86.9 fl (81.0-99.0); MEAN CORPUSCULAR HEMOGLOBIN 29.8 pg (27.0-31.0); MEAN CORPUSCULAR HGB CONC 34.3 g/dL (33.0-37.0); RBC 3.69 Mil/uL (3.80-5.20); RED CELL DISTRIBUTION WIDTH 17.6 % (11.5-14.5); WHITE BLOOD COUNT 4.6 K/uL (4.8-10.8)
[2018-03-07 07:09] LABS: BLOOD UREA NITROGEN 22 mg/dl (7-17); CALCIUM 9.4 mg/dL (8.4-10.2); GFR NON-AFRICAN AMERICAN 53
[2018-03-07] MEDS: Fluticasone-Salmeterol 250-50mcg Diskus IH SCH ×2 (08:57→20:39)
[2018-03-07] MEDS: Insulin Lispro (humaLOG) 100 Units/ml Inj SC SCH ×3 (08:58→17:53)
[2018-03-07] MEDS: Lidocaine 5% Patch TD SCH (09:00)
[2018-03-07] MEDS: Multivitamin With Minerals Tab PO SCH (09:03)
--- NOTE | 2018-03-07 12:35 | CP.PCM.PN ---
Subjective - Date & Time of Evaluation Date of Evaluation: 03/07/18 Time of Evaluation: 12:33 - Subjective Subjective: 77 yr old female with past medical history of PMHx includes CAD s/p CABG (Nov 2017), pacemaker, HTN, HLD, IDDM type 2, hypothyroidism, Systolic CHF, asthma, depression and anxiety was admitted to acute rehab for PT/OT s/p large subdural hematoma due to mechanical fall. Patient was in ICU for 4 days where she remained with no neurological deficits and repeat CT head showed stable subdural hematoma. Per discussion with Dr. Petersen, aspirin and plavix will be held for 4 weeks and a repeat CT head will be done in 4 weeks. Patient denies chest pain, SOB, headaches or dizziness. Patient denies any acute pain or symptoms due to fall. Patient seen working with PT and states she feeling better. Objective - Vital Signs/Intake and Output Vital Signs (last 24 hours): Temp Pulse Resp BP Pulse Ox 97.9 F 98 H 20 120/80 100 03/07/18 08:24 03/07/18 09:02 03/07/18 08:24 03/07/18 09:02 03/07/18 08:24 - Medications Medications: Current Medications Acetaminophen (Tylenol 325mg Tab) 650 mg PO Q4 PRN PRN Reason: Pain, Mild (1-3) Albuterol (Ventolin Hfa 90 Mcg/Actuation (8 G)) 2 puff IH Q6 PRN PRN Reason: Shortness of Breath Atorvastatin Calcium (Lipitor) 40 mg PO HS [facility] Last Admin: 03/06/18 21:36 Dose: 40 mg Benzocaine/Menthol (Cepacol Sore Throat) 1 rosario PO Q3 PRN PRN Reason: Sore Throat Last Admin: 03/06/18 06:28 Dose: 1 rosario Benzonatate (Tessalon Perles) 100 mg PO Q8 PRN PRN Reason: Cough Last Admin: 03/06/18 22:40 Dose: 100 mg Dextrose (Dextrose 50% Inj) 0 ml IV STAT PRN; Protocol PRN Reason: Hypoglycemia Protocol Dextrose (Glutose 15) 0 gm PO ONCE PRN; Protocol PRN Reason: Hypoglycemia Protocol Docusate Sodium (Colace) 100 mg PO DAILY [facility] Last Admin: 03/07/18 09:02 Dose: 100 mg Escitalopram Oxalate (Lexapro) 10 mg PO DAILY [facility] Last Admin: 03/07/18 09:02 Dose: 10 mg Famotidine (Pepcid) 20 mg PO DAILY [facility] Last Admin: 03/07/18 09:00 Dose: 20 mg Furosemide (Lasix) 40 mg PO DAILY [facility] Last Admin: 03/07/18 09:00 Dose: 40 mg Glucagon (Glucagen Diagnostic Kit) 0 mg IM STAT PRN; Protocol PRN Reason: Hypoglycemia Protocol Insulin Detemir (Levemir) 58 units SC HS [facility] Last Admin: 03/06/18 22:38 Dose: 58 units Insulin Human Lispro (Humalog) 8 units SC ACTID [facility] Last Admin: 03/07/18 08:58 Dose: 8 unit Levothyroxine Sodium (Synthroid) 125 mcg PO DAILY@0630 [facility] Last Admin: 03/07/18 06:47 Dose: 125 mcg Losartan Potassium (Cozaar) 25 mg PO DAILY [facility] Last Admin: 03/07/18 09:01 Dose: 25 mg Memantine (Namenda) 5 mg PO [facility] Last Admin: 03/06/18 21:36 Dose: 5 mg Metoprolol Tartrate (Lopressor) 12.5 mg PO Q12 [facility] Last Admin: 03/07/18 09:02 Dose: 12.5 mg Mirtazapine (Remeron) 15 mg PO HS [facility] Last Admin: 03/06/18 21:36 Dose: 15 mg Multivitamins/Minerals (Therapeutic-M Tab) 1 tab PO DAILY [facility] Last Admin: 03/07/18 09:03 Dose: 1 tab Fluticasone/Salmeterol (Advair Diskus 250/50) 1 puff IH Q12 [facility] Last Admin: 03/07/18 08:57 Dose: 1 puff Senna/Docusate Sodium (Senokot S 50 Mg-8.6 Mg) 1 tab PO HS [facility] Last Admin: 03/06/18 21:36 Dose: 1 tab Sitagliptin Phosphate (Januvia) 25 mg PO DAILY [facility] Last Admin: 03/07/18 08:57 Dose: 25 mg Spironolactone (Aldactone) 12.5 mg PO DAILY [facility] Last Admin: 03/07/18 09:03 Dose: 12.5 mg Tramadol HCl (Ultram) 50 mg PO Q4 PRN PRN Reason: Pain, moderate (4-7) Last Admin: 03/07/18 09:07 Dose: 50 mg - Labs Labs: 03/07/18 05:40 03/07/18 05:40 PT 12.4 Seconds (9.8-13.1) 03/02/18 05:30 INR 1.1 03/02/18 05:30 APTT 27.8 Seconds (25.6-37.1) 03/02/18 05:30 - Constitutional Appears: Well, Non-toxic, No Acute Distress - Head Exam Head Exam: ATRAUMATIC, NORMOCEPHALIC - Eye Exam Eye Exam: Normal appearance, PERRL - ENT Exam ENT Exam: Mucous Membranes Moist - Neck Exam Neck Exam: Full ROM. absent: Lymphadenopathy - Respiratory Exam Respiratory Exam: Clear to Ausculation Bilateral, NORMAL BREATHING PATTERN. absent: Rales, Rhonchi, Wheezes - Cardiovascular Exam Cardiovascular Exam: REGULAR RHYTHM, +S1, +S2 - GI/Abdominal Exam GI & Abdominal Exam: Soft, Normal Bowel Sounds. absent: Firm, Guarding, Rigid - Neurological Exam Neurological Exam: Alert, Awake, Oriented x3 - Psychiatric Exam Psychiatric exam: Normal Affect, Normal Mood Assessment and Plan - Assessment and Plan (Free Text) Assessment: 77 yr old F admitted to acute rehab for PT/OT s/p large subdural hematoma due to mechanical fall. PMHx includes CAD s/p CABG (Nov 2017), pacemaker, HTN, HLD, IDDM type 2, hypothyroidism, Systolic CHF, asthma, depression and anxiety. Patient has no neurological deficits. Plan: 1. Subdural Hematoma -acute, stable -no neurological deficits -neuro checks Qshift -repeat CT head w/o contrast (on approx 2018) -hold ASA and plavix for [address] head -stable from Neurosurgery standpoint (Dr. Monet) 2. Right Shoulder pain -acute, symptomatic -Cervical CT: no acute fractures -Right Shoulder X-ray: no acute fractures -Lidoderm patch ordered for patient, Tylenol PRN moderate, Tramadol PRN severe 3. IDDM Type 2 -chronic and uncontrolled -HbA1c 9.4 on 02/26/18 -Hypoglycemia protocol in place -Accuchecks ACHS, Levemir 58 units SCHS, Januvia 25mg PO QD -moderate carbohydrate diet/heart healthy diet 4. Depression -chronic, controlled -Remeron 15 mg PO QHS and Lexapro 10 mg PO QD- cleared by GerLeonid on 02/20/18 5. Hypothyrodism -chronic, controlled -TSH 2.65 on 02/26/18 -continue Levothyroxine 125 mcg PO QD 6. HTN/HLD/CAD -chronic, controlled -Metoprolol 12.5mg PO Q12 -s/p CABG 11/2017 -troponin negative -no change in EKG from previous 7. Systolic CHF -chronic, controlled, s/p pacemaker -ECHO 10/2017: systolic dysfunction EF 30-35% -continue lasix 40mg PO QD, per Dr. Petersen, started Losartan 25mg PO QD, Spironolactone 12.5mg PO QD 8. Asthma/COPD -controlled -continue Ventolin HFA PRN, Advair 250/50 1puff Q12 9. DVT prophylaxis - SCDs for now, recent subdural hematoma - hold ASA and plavix, or any anticoagulant for 4 weeks (Mar 28, 2018)
[2018-03-07] MEDS ORDERED: Magnesium Hydroxide Susp 30 ml UD PO ONE (14:03)
--- NOTE | 2018-03-07 14:16 | CP.PCM.PN ---
Subjective - Date & Time of Evaluation Date of Evaluation: 03/07/18 Time of Evaluation: 14:14 - Subjective Subjective: Patient is complaining of R>L shoulder pain but I don't really appreciate abnormality on examination. She is c/o of pain during ROM but I do not feel any resistance with ROM otherwise working ok in therapies. no sob/cp continue current care Objective - Vital Signs/Intake and Output Vital Signs (last 24 hours): Temp Pulse Resp BP Pulse Ox 97.9 F 98 H 20 120/80 100 03/07/18 08:24 03/07/18 09:02 03/07/18 08:24 03/07/18 09:02 03/07/18 08:24 - Medications Medications: Current Medications Acetaminophen (Tylenol 325mg Tab) 650 mg PO Q4 PRN PRN Reason: Pain, Mild (1-3) Albuterol (Ventolin Hfa 90 Mcg/Actuation (8 G)) 2 puff IH Q6 PRN PRN Reason: Shortness of Breath Atorvastatin Calcium (Lipitor) 40 mg PO HS [facility] Last Admin: 03/06/18 21:36 Dose: 40 mg Benzocaine/Menthol (Cepacol Sore Throat) 1 rosario PO Q3 PRN PRN Reason: Sore Throat Last Admin: 03/06/18 06:28 Dose: 1 rosario Benzonatate (Tessalon Perles) 100 mg PO Q8 PRN PRN Reason: Cough Last Admin: 03/06/18 22:40 Dose: 100 mg Dextrose (Dextrose 50% Inj) 0 ml IV STAT PRN; Protocol PRN Reason: Hypoglycemia Protocol Dextrose (Glutose 15) 0 gm PO ONCE PRN; Protocol PRN Reason: Hypoglycemia Protocol Docusate Sodium (Colace) 100 mg PO DAILY [facility] Last Admin: 03/07/18 09:02 Dose: 100 mg Escitalopram Oxalate (Lexapro) 10 mg PO DAILY [facility] Last Admin: 03/07/18 09:02 Dose: 10 mg Famotidine (Pepcid) 20 mg PO DAILY [facility] Last Admin: 03/07/18 09:00 Dose: 20 mg Furosemide (Lasix) 40 mg PO DAILY [facility] Last Admin: 03/07/18 09:00 Dose: 40 mg Glucagon (Glucagen Diagnostic Kit) 0 mg IM STAT PRN; Protocol PRN Reason: Hypoglycemia Protocol Insulin Detemir (Levemir) 58 units SC HS [facility] Last Admin: 03/06/18 22:38 Dose: 58 units Insulin Human Lispro (Humalog) 8 units SC ACTID [facility] Last Admin: 03/07/18 12:00 Dose: 8 unit Levothyroxine Sodium (Synthroid) 125 mcg PO DAILY@0630 [facility] Last Admin: 03/07/18 06:47 Dose: 125 mcg Losartan Potassium (Cozaar) 25 mg PO DAILY [facility] Last Admin: 03/07/18 09:01 Dose: 25 mg Magnesium Hydroxide (Milk Of Magnesia) 30 ml PO ONCE ONE Stop: 03/07/18 14:04 Memantine (Namenda) 5 mg PO [facility] Last Admin: 03/06/18 21:36 Dose: 5 mg Metoprolol Tartrate (Lopressor) 12.5 mg PO Q12 [facility] Last Admin: 03/07/18 09:02 Dose: 12.5 mg Mirtazapine (Remeron) 15 mg PO HS [facility] Last Admin: 03/06/18 21:36 Dose: 15 mg Multivitamins/Minerals (Therapeutic-M Tab) 1 tab PO DAILY [facility] Last Admin: 03/07/18 09:03 Dose: 1 tab Fluticasone/Salmeterol (Advair Diskus 250/50) 1 puff IH Q12 [facility] Last Admin: 03/07/18 08:57 Dose: 1 puff Senna/Docusate Sodium (Senokot S 50 Mg-8.6 Mg) 1 tab PO HS [facility] Last Admin: 03/06/18 21:36 Dose: 1 tab Sitagliptin Phosphate (Januvia) 25 mg PO DAILY [facility] Last Admin: 03/07/18 08:57 Dose: 25 mg Spironolactone (Aldactone) 12.5 mg PO DAILY [facility] Last Admin: 03/07/18 09:03 Dose: 12.5 mg Tramadol HCl (Ultram) 50 mg PO Q4 PRN PRN Reason: Pain, severe (8-10) - Labs Labs: 03/07/18 05:40 03/07/18 05:40 PT 12.4 Seconds (9.8-13.1) 03/02/18 05:30 INR 1.1 03/02/18 05:30 APTT 27.8 Seconds (25.6-37.1) 03/02/18 05:30
[2018-03-07 15:59] VITALS: BMI 23.8
[2018-03-07] MEDS: Docusate-Senna 50 mg-8.6 mg Tab PO SCH (21:41)
[2018-03-07] MEDS: Insulin Detemir 100 Units/ml Inj SC SCH (21:50)
[2018-03-08] MEDS: Levothyroxine 125 MCG TAB PO SCH (06:27)
[2018-03-08] MEDS: Insulin Lispro (humaLOG) 100 Units/ml Inj SC SCH ×4 (07:30→21:31)
[2018-03-08] MEDS: Fluticasone-Salmeterol 250-50mcg Diskus IH SCH ×2 (08:27→20:56)
[2018-03-08] MEDS: Multivitamin With Minerals Tab PO SCH (08:31)
[2018-03-08] MEDS: Lidocaine 5% Patch TD SCH (11:00)
[2018-03-08] MEDS: Benzocaine/Menthol (Cepacol) Lozenge PO PRN (13:17)
[2018-03-08] MEDS: Docusate-Senna 50 mg-8.6 mg Tab PO SCH (21:00)
[2018-03-08] MEDS: Insulin Detemir 100 Units/ml Inj SC SCH (21:30)
[2018-03-09] MEDS: Levothyroxine 125 MCG TAB PO SCH (06:22)
[2018-03-09] MEDS: Insulin Lispro (humaLOG) 100 Units/ml Inj SC SCH ×7 (07:53→21:28)
[2018-03-09] MEDS: Fluticasone-Salmeterol 250-50mcg Diskus IH SCH ×2 (08:33→21:13)
[2018-03-09] MEDS: Multivitamin With Minerals Tab PO SCH (08:35)
[2018-03-09] MEDS: Lidocaine 5% Patch TD SCH (08:39)
--- NOTE | 2018-03-09 11:01 | CP.PCM.PN ---
Subjective - Date & Time of Evaluation Date of Evaluation: 03/08/18 Time of Evaluation: 08:50 - Subjective Subjective: no acute complaints at present, freindly Objective - Vital Signs/Intake and Output Vital Signs (last 24 hours): Temp Pulse Resp BP Pulse Ox 97.5 F L 79 18 127/73 99 03/09/18 08:12 03/09/18 08:12 03/09/18 08:12 03/09/18 08:36 03/09/18 08:12 - Medications Medications: Current Medications Acetaminophen (Tylenol 325mg Tab) 650 mg PO Q4 PRN PRN Reason: Pain, moderate (4-7) Albuterol (Ventolin Hfa 90 Mcg/Actuation (8 G)) 2 puff IH Q6 PRN PRN Reason: Shortness of Breath Atorvastatin Calcium (Lipitor) 40 mg PO HS [facility] Last Admin: 03/08/18 21:00 Dose: 40 mg Benzocaine/Menthol (Cepacol Sore Throat) 1 rosario PO Q3 PRN PRN Reason: Sore Throat Last Admin: 03/08/18 13:17 Dose: 1 rosario Benzonatate (Tessalon Perles) 100 mg PO Q8 PRN PRN Reason: Cough Last Admin: 03/08/18 13:18 Dose: 100 mg Dextrose (Dextrose 50% Inj) 0 ml IV STAT PRN; Protocol PRN Reason: Hypoglycemia Protocol Dextrose (Glutose 15) 0 gm PO ONCE PRN; Protocol PRN Reason: Hypoglycemia Protocol Docusate Sodium (Colace) 100 mg PO DAILY [facility] Last Admin: 03/09/18 08:34 Dose: 100 mg Escitalopram Oxalate (Lexapro) 10 mg PO DAILY [facility] Last Admin: 03/09/18 08:35 Dose: 10 mg Famotidine (Pepcid) 20 mg PO DAILY [facility] Last Admin: 03/09/18 08:35 Dose: 20 mg Furosemide (Lasix) 40 mg PO DAILY [facility] Last Admin: 03/09/18 08:34 Dose: 40 mg Glucagon (Glucagen Diagnostic Kit) 0 mg IM STAT PRN; Protocol PRN Reason: Hypoglycemia Protocol Insulin Detemir (Levemir) 58 units SC HS [facility] Last Admin: 03/08/18 21:30 Dose: 58 units Insulin Human Lispro (Humalog) 8 units SC ACTID [facility] Last Admin: 03/09/18 07:53 Dose: 8 unit Insulin Human Lispro (Humalog) 0 units SC ACHS [facility]; Protocol Last Admin: 03/09/18 07:54 Dose: 2 units Levothyroxine Sodium (Synthroid) 125 mcg PO DAILY@0630 [facility] Last Admin: 03/09/18 06:22 Dose: 125 mcg Lidocaine (Lidoderm) 1 ea TD DAILY [facility] Last Admin: 03/09/18 08:39 Dose: 1 ea Losartan Potassium (Cozaar) 25 mg PO DAILY [facility] Last Admin: 03/09/18 08:35 Dose: 25 mg Memantine (Namenda) 5 mg PO HS [facility] Last Admin: 03/08/18 21:01 Dose: 5 mg Metoprolol Tartrate (Lopressor) 12.5 mg PO Q12 [facility] Last Admin: 03/09/18 08:36 Dose: 12.5 mg Mirtazapine (Remeron) 15 mg PO HS [facility] Last Admin: 03/08/18 21:01 Dose: 15 mg Multivitamins/Minerals (Therapeutic-M Tab) 1 tab PO DAILY [facility] Last Admin: 03/09/18 08:35 Dose: 1 tab Fluticasone/Salmeterol (Advair Diskus 250/50) 1 puff IH Q12 [facility] Last Admin: 03/09/18 08:33 Dose: 1 puff Senna/Docusate Sodium (Senokot S 50 Mg-8.6 Mg) 1 tab PO HS [facility] Last Admin: 03/08/18 21:00 Dose: 1 tab Sitagliptin Phosphate (Januvia) 25 mg PO DAILY [facility] Last Admin: 03/09/18 08:34 Dose: 25 mg Spironolactone (Aldactone) 12.5 mg PO DAILY [facility] Last Admin: 03/09/18 08:36 Dose: 12.5 mg Tramadol HCl (Ultram) 50 mg PO Q4 PRN PRN Reason: Pain, severe (8-10) Last Admin: 03/08/18 20:00 Dose: 50 mg - Labs Labs: 03/07/18 05:40 03/07/18 05:40 PT 12.4 Seconds (9.8-13.1) 03/02/18 05:30 INR 1.1 03/02/18 05:30 APTT 27.8 Seconds (25.6-37.1) 03/02/18 05:30 - Constitutional Appears: Well - Head Exam Head Exam: ATRAUMATIC, NORMAL INSPECTION, NORMOCEPHALIC - Eye Exam Eye Exam: EOMI, Normal appearance Pupil Exam: NORMAL ACCOMODATION, PERRL - ENT Exam ENT Exam: Mucous Membranes Moist - Respiratory Exam Respiratory Exam: Clear to Ausculation Bilateral, NORMAL BREATHING PATTERN - Cardiovascular Exam Cardiovascular Exam: REGULAR RHYTHM - GI/Abdominal Exam GI & Abdominal Exam: Normal Bowel Sounds - Rectal Exam Rectal Exam: NORMAL INSPECTION - Exam External exam: NORMAL EXTERNAL EXAM - Extremities Exam Extremities Exam: Normal Inspection - Back Exam Back Exam: NORMAL INSPECTION - Neurological Exam Neurological Exam: Alert, Awake Neuro motor strength exam: Left Upper Extremity: 3, Right Upper Extremity: 3, Left Lower Extremity: 3, Right Lower Extremity: 3 - Psychiatric Exam Psychiatric exam: Normal Affect Assessment and Plan (1) Acute kidney failure Status: Acute (2) Adjustment disorder with depressed mood Status: Acute (3) Colitis Status: Acute (4) Diabetes mellitus, insulin dependent (IDDM), uncontrolled Status: Acute (5) Hyperglycemia Status: Acute (6) Metabolic acidosis Status: Acute (7) Renal insufficiency Status: Acute (8) Subdural hematoma Assessment & Plan: plan for physical, occupational therapy. Modalities as needed. Dc planning . covering for Dr Gastelum. Status: Acute
[2018-03-09] MEDS: Docusate-Senna 50 mg-8.6 mg Tab PO SCH (21:14)
[2018-03-09] MEDS: Insulin Detemir 100 Units/ml Inj SC SCH (21:23)
[2018-03-10] MEDS: Levothyroxine 125 MCG TAB PO SCH (07:10)
[2018-03-10] MEDS: Insulin Lispro (humaLOG) 100 Units/ml Inj SC SCH ×7 (07:10→21:59)
[2018-03-10] MEDS: Fluticasone-Salmeterol 250-50mcg Diskus IH SCH ×2 (08:49→21:49)
[2018-03-10] MEDS: Lidocaine 5% Patch TD SCH (08:53)
[2018-03-10] MEDS: Multivitamin With Minerals Tab PO SCH (08:55)
--- NOTE | 2018-03-10 12:03 | CP.PCM.PN ---
Subjective - Date & Time of Evaluation Date of Evaluation: 03/10/18 Time of Evaluation: 12:18 - Subjective Subjective: 77 yr old female with past medical history of PMHx includes CAD s/p CABG (Nov 2017), pacemaker, HTN, HLD, IDDM type 2, hypothyroidism, Systolic CHF, asthma, depression and anxiety was admitted to acute rehab for PT/OT s/p large subdural hematoma due to mechanical fall. Patient was in ICU for 4 days where she remained with no neurological deficits and repeat CT head showed stable subdural hematoma. Per discussion with Dr. Petersen, aspirin and plavix will be held for 4 weeks and a repeat CT head will be done in 4 weeks. Patient denies chest pain, SOB, headaches or dizziness. Patient seen working with PT and complaining of continued right shoulder pain. Objective - Vital Signs/Intake and Output Vital Signs (last 24 hours): Temp Pulse Resp BP Pulse Ox 96.4 F L 70 20 129/71 100 03/10/18 10:00 03/10/18 10:00 03/10/18 10:00 03/10/18 10:00 03/10/18 10:00 - Medications Medications: Current Medications Acetaminophen (Tylenol 325mg Tab) 650 mg PO Q4 PRN PRN Reason: Pain, moderate (4-7) Albuterol (Ventolin Hfa 90 Mcg/Actuation (8 G)) 2 puff IH Q6 PRN PRN Reason: Shortness of Breath Atorvastatin Calcium (Lipitor) 40 mg PO HS [facility] Last Admin: 03/09/18 21:15 Dose: 40 mg Benzocaine/Menthol (Cepacol Sore Throat) 1 rosario PO Q3 PRN PRN Reason: Sore Throat Last Admin: 03/08/18 13:17 Dose: 1 rosario Benzonatate (Tessalon Perles) 100 mg PO Q8 PRN PRN Reason: Cough Last Admin: 03/09/18 21:53 Dose: 100 mg Dextrose (Dextrose 50% Inj) 0 ml IV STAT PRN; Protocol PRN Reason: Hypoglycemia Protocol Dextrose (Glutose 15) 0 gm PO ONCE PRN; Protocol PRN Reason: Hypoglycemia Protocol Docusate Sodium (Colace) 100 mg PO DAILY [facility] Last Admin: 03/10/18 08:50 Dose: 100 mg Escitalopram Oxalate (Lexapro) 10 mg PO DAILY [facility] Last Admin: 03/10/18 08:52 Dose: 10 mg Famotidine (Pepcid) 20 mg PO DAILY [facility] Last Admin: 03/10/18 08:54 Dose: 20 mg Furosemide (Lasix) 40 mg PO DAILY [facility] Last Admin: 03/10/18 08:52 Dose: 40 mg Glucagon (Glucagen Diagnostic Kit) 0 mg IM STAT PRN; Protocol PRN Reason: Hypoglycemia Protocol Insulin Detemir (Levemir) 58 units SC HS [facility] Last Admin: 03/09/18 21:23 Dose: 58 units Insulin Human Lispro (Humalog) 0 units SC ACHS [facility]; Protocol Last Admin: 03/10/18 11:50 Dose: 3 units Insulin Human Lispro (Humalog) 9 units SC ACTID [facility] Last Admin: 03/10/18 11:51 Dose: 9 unit Levothyroxine Sodium (Synthroid) 125 mcg PO DAILY@0630 [facility] Last Admin: 03/10/18 07:10 Dose: 125 mcg Lidocaine (Lidoderm) 1 ea TD DAILY [facility] Last Admin: 03/10/18 08:53 Dose: 1 ea Losartan Potassium (Cozaar) 25 mg PO DAILY [facility] Last Admin: 03/10/18 08:51 Dose: 25 mg Memantine (Namenda) 5 mg PO HS [facility] Last Admin: 03/09/18 21:15 Dose: 5 mg Metoprolol Tartrate (Lopressor) 12.5 mg PO Q12 [facility] Last Admin: 03/10/18 08:54 Dose: 12.5 mg Mirtazapine (Remeron) 15 mg PO HS [facility] Last Admin: 03/09/18 21:15 Dose: 15 mg Multivitamins/Minerals (Therapeutic-M Tab) 1 tab PO DAILY [facility] Last Admin: 03/10/18 08:55 Dose: 1 tab Fluticasone/Salmeterol (Advair Diskus 250/50) 1 puff IH Q12 [facility] Last Admin: 03/10/18 08:49 Dose: 1 puff Senna/Docusate Sodium (Senokot S 50 Mg-8.6 Mg) 1 tab PO HS [facility] Last Admin: 03/09/18 21:14 Dose: 1 tab Sitagliptin Phosphate (Januvia) 25 mg PO DAILY [facility] Last Admin: 03/10/18 08:52 Dose: 25 mg Spironolactone (Aldactone) 12.5 mg PO DAILY [facility] Last Admin: 03/10/18 08:50 Dose: 12.5 mg Tramadol HCl (Ultram) 50 mg PO Q4 PRN PRN Reason: Pain, severe (8-10) Last Admin: 03/10/18 10:24 Dose: 50 mg - Labs Labs: 03/07/18 05:40 03/07/18 05:40 PT 12.4 Seconds (9.8-13.1) 03/02/18 05:30 INR 1.1 03/02/18 05:30 APTT 27.8 Seconds (25.6-37.1) 03/02/18 05:30 - Constitutional Appears: Well, Non-toxic, No Acute Distress - Head Exam Head Exam: ATRAUMATIC, NORMOCEPHALIC - Eye Exam Eye Exam: Normal appearance, PERRL - ENT Exam ENT Exam: Mucous Membranes Moist - Neck Exam Neck Exam: Full ROM. absent: Lymphadenopathy - Respiratory Exam Respiratory Exam: Clear to Ausculation Bilateral, NORMAL BREATHING PATTERN. absent: Rales, Rhonchi, Wheezes - Cardiovascular Exam Cardiovascular Exam: REGULAR RHYTHM, +S1, +S2 - GI/Abdominal Exam GI & Abdominal Exam: Soft, Normal Bowel Sounds. absent: Firm, Guarding, Rigid - Extremities Exam Extremities Exam: Full ROM. absent: Calf Tenderness Additional comments: painful right shoulder range of motion - Neurological Exam Neurological Exam: Alert, Awake, Oriented x3 - Psychiatric Exam Psychiatric exam: Normal Affect, Normal Mood - Skin Skin Exam: Normal Color Assessment and Plan - Assessment and Plan (Free Text) Assessment: 77 yr old F admitted to acute rehab for PT/OT s/p large subdural hematoma due to mechanical fall. PMHx includes CAD s/p CABG (Nov 2017), pacemaker, HTN, HLD, IDDM type 2, hypothyroidism, Systolic CHF, asthma, depression and anxiety. Patient has no neurological deficits. Plan: 1. Subdural Hematoma -acute, stable -no neurological deficits -neuro checks Q-shift -repeat CT head w/o contrast (on approx 2018) -hold ASA and plavix for [address] head -stable from Neurosurgery standpoint (Dr. Monet) -plan for discharge with home health services 2. Right Shoulder pain -acute, symptomatic -Cervical CT: no acute fractures -Right Shoulder X-ray: no acute fractures -Lidoderm patch ordered for patient, Tylenol PRN moderate, Tramadol PRN severe 3. IDDM Type 2 -chronic and uncontrolled -HbA1c 9.4 on 02/26/18 -Hypoglycemia protocol in place -Accuchecks ACHS, Levemir 58 units SCHS, Januvia 25mg PO QD -moderate carbohydrate diet/heart healthy diet 4. Depression -chronic, controlled -Remeron 15 mg PO QHS and Lexapro 10 mg PO QD- cleared by Zane on 02/20/18 5. Hypothyrodism -chronic, controlled -TSH 2.65 on 02/26/18 -continue Levothyroxine 125 mcg PO QD 6. HTN/HLD/CAD -chronic, controlled -Metoprolol 12.5mg PO Q12 -s/p CABG 11/2017 -troponin negative -no change in EKG from previous 7. Systolic CHF -chronic, controlled, s/p pacemaker -ECHO 02/2018: systolic dysfunction EF 25-30% -continue lasix 40mg PO QD, per Dr. Petersen, started Losartan 25mg PO QD, Spironolactone 12.5mg PO QD 8. Asthma/COPD -controlled -continue Ventolin HFA PRN, Advair 250/50 1puff Q12 9. DVT prophylaxis - SCDs for now, recent subdural hematoma - hold ASA and plavix, or any anticoagulant for 4 weeks (Mar 28, 2018)
--- NOTE | 2018-03-10 13:01 | PCM.RRT ---
<Frantz Najera - Last Filed: 03/10/18 12:57> APPLIED PSYCHOLOGY CHAIR Nurse Assessment - Situation APPLIED PSYCHOLOGY CHAIR Responder Arrival Time: 12:38 Location: [address] Room Number: [id number] APPLIED PSYCHOLOGY CHAIR Called By: RN - IV IV Inserted during APPLIED PSYCHOLOGY CHAIR?: No - Respiratory Oxygen Delivery Method: Room Air Received Nebulizer Treatments: No Was the Patient Ventilated with Bag/Mask 100% O2?: No Secretions Suctioned?: No Was the Patient Intubated?: No Was the Patient Placed on a Ventilator?: No - Medication Medications Administered During APPLIED PSYCHOLOGY CHAIR: none - Diagnostic Test Ordered EKG: No Chest X-Ray: No CT Scan: No CPR started during APPLIED PSYCHOLOGY CHAIR?: No - Vital Signs Vital Signs: BP 120/67 WI 84 temp 97/7 O2 stat 100% RA - Ly Coma Scale Coma Scale Eye Opening: Spontaneous Coma Scale Motor: Obeys Commands Movement Coma Scale Verbal: Oriented Coma Scale Total: 15 - Time APPLIED PSYCHOLOGY CHAIR Ended Time APPLIED PSYCHOLOGY CHAIR Ended: 12:44 - Vital Signs at end of APPLIED PSYCHOLOGY CHAIR Vital Signs at end of APPLIED PSYCHOLOGY CHAIR: BP 120/67 WI 84 temp 97/7 O2 stat 100% RA - Recommendations APPLIED PSYCHOLOGY CHAIR Level of Care Recommendations: Remain in current setting Notifications: Attending Physician I.Reason for APPLIED PSYCHOLOGY CHAIR - A) Acute Change in Patient: (Select all that apply): Staff member or family is worried about patient - Neurological Status (Select all that apply): Alert, Responsive, Oriented, Follows Commands - Respiratory Oxygen Delivery Method: Room Air - Constitutional Appears: Well, Non-toxic, No Acute Distress - Head Head Exam: ATRAUMATIC, NORMOCEPHALIC - Eyes Eye Exam: Normal appearance, PERRL - Respiratory Exam Respiratory Exam: Clear to Ausculation Bilateral, NORMAL BREATHING PATTERN. absent: Rales, Rhonchi, Wheezes - Cardiovascular Exam Cardiovascular Exam: REGULAR RHYTHM, +S1, +S2 - GI/Abdominal Exam GI & Abdominal Exam: Soft, Normal Bowel Sounds. absent: Firm, Guarding, Rigid - Neurological Exam Neurological Exam: Alert, Awake, CN II-XII Intact, Oriented x3, Reflexes Normal. absent: Motor Sensory Deficit - Extremities Exam Extremities Exam: Full ROM Plan - Assessment of Findings&Treatment Plan 77 yr old female with past medical history of PMHx includes CAD s/p CABG (Nov 2017), pacemaker, HTN, HLD, IDDM type 2, hypothyroidism, Systolic CHF, asthma, depression and anxiety was admitted to acute rehab for PT/OT s/p large subdural hematoma due to mechanical fall. Patient was in ICU for 4 days where she remained with no neurological deficits and repeat CT head showed stable subdural hematoma. Rapid response was called on patient as patient complained of left sided weakness "feel funny, something is wrong" while ambulating from the bathroom to her bed. Patient nurse/tech were with her at bedside. At time of rapid response, patient symptoms completely resolved and no neurological deficits were noted on exam. Patient finger stick at 181 mg/dL. Patient denies fever, nausea, vomiting, chest pain, SOB, headaches or dizziness. -Accucheck BS 181 mg/dL -Continue to monitor vitals -Symptoms resolved without any intervention APPLIED PSYCHOLOGY CHAIR lead by Dr. Saab Resident: Dr. Peewee Najera, Dr. Keyla Sharpe, Dr. Edy Alford <Yahir Saab D - Last Filed: 03/10/18 17:56> Attending/Attestation - Attestation I have personally seen and examined this patient.: Yes I have fully participated in the care of the patient.: Yes I have reviewed all pertinent clinical information, including history, physical exam and plan: Yes Notes (Text): 03/10/18 17:55 Patient seen and examined with resident during APPLIED PSYCHOLOGY CHAIR. Case discussed and agreed with assessment.
[2018-03-10] MEDS: Benzocaine/Menthol (Cepacol) Lozenge PO PRN (17:03)
--- NOTE | 2018-03-10 18:20 | CP.PCM.PN ---
Subjective - Date & Time of Evaluation Date of Evaluation: 03/10/18 Time of Evaluation: 18:19 - Subjective Subjective: Patient seen in the [facility] NAD doing ok right shoulder pain with no change ambulating 180 with RW and min A team conf set tomorrow ELOS 03/15/18 continue current care Objective - Vital Signs/Intake and Output Vital Signs (last 24 hours): Temp Pulse Resp BP Pulse Ox 96.4 F L 84 18 120/67 100 03/10/18 10:00 03/10/18 12:57 03/10/18 12:57 03/10/18 12:57 03/10/18 12:57 - Medications Medications: Current Medications Acetaminophen (Tylenol 325mg Tab) 650 mg PO Q4 PRN PRN Reason: Pain, moderate (4-7) Albuterol (Ventolin Hfa 90 Mcg/Actuation (8 G)) 2 puff IH Q6 PRN PRN Reason: Shortness of Breath Last Admin: 03/10/18 14:52 Dose: 2 puff Atorvastatin Calcium (Lipitor) 40 mg PO HS [facility] Last Admin: 03/09/18 21:15 Dose: 40 mg Benzocaine/Menthol (Cepacol Sore Throat) 1 rosario PO Q3 PRN PRN Reason: Sore Throat Last Admin: 03/10/18 17:03 Dose: 1 rosario Benzonatate (Tessalon Perles) 100 mg PO Q8 PRN PRN Reason: Cough Last Admin: 03/10/18 17:03 Dose: 100 mg Dextrose (Dextrose 50% Inj) 0 ml IV STAT PRN; Protocol PRN Reason: Hypoglycemia Protocol Dextrose (Glutose 15) 0 gm PO ONCE PRN; Protocol PRN Reason: Hypoglycemia Protocol Docusate Sodium (Colace) 100 mg PO DAILY [facility] Last Admin: 03/10/18 08:50 Dose: 100 mg Escitalopram Oxalate (Lexapro) 10 mg PO DAILY [facility] Last Admin: 03/10/18 08:52 Dose: 10 mg Famotidine (Pepcid) 20 mg PO DAILY [facility] Last Admin: 03/10/18 08:54 Dose: 20 mg Furosemide (Lasix) 40 mg PO DAILY [facility] Last Admin: 03/10/18 08:52 Dose: 40 mg Glucagon (Glucagen Diagnostic Kit) 0 mg IM STAT PRN; Protocol PRN Reason: Hypoglycemia Protocol Insulin Detemir (Levemir) 58 units SC HS [facility] Last Admin: 03/09/18 21:23 Dose: 58 units Insulin Human Lispro (Humalog) 0 units SC ACHS [facility]; Protocol Last Admin: 03/10/18 16:48 Dose: Not Given Insulin Human Lispro (Humalog) 9 units SC ACTID [facility] Last Admin: 03/10/18 16:48 Dose: 9 unit Levothyroxine Sodium (Synthroid) 125 mcg PO DAILY@0630 [facility] Last Admin: 03/10/18 07:10 Dose: 125 mcg Lidocaine (Lidoderm) 1 ea TD DAILY [facility] Last Admin: 03/10/18 08:53 Dose: 1 ea Losartan Potassium (Cozaar) 25 mg PO DAILY [facility] Last Admin: 03/10/18 08:51 Dose: 25 mg Memantine (Namenda) 5 mg PO [facility] Last Admin: 03/09/18 21:15 Dose: 5 mg Metoprolol Tartrate (Lopressor) 12.5 mg PO Q12 [facility] Last Admin: 03/10/18 08:54 Dose: 12.5 mg Mirtazapine (Remeron) 15 mg PO [facility] Last Admin: 03/09/18 21:15 Dose: 15 mg Multivitamins/Minerals (Therapeutic-M Tab) 1 tab PO DAILY [facility] Last Admin: 03/10/18 08:55 Dose: 1 tab Fluticasone/Salmeterol (Advair Diskus 250/50) 1 puff IH Q12 [facility] Last Admin: 03/10/18 08:49 Dose: 1 puff Senna/Docusate Sodium (Senokot S 50 Mg-8.6 Mg) 1 tab PO [facility] Last Admin: 03/09/18 21:14 Dose: 1 tab Sitagliptin Phosphate (Januvia) 25 mg PO DAILY [facility] Last Admin: 03/10/18 08:52 Dose: 25 mg Spironolactone (Aldactone) 12.5 mg PO DAILY [facility] Last Admin: 03/10/18 08:50 Dose: 12.5 mg Tramadol HCl (Ultram) 50 mg PO Q4 PRN PRN Reason: Pain, severe (8-10) Last Admin: 03/10/18 10:24 Dose: 50 mg - Labs Labs: 03/07/18 05:40 03/07/18 05:40 PT 12.4 Seconds (9.8-13.1) 03/02/18 05:30 INR 1.1 03/02/18 05:30 APTT 27.8 Seconds (25.6-37.1) 03/02/18 05:30
[2018-03-10] MEDS: Docusate-Senna 50 mg-8.6 mg Tab PO SCH (21:48)
[2018-03-10] MEDS ORDERED: Insulin Detemir 100 Units/ml Inj SC ONE (22:00)
[2018-03-10] MEDS: Insulin Detemir 100 Units/ml Inj SC SCH (22:01)
[2018-03-11] MEDS: Levothyroxine 125 MCG TAB PO SCH (06:39)
[2018-03-11] MEDS: Insulin Lispro (humaLOG) 100 Units/ml Inj SC SCH ×7 (06:48→21:33)
[2018-03-11] MEDS: Lidocaine 5% Patch TD SCH (08:33)
[2018-03-11] MEDS: Multivitamin With Minerals Tab PO SCH (08:39)
[2018-03-11] MEDS: Fluticasone-Salmeterol 250-50mcg Diskus IH SCH ×2 (10:14→21:38)
--- NOTE | 2018-03-11 10:29 | CP.PCM.PN ---
Subjective - Date & Time of Evaluation Date of Evaluation: 03/11/18 Time of Evaluation: 10:27 - Subjective Subjective: 77 yr old female with past medical history of PMHx includes CAD s/p CABG (Nov 2017), pacemaker, HTN, HLD, IDDM type 2, hypothyroidism, Systolic CHF, asthma, depression and anxiety was admitted to acute rehab for PT/OT s/p large subdural hematoma due to mechanical fall. Patient was in ICU for 4 days where she remained with no neurological deficits and repeat CT head showed stable subdural hematoma. Per discussion with Dr. Petersen, aspirin and plavix will be held for 4 weeks and a repeat CT head will be done in 4 weeks. Patient denies abdominal pain, nausea, vomiting, chest pain, SOB, headaches or dizziness. Patient still complaining of continued right shoulder pain. Objective - Vital Signs/Intake and Output Vital Signs (last 24 hours): Temp Pulse Resp BP Pulse Ox 98.3 F 79 19 127/70 100 03/11/18 08:13 03/11/18 08:38 03/11/18 08:13 03/11/18 08:39 03/11/18 08:13 - Medications Medications: Current Medications Acetaminophen (Tylenol 325mg Tab) 650 mg PO Q4 PRN PRN Reason: Pain, moderate (4-7) Albuterol (Ventolin Hfa 90 Mcg/Actuation (8 G)) 2 puff IH Q6 PRN PRN Reason: Shortness of Breath Last Admin: 03/10/18 14:52 Dose: 2 puff Atorvastatin Calcium (Lipitor) 40 mg PO HS [facility] Last Admin: 03/10/18 21:48 Dose: 40 mg Benzocaine/Menthol (Cepacol Sore Throat) 1 rosario PO Q3 PRN PRN Reason: Sore Throat Last Admin: 03/10/18 17:03 Dose: 1 rosario Benzonatate (Tessalon Perles) 100 mg PO Q8 PRN PRN Reason: Cough Last Admin: 03/11/18 08:36 Dose: 100 mg Dextrose (Dextrose 50% Inj) 0 ml IV STAT PRN; Protocol PRN Reason: Hypoglycemia Protocol Dextrose (Glutose 15) 0 gm PO ONCE PRN; Protocol PRN Reason: Hypoglycemia Protocol Docusate Sodium (Colace) 100 mg PO DAILY [facility] Last Admin: 03/11/18 08:37 Dose: 100 mg Escitalopram Oxalate (Lexapro) 10 mg PO DAILY [facility] Last Admin: 03/11/18 08:41 Dose: 10 mg Famotidine (Pepcid) 20 mg PO DAILY [facility] Last Admin: 03/11/18 08:40 Dose: 20 mg Furosemide (Lasix) 40 mg PO DAILY [facility] Last Admin: 03/11/18 08:39 Dose: 40 mg Glucagon (Glucagen Diagnostic Kit) 0 mg IM STAT PRN; Protocol PRN Reason: Hypoglycemia Protocol Insulin Detemir (Levemir) 58 units SC HS [facility] Last Admin: 03/10/18 22:01 Dose: Not Given Insulin Human Lispro (Humalog) 0 units SC ACHS [facility]; Protocol Last Admin: 03/11/18 06:48 Dose: Not Given Insulin Human Lispro (Humalog) 9 units SC ACTID [facility] Last Admin: 03/11/18 08:00 Dose: 9 unit Levothyroxine Sodium (Synthroid) 125 mcg PO DAILY@0630 [facility] Last Admin: 03/11/18 06:39 Dose: 125 mcg Lidocaine (Lidoderm) 1 ea TD DAILY [facility] Last Admin: 03/11/18 08:33 Dose: 1 ea Losartan Potassium (Cozaar) 25 mg PO DAILY [facility] Last Admin: 03/11/18 08:36 Dose: 25 mg Memantine (Namenda) 5 mg PO HS [facility] Last Admin: 03/10/18 21:49 Dose: 5 mg Metoprolol Tartrate (Lopressor) 12.5 mg PO Q12 [facility] Last Admin: 03/11/18 08:38 Dose: 12.5 mg Mirtazapine (Remeron) 15 mg PO HS [facility] Last Admin: 03/10/18 21:48 Dose: 15 mg Multivitamins/Minerals (Therapeutic-M Tab) 1 tab PO DAILY [facility] Last Admin: 03/11/18 08:39 Dose: 1 tab Fluticasone/Salmeterol (Advair Diskus 250/50) 1 puff IH Q12 [facility] Last Admin: 03/11/18 10:14 Dose: 1 puff Senna/Docusate Sodium (Senokot S 50 Mg-8.6 Mg) 1 tab PO HS [facility] Last Admin: 03/10/18 21:48 Dose: 1 tab Sitagliptin Phosphate (Januvia) 25 mg PO DAILY [facility] Last Admin: 03/11/18 08:38 Dose: 25 mg Spironolactone (Aldactone) 12.5 mg PO DAILY [facility] Last Admin: 03/11/18 08:38 Dose: 12.5 mg Tramadol HCl (Ultram) 50 mg PO Q4 PRN PRN Reason: Pain, severe (8-10) Last Admin: 03/10/18 21:58 Dose: 50 mg - Labs Labs: 03/07/18 05:40 03/07/18 05:40 PT 12.4 Seconds (9.8-13.1) 03/02/18 05:30 INR 1.1 03/02/18 05:30 APTT 27.8 Seconds (25.6-37.1) 03/02/18 05:30 - Constitutional Appears: Well, Non-toxic, No Acute Distress - Head Exam Head Exam: ATRAUMATIC, NORMOCEPHALIC - Eye Exam Eye Exam: Normal appearance, PERRL - ENT Exam ENT Exam: Mucous Membranes Moist - Neck Exam Neck Exam: Full ROM. absent: Lymphadenopathy - Respiratory Exam Respiratory Exam: Clear to Ausculation Bilateral, NORMAL BREATHING PATTERN. absent: Rales, Rhonchi, Wheezes - Cardiovascular Exam Cardiovascular Exam: REGULAR RHYTHM, +S1, +S2 - GI/Abdominal Exam GI & Abdominal Exam: Soft, Normal Bowel Sounds. absent: Firm, Guarding, Rigid - Extremities Exam Additional comments: continued pain to the right shoulder, worse with range of motion - Back Exam Back Exam: absent: CVA tenderness (L), CVA tenderness (R) - Neurological Exam Neurological Exam: Alert, Awake, Oriented x3 - Psychiatric Exam Psychiatric exam: Normal Affect, Normal Mood - Skin Skin Exam: Normal Color Assessment and Plan - Assessment and Plan (Free Text) Assessment: 77 yr old F admitted to acute rehab for PT/OT s/p large subdural hematoma due to mechanical fall. PMHx includes CAD s/p CABG (Nov 2017), pacemaker, HTN, HLD, IDDM type 2, hypothyroidism, Systolic CHF, asthma, depression and anxiety. Patient has no neurological deficits. Plan: 1. Subdural Hematoma -acute, stable -no neurological deficits -neuro checks Q-shift -repeat CT head w/o contrast (on approx 2018) -hold ASA and plavix for [address] head -stable from Neurosurgery standpoint (Dr. Monet) -plan for discharge with home health services 2. Right Shoulder pain -acute, symptomatic -Cervical CT: no acute fractures -Right Shoulder X-ray: no acute fractures -Lidoderm patch ordered for patient, Tylenol PRN moderate, Tramadol PRN severe 3. IDDM Type 2 -chronic and uncontrolled -HbA1c 9.4 on 02/26/18 -Hypoglycemia protocol in place -Accuchecks ACHS, Levemir 58 units SCHS, Januvia 25mg PO QD -moderate carbohydrate diet/heart healthy diet 4. Depression -chronic, controlled -Remeron 15 mg PO QHS and Lexapro 10 mg PO QD- cleared by GerLeonid on 02/20/18 5. Hypothyrodism -chronic, controlled -TSH 2.65 on 02/26/18 -continue Levothyroxine 125 mcg PO QD 6. HTN/HLD/CAD -chronic, controlled -Metoprolol 12.5mg PO Q12 -s/p CABG 11/2017 -troponin negative -no change in EKG from previous 7. Systolic CHF -chronic, controlled, s/p pacemaker -ECHO 02/2018: systolic dysfunction EF 25-30% -continue lasix 40mg PO QD, per Dr. Petersen, started Losartan 25mg PO QD, Spironolactone 12.5mg PO QD 8. Asthma/COPD -controlled -continue Ventolin HFA PRN, Advair 250/50 1puff Q12 9. DVT prophylaxis - SCDs for now, recent subdural hematoma - hold ASA and plavix, or any anticoagulant for 4 weeks (Mar 28, 2018)
--- NOTE | 2018-03-11 13:22 | PCM.PSYTMC ---
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 no treatment done was monitored patient awake migdalia lert - Consults: Comment: Dr Gastelum - Toileting: Toileting: Minimal Assistance - Bladder Management: Bladder Pattern: Normal Voiding Method: Toilet, Bedpan Bladder Management: Minimal Assistance - Transfers: Transfers: Minimal Assistance - ADL's: ADL's: Contact Guard - Pain Management: Other Intervention:: on ultram for pain and lidoderm patch compalined of pain on both shoulder - Patient/Family Teaching: Other Intervention:: safety /fall precaution medication teaching post cva care diet teachings f/s - Goals/Time Frame: Comment: as per multidiciplinary plan of care for discharge to home - Provider: Registered Nurse:: Brenda Natarajan Physical Therapy - Bed Mobility Bed Mobility: Minimal Assistance, Moderate Assistance Comment: Patient performed supine to sit on EOB with minimal/moderate assistance of 1 with head of bed slightly elevated and use of bedrail with VC's for safe technique. - Transfers Wheelchair to Mat: Minimal Assistance Sit to Stand: Minimal Assistance Comment: Patient performed sit to stand with RW with minimal assistance of 1 and VC's for safe hand placement. - Ambulation Level of Assistance: Contact Guard, Minimal Assistance Distance (ft.): 150 Assistive Devices: Rolling Walker Orthoses: Patient ambulated with a RW x 150 feet x 2 times with CG/minimal assistance of 1 with a slow gait, small step length, step through pattern, decreased left LE step length and height, occassional foot drag. - Stair Negotiation Stairs: Level of Assistance: Not Tested - Standing Balance Static Stand: Contact Guard Assist Comment: RW - Pain Pain (assessed during therapy session): 7 Alleviating Techniques: Medication, Heat, Ice, Distraction Comment: Patient with complaints of bilateral shoulder pain and neck pain. Patient premedicated prior to session, also uses lidocaine patches. - Insight/Carryover Insight/Carryover: Fair - Patient/Family Education Comment: Safe transfers, bed mobility, increasing step length and left foot clearance during ambulation. - Assessment/Plan Assessment: Patient presents with decreased left LE strength, foot drag during ambulation, decreased safety awareness during transfers. - Goals Timeframe: 1 week Goals: 1. Increase bed mobility to CG/minimal assistance of 1. 2. Increase transfers to CG of 1. 3. Increase ambulation with RW x 200 feet x 2 times with CG/close supervision of 1. 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 -bathing: TBA - Sitting Balance Static Sitting: Supervision Dynamic Sitting: Reaches across midline, Reaches out of base of support, Reaches within base of support, Requires supervision, Contact Guard Assist Comment: seated unsupported - Transfers Wheelchair to Bed Transfers: Verbal Cues, Set-up Help, Minimal Assistance, Moderate Assistance Toilet Transfers: Verbal Cues, Set-up Help, Minimal Assistance, Moderate Assistance - Wheelchair Management Level of Assistance: Minimal Assistance Distance (ft.): 20 - Upper Extremity Status Right Upper Extremity Comment: see OT eval for details Left Upper Extremity Comment: se OT eval for details - Pain Alleviating Techniques: Heat, Ice Comment: multiple joints - Insight/Carryover Insight/Carryover: Fair - Patient/Family Education Comment: -rehab/OT goals, plan of care. -adl, transfer and mobility training uisng adaptive/comepnsatory strategies. -pain management. -emotional support. -use of call chowdhury for assistance. -safety strategies for transfers and functional mobility - Assessment/Plan Assessment: Pt is a 77 year old Hungarian speaking female with dx: subdural hematoma. *Precautions: fall precautions, cardiac. Pt limited by multiple joint pain, impaired respiratory function, impaired ROM/strength in BUES, LLE , impaired standing balance/endurance, impaired cognition--which impact on self care, functional transfers/mobility. Pt will continue skilled OT to address functional impairment to maximize function/self care. Pt will likely need 24 hour superviison 2' multiple physical and cognitive limitations. Pt may benefit from psychology consult for depressed mood. - Goals Timeframe: 8 days Comment: FEEDING: I/setup. GROOMING: I/setup. UPPER BODY DRESSING:I/setup. LOWER BODY DRESSING: Supervision and verbal cues. TOILETING: CS/CG and verbal cues. BATHING: Min assist and verbal cues - Provider Occupational Therapist:: Ashleigh Diaz License Number: [id number] Speech Therapy - Consult Information Patient on Program: Yes Medical Diagnosis: SDH Treatment Diagnosis: mild cognitive deficits - Assessment Memory Impairment: Mild - Plan Assessment: Daysi Walden presents with mild cognitive-linguistic deficits characterized by impaired short-term recall and thought organization. Pt with good participation in tx tasks and would benefit from continued speech tx for improved cognition and functional independence. Plan: Continue Speech/Language Therapy Frequency: 3-5 times per week Duration: 1 week Goals/Timeframe: Please see progress note dated 03/10/18 for updated goals/POC Recommendations: Continue ST 3-5x/week for improved cognition - Provider Therapist: Evi Phelan License Number: [id number] Recreational Therapy - Participation Participation: Participates in Individual and/or Group Sessions, Monitors His/Her Own Leisure Time - Attendance Attendance: 3-5 times per week - Activities Leisure Activities: Television - Socialization Level of Socialization: Initiates/interacts freely with care givers and peer - Diversional Time Diversional Time: television - Assessment Assessment/Plan: Pt requires verbal cues for encouragement to participate in recreation therapy sessions. Pt has participated in basic direction following tasks such as modified lisa card task and spot-it matching task. Pt requires supervision with tasks 2' for encouragement to continue participating in session and for arousal level. Pt's barriers to participation are pain as pt c/o pain in shoulders, decrease activity tolerance level, and decrease arousal level. Pt would benefit from participating in recreation therapy sessions to improve diversion from pain and arousal level. Will continue to encourage pt to participate in recreation therapy sessions throughout stay on unit. Problems Currently Limiting Participation: pain, decrease leisure awareness level, decrease activity tolerance level, anxiety Goals and Time Frame: Pt will be encouraged to participate in 1:1 and group recreation therapy sessions 3-5x week to improve activity tolerance level, leisure awareness level, diversion from pain, decrease anxiety level, and improve overall mood state by date of discharge. - Provider Therapist: Pamela Dumont Nutrition - Current Diet Current Diet/Supplement/Feedings: Heart healthy moderate consistent CHO glucerna shake 8 ounces 2 per day - Appetite Percent Meal Consumed: 50-74% - Assessment/Goals/Time Frame Assessments/Goals/Time Frame: Pt at high nutritional risk. Previous Goals-. 1: Consume >75% of meals- partially met, continue. 2: Deter further wt loss- not met, continue. 3: Improve BG closer to 70-180 mL/dL range- not met, continue. Follow-up due on 03/12/2018 - Provider Provider: Anuja Gastelum Case Management - Psychosocial Assessment Support Systems: Amrita Espinoza(daughter)- [phone] Psychological Interventions/Needs: Patient is awake and alert with some confusion. Discharge Concerns: Patient lives alone and has a hx of not letting in home visiting therapists, although daughter lives nearby. Patient/Family Meeting: CM met with patient and rehab team. Intervention/Goal/Outcome: 1. Goal: 24hr supervision 2. Plan: home with VNS 3. schedule caregiver training with daughter 4. DME needs 5. continued emotional support - Discharge Plan Discharge Plan: Home with services Home Services: [facility] - Provider Provider: Elvira Saha License Number: [id number] Rehabilitation Plan - Treatment Plan Treatment Plan: Physical Therapy, Occupational Therapy, Dietary, Patient/Family Education - Discharge Plan Estimated Date of Discharge: 03/15/18 Discharge to: Home
--- NOTE | 2018-03-11 13:40 | CP.PCM.PN ---
Subjective - Date & Time of Evaluation Date of Evaluation: 03/11/18 Time of Evaluation: 13:39 - Subjective Subjective: Patient seen in the room notes continued shoulder pain no other issues outside of depression psych will be called for her aware of d/c date 03/15/18 continue current care Objective - Vital Signs/Intake and Output Vital Signs (last 24 hours): Temp Pulse Resp BP Pulse Ox 98.3 F 79 19 127/70 100 03/11/18 09:00 03/11/18 09:00 03/11/18 09:00 03/11/18 09:00 03/11/18 08:13 - Medications Medications: Current Medications Acetaminophen (Tylenol 325mg Tab) 650 mg PO Q4 PRN PRN Reason: Pain, moderate (4-7) Last Admin: 03/11/18 12:25 Dose: 650 mg Albuterol (Ventolin Hfa 90 Mcg/Actuation (8 G)) 2 puff IH Q6 PRN PRN Reason: Shortness of Breath Last Admin: 03/10/18 14:52 Dose: 2 puff Atorvastatin Calcium (Lipitor) 40 mg PO HS [facility] Last Admin: 03/10/18 21:48 Dose: 40 mg Benzocaine/Menthol (Cepacol Sore Throat) 1 rosario PO Q3 PRN PRN Reason: Sore Throat Last Admin: 03/10/18 17:03 Dose: 1 rosario Benzonatate (Tessalon Perles) 100 mg PO Q8 PRN PRN Reason: Cough Last Admin: 03/11/18 08:36 Dose: 100 mg Dextrose (Dextrose 50% Inj) 0 ml IV STAT PRN; Protocol PRN Reason: Hypoglycemia Protocol Dextrose (Glutose 15) 0 gm PO ONCE PRN; Protocol PRN Reason: Hypoglycemia Protocol Docusate Sodium (Colace) 100 mg PO DAILY [facility] Last Admin: 03/11/18 08:37 Dose: 100 mg Escitalopram Oxalate (Lexapro) 10 mg PO DAILY [facility] Last Admin: 03/11/18 08:41 Dose: 10 mg Famotidine (Pepcid) 20 mg PO DAILY [facility] Last Admin: 03/11/18 08:40 Dose: 20 mg Furosemide (Lasix) 40 mg PO DAILY [facility] Last Admin: 03/11/18 08:39 Dose: 40 mg Glucagon (Glucagen Diagnostic Kit) 0 mg IM STAT PRN; Protocol PRN Reason: Hypoglycemia Protocol Insulin Detemir (Levemir) 58 units SC HS [facility] Last Admin: 03/10/18 22:01 Dose: Not Given Insulin Human Lispro (Humalog) 0 units SC ACHS [facility]; Protocol Last Admin: 03/11/18 12:14 Dose: Not Given Insulin Human Lispro (Humalog) 9 units SC ACTID [facility] Last Admin: 03/11/18 12:00 Dose: 9 unit Levothyroxine Sodium (Synthroid) 125 mcg PO DAILY@0630 [facility] Last Admin: 03/11/18 06:39 Dose: 125 mcg Lidocaine (Lidoderm) 1 ea TD DAILY [facility] Last Admin: 03/11/18 08:33 Dose: 1 ea Losartan Potassium (Cozaar) 25 mg PO DAILY [facility] Last Admin: 03/11/18 08:36 Dose: 25 mg Memantine (Namenda) 5 mg PO [facility] Last Admin: 03/10/18 21:49 Dose: 5 mg Metoprolol Tartrate (Lopressor) 12.5 mg PO Q12 [facility] Last Admin: 03/11/18 08:38 Dose: 12.5 mg Mirtazapine (Remeron) 15 mg PO HS [facility] Last Admin: 03/10/18 21:48 Dose: 15 mg Multivitamins/Minerals (Therapeutic-M Tab) 1 tab PO DAILY [facility] Last Admin: 03/11/18 08:39 Dose: 1 tab Fluticasone/Salmeterol (Advair Diskus 250/50) 1 puff IH Q12 [facility] Last Admin: 03/11/18 10:14 Dose: 1 puff Senna/Docusate Sodium (Senokot S 50 Mg-8.6 Mg) 1 tab PO HS [facility] Last Admin: 03/10/18 21:48 Dose: 1 tab Sitagliptin Phosphate (Januvia) 25 mg PO DAILY [facility] Last Admin: 03/11/18 08:38 Dose: 25 mg Spironolactone (Aldactone) 12.5 mg PO DAILY [facility] Last Admin: 03/11/18 08:38 Dose: 12.5 mg Tramadol HCl (Ultram) 50 mg PO Q4 PRN PRN Reason: Pain, severe (8-10) Last Admin: 03/10/18 21:58 Dose: 50 mg - Labs Labs: 03/07/18 05:40 03/07/18 05:40 PT 12.4 Seconds (9.8-13.1) 03/02/18 05:30 INR 1.1 03/02/18 05:30 APTT 27.8 Seconds (25.6-37.1) 03/02/18 05:30
[2018-03-11] MEDS: Docusate-Senna 50 mg-8.6 mg Tab PO SCH (21:24)
[2018-03-11] MEDS: Insulin Detemir 100 Units/ml Inj SC SCH (21:25)
[2018-03-12 06:03] LABS: MEAN CELL VOLUME 85.3 fl (81.0-99.0); MEAN CORPUSCULAR HEMOGLOBIN 30.2 pg (27.0-31.0); MEAN CORPUSCULAR HGB CONC 35.3 g/dL (33.0-37.0); RBC 3.31 Mil/uL (3.80-5.20); RED CELL DISTRIBUTION WIDTH 17.3 % (11.5-14.5); WHITE BLOOD COUNT 5.3 K/uL (4.8-10.8)
[2018-03-12] MEDS: Levothyroxine 125 MCG TAB PO SCH (06:12)
[2018-03-12 06:25] LABS: BLOOD UREA NITROGEN 21 mg/dl (7-17); CALCIUM 9.3 mg/dL (8.4-10.2); GFR NON-AFRICAN AMERICAN 53
--- NOTE | 2018-03-12 08:11 | CP.PCM.CON ---
History of Present Illness - History of Present Illness History of Present Illness: Psychiatry consult note CC: "I'm depressed." HPI: 77 yr old F admitted to acute rehab for PT/OT s/p large subdural hematoma due to mechanical fall. PMHx includes CAD s/p CABG (Nov 2017), pacemaker, HTN, HLD, IDDM type 2, hypothyroidism, Systolic CHF, asthma, depression and anxiety. Prior to admission to acute rehab, patient was in ICU for 4 days where she remained with no neurological deficits and repeat CT head showed stable subdural hematoma. Patient reports chronic depression w/ poor appetite, low energy and low motivation. She denies feeling hopeless. She reports normal sleep. She denies AH/VH/SI/HI/paranoia/delusions. A + O x self, [facility], but not date. She does not believe she has any memory deficits. PMHx: CAD s/p CABG (Nov 2017), pacemaker, HTN, HLD, IDDM type 2, hypothyroidism, Systolic CHF, asthma, depression and anxiety PPHx: Currently prescribed Lexapro 10 mg PO Daily and Remeron 15 mg PO HS; patient unable to provide details of psychiatric history ALL: NKDA SHx: From [facility], denies drugs/etoh/cig use; has 1 daughter that lives 2 blocks away from her who helps her at time; total of 5 children MSE: A + O x 2, calm, cooperative, speech soft, psychomotor retarded, thought process- linear/coherent, thought content- no delusions, mood/affect- depressed; no AH/VH/paranoia/delusions/SI/HI. Impression: 77 yo female w/ Major Depressive Disorder, r/o Major Neurocognitive Impairment. -Continue Lexapro 10 mg PO Daily -Increase Remeron to 22.5 mg PO HS -No acute psychiatric admission or 1:1 indicated at this time Past Patient History - Tetanus Immunizations Tetanus Immunization: Up to Date - Past Medical History & Family History Past Medical History?: Yes - Past Social History Smoking Status: Never Smoked - CARDIAC Hx Cardiac Disorders: Yes Hx Congestive Heart Failure: Yes Hx Hypercholesterolemia: Yes Hx Hypertension: Yes - PULMONARY Hx Chronic Obstructive Pulmonary Disease (COPD): Yes - NEUROLOGICAL Hx Neurological Disorder: No - HEENT Hx HEENT Problems: No - RENAL Hx Chronic Kidney Disease: No - ENDOCRINE/METABOLIC Hx Diabetes Mellitus Type 2: Yes - HEMATOLOGICAL/ONCOLOGICAL Hx AIDS: No Hx Blood Transfusions: Yes Hx Human Immunodeficiency Virus (HIV): No - INTEGUMENTARY Hx Dermatological Problems: No - MUSCULOSKELETAL/RHEUMATOLOGICAL Hx Arthritis: Yes (R shldr, C-spine) - GASTROINTESTINAL Hx Ulcer: Yes - GENITOURINARY/GYNECOLOGICAL Hx Genitourinary Disorders: No - PSYCHIATRIC Hx Depression: Yes Hx Substance Use: No - SURGICAL HISTORY Hx Coronary Artery Bypass Graft: Yes (11/2017) Hx Coronary Stent: Yes (x4) - ANESTHESIA Hx Anesthesia: Yes Hx Anesthesia Reactions: No Hx Malignant Hyperthermia: No Has any member of the family had a problem w/ anesthesia?: No Meds Allergies/Adverse Reactions: Allergies Allergy/AdvReac Type Severity Reaction Status Date / Time No Known Allergies Allergy Verified 02/28/18 19:18 - Medications Medications: Current Medications Acetaminophen (Tylenol 325mg Tab) 650 mg PO Q6 [facility] Last Admin: 03/12/18 06:12 Dose: 650 mg Albuterol (Ventolin Hfa 90 Mcg/Actuation (8 G)) 2 puff IH Q6 PRN PRN Reason: Shortness of Breath Last Admin: 03/10/18 14:52 Dose: 2 puff Atorvastatin Calcium (Lipitor) 40 mg PO HS [facility] Last Admin: 03/11/18 21:38 Dose: 40 mg Benzocaine/Menthol (Cepacol Sore Throat) 1 rosario PO Q3 PRN PRN Reason: Sore Throat Last Admin: 03/10/18 17:03 Dose: 1 rosario Benzonatate (Tessalon Perles) 100 mg PO Q8 PRN PRN Reason: Cough Last Admin: 03/11/18 08:36 Dose: 100 mg Dextrose (Dextrose 50% Inj) 0 ml IV STAT PRN; Protocol PRN Reason: Hypoglycemia Protocol Dextrose (Glutose 15) 0 gm PO ONCE PRN; Protocol PRN Reason: Hypoglycemia Protocol Docusate Sodium (Colace) 100 mg PO DAILY [facility] Last Admin: 03/11/18 08:37 Dose: 100 mg Escitalopram Oxalate (Lexapro) 10 mg PO DAILY [facility] Last Admin: 03/11/18 08:41 Dose: 10 mg Famotidine (Pepcid) 20 mg PO DAILY [facility] Last Admin: 03/11/18 08:40 Dose: 20 mg Furosemide (Lasix) 40 mg PO DAILY [facility] Last Admin: 03/11/18 08:39 Dose: 40 mg Glucagon (Glucagen Diagnostic Kit) 0 mg IM STAT PRN; Protocol PRN Reason: Hypoglycemia Protocol Insulin Detemir (Levemir) 58 units SC HS [facility] Last Admin: 03/11/18 21:25 Dose: 58 units Insulin Human Lispro (Humalog) 0 units SC ACHS [facility]; Protocol Last Admin: 03/11/18 21:33 Dose: Not Given Insulin Human Lispro (Humalog) 9 units SC ACTID [facility] Last Admin: 03/11/18 16:33 Dose: 9 unit Levothyroxine Sodium (Synthroid) 125 mcg PO DAILY@0630 [facility] Last Admin: 03/12/18 06:12 Dose: 125 mcg Lidocaine (Lidoderm) 1 ea TD DAILY [facility] Last Admin: 03/11/18 08:33 Dose: 1 ea Losartan Potassium (Cozaar) 25 mg PO DAILY [facility] Last Admin: 03/11/18 08:36 Dose: 25 mg Memantine (Namenda) 5 mg PO [facility] Last Admin: 03/11/18 21:25 Dose: 5 mg Metoprolol Tartrate (Lopressor) 12.5 mg PO Q12 [facility] Last Admin: 03/11/18 21:24 Dose: 12.5 mg Mirtazapine (Remeron) 15 mg PO HS [facility] Last Admin: 03/11/18 21:39 Dose: 15 mg Multivitamins/Minerals (Therapeutic-M Tab) 1 tab PO DAILY [facility] Last Admin: 03/11/18 08:39 Dose: 1 tab Fluticasone/Salmeterol (Advair Diskus 250/50) 1 puff IH Q12 [facility] Last Admin: 03/11/18 21:38 Dose: 1 puff Senna/Docusate Sodium (Senokot S 50 Mg-8.6 Mg) 1 tab PO HS [facility] Last Admin: 03/11/18 21:24 Dose: 1 tab Sitagliptin Phosphate (Januvia) 25 mg PO DAILY [facility] Last Admin: 03/11/18 08:38 Dose: 25 mg Spironolactone (Aldactone) 12.5 mg PO DAILY [facility] Last Admin: 03/11/18 08:38 Dose: 12.5 mg Tramadol HCl (Ultram) 50 mg PO Q4 PRN PRN Reason: Pain, severe (8-10) Last Admin: 03/10/18 21:58 Dose: 50 mg Results - Vital Signs Recent Vital Signs: Last Vital Signs Temp 98.2 F 03/11/18 20:05 Pulse 74 03/11/18 21:24 Resp 20 03/11/18 20:05 BP 129/71 03/11/18 21:24 Pulse Ox 100 03/11/18 20:05 - Labs Result Diagrams: 03/12/18 05:15 03/12/18 05:15 Labs: Laboratory Results - last 24 hr 03/11/18 03/11/18 03/11/18 11:50 15:03 15:38 WBC RBC Hgb Hct MCV MCH MCHC RDW Plt Count Sodium Potassium Chloride Carbon Dioxide Anion Gap BUN Creatinine Est GFR ( Amer) Est GFR (Non-Af Amer) POC Glucose (mg/dL) 182 H 217 H 230 H Random Glucose Calcium 03/11/18 03/12/18 03/12/18 20:18 05:15 05:15 WBC 5.3 RBC 3.31 L Hgb 10.0 L Hct 28.3 L MCV 85.3 MCH 30.2 MCHC 35.3 RDW 17.3 H Plt Count 276 Sodium 133 Potassium 4.6 Chloride 99 Carbon Dioxide 25 Anion Gap 14 BUN 21 H Creatinine 1.0 Est GFR ( Amer) > 60 Est GFR (Non-Af Amer) 53 POC Glucose (mg/dL) 244 H Random Glucose 240 H Calcium 9.3 03/12/18 06:11 WBC RBC Hgb Hct MCV MCH MCHC RDW Plt Count Sodium Potassium Chloride Carbon Dioxide Anion Gap BUN Creatinine Est GFR ( Amer) Est GFR (Non-Af Amer) POC Glucose (mg/dL) 197 H Random Glucose Calcium
[2018-03-12] MEDS: Fluticasone-Salmeterol 250-50mcg Diskus IH SCH ×2 (08:33→21:25)
[2018-03-12] MEDS: Insulin Lispro (humaLOG) 100 Units/ml Inj SC SCH ×7 (08:35→21:36)
[2018-03-12] MEDS: Lidocaine 5% Patch TD SCH (08:37)
[2018-03-12] MEDS: Multivitamin With Minerals Tab PO SCH (08:39)
--- NOTE | 2018-03-12 12:28 | CP.PCM.PN ---
Subjective - Date & Time of Evaluation Date of Evaluation: 03/12/18 Time of Evaluation: 12:27 - Subjective Subjective: 77 yr old female with past medical history of PMHx includes CAD s/p CABG (Nov 2017), pacemaker, HTN, HLD, IDDM type 2, hypothyroidism, Systolic CHF, asthma, depression and anxiety was admitted to acute rehab for PT/OT s/p large subdural hematoma due to mechanical fall. Patient was in ICU for 4 days where she remained with no neurological deficits and repeat CT head showed stable subdural hematoma. Per discussion with Dr. Petersen, aspirin and plavix will be held for 4 weeks [address] a repeat CT head will be done in 4 weeks. However, patient complaining of left leg weakness, especially noted during physical therapy. CT to be ordered today for patient Objective - Vital Signs/Intake and Output Vital Signs (last 24 hours): Temp Pulse Resp BP Pulse Ox 98.3 F 88 22 142/68 98 03/12/18 08:07 03/12/18 08:38 03/12/18 08:07 03/12/18 08:38 03/12/18 08:07 - Medications Medications: Current Medications Acetaminophen (Tylenol 325mg Tab) 650 mg PO Q6 [facility] Last Admin: 03/12/18 06:12 Dose: 650 mg Albuterol (Ventolin Hfa 90 Mcg/Actuation (8 G)) 2 puff IH Q6 PRN PRN Reason: Shortness of Breath Last Admin: 03/10/18 14:52 Dose: 2 puff Atorvastatin Calcium (Lipitor) 40 mg PO HS [facility] Last Admin: 03/11/18 21:38 Dose: 40 mg Benzocaine/Menthol (Cepacol Sore Throat) 1 rosario PO Q3 PRN PRN Reason: Sore Throat Last Admin: 03/10/18 17:03 Dose: 1 rosario Benzonatate (Tessalon Perles) 100 mg PO Q8 PRN PRN Reason: Cough Last Admin: 03/12/18 11:22 Dose: 100 mg Dextrose (Dextrose 50% Inj) 0 ml IV STAT PRN; Protocol PRN Reason: Hypoglycemia Protocol Dextrose (Glutose 15) 0 gm PO ONCE PRN; Protocol PRN Reason: Hypoglycemia Protocol Docusate Sodium (Colace) 100 mg PO DAILY [facility] Last Admin: 03/12/18 08:34 Dose: 100 mg Escitalopram Oxalate (Lexapro) 10 mg PO DAILY [facility] Last Admin: 03/12/18 08:37 Dose: 10 mg Famotidine (Pepcid) 20 mg PO DAILY [facility] Last Admin: 03/12/18 08:39 Dose: 20 mg Furosemide (Lasix) 40 mg PO DAILY [facility] Last Admin: 03/12/18 08:37 Dose: 40 mg Glucagon (Glucagen Diagnostic Kit) 0 mg IM STAT PRN; Protocol PRN Reason: Hypoglycemia Protocol Insulin Detemir (Levemir) 58 units SC HS [facility] Last Admin: 03/11/18 21:25 Dose: 58 units Insulin Human Lispro (Humalog) 0 units SC ACHS [facility]; Protocol Last Admin: 03/12/18 12:00 Dose: 4 units Insulin Human Lispro (Humalog) 9 units SC ACTID [facility] Last Admin: 03/12/18 11:59 Dose: 9 unit Levothyroxine Sodium (Synthroid) 125 mcg PO DAILY@0630 [facility] Last Admin: 03/12/18 06:12 Dose: 125 mcg Lidocaine (Lidoderm) 1 ea TD DAILY [facility] Last Admin: 03/12/18 08:37 Dose: 1 ea Losartan Potassium (Cozaar) 25 mg PO DAILY [facility] Last Admin: 03/12/18 08:35 Dose: 25 mg Memantine (Namenda) 5 mg PO HS [facility] Last Admin: 03/11/18 21:25 Dose: 5 mg Metoprolol Tartrate (Lopressor) 12.5 mg PO Q12 [facility] Last Admin: 03/12/18 08:38 Dose: 12.5 mg Mirtazapine (Remeron) 7.5 mg PO HS [facility] Mirtazapine (Remeron) 15 mg PO HS [facility] Multivitamins/Minerals (Therapeutic-M Tab) 1 tab PO DAILY [facility] Last Admin: 03/12/18 08:39 Dose: 1 tab Fluticasone/Salmeterol (Advair Diskus 250/50) 1 puff IH Q12 [facility] Last Admin: 03/12/18 08:33 Dose: 1 puff Senna/Docusate Sodium (Senokot S 50 Mg-8.6 Mg) 1 tab PO HS [facility] Last Admin: 03/11/18 21:24 Dose: 1 tab Sitagliptin Phosphate (Januvia) 25 mg PO DAILY [facility] Last Admin: 03/12/18 08:37 Dose: 25 mg Spironolactone (Aldactone) 12.5 mg PO DAILY [facility] Last Admin: 03/12/18 08:34 Dose: 12.5 mg Tramadol HCl (Ultram) 50 mg PO Q4 PRN PRN Reason: Pain, severe (8-10) Last Admin: 03/10/18 21:58 Dose: 50 mg - Labs Labs: 03/12/18 05:15 03/12/18 05:15 PT 12.4 Seconds (9.8-13.1) 03/02/18 05:30 INR 1.1 03/02/18 05:30 APTT 27.8 Seconds (25.6-37.1) 03/02/18 05:30 - Constitutional Appears: Well, Non-toxic, No Acute Distress - Head Exam Head Exam: ATRAUMATIC, NORMOCEPHALIC - Eye Exam Eye Exam: Normal appearance, PERRL - ENT Exam ENT Exam: Mucous Membranes Moist - Neck Exam Neck Exam: Full ROM. absent: Lymphadenopathy - Respiratory Exam Respiratory Exam: Clear to Ausculation Bilateral, NORMAL BREATHING PATTERN. absent: Rales, Rhonchi, Wheezes - Cardiovascular Exam Cardiovascular Exam: REGULAR RHYTHM, +S1, +S2 - GI/Abdominal Exam GI & Abdominal Exam: Soft, Normal Bowel Sounds. absent: Firm, Guarding, Rigid - Extremities Exam Extremities Exam: Calf Tenderness Additional comments: positive left calf tenderness, positive weakness to LLE when compared to contralateral side - Back Exam Back Exam: absent: CVA tenderness (L), CVA tenderness (R) - Neurological Exam Neurological Exam: Alert, Awake, Oriented x3 - Psychiatric Exam Psychiatric exam: Normal Affect, Normal Mood - Skin Skin Exam: Normal Color Assessment and Plan - Assessment and Plan (Free Text) Assessment: 77 yr old F admitted to acute rehab for PT/OT s/p large subdural hematoma due to mechanical fall. PMHx includes CAD s/p CABG (Nov 2017), pacemaker, HTN, HLD, IDDM type 2, hypothyroidism, Systolic CHF, asthma, depression and anxiety. Patient dragging left leg during physical therapy, and complained of left leg weakness Plan: 1. Subdural Hematoma -acute, stable -no neurological deficits -neuro checks Q-shift -repeat CT head w/o contrast (on approx 2018) -hold ASA and plavix for [address] head -stable from Neurosurgery standpoint (Dr. Monet) -plan for discharge with home health services Lower Extremity Weakness r/o acute CVA -acute -Ordered Head CT- pending results -monitor patient 2. Right Shoulder pain -acute, symptomatic -Cervical CT: no acute fractures -Right Shoulder X-ray: no acute fractures -Lidoderm patch ordered for patient, Tylenol PRN moderate, Tramadol PRN severe -Pain manamgent- Dr. Gastelum, recommendations appreciated 3. IDDM Type 2 -chronic and uncontrolled -HbA1c 9.4 on 02/26/18 -Hypoglycemia protocol in place -Accuchecks ACHS, Levemir 58 units SCHS, Januvia 25mg PO QD -moderate carbohydrate diet/heart healthy diet 4. Depression -chronic, controlled -Remeron 22.5 mg PO QHS and Lexapro 10 mg PO QD -Psych consult- Dr. Gorman, recommendations appreciated- increase Remeron dosage, As per psych, "No acute psychiatric admission or 1:1 indicated at this time" 5. Hypothyrodism -chronic, controlled -TSH 2.65 on 02/26/18 -continue Levothyroxine 125 mcg PO QD 6. HTN/HLD/CAD -chronic, controlled -Metoprolol 12.5mg PO Q12 -s/p CABG 11/2017 -troponin negative -no change in EKG from previous 7. Systolic CHF -chronic, controlled, s/p pacemaker -ECHO 02/2018: systolic dysfunction EF 25-30% -continue lasix 40mg PO QD, per Dr. Petersen, started Losartan 25mg PO QD, Spironolactone 12.5mg PO QD 8. Asthma/COPD -controlled -continue Ventolin HFA PRN, Advair 250/50 1puff Q12 9. DVT prophylaxis - SCDs for now, recent subdural hematoma - hold ASA and plavix, or any anticoagulant for 4 weeks (Mar 28, 2018)
--- NOTE | 2018-03-12 15:41 | CT ---
Date of service: 03/12/2018 PROCEDURE: CT HEAD WITHOUT CONTRAST. HISTORY: left leg weakness COMPARISON: CT head dated 02/25/2018 TECHNIQUE: Axial computed tomography images were obtained through the head/brain without intravenous contrast. Radiation dose: Total exam DLP = 824.55 mGy-cm. This CT exam was performed using one or more of the following dose reduction techniques: Automated exposure control, adjustment of the mA and/or kV according to patient size, and/or use of iterative reconstruction technique. FINDINGS: HEMORRHAGE: Decreased amount of right interhemispheric fissure subdural hematoma. Previously described hemorrhage layering along the left tentorium is also decreased.. BRAIN: No mass effect or edema. Atrophy. Chronic microvascular ischemic changes. VENTRICLES: Unremarkable. No hydrocephalus. CALVARIUM: Unremarkable. PARANASAL SINUSES: Unremarkable as visualized. No significant inflammatory changes. MASTOID AIR CELLS: Unremarkable as visualized. No inflammatory changes. OTHER FINDINGS: None. IMPRESSION: Decreased amount of persistent right inter hemispheric and left tentorial subdural hemorrhage. No other significant interval change.
--- NOTE | 2018-03-12 17:08 | CP.PCM.PN ---
Subjective - Date & Time of Evaluation Date of Evaluation: 03/12/18 Time of Evaluation: 17:07 - Subjective Subjective: patient seen in the room working with PT on transfers family member was present no sob/cp continue current care Objective - Vital Signs/Intake and Output Vital Signs (last 24 hours): Temp Pulse Resp BP Pulse Ox 98.3 F 92 H 22 142/68 96 03/12/18 08:07 03/12/18 16:19 03/12/18 08:07 03/12/18 08:38 03/12/18 16:19 - Medications Medications: Current Medications Acetaminophen (Tylenol 325mg Tab) 650 mg PO Q6 [facility] Last Admin: 03/12/18 16:46 Dose: 650 mg Albuterol (Ventolin Hfa 90 Mcg/Actuation (8 G)) 2 puff IH Q6 PRN PRN Reason: Shortness of Breath Last Admin: 03/10/18 14:52 Dose: 2 puff Atorvastatin Calcium (Lipitor) 40 mg PO HS [facility] Last Admin: 03/11/18 21:38 Dose: 40 mg Benzocaine/Menthol (Cepacol Sore Throat) 1 rosario PO Q3 PRN PRN Reason: Sore Throat Last Admin: 03/10/18 17:03 Dose: 1 rosario Benzonatate (Tessalon Perles) 100 mg PO Q8 PRN PRN Reason: Cough Last Admin: 03/12/18 11:22 Dose: 100 mg Dextrose (Dextrose 50% Inj) 0 ml IV STAT PRN; Protocol PRN Reason: Hypoglycemia Protocol Dextrose (Glutose 15) 0 gm PO ONCE PRN; Protocol PRN Reason: Hypoglycemia Protocol Docusate Sodium (Colace) 100 mg PO DAILY [facility] Last Admin: 03/12/18 08:34 Dose: 100 mg Escitalopram Oxalate (Lexapro) 10 mg PO DAILY [facility] Last Admin: 03/12/18 08:37 Dose: 10 mg Famotidine (Pepcid) 20 mg PO DAILY [facility] Last Admin: 03/12/18 08:39 Dose: 20 mg Furosemide (Lasix) 40 mg PO DAILY [facility] Last Admin: 03/12/18 08:37 Dose: 40 mg Glucagon (Glucagen Diagnostic Kit) 0 mg IM STAT PRN; Protocol PRN Reason: Hypoglycemia Protocol Insulin Detemir (Levemir) 58 units SC [facility] Last Admin: 03/11/18 21:25 Dose: 58 units Insulin Human Lispro (Humalog) 0 units SC ACHS [facility]; Protocol Last Admin: 03/12/18 16:42 Dose: 4 units Insulin Human Lispro (Humalog) 9 units SC ACTID [facility] Last Admin: 03/12/18 16:42 Dose: 9 unit Levothyroxine Sodium (Synthroid) 125 mcg PO DAILY@0630 [facility] Last Admin: 03/12/18 06:12 Dose: 125 mcg Lidocaine (Lidoderm) 1 ea TD DAILY [facility] Last Admin: 03/12/18 08:37 Dose: 1 ea Losartan Potassium (Cozaar) 25 mg PO DAILY [facility] Last Admin: 03/12/18 08:35 Dose: 25 mg Memantine (Namenda) 5 mg PO HS [facility] Last Admin: 03/11/18 21:25 Dose: 5 mg Metoprolol Tartrate (Lopressor) 12.5 mg PO Q12 [facility] Last Admin: 03/12/18 08:38 Dose: 12.5 mg Mirtazapine (Remeron) 7.5 mg PO HS [facility] Mirtazapine (Remeron) 15 mg PO HS [facility] Multivitamins/Minerals (Therapeutic-M Tab) 1 tab PO DAILY [facility] Last Admin: 03/12/18 08:39 Dose: 1 tab Fluticasone/Salmeterol (Advair Diskus 250/50) 1 puff IH Q12 [facility] Last Admin: 03/12/18 08:33 Dose: 1 puff Senna/Docusate Sodium (Senokot S 50 Mg-8.6 Mg) 1 tab PO HS [facility] Last Admin: 03/11/18 21:24 Dose: 1 tab Sitagliptin Phosphate (Januvia) 25 mg PO DAILY [facility] Last Admin: 03/12/18 08:37 Dose: 25 mg Spironolactone (Aldactone) 12.5 mg PO DAILY [facility] Last Admin: 03/12/18 08:34 Dose: 12.5 mg Tramadol HCl (Ultram) 50 mg PO Q4 PRN PRN Reason: Pain, severe (8-10) Last Admin: 03/10/18 21:58 Dose: 50 mg - Labs Labs: 03/12/18 05:15 03/12/18 05:15 PT 12.4 Seconds (9.8-13.1) 03/02/18 05:30 INR 1.1 03/02/18 05:30 APTT 27.8 Seconds (25.6-37.1) 03/02/18 05:30
[2018-03-12] MEDS: Insulin Detemir 100 Units/ml Inj SC SCH (21:31)
[2018-03-12] MEDS: Docusate-Senna 50 mg-8.6 mg Tab PO SCH (21:31)
[2018-03-13] MEDS: Levothyroxine 125 MCG TAB PO SCH (05:54)
[2018-03-13] MEDS: Insulin Lispro (humaLOG) 100 Units/ml Inj SC SCH ×7 (08:31→22:00)
[2018-03-13] MEDS: Fluticasone-Salmeterol 250-50mcg Diskus IH SCH ×2 (08:33→21:20)
[2018-03-13] MEDS: Multivitamin With Minerals Tab PO SCH (08:35)
[2018-03-13] MEDS: Lidocaine 5% Patch TD SCH (08:36)
--- NOTE | 2018-03-13 10:33 | US ---
Date of service: 03/12/2018 PROCEDURE: Bilateral lower extremity venous duplex Doppler. HISTORY: rule out dvt, leg weakness COMPARISON: None available. TECHNIQUE: Bilateral common femoral, superficial femoral, popliteal and posterior tibial veins were evaluated. Flow was assessed with color Doppler, compressibility, assessment of phasic flow and augmentation response. FINDINGS: COMMON FEMORAL VEIN: Right CFV: Unremarkable. Left CFV: Unremarkable. SUPERFICIAL FEMORAL VEIN: Right SFV: Unremarkable. Left SFV: Unremarkable. POPLITEAL VEIN: Right Popliteal: Unremarkable. Left Popliteal: Unremarkable. POSTERIOR TIBIAL VEIN: Right PTV: Unremarkable. Left PTV: Unremarkable. OTHER FINDINGS: None. IMPRESSION: No evidence of deep venous thrombosis.
--- NOTE | 2018-03-13 13:28 | CP.PCM.CON ---
History of Present Illness - History of Present Illness History of Present Illness: Neurology Consultation Note: Consult requested by Dr. Cornejo Mrs. Walden is a 77-year-old woman with a past medical history of psychiatric illness (depression), dementia, CAD s/p CABG, was on aspirin/plavix, but had a fall with resultant subdural hemorrhage and contusion and is now not on antiplatelet agents. She has been having progressive left lower extremity weakness. Review of Systems - Constitutional Constitutional: As Per HPI - EENT Eyes: absent: As Per HPI, Blind Spots, Blurred Vision, Change in Vision, Decreased Night Vision, Diplopia, Discharge, Dry Eye, Exophthalmos, Floaters, Irritation, Itchy Eyes, Loss of Peripheral Vision, Pain, Photophobia, Requires Corrective Lenses, Sees Flashes, Spots in Vision, Tunnel Vision, Other Visual Disturbances, Loss of Vision, Other Ears: absent: As Per HPI, Decreased Hearing, Ear Discharge, Ear Pain, Tinnitus, Abnormal Hearing, Disequilibrium, Dizziness, Other Nose/Mouth/Throat: absent: As Per HPI, Epistaxis, Nasal Congestion, Nasal Discharge, Nasal Obstruction, Nasal Trauma, Nose Pain, Post Nasal Drip, Sinus Pain, Sinus Pressure, Bleeding Gums, Change in Voice, Dental Pain, Dry Mouth, Dysphagia, Halitosis, Hoarsness, Lip Swelling, Mouth Lesions, Mouth Pain, Odynophagia, Sore Throat, Throat Swelling, Tongue Swelling, Facial Pain, Neck Pain, Neck Mass, Other - Cardiovascular Cardiovascular: absent: As Per HPI, Acrocyanosis, Chest Pain, Chest Pain at Rest, Chest Pain with Activity, Claudication, Diaphoresis, Dyspnea, Dyspnea on Exertion, Edema, Irregular Heart Rhythm, Pain Radiating to Arm/Neck/Jaw, Leg Edema, Leg Ulcers, Lightheadedness, Orthopnea, Palpitations, Paroxysmal Nocturnal Dyspnea, Pedal Edema, Radiating Pain, Rapid Heart Rate, Slow Heart Rate, Syncope, Other - Respiratory Respiratory: absent: As Per HPI, Cough, Dyspnea, Hemoptysis, Dyspnea on Exertion, Wheezing, Snoring, Stridor, Pain on Inspiration, Chest Congestion, Excessive Mucous Production, Change in Mucous Color, Pain with Coughing, Other - Gastrointestinal Gastrointestinal: absent: As Per HPI, Abdominal Pain, Belching, Bloating, Change in Bowel Habits, Change in Stool Character, Coffee Ground Emesis, Constipation, Cramping, Diarrhea, Dyspepsia, Dysphagia, Early Satiety, Excessive Flatus, Fecal Incontinence, Heartburn, Hematemesis, Hematochezia, Loose Stools, Melena, Nausea, Odynophagia, Temesmus, Vomiting, Other - Genitourinary Genitourinary: absent: As Per HPI, Change in Urinary Stream, Difficulty Urinating, Dysuria, Flank Pain, Hematuria, Pyuria, Nocturia, Urinary Incontinence, Urinary Frequency, Urinary Hesitance, Urinary Urgency, Voiding Freq/Small Amts, Freq UTI, Hx Renal/Bladder Calculi, Hx /Renal Surgery, Bladder Distension, Other - Musculoskeletal Musculoskeletal: absent: As Per HPI, Abnormal Gait, Arthralgias, Atrophy, Back Pain, Deformity, Joint Swelling, Limited Range of Motion, Loss of Height, Muscle Cramps, Muscle Weakness, Myalgias, Neck Pain, Numbness, Radiating Pain into Limb, Stiffness, Tingling, Other - Integumentary Integumentary: absent: As Per HPI, Acne, Alopecia, Bleeding Lesions, Change in Hair, Change in Nails, Change in Pigmentation, Changing Lesions, Dry Skin, Erythema, Furuncle, Hirsutism, Lesions, New Lesions, Non-Healing Lesions, Photosensitivity, Pruritus, Rash, Skin Pain, Skin Ulcer, Sores, Striae, Swelling, Unusual Bruising, Wounds, Jaundice, Other - Neurological Neurological: As Per HPI - Psychiatric Psychiatric: absent: As Per HPI, Abnormal Sleep Pattern, Anhedonia, Anxiety, Auditory Hallucinations, Behavioral Changes, Change in Appetite, Change in Archana satya, Confusion, Depression, Difficulty Concentrating, Hallucinations, Homicidal Ideation, Hopelessness, Irritability, Memory Loss, Mood Swings, Panic Attacks, Paranoia, Suicidal Ideation, Visual Hallucinations, Tactile Hallucinations, Other - Endocrine Endocrine: absent: As Per HPI, Change in Body Appearance, Change in Libido, Cold Intolorance, Deepening of Voice, Excessive Sweating, Fatigue, Flushing, Heat Intolorance, Increase in Ring/Shoe/Hat Size, Palpitations, Polydipsia, Polyphagia, Polyuria, Other Past Patient History - Tetanus Immunizations Tetanus Immunization: Up to Date - Past Medical History & Family History Past Medical History?: Yes - Past Social History Smoking Status: Never Smoked - CARDIAC Hx Cardiac Disorders: Yes Hx Congestive Heart Failure: Yes Hx Hypercholesterolemia: Yes Hx Hypertension: Yes - PULMONARY Hx Chronic Obstructive Pulmonary Disease (COPD): Yes - NEUROLOGICAL Hx Neurological Disorder: No - HEENT Hx HEENT Problems: No - RENAL Hx Chronic Kidney Disease: No - ENDOCRINE/METABOLIC Hx Diabetes Mellitus Type 2: Yes - HEMATOLOGICAL/ONCOLOGICAL Hx AIDS: No Hx Blood Transfusions: Yes Hx Human Immunodeficiency Virus (HIV): No - INTEGUMENTARY Hx Dermatological Problems: No - MUSCULOSKELETAL/RHEUMATOLOGICAL Hx Arthritis: Yes (R shldr, C-spine) - GASTROINTESTINAL Hx Ulcer: Yes - GENITOURINARY/GYNECOLOGICAL Hx Genitourinary Disorders: No - PSYCHIATRIC Hx Depression: Yes Hx Substance Use: No - SURGICAL HISTORY Hx Coronary Artery Bypass Graft: Yes (11/2017) Hx Coronary Stent: Yes (x4) - ANESTHESIA Hx Anesthesia: Yes Hx Anesthesia Reactions: No Hx Malignant Hyperthermia: No Has any member of the family had a problem w/ anesthesia?: No Meds Allergies/Adverse Reactions: Allergies Allergy/AdvReac Type Severity Reaction Status Date / Time No Known Allergies Allergy Verified 02/28/18 19:18 - Medications Medications: Current Medications Acetaminophen (Tylenol 325mg Tab) 650 mg PO Q6 [facility] Last Admin: 03/13/18 12:09 Dose: 650 mg Albuterol (Ventolin Hfa 90 Mcg/Actuation (8 G)) 2 puff IH Q6 PRN PRN Reason: Shortness of Breath Last Admin: 03/10/18 14:52 Dose: 2 puff Aspirin (Aspirin Chewable) 81 mg PO DAILY [facility] Atorvastatin Calcium (Lipitor) 40 mg PO HS [facility] Last Admin: 03/12/18 21:28 Dose: 40 mg Benzocaine/Menthol (Cepacol Sore Throat) 1 rosario PO Q3 PRN PRN Reason: Sore Throat Last Admin: 03/10/18 17:03 Dose: 1 rosario Benzonatate (Tessalon Perles) 100 mg PO Q8 PRN PRN Reason: Cough Last Admin: 03/12/18 11:22 Dose: 100 mg Dextrose (Dextrose 50% Inj) 0 ml IV STAT PRN; Protocol PRN Reason: Hypoglycemia Protocol Dextrose (Glutose 15) 0 gm PO ONCE PRN; Protocol PRN Reason: Hypoglycemia Protocol Docusate Sodium (Colace) 100 mg PO DAILY [facility] Last Admin: 03/13/18 08:35 Dose: 100 mg Escitalopram Oxalate (Lexapro) 10 mg PO DAILY [facility] Last Admin: 03/13/18 08:37 Dose: 10 mg Famotidine (Pepcid) 20 mg PO DAILY [facility] Last Admin: 03/13/18 08:35 Dose: 20 mg Furosemide (Lasix) 40 mg PO DAILY [facility] Last Admin: 03/13/18 08:37 Dose: 40 mg Glucagon (Glucagen Diagnostic Kit) 0 mg IM STAT PRN; Protocol PRN Reason: Hypoglycemia Protocol Insulin Detemir (Levemir) 58 units SC HS [facility] Last Admin: 03/12/18 21:31 Dose: 58 units Insulin Human Lispro (Humalog) 0 units SC ACHS [facility]; Protocol Last Admin: 03/13/18 12:05 Dose: Not Given Insulin Human Lispro (Humalog) 9 units SC ACTID [facility] Last Admin: 03/13/18 12:10 Dose: 9 unit Levothyroxine Sodium (Synthroid) 125 mcg PO DAILY@0630 [facility] Last Admin: 03/13/18 05:54 Dose: 125 mcg Lidocaine (Lidoderm) 1 ea TD DAILY [facility] Last Admin: 03/13/18 08:36 Dose: 1 ea Losartan Potassium (Cozaar) 25 mg PO DAILY [facility] Last Admin: 03/13/18 08:38 Dose: 25 mg Memantine (Namenda) 5 mg PO HS [facility] Last Admin: 03/12/18 21:28 Dose: 5 mg Metoprolol Tartrate (Lopressor) 12.5 mg PO Q12 [facility] Last Admin: 03/13/18 08:35 Dose: 12.5 mg Mirtazapine (Remeron) 7.5 mg PO HS [facility] Last Admin: 03/12/18 21:30 Dose: 7.5 mg Mirtazapine (Remeron) 15 mg PO HS [facility] Last Admin: 03/12/18 21:30 Dose: 15 mg Multivitamins/Minerals (Therapeutic-M Tab) 1 tab PO DAILY [facility] Last Admin: 03/13/18 08:35 Dose: 1 tab Fluticasone/Salmeterol (Advair Diskus 250/50) 1 puff IH Q12 [facility] Last Admin: 03/13/18 08:33 Dose: 1 puff Senna/Docusate Sodium (Senokot S 50 Mg-8.6 Mg) 1 tab PO HS [facility] Last Admin: 03/12/18 21:31 Dose: 1 tab Sitagliptin Phosphate (Januvia) 25 mg PO DAILY [facility] Last Admin: 03/13/18 08:35 Dose: 25 mg Spironolactone (Aldactone) 12.5 mg PO DAILY [facility] Last Admin: 03/13/18 08:37 Dose: 12.5 mg Tramadol HCl (Ultram) 50 mg PO Q4 PRN PRN Reason: Pain, severe (8-10) Last Admin: 03/12/18 19:24 Dose: 50 mg Physical Exam - Constitutional Appears: Well - Head Exam Head Exam: ATRAUMATIC, NORMAL INSPECTION, NORMOCEPHALIC - Eye Exam Eye Exam: EOMI, Normal appearance, PERRL Pupil Exam: NORMAL ACCOMODATION, PERRL - ENT Exam ENT Exam: Mucous Membranes Moist, Normal Exam - Neck Exam Neck exam: Positive for: Normal Inspection - Respiratory Exam Respiratory Exam: Clear to Auscultation Bilateral, NORMAL BREATHING PATTERN - Cardiovascular Exam Cardiovascular Exam: REGULAR RHYTHM, +S1, +S2 - GI/Abdominal Exam GI & Abdominal Exam: Normal Bowel Sounds, Soft. absent: Tenderness - Extremities Exam Extremities exam: Positive for: normal inspection - Back Exam Back exam: NORMAL INSPECTION - Neurological Exam Neurological exam: Abnormal Gait, Alert, CN II-XII Intact, Oriented x3, Reflexes Normal Additional comments: RLE is 4/5 in strength proximally and distally; LLE is 1/5 in strength distally and 2/5 in strength distally with increased reflexes and upgoing plantar response. Sensation is intact throughout - Psychiatric Exam Psychiatric exam: Normal Affect, Normal Mood - Skin Skin Exam: Dry, Intact, Normal Color, Warm Results - Vital Signs Recent Vital Signs: Last Vital Signs Temp 97.9 F 03/13/18 08:18 Pulse 82 03/13/18 08:38 Resp 22 03/13/18 08:18 BP 117/63 03/13/18 08:38 Pulse Ox 96 03/13/18 08:18 - Labs Result Diagrams: 03/12/18 05:15 03/12/18 05:15 Labs: Laboratory Results - last 24 hr 03/12/18 03/12/18 03/13/18 15:51 20:05 05:55 POC Glucose (mg/dL) 277 H 234 H 155 H 03/13/18 11:58 POC Glucose (mg/dL) 123 H Assessment & Plan (1) Traumatic brain injury Assessment and Plan: The patient also suffered multiple contusions and subdural hemorrhage involving the right parafalcine region affecting the leg motor fibers. This explains her LLE weakness. The progression of weakness may be lack of volition, depression or could be related to reactive edema and possible seizure focus. I recommend obtaining an EEG for further evaluation. MRI of the brain may also be helpful. Thank you for this consultation. Status: Acute
--- NOTE | 2018-03-13 13:53 | CP.PCM.PN ---
Subjective - Date & Time of Evaluation Date of Evaluation: 03/13/18 Time of Evaluation: 14:16 - Subjective Subjective: 77 yr old female with past medical history of PMHx includes CAD s/p CABG (Nov 2017), pacemaker, HTN, HLD, IDDM type 2, hypothyroidism, Systolic CHF, asthma, depression and anxiety was admitted to acute rehab for PT/OT s/p large subdural hematoma due to mechanical fall. Patient was in ICU for 4 days where she remained with no neurological deficits and repeat CT. Patient with continued left lower extremity weakness along with left foot drop. Patient unable to perform physical therapy due to the left lower extremity weakness. Patient denies any complaints of chest pain, shortness of breath, nausea, vomiting, urinary symptoms. Objective - Vital Signs/Intake and Output Vital Signs (last 24 hours): Temp Pulse Resp BP Pulse Ox 97.9 F 82 22 117/63 96 03/13/18 08:18 03/13/18 08:38 03/13/18 08:18 03/13/18 08:38 03/13/18 08:18 - Medications Medications: Current Medications Acetaminophen (Tylenol 325mg Tab) 650 mg PO Q6 [facility] Last Admin: 03/13/18 12:09 Dose: 650 mg Albuterol (Ventolin Hfa 90 Mcg/Actuation (8 G)) 2 puff IH Q6 PRN PRN Reason: Shortness of Breath Last Admin: 03/10/18 14:52 Dose: 2 puff Aspirin (Aspirin Chewable) 81 mg PO DAILY [facility] Atorvastatin Calcium (Lipitor) 40 mg PO HS [facility] Last Admin: 03/12/18 21:28 Dose: 40 mg Benzocaine/Menthol (Cepacol Sore Throat) 1 rosario PO Q3 PRN PRN Reason: Sore Throat Last Admin: 03/10/18 17:03 Dose: 1 rosario Benzonatate (Tessalon Perles) 100 mg PO Q8 PRN PRN Reason: Cough Last Admin: 03/12/18 11:22 Dose: 100 mg Dextrose (Dextrose 50% Inj) 0 ml IV STAT PRN; Protocol PRN Reason: Hypoglycemia Protocol Dextrose (Glutose 15) 0 gm PO ONCE PRN; Protocol PRN Reason: Hypoglycemia Protocol Docusate Sodium (Colace) 100 mg PO DAILY [facility] Last Admin: 03/13/18 08:35 Dose: 100 mg Escitalopram Oxalate (Lexapro) 10 mg PO DAILY [facility] Last Admin: 03/13/18 08:37 Dose: 10 mg Famotidine (Pepcid) 20 mg PO DAILY [facility] Last Admin: 03/13/18 08:35 Dose: 20 mg Furosemide (Lasix) 40 mg PO DAILY [facility] Last Admin: 03/13/18 08:37 Dose: 40 mg Glucagon (Glucagen Diagnostic Kit) 0 mg IM STAT PRN; Protocol PRN Reason: Hypoglycemia Protocol Insulin Detemir (Levemir) 58 units SC HS [facility] Last Admin: 03/12/18 21:31 Dose: 58 units Insulin Human Lispro (Humalog) 0 units SC ACHS [facility]; Protocol Last Admin: 03/13/18 12:05 Dose: Not Given Insulin Human Lispro (Humalog) 9 units SC ACTID [facility] Last Admin: 03/13/18 12:10 Dose: 9 unit Levothyroxine Sodium (Synthroid) 125 mcg PO DAILY@0630 [facility] Last Admin: 03/13/18 05:54 Dose: 125 mcg Lidocaine (Lidoderm) 1 ea TD DAILY [facility] Last Admin: 03/13/18 08:36 Dose: 1 ea Losartan Potassium (Cozaar) 25 mg PO DAILY [facility] Last Admin: 03/13/18 08:38 Dose: 25 mg Memantine (Namenda) 5 mg PO [facility] Last Admin: 03/12/18 21:28 Dose: 5 mg Metoprolol Tartrate (Lopressor) 12.5 mg PO Q12 [facility] Last Admin: 03/13/18 08:35 Dose: 12.5 mg Mirtazapine (Remeron) 7.5 mg PO HS [facility] Last Admin: 03/12/18 21:30 Dose: 7.5 mg Mirtazapine (Remeron) 15 mg PO HS [facility] Last Admin: 03/12/18 21:30 Dose: 15 mg Multivitamins/Minerals (Therapeutic-M Tab) 1 tab PO DAILY [facility] Last Admin: 03/13/18 08:35 Dose: 1 tab Fluticasone/Salmeterol (Advair Diskus 250/50) 1 puff IH Q12 [facility] Last Admin: 03/13/18 08:33 Dose: 1 puff Senna/Docusate Sodium (Senokot S 50 Mg-8.6 Mg) 1 tab PO HS [facility] Last Admin: 03/12/18 21:31 Dose: 1 tab Sitagliptin Phosphate (Januvia) 25 mg PO DAILY [facility] Last Admin: 03/13/18 08:35 Dose: 25 mg Spironolactone (Aldactone) 12.5 mg PO DAILY [facility] Last Admin: 03/13/18 08:37 Dose: 12.5 mg Tramadol HCl (Ultram) 50 mg PO Q4 PRN PRN Reason: Pain, severe (8-10) Last Admin: 03/12/18 19:24 Dose: 50 mg - Labs Labs: 03/12/18 05:15 03/12/18 05:15 PT 12.4 Seconds (9.8-13.1) 03/02/18 05:30 INR 1.1 03/02/18 05:30 APTT 27.8 Seconds (25.6-37.1) 03/02/18 05:30 - Constitutional Appears: Well, Non-toxic, No Acute Distress - Head Exam Head Exam: ATRAUMATIC, NORMOCEPHALIC - Eye Exam Eye Exam: Normal appearance, PERRL - ENT Exam ENT Exam: Mucous Membranes Moist - Neck Exam Neck Exam: Full ROM. absent: Lymphadenopathy - Respiratory Exam Respiratory Exam: Clear to Ausculation Bilateral, NORMAL BREATHING PATTERN. absent: Rales, Rhonchi, Wheezes - Cardiovascular Exam Cardiovascular Exam: REGULAR RHYTHM, +S1, +S2 - GI/Abdominal Exam GI & Abdominal Exam: Soft, Normal Bowel Sounds. absent: Firm, Guarding, Rigid - Extremities Exam Extremities Exam: Normal Capillary Refill Additional comments: Increased weakness to the left lower extremity, patient able to flex the hip and knee, however decreased strength as compared to the right side. Patient dragging the left foot, and foot drop noted to the left, patient unable to move digits to the Left LLE is 1/5 in strength distally and 2/5 in strength distally with increased reflexes and upgoing plantar response. Sensation is intact throughout - Neurological Exam Neurological Exam: Alert, Awake, Oriented x3 - Psychiatric Exam Psychiatric exam: Normal Affect, Normal Mood Assessment and Plan - Assessment and Plan (Free Text) Assessment: 77 yr old F admitted to acute rehab for PT/OT s/p large subdural hematoma due to mechanical fall. PMHx includes CAD s/p CABG (Nov 2017), pacemaker, HTN, HLD, IDDM type 2, hypothyroidism, Systolic CHF, asthma, depression and anxiety. Patient with continued left lower extremity weakness Plan: 1. Subdural Hematoma -acute, stable -no neurological deficits -neuro checks Q-shift -repeat CT head w/o contrast (on approx 2018) -hold ASA and plavix for [address] head -stable from Neurosurgery standpoint (Dr. Monet) -plan for discharge with home health services Lower Extremity Weakness likely secondary to lack of volition vs. reactive edema and possible seizure focus -acute -Head CT (03/12/18)- decrease in subdural hematoma, no new acute findings -Venous Duplex (03/12/18)- negative for DVT -monitor patient -Neurology consult- Dr Mills, recommendations appreciated -Ordered EEG- pending 2. Right Shoulder pain -acute, symptomatic -Cervical CT: no acute fractures -Right Shoulder X-ray: no acute fractures -Lidoderm patch ordered for patient, Tylenol PRN moderate, Tramadol PRN severe -Pain management- Dr. Gastelum, recommendations appreciated 3. IDDM Type 2 -chronic and uncontrolled -HbA1c 9.4 on 02/26/18 -Hypoglycemia protocol in place -Accuchecks ACHS, Levemir 58 units SCHS, Januvia 25mg PO QD -moderate carbohydrate diet/heart healthy diet 4. Depression -chronic, controlled -Remeron 22.5 mg PO QHS and Lexapro 10 mg PO QD -Psych consult- Dr. Gorman, recommendations appreciated- increase Remeron dosage, As per psych, "No acute psychiatric admission or 1:1 indicated at this time" 5. Hypothyrodism -chronic, controlled -TSH 2.65 on 02/26/18 -continue Levothyroxine 125 mcg PO QD 6. HTN/HLD/CAD -chronic, controlled -Metoprolol 12.5mg PO Q12 -s/p CABG 11/2017 -troponin negative -no change in EKG from previous 7. Systolic CHF -chronic, controlled, s/p pacemaker -ECHO 02/2018: systolic dysfunction EF 25-30% -continue lasix 40mg PO QD, per Dr. Petersen, started Losartan 25mg PO QD, Spi ronolactone 12.5mg PO QD 8. Asthma/COPD -controlled -continue Ventolin HFA PRN, Advair 250/50 1puff Q12 9. DVT prophylaxis - SCDs for now, recent subdural hematoma - hold ASA and plavix, or any anticoagulant for 4 weeks (Mar 28, 2018)
[2018-03-13] MEDS: Docusate-Senna 50 mg-8.6 mg Tab PO SCH (21:54)
[2018-03-13] MEDS: Insulin Detemir 100 Units/ml Inj SC SCH (22:01)
[2018-03-14] MEDS: Levothyroxine 125 MCG TAB PO SCH (06:52)
[2018-03-14] MEDS: Insulin Lispro (humaLOG) 100 Units/ml Inj SC SCH ×7 (06:55→22:18)
[2018-03-14] MEDS: Fluticasone-Salmeterol 250-50mcg Diskus IH SCH ×2 (08:16→22:08)
[2018-03-14] MEDS: Multivitamin With Minerals Tab PO SCH (08:17)
[2018-03-14] MEDS: Lidocaine 5% Patch TD SCH (08:18)
--- NOTE | 2018-03-14 10:43 | PCM.EEG ---
Electroencephalogram Report - Electroencephalogram Report Procedure Date: 03/13/18 Medication: Namenda, Remeron, Zoloft, Interpretation: Technical Information: This was a 16-channel EEG, 1-channel EKG , performed using an [employer] machine., electrodes were applied according to the 10/20 international placement system, impedances were less than 5 K Ohm. Start; 16;19 End; 17;07 total; 47 min linical Information: This EEG was performed on a 77 year old patient with alter mental status. EEG Detail: During resting wakefulness there was a symmetric posterior dominant rhythm at 7 Hz, 30-50 uV, which was reactive to eye opening and closing. Drowsiness 916;26) was associated with fragmentation of the posterior dominant rhythm and with slow roving eye movements. Sleep was not seen. There were occasional bursts of bi frontal paroxysmal activity at 2 to 3 Hz, lasting less than 1 second, this was seen during wakefulness and drowsy, right more than left. Hyperventilation was not performed. Photic stimulation was performed and there were no changes in the record. ECG was associated with a normal sinus rhythm. Impression: This is an abnormal EEG record that demonstrate the presence of a mild to moderate non specific diffuse disturbance of cortical activity, this is in keeping with a diffuse kay matter dysfunction. These findings do not support a specific etiology. No seizures, not in status epilepticus.
--- NOTE | 2018-03-14 12:02 | CP.PCM.PN ---
Subjective - Date & Time of Evaluation Date of Evaluation: 03/14/18 Time of Evaluation: 12:51 - Subjective Subjective: 77 yr old female with past medical history of PMHx includes CAD s/p CABG (Nov 2017), pacemaker, HTN, HLD, IDDM type 2, hypothyroidism, Systolic CHF, asthma, depression and anxiety was admitted to acute rehab for PT/OT s/p large subdural hematoma due to mechanical fall. Patient was in ICU for 4 days where she remained with no neurological deficits and repeat CT. Patient with increased left lower extremity weakness along with left foot drop at this time in acute rehab. Patient unable to perform physical therapy due to the left lower extremity weakness. Patient denies any complaints of chest pain, shortness of breath, nausea, vomiting, urinary symptoms. Objective - Vital Signs/Intake and Output Vital Signs (last 24 hours): Temp Pulse Resp BP Pulse Ox 98.1 F 75 18 118/64 99 03/14/18 07:38 03/14/18 08:17 03/14/18 07:38 03/14/18 08:18 03/14/18 07:38 - Medications Medications: Current Medications Acetaminophen (Tylenol 325mg Tab) 650 mg PO Q6 [facility] Last Admin: 03/14/18 06:50 Dose: 650 mg Albuterol (Ventolin Hfa 90 Mcg/Actuation (8 G)) 2 puff IH Q6 PRN PRN Reason: Shortness of Breath Last Admin: 03/10/18 14:52 Dose: 2 puff Aspirin (Aspirin Chewable) 81 mg PO DAILY [facility] Last Admin: 03/14/18 08:18 Dose: 81 mg Atorvastatin Calcium (Lipitor) 40 mg PO HS [facility] Last Admin: 03/13/18 21:55 Dose: 40 mg Benzocaine/Menthol (Cepacol Sore Throat) 1 rosario PO Q3 PRN PRN Reason: Sore Throat Last Admin: 03/10/18 17:03 Dose: 1 rosario Benzonatate (Tessalon Perles) 100 mg PO Q8 PRN PRN Reason: Cough Last Admin: 03/12/18 11:22 Dose: 100 mg Dextrose (Dextrose 50% Inj) 0 ml IV STAT PRN; Protocol PRN Reason: Hypoglycemia Protocol Dextrose (Glutose 15) 0 gm PO ONCE PRN; Protocol PRN Reason: Hypoglycemia Protocol Docusate Sodium (Colace) 100 mg PO DAILY [facility] Last Admin: 03/14/18 08:17 Dose: 100 mg Escitalopram Oxalate (Lexapro) 10 mg PO DAILY [facility] Last Admin: 03/14/18 08:17 Dose: 10 mg Famotidine (Pepcid) 20 mg PO DAILY [facility] Last Admin: 03/14/18 08:18 Dose: 20 mg Furosemide (Lasix) 40 mg PO DAILY [facility] Last Admin: 03/14/18 08:18 Dose: 40 mg Glucagon (Glucagen Diagnostic Kit) 0 mg IM STAT PRN; Protocol PRN Reason: Hypoglycemia Protocol Insulin Detemir (Levemir) 58 units SC HS [facility] Last Admin: 03/13/18 22:01 Dose: 58 units Insulin Human Lispro (Humalog) 0 units SC ACHS [facility]; Protocol Last Admin: 03/14/18 06:55 Dose: Not Given Insulin Human Lispro (Humalog) 9 units SC ACTID [facility] Last Admin: 03/14/18 08:16 Dose: 9 unit Levothyroxine Sodium (Synthroid) 125 mcg PO DAILY@0630 [facility] Last Admin: 03/14/18 06:52 Dose: 125 mcg Lidocaine (Lidoderm) 1 ea TD DAILY [facility] Last Admin: 03/14/18 08:18 Dose: 1 ea Losartan Potassium (Cozaar) 25 mg PO DAILY [facility] Last Admin: 03/14/18 08:17 Dose: 25 mg Memantine (Namenda) 5 mg PO HS [facility] Last Admin: 03/13/18 21:57 Dose: 5 mg Metoprolol Tartrate (Lopressor) 12.5 mg PO Q12 [facility] Last Admin: 03/14/18 08:17 Dose: 12.5 mg Mirtazapine (Remeron) 7.5 mg PO HS [facility] Last Admin: 03/13/18 21:58 Dose: 7.5 mg Mirtazapine (Remeron) 15 mg PO HS [facility] Last Admin: 03/13/18 21:58 Dose: 15 mg Multivitamins/Minerals (Therapeutic-M Tab) 1 tab PO DAILY [facility] Last Admin: 03/14/18 08:17 Dose: 1 tab Fluticasone/Salmeterol (Advair Diskus 250/50) 1 puff IH Q12 [facility] Last Admin: 03/14/18 08:16 Dose: 1 puff Senna/Docusate Sodium (Senokot S 50 Mg-8.6 Mg) 1 tab PO HS [facility] Last Admin: 03/13/18 21:54 Dose: 1 tab Sitagliptin Phosphate (Januvia) 25 mg PO DAILY [facility] Last Admin: 03/14/18 08:17 Dose: 25 mg Spironolactone (Aldactone) 12.5 mg PO DAILY [facility] Last Admin: 03/14/18 08:16 Dose: 12.5 mg Tramadol HCl (Ultram) 50 mg PO Q4 PRN PRN Reason: Pain, severe (8-10) Last Admin: 03/13/18 21:54 Dose: 50 mg - Labs Labs: 03/12/18 05:15 03/12/18 05:15 PT 12.4 Seconds (9.8-13.1) 03/02/18 05:30 INR 1.1 03/02/18 05:30 APTT 27.8 Seconds (25.6-37.1) 03/02/18 05:30 - Constitutional Appears: Well, Non-toxic, No Acute Distress - Head Exam Head Exam: ATRAUMATIC, NORMOCEPHALIC - Eye Exam Eye Exam: Normal appearance, PERRL - ENT Exam ENT Exam: Mucous Membranes Moist - Respiratory Exam Respiratory Exam: Clear to Ausculation Bilateral, NORMAL BREATHING PATTERN. absent: Rales, Rhonchi, Wheezes - Cardiovascular Exam Cardiovascular Exam: REGULAR RHYTHM, RRR, +S1, +S2 - GI/Abdominal Exam GI & Abdominal Exam: Soft, Normal Bowel Sounds. absent: Firm, Guarding, Rigid - Extremities Exam Extremities Exam: Normal Capillary Refill, Normal Inspection. absent: Pedal Edema Additional comments: Left hip intact range of motion, increased weakness to the right knee compared to yesterday, patient unable to flex the right knee, increased weakness of the right lower leg, Graded muscle strength LLE 1/5, RLE 4/5, left ankle in platerflexed position - Neurological Exam Neurological Exam: Alert, Awake, Oriented x3 Assessment and Plan - Assessment and Plan (Free Text) Assessment: 77 yr old F admitted to acute rehab for PT/OT s/p large subdural hematoma due to mechanical fall. PMHx includes CAD s/p CABG (Nov 2017), pacemaker, HTN, HLD, IDDM type 2, hypothyroidism, Systolic CHF, asthma, depression and anxiety. Patient with increased left lower extremity weakness today. Patient EEG negative for seizure activity, pending brain MRI w/o contrast. Discussed with patient the importance of working with physical therapy to strength the right lower extremity, patient in agreement, all findings were discussed with neurology Dr. Mills. Patient discharge from rehab on 03/18/18, however, pending newly diagnosed left lower extremity weakness Plan: 1. Subdural Hematoma -acute, stable -neuro checks Q-shift -hold plavix for [address] head -restarted ASA 03/13/18 as per Neurology recommendation - Dr. Mills -stable from Neurosurgery standpoint (Dr. Monet) -plan for discharge 03/18/18 - re evaluation required due to increase LLE weakness Left Lower Extremity Weakness likely secondary to lack of volition vs. reactive edema and possible seizure focus -acute, increased -Head CT (03/12/18)- decrease in subdural hematoma, no new acute findings -Venous Duplex (03/12/18)- negative for DVT -monitor patient -Neurology consult- Dr Mills, recommendations appreciated -EEG (03/14/18)- negative for seizure active -Ordered MRI of brain without contrast to evaluate level of edema as per Neurology recommendations- Dr. Mills 2. Right Shoulder pain -acute, symptomatic -Cervical CT: no acute fractures -Right Shoulder X-ray: no acute fractures -Lidoderm patch ordered for patient, Tylenol PRN moderate, Tramadol PRN severe -Pain management- Dr. Gastelum, recommendations appreciated 3. IDDM Type 2 -chronic and uncontrolled -HbA1c 9.4 on 02/26/18 -Hypoglycemia protocol in place -Accuchecks ACHS, Levemir 58 units SCHS, Januvia 25mg PO QD -moderate carbohydrate diet/heart healthy diet 4. Depression -chronic, controlled -Remeron 22.5 mg PO QHS and Lexapro 10 mg PO QD -Psych consult- Dr. Gorman, recommendations appreciated- increase Remeron dosage, As per psych, "No acute psychiatric admission or 1:1 indicated at this time" 5. Hypothyrodism -chronic, controlled -TSH 2.65 on 02/26/18 -continue Levothyroxine 125 mcg PO QD 6. HTN/HLD/CAD -chronic, controlled -Metoprolol 12.5mg PO Q12 -s/p CABG 11/2017 -troponin negative -no change in EKG from previous 7. Systolic CHF -chronic, controlled, s/p pacemaker -ECHO 02/2018: systolic dysfunction EF 25-30% -continue lasix 40mg PO QD, per Dr. Petersen, started Losartan 25mg PO QD, Spironolactone 12.5mg PO QD 8. Asthma/COPD -controlled -continue Ventolin HFA PRN, Advair 250/50 1puff Q12 9. DVT prophylaxis -SCDs for now, recent subdural hematoma -hold plavix for [address] head -restarted ASA 03/13/18 as per Neurology recommendation - Dr. Mills
--- NOTE | 2018-03-14 15:13 | CP.PCM.PN ---
Subjective - Date & Time of Evaluation Date of Evaluation: 03/14/18 Time of Evaluation: 15:11 - Subjective Subjective: Neuro Follow-Up Note: Mrs. Walden was evaluated this afternoon in acute rehab. She is doing generally well aside from complaints of left leg still feeling weak. She has not noticed an improvement or worsening since being initially eval'd by neuro team yesterday. Currently denies h/a, dizziness, visual changes, chest pain, sob, cough, n/v/d. Objective - Vital Signs/Intake and Output Vital Signs (last 24 hours): Temp Pulse Resp BP Pulse Ox 98.1 F 75 18 118/64 99 03/14/18 07:38 03/14/18 08:17 03/14/18 07:38 03/14/18 08:18 03/14/18 07:38 - Medications Medications: Current Medications Acetaminophen (Tylenol 325mg Tab) 650 mg PO Q6 [facility] Last Admin: 03/14/18 12:16 Dose: 650 mg Albuterol (Ventolin Hfa 90 Mcg/Actuation (8 G)) 2 puff IH Q6 PRN PRN Reason: Shortness of Breath Last Admin: 03/10/18 14:52 Dose: 2 puff Aspirin (Aspirin Chewable) 81 mg PO DAILY [facility] Last Admin: 03/14/18 08:18 Dose: 81 mg Atorvastatin Calcium (Lipitor) 40 mg PO HS [facility] Last Admin: 03/13/18 21:55 Dose: 40 mg Benzocaine/Menthol (Cepacol Sore Throat) 1 rosario PO Q3 PRN PRN Reason: Sore Throat Last Admin: 03/10/18 17:03 Dose: 1 rosario Benzonatate (Tessalon Perles) 100 mg PO Q8 PRN PRN Reason: Cough Last Admin: 03/12/18 11:22 Dose: 100 mg Dextrose (Dextrose 50% Inj) 0 ml IV STAT PRN; Protocol PRN Reason: Hypoglycemia Protocol Dextrose (Glutose 15) 0 gm PO ONCE PRN; Protocol PRN Reason: Hypoglycemia Protocol Docusate Sodium (Colace) 100 mg PO DAILY [facility] Last Admin: 03/14/18 08:17 Dose: 100 mg Escitalopram Oxalate (Lexapro) 10 mg PO DAILY [facility] Last Admin: 03/14/18 08:17 Dose: 10 mg Famotidine (Pepcid) 20 mg PO DAILY [facility] Last Admin: 03/14/18 08:18 Dose: 20 mg Furosemide (Lasix) 40 mg PO DAILY [facility] Last Admin: 03/14/18 08:18 Dose: 40 mg Glucagon (Glucagen Diagnostic Kit) 0 mg IM STAT PRN; Protocol PRN Reason: Hypoglycemia Protocol Insulin Detemir (Levemir) 58 units SC HS [facility] Last Admin: 03/13/18 22:01 Dose: 58 units Insulin Human Lispro (Humalog) 0 units SC ACHS [facility]; Protocol Last Admin: 03/14/18 12:09 Dose: Not Given Insulin Human Lispro (Humalog) 9 units SC ACTID [facility] Last Admin: 03/14/18 12:27 Dose: Not Given Levothyroxine Sodium (Synthroid) 125 mcg PO DAILY@0630 [facility] Last Admin: 03/14/18 06:52 Dose: 125 mcg Lidocaine (Lidoderm) 1 ea TD DAILY [facility] Last Admin: 03/14/18 08:18 Dose: 1 ea Losartan Potassium (Cozaar) 25 mg PO DAILY [facility] Last Admin: 03/14/18 08:17 Dose: 25 mg Memantine (Namenda) 5 mg PO HS [facility] Last Admin: 03/13/18 21:57 Dose: 5 mg Metoprolol Tartrate (Lopressor) 12.5 mg PO Q12 [facility] Last Admin: 03/14/18 08:17 Dose: 12.5 mg Mirtazapine (Remeron) 7.5 mg PO HS [facility] Last Admin: 03/13/18 21:58 Dose: 7.5 mg Mirtazapine (Remeron) 15 mg PO HS [facility] Last Admin: 03/13/18 21:58 Dose: 15 mg Multivitamins/Minerals (Therapeutic-M Tab) 1 tab PO DAILY [facility] Last Admin: 03/14/18 08:17 Dose: 1 tab Fluticasone/Salmeterol (Advair Diskus 250/50) 1 puff IH Q12 [facility] Last Admin: 03/14/18 08:16 Dose: 1 puff Senna/Docusate Sodium (Senokot S 50 Mg-8.6 Mg) 1 tab PO HS [facility] Last Admin: 03/13/18 21:54 Dose: 1 tab Sitagliptin Phosphate (Januvia) 25 mg PO DAILY [facility] Last Admin: 03/14/18 08:17 Dose: 25 mg Spironolactone (Aldactone) 12.5 mg PO DAILY [facility] Last Admin: 03/14/18 08:16 Dose: 12.5 mg Tramadol HCl (Ultram) 50 mg PO Q4 PRN PRN Reason: Pain, severe (8-10) Last Admin: 03/13/18 21:54 Dose: 50 mg - Labs Labs: 03/12/18 05:15 03/12/18 05:15 PT 12.4 Seconds (9.8-13.1) 03/02/18 05:30 INR 1.1 03/02/18 05:30 APTT 27.8 Seconds (25.6-37.1) 03/02/18 05:30 - Constitutional Appears: Non-toxic, No Acute Distress - Head Exam Head Exam: ATRAUMATIC, NORMAL INSPECTION, NORMOCEPHALIC - Eye Exam Eye Exam: EOMI, Normal appearance, PERRL Pupil Exam: NORMAL ACCOMODATION, PERRL - ENT Exam ENT Exam: Mucous Membranes Moist, Normal Exam - Neck Exam Neck Exam: Full ROM, Normal Inspection - Respiratory Exam Respiratory Exam: NORMAL BREATHING PATTERN - Extremities Exam Extremities Exam: absent: Calf Tenderness, Full ROM, Pedal Edema Additional comments: LLE weakness and decreased ROM - Back Exam Back Exam: NORMAL INSPECTION - Neurological Exam Neurological Exam: Alert, Awake, CN II-XII Intact, Oriented x3 Neuro motor strength exam: Left Upper Extremity: 5, Right Upper Extremity: 5, Left Lower Extremity: 2/1 (unable to dorsiflex), Right Lower Extremity: 4 (dorsiflexion 4/5) Additional comments: aaox3 speech clear, fluid strength to LLE is decreased at 1/5 and she is unable to dorsiflex; + hyperreflexia to LLE and toes upgoing No sensory deficits. Gait not assessed - Psychiatric Exam Psychiatric exam: Normal Affect, Normal Mood - Skin Skin Exam: Normal Color Assessment and Plan (1) Traumatic brain injury Assessment & Plan: -Imaging reviewed -EEG shows no seizures -MRI brain ordered, pending---will f/u with results -Continue PT; recommend to continue rehab either [facility] or home PT for left leg weakness and conditioning. -Notify neuro if any acute changes in condition. Case discussed with Dr. Franklin Status: Acute
--- NOTE | 2018-03-14 17:47 | CT ---
Date of service: 03/14/2018 PROCEDURE: CT HEAD WITHOUT CONTRAST. HISTORY: LLE weakness d/p subdural hematoma COMPARISON: CT head dated 03/12/2018 TECHNIQUE: Axial computed tomography images were obtained through the head/brain without intravenous contrast. Radiation dose: Total exam DLP = 804.02 mGy-cm. This CT exam was performed using one or more of the following dose reduction techniques: Automated exposure control, adjustment of the mA and/or kV according to patient size, and/or use of iterative reconstruction technique. FINDINGS: HEMORRHAGE: Slight interval decrease in amount of right interhemispheric fissure subdural hematoma. Continued decrease of previously described hemorrhage layering along the left tentorium. BRAIN: No mass effect or edema. Atrophy. Chronic microvascular ischemic changes. VENTRICLES: Unremarkable. No hydrocephalus. CALVARIUM: Unremarkable. PARANASAL SINUSES: Unremarkable as visualized. No significant inflammatory changes. MASTOID AIR CELLS: Unremarkable as visualized. No inflammatory changes. OTHER FINDINGS: None. IMPRESSION: Slight interval decrease in amount of persistent right interhemispheric and left tentorial subdural hemorrhage. No other significant interval change.
--- NOTE | 2018-03-14 18:01 | CP.PCM.PN ---
Subjective - Date & Time of Evaluation Date of Evaluation: 03/14/18 Time of Evaluation: 17:59 - Subjective Subjective: Patient seen in the room right shoulder pain persists some decrease in left LE function repeat CT was ordered and actually shows some improvement with no real interval change continue current care not able to d/c home at this time Objective - Vital Signs/Intake and Output Vital Signs (last 24 hours): Temp Pulse Resp BP Pulse Ox 98.1 F 75 18 118/64 99 03/14/18 07:38 03/14/18 08:17 03/14/18 07:38 03/14/18 08:18 03/14/18 07:38 - Medications Medications: Current Medications Acetaminophen (Tylenol 325mg Tab) 650 mg PO Q6 [facility] Last Admin: 03/14/18 12:16 Dose: 650 mg Albuterol (Ventolin Hfa 90 Mcg/Actuation (8 G)) 2 puff IH Q6 PRN PRN Reason: Shortness of Breath Last Admin: 03/10/18 14:52 Dose: 2 puff Aspirin (Aspirin Chewable) 81 mg PO DAILY [facility] Last Admin: 03/14/18 08:18 Dose: 81 mg Atorvastatin Calcium (Lipitor) 40 mg PO HS [facility] Last Admin: 03/13/18 21:55 Dose: 40 mg Benzocaine/Menthol (Cepacol Sore Throat) 1 rosario PO Q3 PRN PRN Reason: Sore Throat Last Admin: 03/10/18 17:03 Dose: 1 rosario Benzonatate (Tessalon Perles) 100 mg PO Q8 PRN PRN Reason: Cough Last Admin: 03/12/18 11:22 Dose: 100 mg Dextrose (Dextrose 50% Inj) 0 ml IV STAT PRN; Protocol PRN Reason: Hypoglycemia Protocol Dextrose (Glutose 15) 0 gm PO ONCE PRN; Protocol PRN Reason: Hypoglycemia Protocol Docusate Sodium (Colace) 100 mg PO DAILY [facility] Last Admin: 03/14/18 08:17 Dose: 100 mg Escitalopram Oxalate (Lexapro) 10 mg PO DAILY [facility] Last Admin: 03/14/18 08:17 Dose: 10 mg Famotidine (Pepcid) 20 mg PO DAILY [facility] Last Admin: 03/14/18 08:18 Dose: 20 mg Furosemide (Lasix) 40 mg PO DAILY [facility] Last Admin: 03/14/18 08:18 Dose: 40 mg Glucagon (Glucagen Diagnostic Kit) 0 mg IM STAT PRN; Protocol PRN Reason: Hypoglycemia Protocol Insulin Detemir (Levemir) 58 units SC HS [facility] Last Admin: 03/13/18 22:01 Dose: 58 units Insulin Human Lispro (Humalog) 0 units SC ACHS [facility]; Protocol Last Admin: 03/14/18 16:35 Dose: Not Given Insulin Human Lispro (Humalog) 9 units SC ACTID [facility] Last Admin: 03/14/18 16:35 Dose: 9 unit Levetiracetam (Keppra) 500 mg PO BID [facility] Levothyroxine Sodium (Synthroid) 125 mcg PO DAILY@0630 [facility] Last Admin: 03/14/18 06:52 Dose: 125 mcg Lidocaine (Lidoderm) 1 ea TD DAILY [facility] Last Admin: 03/14/18 08:18 Dose: 1 ea Losartan Potassium (Cozaar) 25 mg PO DAILY [facility] Last Admin: 03/14/18 08:17 Dose: 25 mg Memantine (Namenda) 5 mg PO [facility] Last Admin: 03/13/18 21:57 Dose: 5 mg Metoprolol Tartrate (Lopressor) 12.5 mg PO Q12 [facility] Last Admin: 03/14/18 08:17 Dose: 12.5 mg Mirtazapine (Remeron) 7.5 mg PO HS [facility] Last Admin: 03/13/18 21:58 Dose: 7.5 mg Mirtazapine (Remeron) 15 mg PO HS [facility] Last Admin: 03/13/18 21:58 Dose: 15 mg Multivitamins/Minerals (Therapeutic-M Tab) 1 tab PO DAILY [facility] Last Admin: 03/14/18 08:17 Dose: 1 tab Fluticasone/Salmeterol (Advair Diskus 250/50) 1 puff IH Q12 [facility] Last Admin: 03/14/18 08:16 Dose: 1 puff Senna/Docusate Sodium (Senokot S 50 Mg-8.6 Mg) 1 tab PO HS [facility] Last Admin: 03/13/18 21:54 Dose: 1 tab Sitagliptin Phosphate (Januvia) 25 mg PO DAILY [facility] Last Admin: 03/14/18 08:17 Dose: 25 mg Spironolactone (Aldactone) 12.5 mg PO DAILY [facility] Last Admin: 03/14/18 08:16 Dose: 12.5 mg Tramadol HCl (Ultram) 50 mg PO Q4 PRN PRN Reason: Pain, severe (8-10) Last Admin: 03/13/18 21:54 Dose: 50 mg - Labs Labs: 03/12/18 05:15 03/12/18 05:15 PT 12.4 Seconds (9.8-13.1) 03/02/18 05:30 INR 1.1 03/02/18 05:30 APTT 27.8 Seconds (25.6-37.1) 03/02/18 05:30
[2018-03-14] MEDS: Docusate-Senna 50 mg-8.6 mg Tab PO SCH (22:09)
[2018-03-14] MEDS: Insulin Detemir 100 Units/ml Inj SC SCH (22:17)
[2018-03-15] MEDS: Levothyroxine 125 MCG TAB PO SCH (06:01)
[2018-03-15] MEDS: Insulin Lispro (humaLOG) 100 Units/ml Inj SC SCH ×4 (07:08→13:08)
[2018-03-15] MEDS: Fluticasone-Salmeterol 250-50mcg Diskus IH SCH ×2 (08:18→21:44)
[2018-03-15] MEDS: Lidocaine 5% Patch TD SCH (08:22)
[2018-03-15] MEDS: Multivitamin With Minerals Tab PO SCH (08:24)
[2018-03-15] MEDS ORDERED: Insulin Lispro (humaLOG) 100 Units/ml Inj SC ONE (21:09)
[2018-03-15] MEDS: Docusate-Senna 50 mg-8.6 mg Tab PO SCH (21:29)
[2018-03-15] MEDS: Insulin Detemir 100 Units/ml Inj SC SCH (21:45)
[2018-03-15] MEDS: Vitamin A/D oint 60G TP SCH (23:55)
[2018-03-16] MEDS: Levothyroxine 125 MCG TAB PO SCH (07:20)
[2018-03-16] MEDS ORDERED: Insulin Lispro (humaLOG) 100 Units/ml Inj SC SCH (08:00)
[2018-03-16] MEDS: Insulin Lispro (humaLOG) 100 Units/ml Inj SC SCH ×3 (08:00→17:00)
[2018-03-16] MEDS: Fluticasone-Salmeterol 250-50mcg Diskus IH SCH ×2 (08:33→21:15)
[2018-03-16] MEDS: Lidocaine 5% Patch TD SCH (08:35)
[2018-03-16] MEDS: Multivitamin With Minerals Tab PO SCH (08:39)
[2018-03-16] MEDS: Vitamin A/D oint 60G TP SCH ×2 (09:00→18:00)
[2018-03-16] MEDS: Docusate-Senna 50 mg-8.6 mg Tab PO SCH (21:13)
[2018-03-16] MEDS: Insulin Detemir 100 Units/ml Inj SC SCH (21:32)
[2018-03-17] MEDS: Levothyroxine 125 MCG TAB PO SCH (06:12)
[2018-03-17] MEDS: Insulin Lispro (humaLOG) 100 Units/ml Inj SC SCH ×3 (08:15→17:06)
[2018-03-17] MEDS: Fluticasone-Salmeterol 250-50mcg Diskus IH SCH ×2 (08:16→22:01)
[2018-03-17] MEDS: Lidocaine 5% Patch TD SCH (08:19)
[2018-03-17] MEDS: Multivitamin With Minerals Tab PO SCH (08:19)
[2018-03-17] MEDS: Vitamin A/D oint 60G TP SCH ×2 (08:20→17:06)
--- NOTE | 2018-03-17 11:42 | CP.PCM.PN ---
Subjective - Date & Time of Evaluation Date of Evaluation: 03/17/18 Time of Evaluation: 13:19 - Subjective Subjective: 77 yr old female with past medical history of PMHx includes CAD s/p CABG (Nov 2017), pacemaker, HTN, HLD, IDDM type 2, hypothyroidism, Systolic CHF, asthma, depression and anxiety was admitted to acute rehab for PT/OT s/p large subdural hematoma due to mechanical fall. Patient was in ICU for 4 days where she remained with no neurological deficits. For the last week, patient experiencing with increased left lower extremity weakness along with left foot drop while in acute rehab. Patient having difficulty performing physical therapy of left lower extremity due to weakness and she would benefit from further therapy. The patient's left lower extremity weakness has been progressively worsening, secondary to reactive cerebral edema s/p subdural hematoma. MRI was unable to be performed due to patients pacemaker, therefore CT of the head was ordered for interval follow up as symptoms have worsened. The patient was started on Keppra by neuro. Today she denies any complaints of chest pain, shortness of breath, nausea, vomiting, urinary symptoms, leg weakness persists, but is slightly improved. Objective - Vital Signs/Intake and Output Vital Signs (last 24 hours): Temp Pulse Resp BP Pulse Ox 96.8 F L 72 20 135/57 L 100 03/17/18 07:56 03/17/18 08:18 03/17/18 07:56 03/17/18 08:18 03/17/18 07:56 - Medications Medications: Current Medications Acetaminophen (Tylenol 325mg Tab) 650 mg PO Q6 [facility] Last Admin: 03/17/18 06:06 Dose: 650 mg Albuterol (Ventolin Hfa 90 Mcg/Actuation (8 G)) 2 puff IH Q6 PRN PRN Reason: Shortness of Breath Last Admin: 03/10/18 14:52 Dose: 2 puff Aspirin (Aspirin Chewable) 81 mg PO DAILY [facility] Last Admin: 03/17/18 08:18 Dose: 81 mg Atorvastatin Calcium (Lipitor) 40 mg PO HS [facility] Last Admin: 03/16/18 21:13 Dose: 40 mg Benzocaine/Menthol (Cepacol Sore Throat) 1 rosario PO Q3 PRN PRN Reason: Sore Throat Last Admin: 03/10/18 17:03 Dose: 1 rosario Benzonatate (Tessalon Perles) 100 mg PO Q8 PRN PRN Reason: Cough Last Admin: 03/17/18 08:17 Dose: 100 mg Dextrose (Dextrose 50% Inj) 0 ml IV STAT PRN; Protocol PRN Reason: Hypoglycemia Protocol Dextrose (Glutose 15) 0 gm PO ONCE PRN; Protocol PRN Reason: Hypoglycemia Protocol Docusate Sodium (Colace) 100 mg PO DAILY [facility] Last Admin: 03/17/18 08:19 Dose: 100 mg Escitalopram Oxalate (Lexapro) 10 mg PO DAILY [facility] Last Admin: 03/17/18 08:19 Dose: 10 mg Famotidine (Pepcid) 20 mg PO DAILY [facility] Last Admin: 03/17/18 08:17 Dose: 20 mg Furosemide (Lasix) 40 mg PO DAILY [facility] Last Admin: 03/17/18 08:18 Dose: 40 mg Glucagon (Glucagen Diagnostic Kit) 0 mg IM STAT PRN; Protocol PRN Reason: Hypoglycemia Protocol Insulin Detemir (Levemir) 58 units SC HS [facility] Last Admin: 03/16/18 21:32 Dose: 58 units Insulin Human Lispro (Humalog) 7 units SC ACTID [facility] Last Admin: 03/17/18 08:15 Dose: 7 units Levetiracetam (Keppra) 500 mg PO BID [facility] Last Admin: 03/17/18 08:16 Dose: 500 mg Levothyroxine Sodium (Synthroid) 125 mcg PO DAILY@0630 [facility] Last Admin: 03/17/18 06:12 Dose: 125 mcg Lidocaine (Lidoderm) 1 ea TD DAILY [facility] Last Admin: 03/17/18 08:19 Dose: 1 ea Losartan Potassium (Cozaar) 25 mg PO DAILY [facility] Last Admin: 03/17/18 08:18 Dose: 25 mg Memantine (Namenda) 5 mg PO HS [facility] Last Admin: 03/16/18 21:13 Dose: 5 mg Metoprolol Tartrate (Lopressor) 12.5 mg PO Q12 [facility] Last Admin: 03/17/18 08:17 Dose: 12.5 mg Mirtazapine (Remeron) 7.5 mg PO HS [facility] Last Admin: 03/16/18 21:12 Dose: 7.5 mg Mirtazapine (Remeron) 15 mg PO HS [facility] Last Admin: 01/27/19 21:13 Dose: 15 mg Multivitamins/Minerals (Therapeutic-M Tab) 1 tab PO DAILY [facility] Last Admin: 03/17/18 08:19 Dose: 1 tab Fluticasone/Salmeterol (Advair Diskus 250/50) 1 puff IH Q12 [facility] Last Admin: 03/17/18 08:16 Dose: 1 puff Senna/Docusate Sodium (Senokot S 50 Mg-8.6 Mg) 1 tab PO HS [facility] Last Admin: 03/16/18 21:13 Dose: 1 tab Sitagliptin Phosphate (Januvia) 25 mg PO DAILY [facility] Last Admin: 03/17/18 08:19 Dose: 25 mg Spironolactone (Aldactone) 12.5 mg PO DAILY [facility] Last Admin: 03/17/18 08:18 Dose: 12.5 mg Tramadol HCl (Ultram) 50 mg PO Q4 PRN PRN Reason: Pain, severe (8-10) Last Admin: 03/16/18 22:16 Dose: 50 mg Vitamin A (Vitamin A&D) 1 applic TP BID [facility] Last Admin: 03/17/18 08:20 Dose: 1 applic - Labs Labs: 03/12/18 05:15 03/12/18 05:15 PT 12.4 Seconds (9.8-13.1) 03/02/18 05:30 INR 1.1 03/02/18 05:30 APTT 27.8 Seconds (25.6-37.1) 03/02/18 05:30 - Constitutional Appears: Well, Non-toxic, No Acute Distress - Head Exam Head Exam: ATRAUMATIC, NORMOCEPHALIC - ENT Exam ENT Exam: Mucous Membranes Moist - Neck Exam Neck Exam: Full ROM - Respiratory Exam Respiratory Exam: Clear to Ausculation Bilateral, NORMAL BREATHING PATTERN. absent: Rales, Rhonchi, Wheezes - Cardiovascular Exam Cardiovascular Exam: REGULAR RHYTHM, +S1, +S2 - GI/Abdominal Exam GI & Abdominal Exam: Soft, Normal Bowel Sounds. absent: Firm, Guarding, Rigid - Extremities Exam Additional comments: Left: unable to flex knee still has some hip flexion although severely diminished to the right knee, increased weakness of the right lower leg, Graded muscle strength LLE 1/5, RLE 4/5, left ankle in planterflexed position, sensation to touch intact - Back Exam Back Exam: absent: CVA tenderness (L), CVA tenderness (R) - Neurological Exam Neurological Exam: Alert, Awake, Oriented x3. absent: Normal Gait - Psychiatric Exam Psychiatric exam: Normal Affect, Normal Mood - Skin Skin Exam: Normal Color Assessment and Plan - Assessment and Plan (Free Text) Assessment: 77 yr old female with past medical history of PMHx includes CAD s/p CABG (Nov 2017), pacemaker, HTN, HLD, IDDM type 2, hypothyroidism, Systolic CHF, asthma, depression and anxiety was admitted to acute rehab for PT/OT s/p large subdural hematoma due to mechanical fall. Patient was in ICU for 4 days where she remained with no neurological deficits. For the last 1 week, patient experiencing with increased left lower extremity weakness along with left foot drop while in acute rehab. MRI was unable to be performed due to patients pacemaker, therefore CT of the head was ordered for interval follow up as symptoms have worsened. CT of the head revealed slight decrease of subdural hemorrhage. The patient was started on Keppra by neuro. The patient's left lower extremity weakness has been progressively worsening, secondary to reactive cerebral edema s/p subdural hematoma. Patient is having difficulty performing physical therapy due to her left lower extremity due to weakness and she would benefit from further therapy. Plan: Left Lower Extremity Weakness -acute, increased, likely secondary reactive cerebral edema -Head CT (03/14/18)- slight interval decrease in amount of persistent right interhemispheric and left tentorial subdural hemorrhage -Venous Duplex (03/12/18)- negative for DVT -monitor patient -Neurology consult- Dr Mills/Dr. Franklin recommendations appreciated - started on Keppra -EEG (03/14/18)- negative for seizure activity -unable to obtain MRI due to pacemaker Subdural Hematoma -acute, stable, improving -Head CT (03/14/18)- slight interval decrease in amount of persistent right interhemispheric and left tentorial subdural hemorrhage -neuro checks Q-shift -hold plavix for 4 weeks (restart mar 28, 2018) -restarted ASA 03/13/18 as per Neurology recommendation - Dr. Mills Right Shoulder pain -acute, symptomatic -Cervical CT: no acute fractures / Right Shoulder X-ray: no acute fractures -Lidoderm patch ordered for patient, Tylenol PRN moderate, Tramadol PRN severe -Pain management- Dr. Gastelum, recommendations appreciated, s/p shoulder injection IDDM Type 2 -chronic and uncontrolled -HbA1c 9.4 on 02/26/18 -Hypoglycemia protocol in place -Accuchecks ACHS, Levemir 58 units SCHS, Januvia 25mg PO QD, humalog TID -moderate carbohydrate diet/heart healthy diet Depression -chronic, uncontrolled -Remeron 22.5 mg PO QHS and Lexapro 10 mg PO QD -Psych consult- Dr. Gorman, recommendations appreciated- increase Remeron dosage Hypothyrodism -chronic, controlled -TSH 2.65 on 02/26/18 -continue Levothyroxine 125 mcg PO QD HTN/HLD/CAD -chronic, controlled -Metoprolol 12.5mg PO Q12 -s/p CABG 11/2017 Systolic CHF -chronic, controlled, s/p pacemaker -ECHO 02/2018: systolic dysfunction EF 25-30% -continue lasix 40mg PO QD, per Dr. Petersen, started Losartan 25mg PO QD, Spironolactone 12.5mg PO QD Asthma/COPD -controlled -continue Ventolin HFA PRN, Advair 250/50 1puff Q12 DVT prophylaxis -SCDs for now, recent subdural hematoma -hold plavix for 4 weeks -restarted ASA 03/13/18 as per Neurology recommendation - Dr. Mills
--- NOTE | 2018-03-17 13:49 | CP.PCM.PN ---
Subjective - Date & Time of Evaluation Date of Evaluation: 03/17/18 Time of Evaluation: 13:48 - Subjective Subjective: Neuro Follow-Up Note: Mrs. Walden was evaluated this afternoon in acute rehab. She is doing generally well. States that the weakness in her left leg has improved since I saw her last week. Currently denies h/a, dizziness, visual changes, chest pain, sob, cough, n/v/d. Objective - Vital Signs/Intake and Output Vital Signs (last 24 hours): Temp Pulse Resp BP Pulse Ox 96.8 F L 72 20 135/57 L 100 03/17/18 07:56 03/17/18 08:18 03/17/18 07:56 03/17/18 08:18 03/17/18 07:56 - Medications Medications: Current Medications Acetaminophen (Tylenol 325mg Tab) 650 mg PO Q6 [facility] Last Admin: 03/17/18 12:37 Dose: 650 mg Albuterol (Ventolin Hfa 90 Mcg/Actuation (8 G)) 2 puff IH Q6 PRN PRN Reason: Shortness of Breath Last Admin: 03/10/18 14:52 Dose: 2 puff Aspirin (Aspirin Chewable) 81 mg PO DAILY [facility] Last Admin: 03/17/18 08:18 Dose: 81 mg Atorvastatin Calcium (Lipitor) 40 mg PO HS [facility] Last Admin: 03/16/18 21:13 Dose: 40 mg Benzocaine/Menthol (Cepacol Sore Throat) 1 rosario PO Q3 PRN PRN Reason: Sore Throat Last Admin: 03/10/18 17:03 Dose: 1 rosario Benzonatate (Tessalon Perles) 100 mg PO Q8 PRN PRN Reason: Cough Last Admin: 03/17/18 08:17 Dose: 100 mg Dextrose (Dextrose 50% Inj) 0 ml IV STAT PRN; Protocol PRN Reason: Hypoglycemia Protocol Dextrose (Glutose 15) 0 gm PO ONCE PRN; Protocol PRN Reason: Hypoglycemia Protocol Docusate Sodium (Colace) 100 mg PO DAILY [facility] Last Admin: 03/17/18 08:19 Dose: 100 mg Escitalopram Oxalate (Lexapro) 10 mg PO DAILY [facility] Last Admin: 03/17/18 08:19 Dose: 10 mg Famotidine (Pepcid) 20 mg PO DAILY [facility] Last Admin: 03/17/18 08:17 Dose: 20 mg Furosemide (Lasix) 40 mg PO DAILY [facility] Last Admin: 03/17/18 08:18 Dose: 40 mg Glucagon (Glucagen Diagnostic Kit) 0 mg IM STAT PRN; Protocol PRN Reason: Hypoglycemia Protocol Insulin Detemir (Levemir) 58 units SC HS [facility] Last Admin: 03/16/18 21:32 Dose: 58 units Insulin Human Lispro (Humalog) 7 units SC ACTID [facility] Last Admin: 03/17/18 12:05 Dose: Not Given Levetiracetam (Keppra) 500 mg PO BID [facility] Last Admin: 03/17/18 08:16 Dose: 500 mg Levothyroxine Sodium (Synthroid) 125 mcg PO DAILY@0630 [facility] Last Admin: 03/17/18 06:12 Dose: 125 mcg Lidocaine (Lidoderm) 1 ea TD DAILY [facility] Last Admin: 03/17/18 08:19 Dose: 1 ea Losartan Potassium (Cozaar) 25 mg PO DAILY [facility] Last Admin: 03/17/18 08:18 Dose: 25 mg Memantine (Namenda) 5 mg PO HS [facility] Last Admin: 03/16/18 21:13 Dose: 5 mg Metoprolol Tartrate (Lopressor) 12.5 mg PO Q12 [facility] Last Admin: 03/17/18 08:17 Dose: 12.5 mg Mirtazapine (Remeron) 7.5 mg PO HS [facility] Last Admin: 03/16/18 21:12 Dose: 7.5 mg Mirtazapine (Remeron) 15 mg PO HS [facility] Last Admin: 03/16/18 21:13 Dose: 15 mg Multivitamins/Minerals (Therapeutic-M Tab) 1 tab PO DAILY [facility] Last Admin: 03/17/18 08:19 Dose: 1 tab Fluticasone/Salmeterol (Advair Diskus 250/50) 1 puff IH Q12 [facility] Last Admin: 03/17/18 08:16 Dose: 1 puff Senna/Docusate Sodium (Senokot S 50 Mg-8.6 Mg) 1 tab PO HS [facility] Last Admin: 03/16/18 21:13 Dose: 1 tab Sitagliptin Phosphate (Januvia) 25 mg PO DAILY [facility] Last Admin: 03/17/18 08:19 Dose: 25 mg Spironolactone (Aldactone) 12.5 mg PO DAILY [facility] Last Admin: 03/17/18 08:18 Dose: 12.5 mg Tramadol HCl (Ultram) 50 mg PO Q4 PRN PRN Reason: Pain, severe (8-10) Last Admin: 03/16/18 22:16 Dose: 50 mg Vitamin A (Vitamin A&D) 1 applic TP BID [facility] Last Admin: 03/17/18 08:20 Dose: 1 applic - Labs Labs: 03/12/18 05:15 03/12/18 05:15 PT 12.4 Seconds (9.8-13.1) 03/02/18 05:30 INR 1.1 03/02/18 05:30 APTT 27.8 Seconds (25.6-37.1) 03/02/18 05:30 - Constitutional Appears: Well, Non-toxic, No Acute Distress - Head Exam Head Exam: ATRAUMATIC, NORMAL INSPECTION, NORMOCEPHALIC - Eye Exam Eye Exam: EOMI, Normal appearance, PERRL Pupil Exam: NORMAL ACCOMODATION, PERRL - ENT Exam ENT Exam: Mucous Membranes Moist - Neck Exam Neck Exam: Full ROM, Normal Inspection - Respiratory Exam Respiratory Exam: NORMAL BREATHING PATTERN - Cardiovascular Exam Additional comments: ppm - GI/Abdominal Exam GI & Abdominal Exam: Soft - Extremities Exam Extremities Exam: absent: Calf Tenderness, Full ROM, Pedal Edema Additional comments: LLE weakness persists with slight improvement in ROM - Back Exam Back Exam: Full ROM, NORMAL INSPECTION - Neurological Exam Neurological Exam: Alert, Awake, CN II-XII Intact, Oriented x3 Neuro motor strength exam: Left Upper Extremity: 5, Right Upper Extremity: 5, Left Lower Extremity: 2/1, Right Lower Extremity: 5 Additional comments: Speech clear, fluid Strength to LLE is still decreased (2/5 today); she is still unable to dorsiflex; + hyperreflexia to LLE and toes upgoing No sensory deficits. Gait not assessed - Psychiatric Exam Psychiatric exam: Normal Affect, Normal Mood - Skin Skin Exam: Normal Color Assessment and Plan (1) Traumatic brain injury Assessment & Plan: Mrs. Walden is doing generally well. Although she still has LLE weakness, there is a slight improvement compared to when I first saw her last week. -Imaging reviewed, including repeat CT Head without contrast (shows decreasing in the size of the SDH) -EEG shows no seizures -Continue PT; recommend to continue rehab either [facility] or home PT for left leg weakness and conditioning. -Continue current treatment per primary. -Notify neuro if any acute changes in condition. Case discussed with Dr. Franklin Status: Acute
[2018-03-17] MEDS: Benzocaine/Menthol (Cepacol) Lozenge PO PRN (17:09)
--- NOTE | 2018-03-17 18:29 | CP.PCM.PN ---
Subjective - Date & Time of Evaluation Date of Evaluation: 03/17/18 Time of Evaluation: 18:29 - Subjective Subjective: Patient seen in the room doing better denies pain at this point in better spirits tolerating therapies continue current care Objective - Vital Signs/Intake and Output Vital Signs (last 24 hours): Temp Pulse Resp BP Pulse Ox 96.8 F L 80 20 135/57 L 94 L 03/17/18 07:56 03/17/18 14:30 03/17/18 07:56 03/17/18 08:18 03/17/18 14:30 - Medications Medications: Current Medications Acetaminophen (Tylenol 325mg Tab) 650 mg PO Q6 [facility] Last Admin: 03/17/18 17:05 Dose: 650 mg Albuterol (Ventolin Hfa 90 Mcg/Actuation (8 G)) 2 puff IH Q6 PRN PRN Reason: Shortness of Breath Last Admin: 03/10/18 14:52 Dose: 2 puff Aspirin (Aspirin Chewable) 81 mg PO DAILY [facility] Last Admin: 03/17/18 08:18 Dose: 81 mg Atorvastatin Calcium (Lipitor) 40 mg PO HS [facility] Last Admin: 03/16/18 21:13 Dose: 40 mg Benzocaine/Menthol (Cepacol Sore Throat) 1 rosario PO Q3 PRN PRN Reason: Sore Throat Last Admin: 03/17/18 17:09 Dose: 1 rosario Benzonatate (Tessalon Perles) 100 mg PO Q8 PRN PRN Reason: Cough Last Admin: 03/17/18 08:17 Dose: 100 mg Dextrose (Dextrose 50% Inj) 0 ml IV STAT PRN; Protocol PRN Reason: Hypoglycemia Protocol Dextrose (Glutose 15) 0 gm PO ONCE PRN; Protocol PRN Reason: Hypoglycemia Protocol Docusate Sodium (Colace) 100 mg PO DAILY [facility] Last Admin: 03/17/18 08:19 Dose: 100 mg Escitalopram Oxalate (Lexapro) 10 mg PO DAILY [facility] Last Admin: 03/17/18 08:19 Dose: 10 mg Famotidine (Pepcid) 20 mg PO DAILY [facility] Last Admin: 03/17/18 08:17 Dose: 20 mg Furosemide (Lasix) 40 mg PO DAILY [facility] Last Admin: 03/17/18 08:18 Dose: 40 mg Glucagon (Glucagen Diagnostic Kit) 0 mg IM STAT PRN; Protocol PRN Reason: Hypoglycemia Protocol Insulin Detemir (Levemir) 58 units SC HS [facility] Last Admin: 03/16/18 21:32 Dose: 58 units Insulin Human Lispro (Humalog) 7 units SC ACTID [facility] Last Admin: 03/17/18 17:06 Dose: 7 units Levetiracetam (Keppra) 500 mg PO BID [facility] Last Admin: 03/17/18 17:05 Dose: 500 mg Levothyroxine Sodium (Synthroid) 125 mcg PO DAILY@0630 [facility] Last Admin: 03/17/18 06:12 Dose: 125 mcg Lidocaine (Lidoderm) 1 ea TD DAILY [facility] Last Admin: 03/17/18 08:19 Dose: 1 ea Losartan Potassium (Cozaar) 25 mg PO DAILY [facility] Last Admin: 03/17/18 08:18 Dose: 25 mg Memantine (Namenda) 5 mg PO HS [facility] Last Admin: 03/16/18 21:13 Dose: 5 mg Metoprolol Tartrate (Lopressor) 12.5 mg PO Q12 [facility] Last Admin: 03/17/18 08:17 Dose: 12.5 mg Mirtazapine (Remeron) 7.5 mg PO HS [facility] Last Admin: 03/16/18 21:12 Dose: 7.5 mg Mirtazapine (Remeron) 15 mg PO HS [facility] Last Admin: 03/16/18 21:13 Dose: 15 mg Multivitamins/Minerals (Therapeutic-M Tab) 1 tab PO DAILY [facility] Last Admin: 03/17/18 08:19 Dose: 1 tab Fluticasone/Salmeterol (Advair Diskus 250/50) 1 puff IH Q12 [facility] Last Admin: 03/17/18 08:16 Dose: 1 puff Senna/Docusate Sodium (Senokot S 50 Mg-8.6 Mg) 1 tab PO HS [facility] Last Admin: 03/16/18 21:13 Dose: 1 tab Sitagliptin Phosphate (Januvia) 25 mg PO DAILY [facility] Last Admin: 03/17/18 08:19 Dose: 25 mg Spironolactone (Aldactone) 12.5 mg PO DAILY [facility] Last Admin: 03/17/18 08:18 Dose: 12.5 mg Tramadol HCl (Ultram) 50 mg PO Q4 PRN PRN Reason: Pain, severe (8-10) Last Admin: 03/16/18 22:16 Dose: 50 mg Vitamin A (Vitamin A&D) 1 applic TP BID [facility] Last Admin: 03/17/18 17:06 Dose: 1 applic - Labs Labs: 03/12/18 05:15 03/12/18 05:15 PT 12.4 Seconds (9.8-13.1) 03/02/18 05:30 INR 1.1 03/02/18 05:30 APTT 27.8 Seconds (25.6-37.1) 03/02/18 05:30
[2018-03-17] MEDS: Docusate-Senna 50 mg-8.6 mg Tab PO SCH (22:02)
[2018-03-17] MEDS: Insulin Detemir 100 Units/ml Inj SC SCH (22:07)
[2018-03-18] MEDS: Levothyroxine 125 MCG TAB PO SCH (06:49)
[2018-03-18] MEDS: Insulin Lispro (humaLOG) 100 Units/ml Inj SC SCH ×3 (08:40→17:06)
[2018-03-18] MEDS: Lidocaine 5% Patch TD SCH (08:41)
[2018-03-18] MEDS: Vitamin A/D oint 60G TP SCH (08:41)
[2018-03-18] MEDS: Multivitamin With Minerals Tab PO SCH (08:42)
[2018-03-18] MEDS: Fluticasone-Salmeterol 250-50mcg Diskus IH SCH ×2 (08:42→21:15)
--- NOTE | 2018-03-18 11:45 | CP.PCM.PN ---
Subjective - Date & Time of Evaluation Date of Evaluation: 03/18/18 Time of Evaluation: 15:27 - Subjective Subjective: 77 yr old female with past medical history of PMHx includes CAD s/p CABG (Nov 2017), pacemaker, HTN, HLD, IDDM type 2, hypothyroidism, Systolic CHF, asthma, depression and anxiety was admitted to acute rehab for PT/OT s/p large subdural hematoma due to mechanical fall. Patient was in ICU for 4 days where she remained with no neurological deficits. For the last week, patient experiencing with increased left lower extremity weakness along with left foot drop while in acute rehab. Patient having difficulty performing physical therapy of left lower extremity due to weakness and she would benefit from further therapy. The patient's left lower extremity weakness has been progressively worsening, secondary to reactive cerebral edema s/p subdural hematoma. MRI was unable to be performed due to patients pacemaker, therefore CT of the head was ordered for interval follow up as symptoms have worsened. The patient was started on Keppra by neuro. Today she denies any complaints of chest pain, shortness of breath, nausea, vomiting, urinary symptoms, leg weakness persists. Patient seen to be participating with physical therapy today. Objective - Vital Signs/Intake and Output Vital Signs (last 24 hours): Temp Pulse Resp BP Pulse Ox 97.8 F 83 19 116/61 100 03/18/18 09:05 03/18/18 09:05 03/18/18 09:05 03/18/18 09:05 03/18/18 08:42 - Medications Medications: Current Medications Acetaminophen (Tylenol 325mg Tab) 650 mg PO Q6 [facility] Last Admin: 03/18/18 06:50 Dose: 650 mg Albuterol (Ventolin Hfa 90 Mcg/Actuation (8 G)) 2 puff IH Q6 PRN PRN Reason: Shortness of Breath Last Admin: 03/10/18 14:52 Dose: 2 puff Aspirin (Aspirin Chewable) 81 mg PO DAILY [facility] Last Admin: 03/18/18 08:44 Dose: 81 mg Atorvastatin Calcium (Lipitor) 40 mg PO HS [facility] Last Admin: 03/17/18 21:55 Dose: 40 mg Benzocaine/Menthol (Cepacol Sore Throat) 1 rosario PO Q3 PRN PRN Reason: Sore Throat Last Admin: 03/17/18 17:09 Dose: 1 rosario Benzonatate (Tessalon Perles) 100 mg PO Q8 PRN PRN Reason: Cough Last Admin: 03/18/18 08:42 Dose: 100 mg Dextrose (Dextrose 50% Inj) 0 ml IV STAT PRN; Protocol PRN Reason: Hypoglycemia Protocol Dextrose (Glutose 15) 0 gm PO ONCE PRN; Protocol PRN Reason: Hypoglycemia Protocol Docusate Sodium (Colace) 100 mg PO DAILY [facility] Last Admin: 03/18/18 08:41 Dose: 100 mg Escitalopram Oxalate (Lexapro) 10 mg PO DAILY [facility] Last Admin: 03/18/18 08:44 Dose: 10 mg Famotidine (Pepcid) 20 mg PO DAILY [facility] Last Admin: 03/18/18 08:44 Dose: 20 mg Furosemide (Lasix) 40 mg PO DAILY [facility] Last Admin: 03/18/18 08:44 Dose: 40 mg Glucagon (Glucagen Diagnostic Kit) 0 mg IM STAT PRN; Protocol PRN Reason: Hypoglycemia Protocol Insulin Detemir (Levemir) 58 units SC HS [facility] Last Admin: 03/17/18 22:07 Dose: 58 units Insulin Human Lispro (Humalog) 7 units SC ACTID [facility] Last Admin: 03/18/18 08:40 Dose: 7 units Levetiracetam (Keppra) 500 mg PO BID [facility] Last Admin: 03/18/18 08:42 Dose: 500 mg Levothyroxine Sodium (Synthroid) 125 mcg PO DAILY@0630 [facility] Last Admin: 03/18/18 06:49 Dose: 125 mcg Lidocaine (Lidoderm) 1 ea TD DAILY [facility] Last Admin: 03/18/18 08:41 Dose: 1 ea Losartan Potassium (Cozaar) 25 mg PO DAILY [facility] Last Admin: 03/18/18 08:44 Dose: 25 mg Memantine (Namenda) 5 mg PO HS [facility] Last Admin: 03/17/18 21:56 Dose: 5 mg Metoprolol Tartrate (Lopressor) 12.5 mg PO Q12 [facility] Last Admin: 03/18/18 08:43 Dose: 12.5 mg Mirtazapine (Remeron) 7.5 mg PO HS [facility] Last Admin: 03/17/18 21:56 Dose: 7.5 mg Mirtazapine (Remeron) 15 mg PO HS [facility] Last Admin: 03/17/18 21:56 Dose: 15 mg Multivitamins/Minerals (Therapeutic-M Tab) 1 tab PO DAILY [facility] Last Admin: 03/18/18 08:42 Dose: 1 tab Fluticasone/Salmeterol (Advair Diskus 250/50) 1 puff IH Q12 [facility] Last Admin: 03/18/18 08:42 Dose: 1 puff Senna/Docusate Sodium (Senokot S 50 Mg-8.6 Mg) 1 tab PO HS [facility] Last Admin: 03/17/18 22:02 Dose: 1 tab Sitagliptin Phosphate (Januvia) 25 mg PO DAILY [facility] Last Admin: 03/18/18 08:41 Dose: 25 mg Spironolactone (Aldactone) 12.5 mg PO DAILY [facility] Last Admin: 03/18/18 08:42 Dose: 12.5 mg Tramadol HCl (Ultram) 50 mg PO Q4 PRN PRN Reason: pain scale 4-10. Last Admin: 03/17/18 22:05 Dose: 50 mg Vitamin A (Vitamin A&D) 1 applic TP BID [facility] Last Admin: 03/18/18 08:41 Dose: 1 applic - Labs Labs: 03/12/18 05:15 03/12/18 05:15 PT 12.4 Seconds (9.8-13.1) 03/02/18 05:30 INR 1.1 03/02/18 05:30 APTT 27.8 Seconds (25.6-37.1) 03/02/18 05:30 - Constitutional Appears: Well, Non-toxic, No Acute Distress - Head Exam Head Exam: ATRAUMATIC, NORMOCEPHALIC - ENT Exam ENT Exam: Mucous Membranes Moist - Respiratory Exam Respiratory Exam: Clear to Ausculation Bilateral, NORMAL BREATHING PATTERN. absent: Rales, Rhonchi, Wheezes - Cardiovascular Exam Cardiovascular Exam: REGULAR RHYTHM, +S1, +S2 - GI/Abdominal Exam GI & Abdominal Exam: Soft, Normal Bowel Sounds. absent: Firm, Guarding, Rigid - Extremities Exam Additional comments: Left: unable to flex knee still has some hip flexion although severely diminished to the right knee, increased weakness of the right lower leg, Graded muscle strength LLE 1/5, RLE 4/5, left ankle in planterflexed position, sensation to touch intact - Neurological Exam Neurological Exam: Alert, Awake, Oriented x3 - Psychiatric Exam Psychiatric exam: Normal Affect, Normal Mood - Skin Skin Exam: Normal Color Assessment and Plan - Assessment and Plan (Free Text) Assessment: 77 yr old female with past medical history of PMHx includes CAD s/p CABG (Nov 2017), pacemaker, HTN, HLD, IDDM type 2, hypothyroidism, Systolic CHF, asthma, depression and anxiety was admitted to acute rehab for PT/OT s/p large subdural hematoma due to mechanical fall. Patient was in ICU for 4 days where she remained with no neurological deficits. For the last 1 week, patient experiencing with increased left lower extremity weakness along with left foot drop while in acute rehab. MRI was unable to be performed due to patients pacemaker, therefore CT of the head was ordered for interval follow up as symptoms have worsened. CT of the head revealed slight decrease of subdural hemorrhage. The patient was started on Keppra by neuro. The patient's left lower extremity weakness has been progressively worsening, secondary to reactive cerebral edema s/p subdural hematoma. Patient is having difficulty performing physical therapy due to her left lower extremity due to weakness, however, today was seen to be participating and she would benefit from further therapy. Plan: Left Lower Extremity Weakness -acute, increased, likely secondary reactive cerebral edema -Head CT (03/14/18)- slight interval decrease in amount of persistent right interhemispheric and left tentorial subdural hemorrhage -Venous Duplex (03/12/18)- negative for DVT -monitor patient -Neurology consult- Dr Mills/Dr. Franklin recommendations appreciated - started on Keppra -EEG (03/14/18)- negative for seizure activity -unable to obtain MRI due to pacemaker Subdural Hematoma -acute, stable, improving -Head CT (03/14/18)- slight interval decrease in amount of persistent right interhemispheric and left tentorial subdural hemorrhage -neuro checks Q-shift -hold plavix for 4 weeks (restart mar 28, 2018) -restarted ASA 03/13/18 as per Neurology recommendation - Dr. Mills Right Shoulder pain -acute, symptomatic -Cervical CT: no acute fractures / Right Shoulder X-ray: no acute fractures -Lidoderm patch ordered for patient, Tylenol PRN moderate, Tramadol PRN severe -Pain management- Dr. Gastelum, recommendations appreciated, s/p shoulder injection IDDM Type 2 -chronic and uncontrolled -HbA1c 9.4 on 02/26/18 -Hypoglycemia protocol in place -Accuchecks ACHS, Levemir 58 units SCHS, Januvia 25mg PO QD, humalog TID -moderate carbohydrate diet/heart healthy diet Depression -chronic, uncontrolled -Remeron 22.5 mg PO QHS and Lexapro 10 mg PO QD -Psych consult- Dr. Gorman, recommendations appreciated- increase Remeron dosage Hypothyrodism -chronic, controlled -TSH 2.65 on 02/26/18 -continue Levothyroxine 125 mcg PO QD HTN/HLD/CAD -chronic, controlled -Metoprolol 12.5mg PO Q12 -s/p CABG 11/2017 Systolic CHF -chronic, controlled, s/p pacemaker -ECHO 02/2018: systolic dysfunction EF 25-30% -continue lasix 40mg PO QD, per Dr. Petersen, started Losartan 25mg PO QD, Spironolactone 12.5mg PO QD Asthma/COPD -controlled -continue Ventolin HFA PRN, Advair 250/50 1puff Q12 DVT prophylaxis -SCDs for now, recent subdural hematoma -hold plavix for 4 weeks -restarted ASA 03/13/18 as per Neurology recommendation - Dr. Mills
--- NOTE | 2018-03-18 13:14 | PCM.PSYTMC ---
Acute Rehab Team Conference - - Vital Signs: Vital Signs (Last 8 Hours): Vital Signs 03/18/18 03/18/18 03/18/18 08:42 08:43 08:44 Temperature 97.8 F Pulse Rate 83 83 83 Respiratory 19 Rate Blood Pressure 116/61 116/61 116/61 O2 Sat by Pulse 100 Oximetry 03/18/18 03/18/18 08:51 09:05 Temperature 97.8 F Pulse Rate 74 83 Respiratory 19 Rate Blood Pressure 116/61 O2 Sat by Pulse 100 Oximetry Pain: 0 - Precautions: Precautions: Fall Prevention, Seizure - Medications/Other Issues: Comment: -Left foot weakness. "No power" per Patient. -Started on Keppra for anti-seizure. - Consults: Comment: Dr. Mills - Neuro. Dr. Gastelum - Physiatry. Dr. Gorman - Psychiatry - Skin: Incision Site: Right ankle Incision Line Treatment: with bandaid. - Toileting: Toileting: Maximal Assistance - Bladder Management: Bladder Pattern: Normal, Frequency, Urgency Voiding Method: Toilet, Bedpan Bladder Management: Maximal Assistance - Transfers: Transfers: Maximal Assistance - ADL's: ADL's: Moderate Assistance - Pain Management: Other Intervention:: -Ultram for pain scale 4-10. - Patient/Family Teaching: Other Intervention:: -Provide education for safety precautions. -Medication management. -Teach disease process - Goals/Time Frame: Comment: Keep patient safe, encourage participation in therapy, provide education regarding medication and disease process until next team conference or discharge date. - Provider: Registered Nurse:: April Johnson Physical Therapy - Bed Mobility Bed Mobility: Verbal Cues, Minimal Assistance, Moderate Assistance Comment: pt's status fluctuates. mod/max vc/tc needed for sequencing - Transfers Wheelchair to Mat: Verbal Cues Sit to Stand: Verbal Cues Comment: pt's status fluctuates. sit to stand t/f CG/min --> mod/max A. SPT min --> mod/max A. max vc/tc for sequencing and safety - Ambulation Level of Assistance: Verbal Cues Orthoses: L df wrap and w/c follow Comment: pt's status fluctuates. R wall bar up to 20' w/ min A -->max A. RW up to 150' min A ---> mod/max A - Stair Negotiation Stairs: Level of Assistance: Verbal Cues Stairs: Assistive Devices: Left Handrail, Right Handrail Comment: pt's status fluctuates. up to 4 - 6 in steps min/mod --> mod/Max A of 1 to 2 persons - Standing Balance Static Stand: Contact Guard Assist Comment: standing balance also fluctuates. static CG-->mod A. dynamic min A--> max A - Pain Pain (assessed during therapy session): 4 Alleviating Techniques: Medication, Ice, Relaxation Techniques, Exercise Comment: Pt has had multiple areas of pain (BUE, headache, L ankle, etc.) during admission. Today pt only c/o R shldr pain - Insight/Carryover Insight/Carryover: Fair - Patient/Family Education Comment: Safety, transfers, bed mobility, gait, PT goals, POC, B SDH recovery, posture, benefits of PT, pain mgmt, balance - Assessment/Plan Assessment: 77 yo female at [facility] acute rehab s/p B SDH sustained after mechanical fall. Pt's fxnl, balance, volitional strength, activity tolerance, motivation/cooperation has fluctuated t/o her rehab stay. Cont'd skilled PT recommended to address deficits. PUSHPA placement recommended to maximize fxnl outcomes and safety. - Goals Timeframe: 1 week Goals: 1. Increase bed mobility to CG/minimal assistance of 1. 2. Increase transfers to CG of 1. 3. Increase ambulation with RW x 200 feet x 2 times with CG/close supervision of 1. - Provider Physical Therapist:: Yokasta Lloyd License Number:: [id number] Occupational Therapy - Arousal/Attention/Orientation Level of Consciousness: Awake, Alert, Forgetful, Confused Patient Orientation: Person, Place - ADL/IADL Self Feeding: Supervision, Set-up Help Grooming: Supervision, Set-up Help Bathing-Lower Ext: Moderate Assistance Dressing-Upper Ext: Supervision Dressing-Lower Ext: Moderate Assistance, Maximum Assistance - Sitting Balance Static Sitting: Independent without upper extremity support Dynamic Sitting: Requires supervision - Transfers Wheelchair to Bed Transfers: Moderate Assistance, Maximum Assistance Toilet Transfers: Moderate Assistance, Maximum Assistance Tub Transfers: Maximum Assistance - Wheelchair Management Level of Assistance: Maximum Assistance Distance (ft.): 50 - Upper Extremity Status Right Upper Extremity Comment: AROM WFLs. c/o pain R shoulder Left Upper Extremity Comment: AROM WFLs - Pain Pain (assessed during therapy session): 7 Alleviating Techniques: Medication, Heat, Position Change - Insight/Carryover Insight/Carryover: Poor - Patient/Family Education Comment: -rehab/OT goals, plan of care. -adl, transfer and mobility training uisng adaptive/comepnsatory strategies. -pain management. -emotional support. -use of call chowdhury for assistance. -safety strategies for transfers and functional mobility - Assessment/Plan Assessment: Pt is a 77 year old Citizen [place] speaking female with dx: subdural hematoma. *Precautions: fall precautions, cardiac. Pt limited by multiple joint pain, impaired respiratory function, impaired ROM/strength in BUES, LLE , impaired standing balance/endurance, impaired cognition--which impact on self care, functional transfers/mobility. Pt will continue skilled OT to address functional impairment to maximize function/self care. Pt will likely need 24 hour superviison 2' multiple physical and cognitive limitations. Pt may benefit from psychology consult for depressed mood. - Goals Timeframe: 1 week - Provider Occupational Therapist:: Gilda Jiang License Number: [id number] Speech Therapy - Consult Information Patient on Program: Yes Medical Diagnosis: SDH Treatment Diagnosis: mild cognitive deficits - Assessment Memory Impairment: Mild - Plan Assessment: Daysi Walden presents with mild cognitive-linguistic deficits characterized by impaired short-term recall and thought organization. Pt with fluctuating motivation/participation in tx tasks over the past week which was a barrier to learning at times. She would benefit from continued speech tx for improved cognition and functional independence. Plan: Continue Speech/Language Therapy Frequency: 3-5 times per week Duration: 1 week Goals/Timeframe: Please see progress note dated 03/17/18 for updated goals/POC Recommendations: Continue speech tx for improved cognition and functional independence - Provider Therapist: Evi Phelan License Number: [id number] Recreational Therapy - Participation Participation: Monitors His/Her Own Leisure Time - Attendance Attendance: Daily - Activities Leisure Activities: Television - Socialization Level of Socialization: Initiates/interacts with caregivers but not with peer, Isolate by choice - Diversional Time Diversional Time: television - Assessment Assessment/Plan: Pt requires verbal cues for encouragement to participate in recreation therapy sessions. Pt's arousal level and motivation to participate in tasks as declined since last week. Pt has demonstrated increase anxiety about pain, L leg not moving, and is declining to participate in recreation therapy sessions. Pt receives daily room visits for social support, encouragement, and emotional support. Will continue to encourage throughout stay on unit. Problems Currently Limiting Participation: pain, decrease leisure awareness level, decrease activity tolerance level, anxiety Goals and Time Frame: Pt will be encouraged to participate in 1:1 and group recreation therapy sessions 3-5x week to improve activity tolerance level, leisure awareness level, diversion from pain, decrease anxiety level, and improve overall mood state by date of discharge. - Provider Therapist: Pamela Dumont Nutrition - Current Diet Current Diet/Supplement/Feedings: Moderate consistent CHO heart healthy diet glucerna shake 8 ounces 2 per day - Appetite Percent Meal Consumed: 50-74% - Assessment/Goals/Time Frame Assessments/Goals/Time Frame: Pt at moderate nutritional risk. goals: 1: Consume >50% of meals. 2: Tolerate current diet texture. Follow-up due on 03/24/2018 - Provider Provider: Anuja Gastelum Case Management - Psychosocial Assessment Support Systems: Amrita Espinoza (daughter)- [phone] Psychological Interventions/Needs: Patient is AAO with forgetfulness and able to verbalize needs. Discharge Concerns: Patient is not safe to d/c home at this time. Patient/Family Meeting: CM met with patient and rehab team as well as PMD and residents extensively. Intervention/Goal/Outcome: 1. Goal: min/mod assist 2. PUSHPA at [facility] for 03/21/18 pending auth (patient clinically accepted to facility) 3. continued emotional support - Discharge Plan Discharge Plan: Subacute care - Provider Provider: Elvira Saha License Number: [id number] Rehabilitation Plan - Treatment Plan Treatment Plan: Physical Therapy, Occupational Therapy, Speech, Dietary, Patient/Family Education - Discharge Plan Estimated Date of Discharge: 03/21/18 Discharge to: Subacute
--- NOTE | 2018-03-18 13:22 | CP.PCM.PN ---
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 present denies sob/cp afebrile some mild right shoulder pain no dizziness tolerating therapies ambulating about 40' will try and get to [facility] 03/21/18 Objective - Vital Signs/Intake and Output Vital Signs (last 24 hours): Temp Pulse Resp BP Pulse Ox 97.8 F 83 19 116/61 100 03/18/18 09:05 03/18/18 09:05 03/18/18 09:05 03/18/18 09:05 03/18/18 08:51 - Medications Medications: Current Medications Acetaminophen (Tylenol 325mg Tab) 650 mg PO Q6 [facility] Last Admin: 03/18/18 12:14 Dose: 650 mg Albuterol (Ventolin Hfa 90 Mcg/Actuation (8 G)) 2 puff IH Q6 PRN PRN Reason: Shortness of Breath Last Admin: 03/10/18 14:52 Dose: 2 puff Aspirin (Aspirin Chewable) 81 mg PO DAILY [facility] Last Admin: 03/18/18 08:44 Dose: 81 mg Atorvastatin Calcium (Lipitor) 40 mg PO HS [facility] Last Admin: 03/17/18 21:55 Dose: 40 mg Benzocaine/Menthol (Cepacol Sore Throat) 1 rosario PO Q3 PRN PRN Reason: Sore Throat Last Admin: 03/17/18 17:09 Dose: 1 rosario Benzonatate (Tessalon Perles) 100 mg PO Q8 PRN PRN Reason: Cough Last Admin: 03/18/18 08:42 Dose: 100 mg Dextrose (Dextrose 50% Inj) 0 ml IV STAT PRN; Protocol PRN Reason: Hypoglycemia Protocol Dextrose (Glutose 15) 0 gm PO ONCE PRN; Protocol PRN Reason: Hypoglycemia Protocol Docusate Sodium (Colace) 100 mg PO DAILY [facility] Last Admin: 03/18/18 08:41 Dose: 100 mg Escitalopram Oxalate (Lexapro) 10 mg PO DAILY [facility] Last Admin: 03/18/18 08:44 Dose: 10 mg Famotidine (Pepcid) 20 mg PO DAILY [facility] Last Admin: 03/18/18 08:44 Dose: 20 mg Furosemide (Lasix) 40 mg PO DAILY [facility] Last Admin: 03/18/18 08:44 Dose: 40 mg Glucagon (Glucagen Diagnostic Kit) 0 mg IM STAT PRN; Protocol PRN Reason: Hypoglycemia Protocol Insulin Detemir (Levemir) 58 units SC HS [facility] Last Admin: 03/17/18 22:07 Dose: 58 units Insulin Human Lispro (Humalog) 7 units SC ACTID [facility] Last Admin: 03/18/18 12:15 Dose: 7 units Levetiracetam (Keppra) 500 mg PO BID [facility] Last Admin: 03/18/18 08:42 Dose: 500 mg Levothyroxine Sodium (Synthroid) 125 mcg PO DAILY@0630 [facility] Last Admin: 03/18/18 06:49 Dose: 125 mcg Lidocaine (Lidoderm) 1 ea TD DAILY [facility] Last Admin: 03/18/18 08:41 Dose: 1 ea Losartan Potassium (Cozaar) 25 mg PO DAILY [facility] Last Admin: 03/18/18 08:44 Dose: 25 mg Memantine (Namenda) 5 mg PO [facility] Last Admin: 03/17/18 21:56 Dose: 5 mg Metoprolol Tartrate (Lopressor) 12.5 mg PO Q12 [facility] Last Admin: 03/18/18 08:43 Dose: 12.5 mg Mirtazapine (Remeron) 7.5 mg PO HS [facility] Last Admin: 03/17/18 21:56 Dose: 7.5 mg Mirtazapine (Remeron) 15 mg PO HS [facility] Last Admin: 03/17/18 21:56 Dose: 15 mg Multivitamins/Minerals (Therapeutic-M Tab) 1 tab PO DAILY [facility] Last Admin: 03/18/18 08:42 Dose: 1 tab Fluticasone/Salmeterol (Advair Diskus 250/50) 1 puff IH Q12 [facility] Last Admin: 03/18/18 08:42 Dose: 1 puff Senna/Docusate Sodium (Senokot S 50 Mg-8.6 Mg) 1 tab PO [facility] Last Admin: 03/17/18 22:02 Dose: 1 tab Sitagliptin Phosphate (Januvia) 25 mg PO DAILY [facility] Last Admin: 03/18/18 08:41 Dose: 25 mg Spironolactone (Aldactone) 12.5 mg PO DAILY [facility] Last Admin: 03/18/18 08:42 Dose: 12.5 mg Tramadol HCl (Ultram) 50 mg PO Q4 PRN PRN Reason: pain scale 4-10. Last Admin: 03/17/18 22:05 Dose: 50 mg Vitamin A (Vitamin A&D) 1 applic TP BID [facility] Last Admin: 03/18/18 08:41 Dose: 1 applic - Labs Labs: 03/12/18 05:15 03/12/18 05:15 PT 12.4 Seconds (9.8-13.1) 03/02/18 05:30 INR 1.1 03/02/18 05:30 APTT 27.8 Seconds (25.6-37.1) 03/02/18 05:30
[2018-03-18] MEDS: Bacitracin OINT 15GM TOP SCH (17:15)
[2018-03-18] MEDS: Docusate-Senna 50 mg-8.6 mg Tab PO SCH (21:16)
[2018-03-18] MEDS: Insulin Detemir 100 Units/ml Inj SC SCH (21:57)
[2018-03-19] MEDS: Levothyroxine 125 MCG TAB PO SCH (06:18)
[2018-03-19 06:49] LABS: HEMOGLOBIN 10.7 g/dL (12.0-16.0); MEAN CELL VOLUME 87.3 fl (81.0-99.0); MEAN CORPUSCULAR HEMOGLOBIN 29.8 pg (27.0-31.0); MEAN CORPUSCULAR HGB CONC 34.1 g/dL (33.0-37.0); RBC 3.6 Mil/uL (3.80-5.20); RED CELL DISTRIBUTION WIDTH 16.9 % (11.5-14.5); WHITE BLOOD COUNT 6.7 K/uL (4.8-10.8)
[2018-03-19 06:56] LABS: ALB/GLOB RATIO 1.4 (1.0-2.1); ALBUMIN 3.8 g/dL (3.5-5.0); CALCIUM 9.5 mg/dL (8.4-10.2)
[2018-03-19] MEDS: Fluticasone-Salmeterol 250-50mcg Diskus IH SCH ×2 (08:39→20:53)
[2018-03-19] MEDS: Bacitracin OINT 15GM TOP SCH (08:41)
[2018-03-19] MEDS: Insulin Lispro (humaLOG) 100 Units/ml Inj SC SCH ×3 (08:44→16:37)
[2018-03-19] MEDS: Mupirocin 2% Oint 1GM UD TOP SCH (08:45)
[2018-03-19] MEDS: Lidocaine 5% Patch TD SCH (08:47)
[2018-03-19] MEDS: Multivitamin With Minerals Tab PO SCH (08:50)
--- NOTE | 2018-03-19 10:44 | CP.PCM.PN ---
Subjective - Date & Time of Evaluation Date of Evaluation: 03/19/18 Time of Evaluation: 10:43 - Subjective Subjective: Neurology Follow-Up Note: Mrs. Walden was evaluated this afternoon in acute rehab at bedside. She is doing well today and has no complaints. She states that her movement to the left leg has improved over the last day and notes that she is able to bear weight and walk. She currently denies any h/a, dizziness, visual changes, chest pain, palpitations, sob, cough, abd pain, n/v/d, paresthesias. Objective - Vital Signs/Intake and Output Vital Signs (last 24 hours): Temp Pulse Resp BP Pulse Ox 97.9 F 94 H 19 119/66 20 L 03/19/18 08:50 03/19/18 08:50 03/19/18 08:50 03/19/18 08:50 03/19/18 08:50 - Medications Medications: Current Medications Acetaminophen (Tylenol 325mg Tab) 650 mg PO Q6 [facility] Last Admin: 03/19/18 06:19 Dose: 650 mg Albuterol (Ventolin Hfa 90 Mcg/Actuation (8 G)) 2 puff IH Q6 PRN PRN Reason: Shortness of Breath Last Admin: 03/10/18 14:52 Dose: 2 puff Aspirin (Aspirin Chewable) 81 mg PO DAILY [facility] Last Admin: 03/19/18 08:41 Dose: 81 mg Atorvastatin Calcium (Lipitor) 40 mg PO HS [facility] Last Admin: 03/18/18 21:16 Dose: 40 mg Bacitracin (Bacitracin Oint) 1 applic TOP DAILY [facility] Last Admin: 03/19/18 08:41 Dose: 1 applic Benzocaine/Menthol (Cepacol Sore Throat) 1 rosario PO Q3 PRN PRN Reason: Sore Throat Last Admin: 03/17/18 17:09 Dose: 1 rosario Benzonatate (Tessalon Perles) 100 mg PO Q8 PRN PRN Reason: Cough Last Admin: 03/18/18 08:42 Dose: 100 mg Dextrose (Dextrose 50% Inj) 0 ml IV STAT PRN; Protocol PRN Reason: Hypoglycemia Protocol Dextrose (Glutose 15) 0 gm PO ONCE PRN; Protocol PRN Reason: Hypoglycemia Protocol Docusate Sodium (Colace) 100 mg PO DAILY [facility] Last Admin: 03/19/18 08:42 Dose: 100 mg Escitalopram Oxalate (Lexapro) 10 mg PO DAILY [facility] Last Admin: 03/19/18 08:47 Dose: 10 mg Famotidine (Pepcid) 20 mg PO DAILY [facility] Last Admin: 03/19/18 08:49 Dose: 20 mg Furosemide (Lasix) 40 mg PO DAILY [facility] Last Admin: 03/19/18 08:46 Dose: 40 mg Glucagon (Glucagen Diagnostic Kit) 0 mg IM STAT PRN; Protocol PRN Reason: Hypoglycemia Protocol Insulin Detemir (Levemir) 58 units SC HS [facility] Last Admin: 03/18/18 21:57 Dose: 58 units Insulin Human Lispro (Humalog) 7 units SC ACTID [facility] Last Admin: 03/19/18 08:44 Dose: 7 units Levetiracetam (Keppra) 500 mg PO BID [facility] Last Admin: 03/19/18 08:46 Dose: 500 mg Levothyroxine Sodium (Synthroid) 125 mcg PO DAILY@0630 [facility] Last Admin: 03/19/18 06:18 Dose: 125 mcg Lidocaine (Lidoderm) 1 ea TD DAILY [facility] Last Admin: 03/19/18 08:47 Dose: 1 ea Losartan Potassium (Cozaar) 25 mg PO DAILY [facility] Last Admin: 03/19/18 08:43 Dose: 25 mg Memantine (Namenda) 5 mg PO HS [facility] Last Admin: 03/18/18 21:17 Dose: 5 mg Metoprolol Tartrate (Lopressor) 12.5 mg PO Q12 [facility] Last Admin: 03/19/18 08:48 Dose: 12.5 mg Mirtazapine (Remeron) 7.5 mg PO HS [facility] Last Admin: 03/18/18 21:17 Dose: 7.5 mg Mirtazapine (Remeron) 15 mg PO HS [facility] Last Admin: 03/18/18 21:16 Dose: 15 mg Multivitamins/Minerals (Therapeutic-M Tab) 1 tab PO DAILY [facility] Last Admin: 03/19/18 08:50 Dose: 1 tab Mupirocin (Bactroban Ointment) 1 applic TOP DAILY [facility] Last Admin: 03/19/18 08:45 Dose: 1 applic Fluticasone/Salmeterol (Advair Diskus 250/50) 1 puff IH Q12 [facility] Last Admin: 03/19/18 08:39 Dose: 1 puff Senna/Docusate Sodium (Senokot S 50 Mg-8.6 Mg) 1 tab PO HS [facility] Last Admin: 03/18/18 21:16 Dose: 1 tab Sitagliptin Phosphate (Januvia) 25 mg PO DAILY [facility] Last Admin: 03/19/18 08:45 Dose: 25 mg Spironolactone (Aldactone) 12.5 mg PO DAILY [facility] Last Admin: 03/19/18 08:40 Dose: 12.5 mg Tramadol HCl (Ultram) 50 mg PO Q4 PRN PRN Reason: pain scale 4-10. Last Admin: 03/18/18 21:23 Dose: 50 mg - Labs Labs: 03/19/18 05:25 03/19/18 05:25 PT 12.4 Seconds (9.8-13.1) 03/02/18 05:30 INR 1.1 03/02/18 05:30 APTT 27.8 Seconds (25.6-37.1) 03/02/18 05:30 - Constitutional Appears: Well, Non-toxic, No Acute Distress - Head Exam Head Exam: ATRAUMATIC, NORMAL INSPECTION, NORMOCEPHALIC - Eye Exam Eye Exam: EOMI, Normal appearance, PERRL Pupil Exam: NORMAL ACCOMODATION, PERRL - ENT Exam ENT Exam: Mucous Membranes Moist, Normal Exam - Neck Exam Neck Exam: Full ROM, Normal Inspection - Respiratory Exam Respiratory Exam: NORMAL BREATHING PATTERN - Extremities Exam Extremities Exam: absent: Full ROM, Pedal Edema Additional comments: still has some decreases ROM and weakness to the LLE, however, it is much improved since I last saw pt on Saturday (03/17/18) - Back Exam Back Exam: Full ROM - Neurological Exam Neurological Exam: Alert, Awake, CN II-XII Intact, Oriented x3 Neuro motor strength exam: Left Upper Extremity: 5, Right Upper Extremity: 5, Left Lower Extremity: 4, Right Lower Extremity: 5 Additional comments: Speech clear, fluid Strength to LLE is still decreased (4/5 today)---much improved from previous ne uro exam. She is still able to dorsiflex today which is also an improvement (3/5) Hyperreflexia to LLE is improved. Sensation and vibration are intact b/l. Gait not assessed; PT notes reviewed. - Psychiatric Exam Psychiatric exam: Normal Affect, Normal Mood - Skin Skin Exam: Normal Color Assessment and Plan (1) Traumatic brain injury Assessment & Plan: Mrs. Walden is a 77 y/o F who we have been seeing for LLE weakness. Today is the first day that I see an improvement in the ROM and strength to the LLE compared to my last 2 encounters with the pt. She is improving and is doing generally well. She has been encouraged to continue rehab at [facility] prior to going home. I had a discussion regarding pt's progress and improvements to her LLE weakness with the primary team this afternoon. -Imaging reviewed, including repeat CT Head without contrast (shows decreasing in the size of the SDH) -EEG shows no seizures, however, Dr. Franklin recommended to start on Keppra PO. So far the pt has been tolerating well. -Will order L-Spine CT without contrast to r/o other causes of LLE weakness per primary team's request---will f/u with results once done. -Continue PT as tolerated. -Pending discharge to [facility] later this week. -Continue current treatment and medications. -Notify neuro if any acute changes in condition or any abnormality in the L- Spine CT. Case discussed with Dr. Mills Status: Acute
--- NOTE | 2018-03-19 12:08 | CP.PCM.PN ---
Subjective - Date & Time of Evaluation Date of Evaluation: 03/19/18 Time of Evaluation: 13:21 - Subjective Subjective: 77 yr old female with past medical history of PMHx includes CAD s/p CABG (Nov 2017), pacemaker, HTN, HLD, IDDM type 2, hypothyroidism, Systolic CHF, asthma, depression and anxiety was admitted to acute rehab for PT/OT s/p large subdural hematoma due to mechanical fall. Patient was in ICU for 4 days where she remained with no neurological deficits. For the last week, patient was experiencing left lower extremity weakness along with left foot drop while in acute rehab. Patient having difficulty performing physical therapy of left lower extremity due to weakness and would benefit from further therapy. MRI was unable to be performed due to patient's pacemaker, therefore CT of the head was ordered for interval follow up. Today she denies any complaints of chest pain, shortness of breath, nausea, vomiting, urinary symptoms. Patient's left lower extremity weakness has minimally improved, hence a CT of the lumbar spine without contrast was ordered. Patient seen to be participating with physical therapy today. Objective - Vital Signs/Intake and Output Vital Signs (last 24 hours): Temp Pulse Resp BP Pulse Ox 97.9 F 94 H 19 119/66 20 L 03/19/18 08:50 03/19/18 08:50 03/19/18 08:50 03/19/18 08:50 03/19/18 08:50 - Medications Medications: Current Medications Acetaminophen (Tylenol 325mg Tab) 650 mg PO Q6 [facility] Last Admin: 03/19/18 06:19 Dose: 650 mg Albuterol (Ventolin Hfa 90 Mcg/Actuation (8 G)) 2 puff IH Q6 PRN PRN Reason: Shortness of Breath Last Admin: 03/10/18 14:52 Dose: 2 puff Aspirin (Aspirin Chewable) 81 mg PO DAILY [facility] Last Admin: 03/19/18 08:41 Dose: 81 mg Atorvastatin Calcium (Lipitor) 40 mg PO HS [facility] Last Admin: 03/18/18 21:16 Dose: 40 mg Bacitracin (Bacitracin Oint) 1 applic TOP DAILY [facility] Last Admin: 03/19/18 08:41 Dose: 1 applic Benzonatate (Tessalon Perles) 100 mg PO Q8 PRN PRN Reason: Cough Last Admin: 03/18/18 08:42 Dose: 100 mg Dextrose (Dextrose 50% Inj) 0 ml IV STAT PRN; Protocol PRN Reason: Hypoglycemia Protocol Dextrose (Glutose 15) 0 gm PO ONCE PRN; Protocol PRN Reason: Hypoglycemia Protocol Docusate Sodium (Colace) 100 mg PO DAILY [facility] Last Admin: 03/19/18 08:42 Dose: 100 mg Escitalopram Oxalate (Lexapro) 10 mg PO DAILY [facility] Last Admin: 03/19/18 08:47 Dose: 10 mg Famotidine (Pepcid) 20 mg PO DAILY [facility] Last Admin: 03/19/18 08:49 Dose: 20 mg Furosemide (Lasix) 40 mg PO DAILY [facility] Last Admin: 03/19/18 08:46 Dose: 40 mg Glucagon (Glucagen Diagnostic Kit) 0 mg IM STAT PRN; Protocol PRN Reason: Hypoglycemia Protocol Insulin Detemir (Levemir) 58 units SC HS [facility] Last Admin: 03/18/18 21:57 Dose: 58 units Insulin Human Lispro (Humalog) 7 units SC ACTID [facility] Last Admin: 03/19/18 08:44 Dose: 7 units Levetiracetam (Keppra) 500 mg PO BID [facility] Last Admin: 03/19/18 08:46 Dose: 500 mg Levothyroxine Sodium (Synthroid) 125 mcg PO DAILY@0630 [facility] Last Admin: 03/19/18 06:18 Dose: 125 mcg Lidocaine (Lidoderm) 1 ea TD DAILY [facility] Last Admin: 03/19/18 08:47 Dose: 1 ea Losartan Potassium (Cozaar) 25 mg PO DAILY [facility] Last Admin: 03/19/18 08:43 Dose: 25 mg Memantine (Namenda) 5 mg PO HS [facility] Last Admin: 03/18/18 21:17 Dose: 5 mg Metoprolol Tartrate (Lopressor) 12.5 mg PO Q12 [facility] Last Admin: 03/19/18 08:48 Dose: 12.5 mg Mirtazapine (Remeron) 7.5 mg PO HS [facility] Last Admin: 03/18/18 21:17 Dose: 7.5 mg Mirtazapine (Remeron) 15 mg PO HS [facility] Last Admin: 03/18/18 21:16 Dose: 15 mg Multivitamins/Minerals (Therapeutic-M Tab) 1 tab PO DAILY [facility] Last Admin: 03/19/18 08:50 Dose: 1 tab Mupirocin (Bactroban Ointment) 1 applic TOP DAILY [facility] Last Admin: 03/19/18 08:45 Dose: 1 applic Fluticasone/Salmeterol (Advair Diskus 250/50) 1 puff IH Q12 [facility] Last Admin: 03/19/18 08:39 Dose: 1 puff Senna/Docusate Sodium (Senokot S 50 Mg-8.6 Mg) 1 tab PO HS [facility] Last Admin: 03/18/18 21:16 Dose: 1 tab Sitagliptin Phosphate (Januvia) 25 mg PO DAILY [facility] Last Admin: 03/19/18 08:45 Dose: 25 mg Spironolactone (Aldactone) 12.5 mg PO DAILY [facility] Last Admin: 03/19/18 08:40 Dose: 12.5 mg Tramadol HCl (Ultram) 50 mg PO Q4 PRN PRN Reason: pain scale 4-10. Last Admin: 03/18/18 21:23 Dose: 50 mg - Labs Labs: 03/19/18 05:25 03/19/18 05:25 PT 12.4 Seconds (9.8-13.1) 03/02/18 05:30 INR 1.1 03/02/18 05:30 APTT 27.8 Seconds (25.6-37.1) 03/02/18 05:30 - Constitutional Appears: Well, Non-toxic, No Acute Distress - Head Exam Head Exam: ATRAUMATIC, NORMOCEPHALIC - Eye Exam Eye Exam: Normal appearance - ENT Exam ENT Exam: Mucous Membranes Moist - Respiratory Exam Respiratory Exam: Clear to Ausculation Bilateral, NORMAL BREATHING PATTERN. absent: Rales, Rhonchi, Wheezes - Cardiovascular Exam Cardiovascular Exam: REGULAR RHYTHM, +S1, +S2 - GI/Abdominal Exam GI & Abdominal Exam: Soft, Normal Bowel Sounds. absent: Firm, Guarding, Rigid - Extremities Exam Additional comments: Left: minimal improvement to flexion of left knee, hip flexion intact, Graded m uscle strength LLE 2/5, RLE 4/5, left ankle in planterflexed position, sensation to touch intact - Neurological Exam Neurological Exam: Alert, Awake, Oriented x3 - Psychiatric Exam Psychiatric exam: Normal Affect, Normal Mood - Skin Skin Exam: Normal Color Assessment and Plan - Assessment and Plan (Free Text) Assessment: 77 yr old female with past medical history of PMHx includes CAD s/p CABG (Nov 2017), pacemaker, HTN, HLD, IDDM type 2, hypothyroidism, Systolic CHF, asthma, depression and anxiety was admitted to acute rehab for PT/OT s/p large subdural hematoma due to mechanical fall. Patient was in ICU for 4 days where she remained with no neurological deficits. For the last week, patient was experiencing left lower extremity weakness along with left foot drop while in acute rehab. Patient having difficulty performing physical therapy of left lower extremity due to weakness and would benefit from further therapy. MRI was unable to be performed due to patient's pacemaker, therefore CT of the head was ordered for interval follow up. Today she denies any complaints of chest pain, shortness of breath, nausea, vomiting, urinary symptoms. Patient's left lower extremity weakness has minimally improved, however still persists, hence a CT of the lumbar spine without contrast was ordered. Patient seen to be participating with physical therapy today. Patient pending for discharge to [facility] on 02/19/18 Plan: Left Lower Extremity Weakness -acute, increased, likely secondary reactive cerebral edema -Head CT (03/14/18)- slight interval decrease in amount of persistent right interhemispheric and left tentorial subdural hemorrhage -Venous Duplex (03/12/18)- negative for DVT -monitor patient -Neurology consult- Dr Mills/Dr. Franklin recommendations appreciated - started on Keppra -EEG (03/14/18)- negative for seizure activity -unable to obtain MRI due to pacemaker -CT Lumbar spine to r/o other causes of LLE weakness Subdural Hematoma -acute, stable, improving -Head CT (03/14/18)- slight interval decrease in amount of persistent right interhemispheric and left tentorial subdural hemorrhage -neuro checks Q-shift -hold plavix for 4 weeks (restart mar 28, 2018) -restarted ASA 03/13/18 as per Neurology recommendation - Dr. Mills Right Shoulder pain -acute, symptomatic -Cervical CT: no acute fractures / Right Shoulder X-ray: no acute fractures -Lidoderm patch ordered for patient, Tylenol PRN moderate, Tramadol PRN severe -Pain management- Dr. Gastelum, recommendations appreciated, s/p shoulder injection Right Ankle Wound - acute, symptomatic, not infected - dressing changes with Bactroban and Allevyn pads IDDM Type 2 -chronic and uncontrolled -HbA1c 9.4 on 02/26/18 -Hypoglycemia protocol in place -Accuchecks ACHS, Levemir 58 units SCHS, Januvia 25mg PO QD, humalog TID -moderate carbohydrate diet/heart healthy diet Depression -chronic, uncontrolled -Remeron 22.5 mg PO QHS and Lexapro 10 mg PO QD -Psych consult- Dr. Gorman, recommendations appreciated- increase Remeron dosage Hypothyrodism -chronic, controlled -TSH 2.65 on 02/26/18 -continue Levothyroxine 125 mcg PO QD HTN/HLD/CAD -chronic, controlled -Metoprolol 12.5mg PO Q12 -s/p CABG 11/2017 Systolic CHF -chronic, controlled, s/p pacemaker -ECHO 02/2018: systolic dysfunction EF 25-30% -continue lasix 40mg PO QD, per Dr. Petersen, started Losartan 25mg PO QD, Spironolactone 12.5mg PO QD Asthma/COPD -controlled -continue Ventolin HFA PRN, Advair 250/50 1puff Q12 DVT prophylaxis -SCDs for now, recent subdural hematoma -hold plavix for 4 weeks -restarted ASA 03/13/18 as per Neurology recommendation - Dr. Mills
--- NOTE | 2018-03-19 17:42 | CP.PCM.PN ---
Subjective - Date & Time of Evaluation Date of Evaluation: 03/19/18 Time of Evaluation: 17:42 - Subjective Subjective: Patient seen in the room fair left LE AROM no pain at this point minimal gait, only 5' will be going to [facility] Objective - Vital Signs/Intake and Output Vital Signs (last 24 hours): Temp Pulse Resp BP Pulse Ox 97.9 F 94 H 19 119/66 20 L 03/19/18 08:50 03/19/18 08:50 03/19/18 08:50 03/19/18 08:50 03/19/18 08:50 - Medications Medications: Current Medications Acetaminophen (Tylenol 325mg Tab) 650 mg PO Q6 [facility] Last Admin: 03/19/18 17:04 Dose: Not Given Albuterol (Ventolin Hfa 90 Mcg/Actuation (8 G)) 2 puff IH Q6 PRN PRN Reason: Shortness of Breath Last Admin: 03/10/18 14:52 Dose: 2 puff Aspirin (Aspirin Chewable) 81 mg PO DAILY [facility] Last Admin: 03/19/18 08:41 Dose: 81 mg Atorvastatin Calcium (Lipitor) 40 mg PO HS [facility] Last Admin: 03/18/18 21:16 Dose: 40 mg Benzonatate (Tessalon Perles) 100 mg PO Q8 PRN PRN Reason: Cough Last Admin: 03/18/18 08:42 Dose: 100 mg Dextrose (Dextrose 50% Inj) 0 ml IV STAT PRN; Protocol PRN Reason: Hypoglycemia Protocol Dextrose (Glutose 15) 0 gm PO ONCE PRN; Protocol PRN Reason: Hypoglycemia Protocol Docusate Sodium (Colace) 100 mg PO DAILY [facility] Last Admin: 03/19/18 08:42 Dose: 100 mg Escitalopram Oxalate (Lexapro) 10 mg PO DAILY [facility] Last Admin: 03/19/18 08:47 Dose: 10 mg Famotidine (Pepcid) 20 mg PO DAILY [facility] Last Admin: 03/19/18 08:49 Dose: 20 mg Furosemide (Lasix) 40 mg PO DAILY [facility] Last Admin: 03/19/18 08:46 Dose: 40 mg Glucagon (Glucagen Diagnostic Kit) 0 mg IM STAT PRN; Protocol PRN Reason: Hypoglycemia Protocol Insulin Detemir (Levemir) 58 units SC [facility] Last Admin: 03/18/18 21:57 Dose: 58 units Insulin Human Lispro (Humalog) 7 units SC ACTID [facility] Last Admin: 03/19/18 16:37 Dose: 7 units Levetiracetam (Keppra) 500 mg PO BID [facility] Last Admin: 03/19/18 16:38 Dose: 500 mg Levothyroxine Sodium (Synthroid) 125 mcg PO DAILY@0630 [facility] Last Admin: 03/19/18 06:18 Dose: 125 mcg Lidocaine (Lidoderm) 1 ea TD DAILY [facility] Last Admin: 03/19/18 08:47 Dose: 1 ea Losartan Potassium (Cozaar) 25 mg PO DAILY [facility] Last Admin: 03/19/18 08:43 Dose: 25 mg Memantine (Namenda) 5 mg PO HS [facility] Last Admin: 03/18/18 21:17 Dose: 5 mg Metoprolol Tartrate (Lopressor) 12.5 mg PO Q12 [facility] Last Admin: 03/19/18 08:48 Dose: 12.5 mg Mirtazapine (Remeron) 7.5 mg PO HS [facility] Last Admin: 03/18/18 21:17 Dose: 7.5 mg Mirtazapine (Remeron) 15 mg PO HS [facility] Last Admin: 03/18/18 21:16 Dose: 15 mg Multivitamins/Minerals (Therapeutic-M Tab) 1 tab PO DAILY [facility] Last Admin: 03/19/18 08:50 Dose: 1 tab Mupirocin (Bactroban Ointment) 1 applic TOP DAILY [facility] Last Admin: 03/19/18 08:45 Dose: 1 applic Fluticasone/Salmeterol (Advair Diskus 250/50) 1 puff IH Q12 [facility] Last Admin: 03/19/18 08:39 Dose: 1 puff Senna/Docusate Sodium (Senokot S 50 Mg-8.6 Mg) 1 tab PO HS [facility] Last Admin: 03/18/18 21:16 Dose: 1 tab Sitagliptin Phosphate (Januvia) 25 mg PO DAILY [facility] Last Admin: 03/19/18 08:45 Dose: 25 mg Spironolactone (Aldactone) 12.5 mg PO DAILY [facility] Last Admin: 03/19/18 08:40 Dose: 12.5 mg Tramadol HCl (Ultram) 50 mg PO Q4 PRN PRN Reason: pain scale 4-10. Last Admin: 03/19/18 16:52 Dose: 50 mg - Labs Labs: 03/19/18 05:25 03/19/18 05:25 PT 12.4 Seconds (9.8-13.1) 03/02/18 05:30 INR 1.1 03/02/18 05:30 APTT 27.8 Seconds (25.6-37.1) 03/02/18 05:30
[2018-03-19] MEDS: Docusate-Senna 50 mg-8.6 mg Tab PO SCH (21:08)
[2018-03-19] MEDS: Insulin Detemir 100 Units/ml Inj SC SCH (22:15)
[2018-03-20] MEDS: Levothyroxine 125 MCG TAB PO SCH (06:01)
[2018-03-20] MEDS: Insulin Lispro (humaLOG) 100 Units/ml Inj SC SCH ×3 (08:21→17:00)
[2018-03-20] MEDS: Fluticasone-Salmeterol 250-50mcg Diskus IH SCH ×2 (08:22→21:24)
[2018-03-20] MEDS: Lidocaine 5% Patch TD SCH (08:23)
[2018-03-20] MEDS: Multivitamin With Minerals Tab PO SCH (08:26)
[2018-03-20] MEDS: Mupirocin 2% Oint 1GM UD TOP SCH (09:22)
--- NOTE | 2018-03-20 11:33 | CP.PCM.PN ---
Subjective - Date & Time of Evaluation Date of Evaluation: 03/20/18 Time of Evaluation: 11:31 - Subjective Subjective: 77 yr old female with past medical history of PMHx includes CAD s/p CABG (Nov 2017), pacemaker, HTN, HLD, IDDM type 2, hypothyroidism, Systolic CHF, asthma, depression and anxiety was admitted to acute rehab for PT/OT s/p large subdural hematoma due to mechanical fall. Patient was in ICU for 4 days where she remained with no neurological deficits. For the last week, patient was experiencing left lower extremity weakness along with left foot drop while in acute rehab. Patient having difficulty performing physical therapy of left lower extremity due to weakness and would benefit from further therapy. MRI was unable to be performed due to patient's pacemaker, therefore CT of the head was ordered for interval follow up. Today she denies any complaints of chest pain, shortness of breath, nausea, vomiting, urinary symptoms. Patient's left lower extremity weakness has mildly improved with physical therapy and it is recommended she continue therapy at [facility]. Patient is pending transfer to [facility] tomorrow for continued rehabilitation. Objective - Vital Signs/Intake and Output Vital Signs (last 24 hours): Temp Pulse Resp BP Pulse Ox 97.6 F 78 22 114/53 L 98 03/20/18 08:15 03/20/18 08:43 03/20/18 08:15 03/20/18 08:43 03/20/18 08:15 - Medications Medications: Current Medications Acetaminophen (Tylenol 325mg Tab) 650 mg PO Q6 PRN PRN Reason: Pain, moderate (4-7) Albuterol (Ventolin Hfa 90 Mcg/Actuation (8 G)) 2 puff IH Q6 PRN PRN Reason: Shortness of Breath Last Admin: 03/10/18 14:52 Dose: 2 puff Aspirin (Aspirin Chewable) 81 mg PO DAILY [facility] Last Admin: 03/20/18 08:29 Dose: 81 mg Atorvastatin Calcium (Lipitor) 40 mg PO HS [facility] Last Admin: 03/19/18 21:06 Dose: 40 mg Benzonatate (Tessalon Perles) 100 mg PO Q8 PRN PRN Reason: Cough Last Admin: 03/20/18 08:24 Dose: 100 mg Dextrose (Dextrose 50% Inj) 0 ml IV STAT PRN; Protocol PRN Reason: Hypoglycemia Protocol Dextrose (Glutose 15) 0 gm PO ONCE PRN; Protocol PRN Reason: Hypoglycemia Protocol Docusate Sodium (Colace) 100 mg PO DAILY [facility] Last Admin: 03/20/18 08:25 Dose: 100 mg Escitalopram Oxalate (Lexapro) 10 mg PO DAILY [facility] Last Admin: 03/20/18 08:29 Dose: 10 mg Famotidine (Pepcid) 20 mg PO DAILY [facility] Last Admin: 03/20/18 08:28 Dose: 20 mg Furosemide (Lasix) 40 mg PO DAILY [facility] Last Admin: 03/20/18 08:26 Dose: 40 mg Glucagon (Glucagen Diagnostic Kit) 0 mg IM STAT PRN; Protocol PRN Reason: Hypoglycemia Protocol Insulin Detemir (Levemir) 58 units SC HS [facility] Last Admin: 03/19/18 22:15 Dose: 58 units Insulin Human Lispro (Humalog) 7 units SC ACTID [facility] Last Admin: 03/20/18 08:21 Dose: 7 units Levetiracetam (Keppra) 500 mg PO BID [facility] Last Admin: 03/20/18 08:28 Dose: 500 mg Levothyroxine Sodium (Synthroid) 125 mcg PO DAILY@0630 [facility] Last Admin: 03/20/18 06:01 Dose: 125 mcg Lidocaine (Lidoderm) 1 ea TD DAILY [facility] Last Admin: 03/20/18 08:23 Dose: 1 ea Losartan Potassium (Cozaar) 25 mg PO DAILY [facility] Last Admin: 03/20/18 08:27 Dose: 25 mg Memantine (Namenda) 5 mg PO HS [facility] Last Admin: 03/19/18 21:07 Dose: 5 mg Metoprolol Tartrate (Lopressor) 12.5 mg PO Q12 [facility] Last Admin: 03/20/18 08:23 Dose: 12.5 mg Mirtazapine (Remeron) 7.5 mg PO HS [facility] Last Admin: 03/19/18 21:07 Dose: 7.5 mg Mirtazapine (Remeron) 15 mg PO HS [facility] Last Admin: 03/19/18 21:07 Dose: 15 mg Multivitamins/Minerals (Therapeutic-M Tab) 1 tab PO DAILY [facility] Last Admin: 03/20/18 08:26 Dose: 1 tab Mupirocin (Bactroban Ointment) 1 applic TOP DAILY [facility] Last Admin: 03/20/18 09:22 Dose: 1 applic Fluticasone/Salmeterol (Advair Diskus 250/50) 1 puff IH Q12 [facility] Last Admin: 03/20/18 08:22 Dose: 1 puff Senna/Docusate Sodium (Senokot S 50 Mg-8.6 Mg) 1 tab PO HS [facility] Last Admin: 03/19/18 21:08 Dose: 1 tab Sitagliptin Phosphate (Januvia) 25 mg PO DAILY [facility] Last Admin: 03/20/18 08:25 Dose: 25 mg Spironolactone (Aldactone) 12.5 mg PO DAILY [facility] Last Admin: 03/20/18 08:30 Dose: 12.5 mg Tramadol HCl (Ultram) 50 mg PO Q4 PRN PRN Reason: Pain, severe (8-10) - Labs Labs: 03/19/18 05:25 03/19/18 05:25 PT 12.4 Seconds (9.8-13.1) 03/02/18 05:30 INR 1.1 03/02/18 05:30 APTT 27.8 Seconds (25.6-37.1) 03/02/18 05:30 - Constitutional Appears: Well, Non-toxic, No Acute Distress - Head Exam Head Exam: ATRAUMATIC, NORMOCEPHALIC - Eye Exam Eye Exam: Normal appearance - ENT Exam ENT Exam: Mucous Membranes Moist - Respiratory Exam Respiratory Exam: Clear to Ausculation Bilateral, NORMAL BREATHING PATTERN. absent: Decreased Breath Sounds, Rales, Rhonchi, Wheezes - Cardiovascular Exam Cardiovascular Exam: REGULAR RHYTHM, +S1, +S2 - GI/Abdominal Exam GI & Abdominal Exam: Soft, Normal Bowel Sounds. absent: Firm, Guarding, Rigid - Extremities Exam Additional comments: Left: improvement to flexion of left knee with increased strength, hip flexion intact, Graded muscle strength LLE 3/5, RLE 4/5, left ankle in planterflexed position, sensation to touch intact - Back Exam Back Exam: absent: CVA tenderness (L), CVA tenderness (R) - Neurological Exam Neurological Exam: Alert, Awake, Oriented x3 - Psychiatric Exam Psychiatric exam: Normal Affect, Normal Mood - Skin Skin Exam: Normal Color Assessment and Plan - Assessment and Plan (Free Text) Assessment: 77 yr old female with past medical history of PMHx includes CAD s/p CABG (Nov 2017), pacemaker, HTN, HLD, IDDM type 2, hypothyroidism, Systolic CHF, asthma, depression and anxiety was admitted to acute rehab for PT/OT s/p large subdural hematoma due to mechanical fall. Patient was in ICU for 4 days where she remained with no neurological deficits. For the last week, patient was experiencing left lower extremity weakness along with left foot drop while in acute rehab. Patient having difficulty performing physical therapy of left lower extremity due to weakness and would benefit from further therapy. MRI was unable to be performed due to patient's pacemaker, therefore CT of the head was ordered for interval follow up. Today she denies any complaints of chest pain, shortness of breath, nausea, vomiting, urinary symptoms. Patient's left lower extremity weakness has mildly improved with physical therapy and it is recommended she continue therapy at [facility]. Patient is pending transfer to [facility] tomorrow for continued rehabilitation. Plan: Left Lower Extremity Weakness -acute, increased, likely secondary reactive cerebral edema -Head CT (03/14/18)- slight interval decrease in amount of persistent right interhemispheric and left tentorial subdural hemorrhage -Venous Duplex (03/12/18)- negative for DVT -monitor patient -Neurology consult- Dr Mills/Dr. Franklin recommendations appreciated - started on Keppra -EEG (03/14/18)- negative for seizure activity -unable to obtain MRI due to pacemaker -CT Lumbar spine: no acute lumbar spine abnormality, mild stenosis of the L3-4, marked stenosis of the L4-5 Subdural Hematoma -acute, stable, improving -Head CT (03/14/18)- slight interval decrease in amount of persistent right interhemispheric and left tentorial subdural hemorrhage -neuro checks Q-shift -hold plavix for 4 weeks (restart mar 28, 2018) -restarted ASA 03/13/18 as per Neurology recommendation - Dr. Mills Right Shoulder pain -acute, symptomatic -Cervical CT: no acute fractures / Right Shoulder X-ray: no acute fractures -Lidoderm patch ordered for patient, Tylenol PRN moderate, Tramadol PRN severe -Pain management- Dr. Gastelum, recommendations appreciated, s/p shoulder injection Right Ankle Wound - acute, not infected, improving - dressing changes with Bactroban and Allevyn pads IDDM Type 2 -chronic and uncontrolled -HbA1c 9.4 on 02/26/18 -Hypoglycemia protocol in place -Accuchecks ACHS, Levemir 50 units SCHS, Januvia 25mg PO QD, humalog TID- Levemir changed due to decreased blood sugar levels -moderate carbohydrate diet/heart healthy diet Depression -chronic, uncontrolled -Remeron 22.5 mg PO QHS and Lexapro 10 mg PO QD -Psych consult- Dr. Gorman, recommendations appreciated- increase Remeron dosage -patient in better spirits Hypothyrodism -chronic, controlled -TSH 2.65 on 02/26/18 -continue Levothyroxine 125 mcg PO QD HTN/HLD/CAD -chronic, controlled -Metoprolol 12.5mg PO Q12 -s/p CABG 11/2017 Systolic CHF -chronic, controlled, s/p pacemaker -ECHO 02/2018: systolic dysfunction EF 25-30% -continue lasix 40mg PO QD, per Dr. Petersen, started Losartan 25mg PO QD, Spironolactone 12.5mg PO QD Asthma/COPD -controlled -continue Ventolin HFA PRN, Advair 250/50 1puff Q12 DVT prophylaxis -SCDs for now, recent subdural hematoma -hold plavix for 4 weeks -restarted ASA 03/13/18 as per Neurology recommendation - Dr. Mills
--- NOTE | 2018-03-20 12:24 | CT ---
Date of service: 03/19/2018 PROCEDURE: CT Lumbar Spine without contrast HISTORY: Left lower extremity weakness. COMPARISON: None available. TECHNIQUE: Axial computed tomography images were obtained of the lumbar spine without the use of intravenous contrast. Coronal and sagittal reformatted images were created and reviewed. Radiation dose: Total exam DLP = 889.21 mGy-cm. This CT exam was performed using one or more of the following dose reduction techniques: Automated exposure control, adjustment of the mA and/or kV according to patient size, and/or use of iterative reconstruction technique. FINDINGS: VERTEBRAE: No acute compression fractures nor retropulsed fragments. Vertebral bodies exhibit normal stature. Minimal anterior subluxation L4 over L5 normally aligned vertebral bodies otherwise exhibit normal alignment. DISCS/SPINAL CANAL/NEURAL FORAMINA: At the L5-S1 level, there is mild disc space narrowing more so along the posterior disc margin with small amount of vacuum phenomena.. There is mild asymmetric broad-based disc bulge larger on the right than left with extension slightly into the proximal inferior margins of the right exit foramen. The facet joints also mildly hypertrophic. There is mild right-sided lateral recess stenosis and minor left lateral recess stenosis. Central canal measured at midline adequate. Exit foramina are stenotic bilaterally. At the L4-L5 level, there is minimal anterior subluxation L4 over L5... Minor posterior disc space narrowing. There is broad-based disc bulge which extends into the proximal inferior margins of both exit foramina more so on the left than the right. Facets are hypertrophic and flavum are also buckled. Bilateral lateral recess stenosis. The central canal measured at midline appears adequate however the facet joints and above the ligamentum flavum compress the posterolateral borders of the thecal sac as well... Exit foramina appear narrowed left. Right exit foramen is marginal to minimally narrowed. At the L3-L4 level, there is minor posterior disc space narrowing. Minimal broad-based bulge of the posterior annulus most pronounced within the proximal exit foramina left greater than right. The facets also hypertrophic with mild buckled ligamentum flavum. The lateral recesses are marginal. Central canal measured at midline appears adequate. Mild compressive effects on the posterolateral borders of the thecal sac due to overgrown facets and buckled ligamentum flavum changes. Exit foramina appear marginal to slightly narrowed more so on the left Mild degenerative changes both SI joints right greater than left. PARASPINAL SOFT TISSUES: Unremarkable. OTHER FINDINGS: Numerous colonic diverticula seen along the sigmoid colon. IMPRESSION: No acute fractures. Multilevel degenerative spondylosis as above. Diverticulosis without definitive radiographic evidence of acute diverticulitis.
[2018-03-20] MEDS: Docusate-Senna 50 mg-8.6 mg Tab PO SCH (21:24)
[2018-03-20] MEDS ORDERED: Insulin Detemir 100 Units/ml Inj SC SCH (22:00)
[2018-03-21] MEDS: Levothyroxine 125 MCG TAB PO SCH (06:35)
[2018-03-21] MEDS: Insulin Lispro (humaLOG) 100 Units/ml Inj SC SCH ×3 (08:33→17:02)
[2018-03-21] MEDS: Fluticasone-Salmeterol 250-50mcg Diskus IH SCH (08:35)
[2018-03-21] MEDS: Mupirocin 2% Oint 1GM UD TOP SCH (08:36)
[2018-03-21] MEDS: Multivitamin With Minerals Tab PO SCH (08:39)
[2018-03-21] MEDS: Lidocaine 5% Patch TD SCH (08:40)
[2018-03-21 08:41] VITALS: BP 142/72
[2018-03-21 08:44] VITALS: RESP 19; TEMP 97.3
--- NOTE | 2018-03-21 09:57 | CP.PCM.DIS ---
Provider - Provider Date of Admission: 02/28/18 19:18 Attending physician: Donell Cornejo MD Primary care physician: Dr. Donell Cornejo Consults: 02/28/18 20:11 Physiatry Consult Routine Comment: Consulting Provider: Bud Gastelum Consulting Physician: Bud Gastelum Reason for Consult: rehab 02/28/18 20:46 Case Management Referral Routine Comment: Physician Instructions: Reason For Exam: Reason for Referral: Discharge Planning 03/01/18 02:50 Pharmacist Consult As Ordered Comment: Physician Instructions: Reason For Exam: More than 10 meds 03/11/18 14:06 Psychiatry Consult Routine Comment: eval and tx for depression Consulting Provider: Janine Gorman Consulting Physician: Janine Gorman Reason for Consult: eval tx for depression. per patient "im depressed" 03/13/18 12:38 Neurology Consult Routine Comment: Consulting Provider: Jacob Mills Consulting Physician: Jacob Mills Reason for Consult: Left sided weakness Time Spent in preparation of Discharge (in minutes): 30 Hospital Course - Lab Results Lab Results: Most Recent Lab Values WBC 6.7 K/uL (4.8-10.8) 03/19/18 05:25 RBC 3.60 Mil/uL (3.80-5.20) L 03/19/18 05:25 Hgb 10.7 g/dL (12.0-16.0) L 03/19/18 05:25 Hct 31.5 % (34.0-47.0) L 03/19/18 05:25 MCV 87.3 fl (81.0-99.0) D 03/19/18 05:25 MCH 29.8 pg (27.0-31.0) 03/19/18 05:25 MCHC 34.1 g/dL (33.0-37.0) 03/19/18 05:25 RDW 16.9 % (11.5-14.5) H 03/19/18 05:25 Plt Count 343 K/uL (130-400) 03/19/18 05:25 MPV 8.2 fl (7.2-11.7) 03/02/18 05:30 Neut % (Auto) 60.5 % (50.0-75.0) 03/02/18 05:30 Lymph % (Auto) 17.3 % (20.0-40.0) L 03/02/18 05:30 Clark % (Auto) 14.8 % (0.0-10.0) H 03/02/18 05:30 Eos % (Auto) 6.3 % (0.0-4.0) H 03/02/18 05:30 Baso % (Auto) 1.1 % (0.0-2.0) 03/02/18 05:30 Neut # (Auto) 2.7 K/uL (1.8-7.0) 03/02/18 05:30 Lymph # (Auto) 0.8 K/uL (1.0-4.3) L 03/02/18 05:30 Clark # (Auto) 0.7 K/uL (0.0-0.8) 03/02/18 05:30 Eos # (Auto) 0.3 K/uL (0.0-0.7) 03/02/18 05:30 Baso # (Auto) 0.0 K/uL (0.0-0.2) 03/02/18 05:30 PT 12.4 Seconds (9.8-13.1) 03/02/18 05:30 INR 1.1 03/02/18 05:30 APTT 27.8 Seconds (25.6-37.1) 03/02/18 05:30 Sodium 137 mmol/l (132-148) 03/19/18 05:25 Potassium 4.5 MMOL/L (3.6-5.0) 03/19/18 05:25 Chloride 100 mmol/L (98-107) 03/19/18 05:25 Carbon Dioxide 25 mmol/L (22-30) 03/19/18 05:25 Anion Gap 17 (10-20) 03/19/18 05:25 BUN 24 mg/dl (7-17) H 03/19/18 05:25 Creatinine 1.1 mg/dl (0.7-1.2) 03/19/18 05:25 Est GFR ( Amer) 58 03/19/18 05:25 Est GFR (Non-Af Amer) 48 03/19/18 05:25 POC Glucose (mg/dL) 186 mg/dL (65-110) H 03/21/18 08:25 Random Glucose 58 mg/dL (65-105) L 03/19/18 05:25 Calcium 9.5 mg/dL (8.4-10.2) 03/19/18 05:25 Total Bilirubin 0.3 mg/dl (0.2-1.3) 03/19/18 05:25 AST 22 U/L (14-36) 03/19/18 05:25 ALT 23 U/L (9-52) 03/19/18 05:25 Alkaline Phosphatase 60 U/L (38-126) 03/19/18 05:25 Total Protein 6.6 G/DL (6.3-8.2) 03/19/18 05:25 Albumin 3.8 g/dL (3.5-5.0) 03/19/18 05:25 Globulin 2.8 gm/dL (2.2-3.9) 03/19/18 05:25 Albumin/Globulin Ratio 1.4 (1.0-2.1) 03/19/18 05:25 - Hospital Course Hospital Course: 77 yr old female with past medical history of PMHx includes CAD s/p CABG (Nov 2017), pacemaker, HTN, HLD, IDDM type 2, hypothyroidism, Systolic CHF, asthma, depression and anxiety was admitted to acute rehab for PT/OT s/p large subdural hematoma due to mechanical fall. Patient was in ICU for 4 days where she remained with no neurological deficits. For the last week, patient was experiencing left lower extremity weakness along with left foot drop while in acute rehab. Patient improving with physical therapy at this time, and would benefit from further therapy. MRI was unable to be performed due to patient's pacemaker, therefore CT of the head was ordered for interval follow up. Today she denies any complaints of chest pain, shortness of breath, nausea, vomiting, urinary symptoms. Patient's left lower extremity weakness has mildly improved with physical therapy and it is recommended she continue therapy at [facility]. Patient is to be transferred to [facility] today for continued rehabilitation. Plan: Left Lower Extremity Weakness -acute, increased, likely secondary reactive cerebral edema -Head CT (03/14/18)- slight interval decrease in amount of persistent right interhemispheric and left tentorial subdural hemorrhage -Venous Duplex (03/12/18)- negative for DVT -monitor patient -Neurology consult- Dr Mills/Dr. Franklin recommendations appreciated - started on Keppra -EEG (03/14/18)- negative for seizure activity -unable to obtain MRI due to pacemaker -CT Lumbar spine: no acute lumbar spine abnormality, mild stenosis of the L3-4, marked stenosis of the L4-5 Subdural Hematoma -acute, stable, improving -Head CT (03/14/18)- slight interval decrease in amount of persistent right interhemispheric and left tentorial subdural hemorrhage -neuro checks Q-shift -hold plavix for 4 weeks (restart mar 28, 2018) -restarted ASA 03/13/18 as per Neurology recommendation - Dr. Mills Right Shoulder pain -acute, symptomatic -Cervical CT: no acute fractures / Right Shoulder X-ray: no acute fractures -Lidoderm patch ordered for patient, Tylenol PRN moderate, Tramadol PRN severe -Pain management- Dr. Gastelum, recommendations appreciated, s/p shoulder injection Right Ankle Wound - acute, not infected, improving - dressing changes with Bactroban and Allevyn pads IDDM Type 2 -chronic and uncontrolled -HbA1c 9.4 on 02/26/18 -Hypoglycemia protocol in place -Accuchecks ACHS, Levemir 50 units SCHS, Januvia 25mg PO QD, humalog TID- Levemir to be changed due to decreased blood sugar levels -moderate carbohydrate diet/heart healthy diet Depression -chronic, uncontrolled -Remeron 22.5 mg PO QHS and Lexapro 10 mg PO QD -Psych consult- Dr. Gorman, recommendations appreciated- increase Remeron dosage -patient in better spirits Hypothyrodism -chronic, controlled -TSH 2.65 on 02/26/18 -continue Levothyroxine 125 mcg PO QD HTN/HLD/CAD -chronic, controlled -Metoprolol 12.5mg PO Q12 -s/p CABG 11/2017 Systolic CHF -chronic, controlled, s/p pacemaker -ECHO 02/2018: systolic dysfunction EF 25-30% -continue lasix 40mg PO QD, per Dr. Petersen, started Losartan 25mg PO QD, Spironolactone 12.5mg PO QD Asthma/COPD -controlled -continue Ventolin HFA PRN, Advair 250/50 1puff Q12 DVT prophylaxis -SCDs for now, recent subdural hematoma -hold plavix for 4 weeks- RESTART MAR 28, 2018 -restarted ASA 03/13/18 as per Neurology recommendation - Dr. Mills - Date & Time of H&P Date of H&P: 03/21/18 Time of H&P: 09:56 Discharge Exam - Head Exam Head Exam: ATRAUMATIC, NORMOCEPHALIC - Eye Exam Eye Exam: Normal appearance - ENT Exam ENT Exam: Mucous Membranes Moist - Neck Exam Neck exam: Full Rom - Respiratory Exam Respiratory Exam: Clear to PA & Lateral, UNREMARKABLE. absent: Rales, Rhonchi, Wheezes - Cardiovascular Exam Cardiovascular Exam: REGULAR RHYTHM, +S1, +S2 - GI/Abdominal Exam GI & Abdominal Exam: Normal Bowel Sounds, Soft. absent: Distended, Firm, Guarding - Extremities Exam Extremities exam: normal capillary refill, tenderness Additional comments: Left: improvement to flexion of left knee, hip flexion intact, Graded muscle strength LLE 3/5, RLE 4/5, left ankle in planterflexed position, sensation to touch intact Scab noted to the Right lateral malleolus, no drainage, no bleeding, no clinical signs of infection - Neurological Exam Neurological exam: Alert, Oriented x3 - Psychiatric Exam Psychiatric exam: Normal Affect, Normal Mood - Skin Skin Exam: Normal Color Discharge Plan - Follow Up Plan Condition: GOOD Disposition: REHAB FACILITY/REHAB UNIT Patient education suggested?: Yes Instructions: Diabetic Ketoacidosis (DC), Diabetic Ketoacidosis (GEN), Type 2 Diabetes, Hyperglycemia, Adult, Coronary Heart Disease (DC), Traumatic Brain Injury (DC) Referrals: Donell Cornejo MD [Staff Provider] - Jacob Mills MD [Medical Doctor] - Mohinder Foley MD [Medical Doctor] -
--- NOTE | 2018-03-21 13:56 | CP.PCM.PN ---
Subjective - Date & Time of Evaluation Date of Evaluation: 03/21/18 Time of Evaluation: 13:53 - Subjective Subjective: 77 yr old female with past medical history of PMHx includes CAD s/p CABG (Nov 2017), pacemaker, HTN, HLD, IDDM type 2, hypothyroidism, Systolic CHF, asthma, depression and anxiety was admitted to acute rehab for PT/OT s/p large subdural hematoma due to mechanical fall. Patient was in ICU for 4 days where she remained with no neurological deficits. For the last week, patient was experiencing left lower extremity weakness along with left foot drop while in acute rehab. Patient minimally improving with physical therapy at this time, and would benefit from further therapy. MRI was unable to be performed due to patient's pacemaker, therefore CT of the head was ordered for interval follow up. Patient is refusing discharge to [facility] at this time. Patient stating she would like to be discharged home. New Psychology consult has been placed to assess patient's mental capacity and ability to make decisions. Objective - Vital Signs/Intake and Output Vital Signs (last 24 hours): Temp Pulse Resp BP Pulse Ox 97.3 F L 92 H 19 142/72 99 03/21/18 08:44 03/21/18 08:44 03/21/18 08:44 03/21/18 08:44 03/21/18 08:44 - Medications Medications: Current Medications Acetaminophen (Tylenol 325mg Tab) 650 mg PO Q6 PRN PRN Reason: Pain, moderate (4-7) Albuterol (Ventolin Hfa 90 Mcg/Actuation (8 G)) 2 puff IH Q6 PRN PRN Reason: Shortness of Breath Last Admin: 03/10/18 14:52 Dose: 2 puff Aspirin (Aspirin Chewable) 81 mg PO DAILY [facility] Last Admin: 03/21/18 08:39 Dose: 81 mg Atorvastatin Calcium (Lipitor) 40 mg PO HS [facility] Last Admin: 03/20/18 21:23 Dose: 40 mg Benzonatate (Tessalon Perles) 100 mg PO Q8 PRN PRN Reason: Cough Last Admin: 03/21/18 08:36 Dose: 100 mg Dextrose (Dextrose 50% Inj) 0 ml IV STAT PRN; Protocol PRN Reason: Hypoglycemia Protocol Dextrose (Glutose 15) 0 gm PO ONCE PRN; Protocol PRN Reason: Hypoglycemia Protocol Docusate Sodium (Colace) 100 mg PO DAILY [facility] Last Admin: 03/21/18 08:36 Dose: 100 mg Escitalopram Oxalate (Lexapro) 10 mg PO DAILY [facility] Last Admin: 03/21/18 08:40 Dose: 10 mg Famotidine (Pepcid) 20 mg PO DAILY [facility] Last Admin: 03/21/18 08:41 Dose: 20 mg Furosemide (Lasix) 40 mg PO DAILY [facility] Last Admin: 03/21/18 08:36 Dose: 40 mg Glucagon (Glucagen Diagnostic Kit) 0 mg IM STAT PRN; Protocol PRN Reason: Hypoglycemia Protocol Insulin Detemir (Levemir) 50 units SC HS [facility] Last Admin: 03/20/18 22:14 Dose: 50 units Insulin Human Lispro (Humalog) 7 units SC ACTID [facility] Last Admin: 03/21/18 12:35 Dose: 7 units Levetiracetam (Keppra) 500 mg PO BID [facility] Last Admin: 03/21/18 08:36 Dose: 500 mg Levothyroxine Sodium (Synthroid) 125 mcg PO DAILY@0630 [facility] Last Admin: 03/21/18 06:35 Dose: 125 mcg Lidocaine (Lidoderm) 1 ea TD DAILY [facility] Last Admin: 03/21/18 08:40 Dose: 1 ea Losartan Potassium (Cozaar) 25 mg PO DAILY [facility] Last Admin: 03/21/18 08:40 Dose: 25 mg Memantine (Namenda) 5 mg PO HS [facility] Last Admin: 03/20/18 21:24 Dose: 5 mg Metoprolol Tartrate (Lopressor) 12.5 mg PO Q12 [facility] Last Admin: 03/21/18 08:41 Dose: 12.5 mg Mirtazapine (Remeron) 7.5 mg PO HS [facility] Last Admin: 03/20/18 21:23 Dose: 7.5 mg Mirtazapine (Remeron) 15 mg PO HS [facility] Last Admin: 03/20/18 21:23 Dose: 15 mg Multivitamins/Minerals (Therapeutic-M Tab) 1 tab PO DAILY [facility] Last Admin: 03/21/18 08:39 Dose: 1 tab Mupirocin (Bactroban Ointment) 1 applic TOP DAILY [facility] Last Admin: 03/21/18 08:36 Dose: 1 applic Fluticasone/Salmeterol (Advair Diskus 250/50) 1 puff IH Q12 [facility] Last Admin: 03/21/18 08:35 Dose: 1 puff Senna/Docusate Sodium (Senokot S 50 Mg-8.6 Mg) 1 tab PO HS [facility] Last Admin: 03/20/18 21:24 Dose: 1 tab Sitagliptin Phosphate (Januvia) 25 mg PO DAILY [facility] Last Admin: 03/21/18 08:36 Dose: 25 mg Spironolactone (Aldactone) 12.5 mg PO DAILY [facility] Last Admin: 03/21/18 08:39 Dose: 12.5 mg Tramadol HCl (Ultram) 50 mg PO Q4 PRN PRN Reason: Pain, severe (8-10) - Labs Labs: 03/19/18 05:25 03/19/18 05:25 PT 12.4 Seconds (9.8-13.1) 03/02/18 05:30 INR 1.1 03/02/18 05:30 APTT 27.8 Seconds (25.6-37.1) 03/02/18 05:30 - Constitutional Appears: Well, Non-toxic, No Acute Distress - Head Exam Head Exam: ATRAUMATIC, NORMOCEPHALIC - Extremities Exam Additional comments: Left: improvement to flexion of left knee, hip flexion intact, Graded muscle strength LLE 3/5, RLE 4/5, left ankle in planterflexed position, sensation to touch intact Scab noted to the Right lateral malleolus, no drainage, no bleeding, no clinical signs of infection - Neurological Exam Neurological Exam: Alert, Awake, Oriented x3 - Psychiatric Exam Psychiatric exam: Normal Affect, Normal Mood Assessment and Plan - Assessment and Plan (Free Text) Assessment: 77 yr old female with past medical history of PMHx includes CAD s/p CABG (Nov 2017), pacemaker, HTN, HLD, IDDM type 2, hypothyroidism, Systolic CHF, asthma, depression and anxiety was admitted to acute rehab for PT/OT s/p large subdural hematoma due to mechanical fall. Patient was in ICU for 4 days where she remained with no neurological deficits. For the last week, patient was experiencing left lower extremity weakness along with left foot drop while in acute rehab. Patient minimally improving with physical therapy at this time, and would benefit from further therapy. MRI was unable to be performed due to patient's pacemaker, therefore CT of the head was ordered for interval follow up. Patient is refusing discharge to [facility] at this time. Patient stating she would like to be discharged home. New Psychology consult has been placed to asses patient's mental capacity and ability to make decisions. Plan: Left Lower Extremity Weakness -acute, increased, likely secondary reactive cerebral edema -Head CT (03/14/18)- slight interval decrease in amount of persistent right interhemispheric and left tentorial subdural hemorrhage -Venous Duplex (03/12/18)- negative for DVT -monitor patient -Neurology consult- Dr Mills/Dr. Franklin recommendations appreciated - started on Keppra -EEG (03/14/18)- negative for seizure activity -unable to obtain MRI due to pacemaker -CT Lumbar spine: no acute lumbar spine abnormality, mild stenosis of the L3-4, marked stenosis of the L4-5 Subdural Hematoma -acute, stable, improving -Head CT (03/14/18)- slight interval decrease in amount of persistent right interhemispheric and left tentorial subdural hemorrhage -neuro checks Q-shift -hold plavix for 4 weeks (restart mar 28, 2018) -restarted ASA 03/13/18 as per Neurology recommendation- Dr. Mills Right Shoulder pain -acute, symptomatic -Cervical CT: no acute fractures / Right Shoulder X-ray: no acute fractures -Lidoderm patch ordered for patient, Tylenol PRN moderate, Tramadol PRN severe -Pain management- Dr. Gastelum, recommendations appreciated, s/p shoulder injection Right Ankle Wound - acute, not infected, improving - dressing changes with Bactroban and Allevyn pads IDDM Type 2 -chronic and uncontrolled -HbA1c 9.4 on 02/26/18 -Hypoglycemia protocol in place -Accuchecks ACHS, Levemir 46 units SCHS, Januvia 25mg PO QD, humalog TID- Lev vincent to be changed due to decreased blood sugar levels -moderate carbohydrate diet/heart healthy diet Depression -chronic, uncontrolled -Remeron 22.5 mg PO QHS and Lexapro 10 mg PO QD -Psych consult- Dr. Gorman, recommendations appreciated- increase Remeron dosage -New Psychology consult placed to assess patient's ability to make decisions, patient will be seen tomorrow by Dr. Badr Hypothyrodism -chronic, controlled -TSH 2.65 on 02/26/18 -continue Levothyroxine 125 mcg PO QD HTN/HLD/CAD -chronic, controlled -Metoprolol 12.5mg PO Q12 -s/p CABG 11/2017 Systolic CHF -chronic, controlled, s/p pacemaker -ECHO 02/2018: systolic dysfunction EF 25-30% -continue lasix 40mg PO QD, per Dr. Petersen, started Losartan 25mg PO QD, Spironolactone 12.5mg PO QD Asthma/COPD -controlled -continue Ventolin HFA PRN, Advair 250/50 1puff Q12 DVT prophylaxis -SCDs for now, recent subdural hematoma -hold plavix for 4 weeks- RESTART MAR 28, 2018 -restarted ASA 03/13/18 as per Neurology recommendation - Dr. Mills
[2018-03-21 16:20] VITALS: PULSE 84; O2SAT 98
--- NOTE | 2018-03-21 16:45 | CP.PCM.HP ---
History of Present Illness - History of Present Illness History of Present Illness: 77 yr old female with past medical history of PMHx includes CAD s/p CABG (Nov 2017), pacemaker, HTN, HLD, IDDM type 2, hypothyroidism, Systolic CHF, asthma, depression and anxiety was admitted to acute rehab for PT/OT s/p large subdural hematoma due to mechanical fall. Patient was in ICU for 4 days where she remained with no neurological deficits. For the last week, patient was experiencing left lower extremity weakness along with left foot drop while in acute rehab. Patient improving with physical therapy at this time, and would benefit from further therapy. MRI was unable to be performed due to patient's pacemaker, therefore CT of the head was ordered for interval follow up. Today she denies any complaints of chest pain, shortness of breath, nausea, vomiting, urinary symptoms. Patient's left lower extremity weakness has mildly improved with physical therapy and it is recommended she continue therapy at [facility] [place]. Patient is to be transferred to [facility] today for continued rehabilitation. Past Patient History - Tetanus Immunizations Tetanus Immunization: Up to Date - Past Medical History & Family History Past Medical History?: Yes - Past Social History Smoking Status: Never Smoked - CARDIAC Hx Cardiac Disorders: Yes Hx Congestive Heart Failure: Yes Hx Hypercholesterolemia: Yes Hx Hypertension: Yes - PULMONARY Hx Chronic Obstructive Pulmonary Disease (COPD): Yes - NEUROLOGICAL Hx Neurological Disorder: No - HEENT Hx HEENT Problems: No - RENAL Hx Chronic Kidney Disease: No - ENDOCRINE/METABOLIC Hx Diabetes Mellitus Type 2: Yes - HEMATOLOGICAL/ONCOLOGICAL Hx AIDS: No Hx Blood Transfusions: Yes Hx Human Immunodeficiency Virus (HIV): No - INTEGUMENTARY Hx Dermatological Problems: No - MUSCULOSKELETAL/RHEUMATOLOGICAL Hx Arthritis: Yes (R shldr, C-spine) - GASTROINTESTINAL Hx Ulcer: Yes - GENITOURINARY/GYNECOLOGICAL Hx Genitourinary Disorders: No - PSYCHIATRIC Hx Depression: Yes Hx Substance Use: No - SURGICAL HISTORY Hx Coronary Artery Bypass Graft: Yes (11/2017) Hx Coronary Stent: Yes (x4) - ANESTHESIA Hx Anesthesia: Yes Hx Anesthesia Reactions: No Hx Malignant Hyperthermia: No Has any member of the family had a problem w/ anesthesia?: No Meds Home Medications: Home Medication List Medication Instructions Recorded Confirmed Type Aspirin [Aspirin Chewable] 81 mg PO DAILY chew 03/21/18 Rx Dextrose 50% [Dextrose 50% Inj] 0 ml IV STAT PRN syr 03/21/18 Rx Dextrose Oral [Glutose 15] 0 gm PO ONCE PRN tube 03/21/18 Rx Docusate Sodium/Sennosides A 1 tab PO HS tab 03/21/18 Rx [Senokot S 50 MG-8.6 MG] Docusate [Colace] 100 mg PO DAILY cap 03/21/18 Rx Famotidine [Pepcid] 20 mg PO DAILY tab 03/21/18 Rx Glucagon [Glucagen Diagnostic Kit] 0 mg IM STAT PRN vial 03/21/18 Rx Insulin Detemir [Levemir] 46 unit SC HS #100 units 03/21/18 Rx Insulin Lispro [Humalog (Insulin 7 unit SQ TID #1 cartridge 03/21/18 Rx Lispro)] Losartan [Cozaar] 25 mg PO DAILY tab 03/21/18 Rx Mirtazapine [Remeron] 7.5 mg PO HS tab 03/21/18 Rx Mirtazapine [Remeron] 15 mg PO HS tab 03/21/18 Rx Multimineral/Multivitamin 1 tab PO DAILY tab 03/21/18 Rx [Therapeutic-M Tab] Mupirocin 2% Oint UD [Bactroban 1 applic TOP DAILY ea 03/21/18 Rx Ointment] levETIRAcetam [Keppra] 500 mg PO BID tab 03/21/18 Rx Allergies/Adverse Reactions: Allergies Allergy/AdvReac Type Severity Reaction Status Date / Time No Known Allergies Allergy Verified 02/28/18 19:18 Physical Exam - Constitutional Appears: No Acute Distress - Head Exam Head Exam: NORMAL INSPECTION, NORMOCEPHALIC - Eye Exam Eye Exam: Normal appearance - Neck Exam Neck exam: Positive for: Normal Inspection - Respiratory Exam Respiratory Exam: Clear to Auscultation Bilateral, NORMAL BREATHING PATTERN. absent: Rhonchi, Wheezes - Cardiovascular Exam Cardiovascular Exam: REGULAR RHYTHM, +S1 - GI/Abdominal Exam GI & Abdominal Exam: Normal Bowel Sounds, Soft. absent: Tenderness - Extremities Exam Extremities exam: Positive for: normal inspection Additional comments: Left: improvement to flexion of left knee with increased strength, hip flexion intact, Graded muscle strength LLE 3/5, RLE 4/5, left ankle in planterflexed position, sensation to touch intact - Back Exam Back exam: NORMAL INSPECTION - Neurological Exam Neurological exam: Alert, CN II-XII Intact, Oriented x3 - Skin Skin Exam: Normal Color, Warm Results - Vital Signs Recent Vital Signs: Last Vital Signs Temp 97.3 F L 03/21/18 08:44 Pulse 84 03/21/18 16:07 Resp 19 03/21/18 08:44 BP 142/72 03/21/18 08:44 Pulse Ox 98 03/21/18 16:07 - Labs Result Diagrams: 03/19/18 05:25 03/19/18 05:25 Labs: Laboratory Results - last 24 hr 03/20/18 03/21/18 03/21/18 20:53 06:37 07:04 POC Glucose (mg/dL) 102 65 106 03/21/18 03/21/18 08:25 11:50 POC Glucose (mg/dL) 186 H 263 H Assessment & Plan - Assessment and Plan (Free Text) Assessment: Plan: Left Lower Extremity Weakness -acute, increased, likely secondary reactive cerebral edema -Head CT (03/14/18)- slight interval decrease in amount of persistent right inte rhemispheric and left tentorial subdural hemorrhage -Venous Duplex (03/12/18)- negative for DVT -monitor patient -Neurology consult- Dr Mills/Dr. Franklin recommendations appreciated - started on Keppra -EEG (03/14/18)- negative for seizure activity -unable to obtain MRI due to pacemaker -CT Lumbar spine: no acute lumbar spine abnormality, mild stenosis of the L3-4, marked stenosis of the L4-5 Subdural Hematoma -acute, stable, improving -Head CT (03/14/18)- slight interval decrease in amount of persistent right interhemispheric and left tentorial subdural hemorrhage -neuro checks Q-shift -hold plavix for 4 weeks (restart mar 28, 2018) -restarted ASA 03/13/18 as per Neurology recommendation - Dr. Mills Right Shoulder pain -acute, symptomatic -Cervical CT: no acute fractures / Right Shoulder X-ray: no acute fractures -Lidoderm patch ordered for patient, Tylenol PRN moderate, Tramadol PRN severe -Pain management- Dr. Gastelum, recommendations appreciated, s/p shoulder injection Right Ankle Wound - acute, not infected, improving - dressing changes with Bactroban and Allevyn pads IDDM Type 2 -chronic and uncontrolled -HbA1c 9.4 on 02/26/18 -Hypoglycemia protocol in place -Accuchecks ACHS, Levemir 50 units SCHS, Januvia 25mg PO QD, humalog TID- Levemir to be changed due to decreased blood sugar levels -moderate carbohydrate diet/heart healthy diet Depression -chronic, uncontrolled -Remeron 22.5 mg PO QHS and Lexapro 10 mg PO QD -Psych consult- Dr. Gorman, recommendations appreciated- increase Remeron dosage -patient in better spirits Hypothyrodism -chronic, controlled -TSH 2.65 on 02/26/18 -continue Levothyroxine 125 mcg PO QD HTN/HLD/CAD -chronic, controlled -Metoprolol 12.5mg PO Q12 -s/p CABG 11/2017 - Restart plavix on 03/28/18 Systolic CHF -chronic, controlled, s/p pacemaker -ECHO 02/2018: systolic dysfunction EF 25-30% -continue lasix 40mg PO QD, per Dr. Petersen, started Losartan 25mg PO QD, Spironolactone 12.5mg PO QD Asthma/COPD -controlled -continue Ventolin HFA PRN, Advair 250/50 1puff Q12 DVT prophylaxis -SCDs for now, recent subdural hematoma -hold plavix for 4 weeks- RESTART MAR 28, 2018 -restarted ASA 03/13/18 as per Neurology recommendation - Dr. Mills
[2018-03-21] MEDS ORDERED: Insulin Detemir 100 Units/ml Inj SC SCH (22:00)
== END 2018-03-21 17:25 | DRG 945 ==
PROVIDERS: ADMIT Family Medicine; ATTEND Family Medicine
PROC: 0R9J3ZX Drainage of Right Shoulder Joint, Percutaneous Approach, Diagnostic (ICD-10-PCS; principal; 2018-03-04)
PROC: F07M6FZ Therapeutic Exercise Treatment of Musculoskeletal System - Whole Body using Assistive, Adaptive, Supportive or Protective Equipment (ICD-10-PCS; 2018-03-04)
PROC: F08Z4FZ Home Management Treatment using Assistive, Adaptive, Supportive or Protective Equipment (ICD-10-PCS; 2018-03-04)
DX: S06.5X9D Traumatic subdural hemorrhage with loss of consciousness of unspecified duration, subsequent encounter (principal); G93.6 Cerebral edema; E87.2 Acidosis; I50.22 Chronic systolic (congestive) heart failure; N17.9 Acute kidney failure, unspecified; E03.9 Hypothyroidism, unspecified; E78.00 Pure hypercholesterolemia, unspecified; E78.5 Hyperlipidemia, unspecified; F03.90 Unspecified dementia, unspecified severity, without behavioral disturbance, psychotic disturbance, mood disturbance, and anxiety; F41.9 Anxiety disorder, unspecified; F43.21 Adjustment disorder with depressed mood; I11.0 Hypertensive heart disease with heart failure; I25.10 Atherosclerotic heart disease of native coronary artery without angina pectoris; I25.2 Old myocardial infarction; J44.9 Chronic obstructive pulmonary disease, unspecified; K52.9 Noninfective gastroenteritis and colitis, unspecified; K59.00 Constipation, unspecified; W19.XXXD Unspecified fall, subsequent encounter; Z79.4 Long term (current) use of insulin; Z79.899 Other long term (current) drug therapy; Z95.0 Presence of cardiac pacemaker; Z95.1 Presence of aortocoronary bypass graft; Z95.5 Presence of coronary angioplasty implant and graft; M19.90 Unspecified osteoarthritis, unspecified site; M21.372 Foot drop, left foot; W18.30XD Fall on same level, unspecified, subsequent encounter; M25.511 Pain in right shoulder; M25.512 Pain in left shoulder; R63.0 Anorexia; F32.9 Major depressive disorder, single episode, unspecified; E11.65 Type 2 diabetes mellitus with hyperglycemia